=== PATIENT | female | born 1965 | race Caucasian/White ===

== ENCOUNTER 2022-12-10 17:43 | Emergency (ER) | payer MEDICAID, SELFPAY ==
[2022-12-10 17:48] VITALS: BP 149/105; PULSE 85; RESP 14; TEMP 36.1; O2SAT 96; BMI 40.4
[2022-12-10 18:00] VITALS: BP 127/78; PULSE 87; RESP 18; O2SAT 97
--- NOTE | 2022-12-10 18:25 | CRLHL7_ITS ---
For Patients: As a result of the Century Cures Act, medical imaging exams and procedure reports are released immediately into your electronic medical record. You may view this report before your referring provider. If you have questions, please contact your health care provider. INDICATION: Leg pain and swelling. TECHNIQUE: Ultrasound venous duplex lower right extremity. Compression venous exam was performed using lang-scale, color Doppler, and spectral Doppler analysis. COMPARISON: None. FINDINGS: Deep veins: Sonographic imaging demonstrates the right common femoral, deep femoral, superficial femoral, and the contralateral left common femoral veins to be fully compressible with normal color Doppler blood flow. The right popliteal, posterior tibial, and peroneal veins are noncompressible with evidence thrombus on grayscale imaging. Superficial veins: Greater saphenous vein is fully compressible. No popliteal cyst. IMPRESSION: Deep venous thrombosis involving the right popliteal, posterior tibial, and peroneal veins. Findings conveyed to Dr. Posadas on 12/10/2022 at 19:50. Dictated by Dominik Acharya MD @ 12/10/2022 8:10:33 PM (Electronically Signed)
--- NOTE | 2022-12-10 18:32 | ED.GENADULT ---
HPI - General Adult General Chief complaint: Lower Extremity Swelling Stated complaint: Possible blood clot, Mid L leg Time Seen by Provider: 12/10/22 17:56 History of Present Illness HPI narrative: This 57-year-old female comes in reporting pain in her right leg along the posterior aspect of her calf and just above her knee. She states that she has a history of 2 prior DVTs with pulmonary emboli. She reports that she is not taking Xarelto as has been prescribed for her. She has not had her prescriptions filled as she has had a change in caregivers and location of residence. She does not report any chest pain or shortness of breath. She states that she was on a long car ride recently from the [facility]. Related Data Home Medications Medication Instructions Recorded Confirmed gabapentin 300 mg capsule 600 mg PO TID 12/10/22 12/10/22 sertraline 50 mg tablet (Zoloft) 50 mg PO DAILY 12/10/22 12/10/22 Previous Rx's Medication Instructions Recorded levothyroxine 200 mcg tablet 200 mcg PO DAILY #30 tabs 12/10/22 (Synthroid) rivaroxaban 20 mg tablet (Xarelto) 20 mg PO QPM #30 tabs 12/10/22 Allergies Allergy/AdvReac Type Severity Reaction Status Date / Time latex Allergy Unknown Itching Verified 12/10/22 17:53 Review of Systems Status of ROS: Reports: 10 or more systems reviewed and unremarkable except as noted in History and below Narrative: Constitutional: No fevers, no weight gain or loss. Eyes: No discharge. No vision changes. HENT: No congestion, no sore throat, no ear pain. Cardiovascular: No chest pain, no palpitations. Respiratory: No shortness of breath, no wheezes, no cough. Gastrointestinal: No abdominal pain, no vomiting, no diarrhea. Genitourinary: No dysuria, no hematuria. Musculoskeletal: Normal range of motion. Right leg pain. Skin: No rashes, no pruritis. Neurological: No dizziness, weakness, sensory change, speech change. Endo/Heme/Allergies: No bruising or bleeding. No polydipsia. Pysch: no suicidality, no anxiety, no insomnia. All other systems reviewed and are negative. PFSH PFSH Social History Smoking Status: Former smoker How often do you have a drink containing alcohol: never AUDIT-C Alcohol total score: 0 Non-prescribed substance use: denies use Exam Narrative: Exam Narrative: Constitutional: Well-developed, well-nourished, no acute distress. HEENT: Normocephalic, atraumatic. Neck: Normal range of motion. Nontender. Supple. Heart: Regular. No murmurs. Normal rate. Intact distal pulses. Lungs: Clear to auscultation. No chest discomfort. No wheezes, rhonchi, or rales. Abdomen: Normal bowel sounds. Nontender. No rebound tenderness. Genitalia: Deferred. Back: No midline tenderness. Normal range of motion. Extremities: Normal range of motion. No injury. Pain in the right leg in the posterior aspect. There is no obvious sign of swelling or discoloration. Skin: Intact. No rash. Warm. No erythema or pallor. Neurologic: No altered sensation. No weakness. Alert and oriented. Psychiatric: No suicidality. No anxiety or depression. No insomnia. Nursing notes and vitals signs are reviewed. Const: Vital Signs, click to edit/add: Vital Signs - 24 hr 12/10/22 17:48 12/10/22 18:00 Temperature 97.0 F L Pulse Rate [Pulse Oximeter] 85 87 Respiratory Rate 14 18 Blood Pressure [Ri t Upper Arm] 149/105 H 127/78 Pulse Oximetry 96 97 Oxygen Delivery Me thod Room Air Room Air Course Vital Signs Vital signs: Initial Vital Signs Temperature 97.0 F L 12/10/22 17:48 Temperature Source Temporal Artery Scan 12/10/22 17:48 Pulse Rate 85 12/10/22 17:48 Pulse Rhythm Regular 12/10/22 17:48 Respiratory Rate 14 12/10/22 17:48 Blood Pressure 149/105 H 12/10/22 17:48 Blood Pressure Mean 119 12/10/22 17:48 Blood Pressure Position Supine 12/10/22 17:48 Pulse Oximetry 96 12/10/22 17:48 Oxygen Delivery Method Room Air 12/10/22 17:48 Vital Signs Temperature 97.0 F L 12/10/22 17:48 Pulse Rate 85 12/10/22 17:48 Respiratory Rate 14 12/10/22 17:48 Blood Pressure 149/105 H 12/10/22 17:48 Pulse Oximetry 96 12/10/22 17:48 Oxygen Delivery Method Room Air 03/28/23 17:48 Temperature 97.0 F L 12/10/22 17:48 Pulse Rate 87 12/10/22 18:00 Respiratory Rate 18 12/10/22 18:00 Blood Pressure 127/78 12/10/22 18:00 Pulse Oximetry 97 12/10/22 18:00 Oxygen Delivery Method Room Air 12/10/22 18:00 Medical Decision Making MDM Narrative Medical decision making narrative: This patient has a history of recurrent DVTs and pulmonary emboli. She comes in with pain in her right lower extremity and is suspecting a DVT as she has not been taking any of her medications. She recently moved here and has not established medical care. Ultrasound of the right lower extremity does show evidence of deep venous thrombus. The patient does have normal vital signs. There is no tachycardia, hypotension, hypoxia, or increased respiratory rate. I did discuss the role of the CT scan of her chest with IV contrast to rule out pulmonary embolism. She declined this test knowing that this does not change her treatment plan given the reassurance of her vital signs. She received a tablet of Eliquis here and a prescription for Xarelto going forward. I stressed the importance of connecting with a primary physician for ongoing management of this and her other medications. Discharge Plan Discharge Clinical Impression: Deep venous thrombosis Patient Disposition: Home, Self-Care Condition: Stable Additional Instructions: Take medication as prescribed. Follow up with MD for establishing care and management of medications. Return if worsening. Prescriptions: New Xarelto 20 mg tablet 20 mg PO QPM Qty: 30 2RF Rx Instructions: must administer with evening meal levothyroxine [Synthroid] 200 mcg tablet 200 mcg PO DAILY Qty: 30 2RF No Action gabapentin 300 mg capsule 600 mg PO TID sertraline [Zoloft] 50 mg tablet 50 mg PO DAILY Follow Up/Referrals: Provider,Not a Local [Primary Care Provider] - Stand Alone Forms: [employer] Info Instructions
[2022-12-10 20:19] VITALS: BP 128/87; PULSE 84; RESP 16; O2SAT 97
[2022-12-10] MEDS: APIXABAN 5 MG TABLET 10 MG PO (20:31)
== END 2022-12-10 20:36 | disposition home or self-care (01) ==
PROVIDERS: Emergency Provider Emergency Medicine Emergency Medical Services
DX: I82.401 Acute embolism and thrombosis of unspecified deep veins of right lower extremity (principal)
CPT/HCPCS: 93971; 99284; A9270

== ENCOUNTER 2022-12-18 10:05 | Outpatient (CLI) | payer MEDICAID, SELFPAY | END 2022-12-18 10:06 | disposition home or self-care (01) | LOC: AMB 12-22 14:25 | PROVIDERS: PCP Student in an Organized Health Care Education/Training Program; Visit Provider Family Medicine | DX: R06.09 Other forms of dyspnea (principal); I26.99 Other pulmonary embolism without acute cor pulmonale | CPT/HCPCS: A0425; A0427 ==

== ENCOUNTER 2022-12-18 10:31 | Emergency (ER) | payer MEDICAID, SELFPAY ==
[2022-12-18] VITALS (18 sets, daily range): BP systolic 104–153; BP diastolic 57–105; PULSE 84–94; RESP 16; TEMP 35.8; O2SAT 93–97
--- NOTE | 2022-12-18 10:57 | CRLHL7_ITS ---
For Patients: As a result of the Century Cures Act, medical imaging exams and procedure reports are released immediately into your electronic medical record. You may view this report before your referring provider. If you have questions, please contact your health care provider. INDICATION: Follow-up PE. COMPARISON: CT angiogram of the chest performed on 12/16/2022 at [facility]. TECHNIQUE: CT angiogram protocol of the chest was performed following the intravenous administration of 95 mL of Isovue-370. FINDINGS: Bilateral lower lobe pulmonary emboli are unchanged. This includes emboli within the right lower lobe intralobar artery extending into the right lower lobe and right middle lobe segmental arteries. Small emboli within the left lower lobe subsegmental arteries are redemonstrated. No new pulmonary embolus is identified. The heart is normal in size. No CT scan evidence of right heart strain is noted. The thoracic aorta is unremarkable. The mediastinum has a normal appearance. No pathologically enlarged lymph nodes are identified within the chest. There are two 5 millimeter nodules within the right middle lobe (images 83 and 107, series 5). There is a 6.4 millimeter average diameter nodule within the lingula (image 106, series 5). The lungs are otherwise clear. No pulmonary consolidation. Limited views of the upper abdomen are unremarkable. No acute bone or joint abnormality is identified. Impression : 1. Unchanged bilateral pulmonary arterial emboli. 2. Bilateral pulmonary nodules with an average diameter nodule measuring 6.4 millimeters within the lingula. For patients at either low risk or high risk of pulmonary malignancy a follow-up CT scan of the chest is recommended in 3-6 months as per Fleischner criteria guidelines. Please note that all CT scans at this facility use dose modulation, iterative reconstruction, and/or weight-based dosing when appropriate to reduce radiation dose to as low as reasonably achievable. Dictated by Scotty Estevez MD @ 12/18/2022 1:01:48 PM (Electronically Signed)
--- NOTE | 2022-12-18 11:04 | ED_ITS ---
HPI - General Adult General Time Seen by Provider: 11:04 Date Seen: 12/18/22 Chief complaint: Shortness of Breath/Dyspnea Stated complaint: Bilateral PEs Time Seen by Provider: 12/18/22 10:50 Source: patient Mode of arrival: EMS Limitations: physical limitation History of Present Illness HPI narrative: The patient is a 57-year-old white female who is obese, has bipolar disorder, and was diagnosed with DVT in the ER recently as well as PE in the clinic. The patient reports she went back to clinic today with shortness of breath and had a near syncopal episode the clinic and was brought by ambulance to the hospital the patient is been very anxious regarding her situation. She wonders why ?my blood is trying to kill me?. She is awake alert nonsuicidal, non homicidal, her mental status is appropriate. The patient has started Eliquis at treatment dose. She was attempted to be admitted to the hospital service at [place] but this was declined due to the patient's hemodynamic stability. She has no lightheadedness or dizziness at present, her vital signs look reassuring at this time Related Data Home Medications Medication Instructions Recorded Confirmed gabapentin 300 mg capsule 600 mg PO TID 12/10/22 12/10/22 sertraline 50 mg tablet (Zoloft) 50 mg PO DAILY 12/10/22 12/10/22 Previous Rx's Medication Instructions Recorded levothyroxine 200 mcg tablet 200 mcg PO DAILY #30 tabs 12/10/22 (Synthroid) rivaroxaban 20 mg tablet (Xarelto) 20 mg PO QPM #30 tabs 12/10/22 Allergies Allergy/AdvReac Type Severity Reaction Status Date / Time latex Allergy Unknown Itching Verified 12/10/22 17:53 Review of Systems Status of ROS: Reports: 6 or more systems reviewed and unremarkable except as noted in History and below PFSH PFS Social History Smoking Status: Former smoker How often do you have a drink containing alcohol: never AUDIT-C Alcohol total score: 0 Non-prescribed substance use: denies use Exam Narrative: Exam Narrative: Objective: Vital signs unremarkable In general patient talks in even and nonlabored sentences she is somewhat dramatic but he is awake alert oriented in no distress now no cyanosis Neck is supple Chest clear Heart rhythm regular 2/6 systolic murmur Abdomen obese benign nontender Extremities without edema neurologic nonfocal good peripheral perfusion noted Const: Vital Signs, click to edit/add: Vital Signs - 24 hr 12/18/22 10:35 12/18/22 11:16 12/18/22 10:43 Temperature 96.5 F L Pulse Rate 87 Pulse Rate [Pulse Oximeter] 94 Respiratory Rate 16 Blood Pressure 125/57 L Blood Pressure [Ri ght Upper Arm] 124/92 H Pulse Oximetry 97 96 93 Oxygen Delivery Me thod Room Air 12/18/22 10:44 12/18/22 10:46 12/18/22 11:01 Temperature Pulse Rate 86 93 92 Pulse Rate [Pulse Oximeter] Respiratory Rate Blood Pressure 104/67 Blood Pressure [Ri ght Upper Arm] Pulse Oximetry 94 94 95 Oxygen Delivery Me thod 12/18/22 11:01 12/18/22 11:15 12/18/22 11:37 Temperature Pulse Rate 87 84 89 Pulse Rate [Pulse Oximeter] Respiratory Rate Blood Pressure Blood Pressure [Ri ght Upper Arm] Pulse Oximetry 95 95 95 Oxygen Delivery Me thod 12/18/22 12:17 12/18/22 11:46 12/18/22 12:01 Temperature Pulse Rate 85 87 Pulse Rate [Pulse Oximeter] Respiratory Rate 16 Blood Pressure Blood Pressure [Ri ght Upper Arm] Pulse Oximetry 95 95 Oxygen Delivery Me thod 12/18/22 12:02 12/18/22 12:15 Temperature Pulse Rate 86 88 Pulse Rate [Pulse Oximeter] Respiratory Rate Blood Pressure 153/105 H Blood Pressure [Ri ght Upper Arm] Pulse Oximetry 94 94 Oxygen Delivery Me thod Course Vital Signs Vital signs: Initial Vital Signs Temperature 96.5 F L 12/18/22 10:35 Temperature Source Temporal Artery Scan 12/18/22 10:35 Pulse Rate 94 12/18/22 10:35 Respiratory Rate 16 12/18/22 10:35 Blood Pressure 124/92 H 12/18/22 10:35 Blood Pressure Mean 102 12/18/22 10:35 Blood Pressure Position Sitting 12/18/22 10:35 Pulse Oximetry 97 12/18/22 10:35 Oxygen Delivery Method Room Air 12/18/22 10:35 Vital Signs Temperature 96.5 F L 12/18/22 10:35 Pulse Rate 94 12/18/22 10:35 Respiratory Rate 16 12/18/22 10:35 Blood Pressure 124/92 H 12/18/22 10:35 Pulse Oximetry 97 12/18/22 10:35 Oxygen Delivery Method Room Air 12/18/22 10:35 Temperature 96.5 F L 12/18/22 10:35 Pulse Rate 88 12/18/22 12:15 Respiratory Rate 16 12/18/22 12:17 Blood Pressure 153/105 H 12/18/22 12:02 Pulse Oximetry 94 12/18/22 12:15 Oxygen Delivery Method Room Air 12/18/22 10:35 Medical Decision Making MDM Narrative Medical decision making narrative: 57 year white female with bipolar disorder obesity and a history of DVTs in the past x4. The patient at this point as a DVT and bilateral pulmonary emboli her chart was reviewed from [facility]. Her CT scan report was reviewed. She has been started on appropriate Eliquis. Prior to that she had been on Xarelto for several years. She recently had a long trip back from [place] and may have been the source of the DVT. The patient at this point appears hemodynamically stable, does not have chest pain, does not appear markedly short of breath, her O2 sat is excellent at 97%. However given her presentation I think that repeating a CT scan to make sure she has not had increasing clot burden would be appropriate, as well as a troponin lab studies electrolytes, IV fluid. An anxiolytics would be helpful as well as she is quite anxious. She does suffer from bipolar, depression and anxiety. Disposition pending findings above Addendum: The patient's EKG shows normal sinus rhythm no acute ST T wave changes by my read, her chest CT scan shows no change in her pulmonary emboli no worsening. The patient shows no evidence of heart strain. She does have some pulmonary nodules that need follow-up in 3-[address] scan. At this point her labs look reassuring I think she can be discharged home she is much more stable after anxiety is controlled the Ativan. She will follow up with regular doctor next few days for reassessment. Return to ED sooner problems or concerns Lab Data Labs: Lab Results 12/18/22 Range/Units 11:12 WBC 8.12 (4.50-11.00) K/uL RBC 4.94 (4.00-5.20) m/uL Hgb 14.9 (12.0-16.0) gm/dL Hct 45.8 (33.0-51.0) % MCV 93 (80-100) fL MCH 30 (26-34) pg MCHC 33 (32-36) gm/dL RDW Coeff of Kemal 12.5 (11.5-15.5) % Plt Count 340 (140-440) K/uL Neut % (Auto) 61.8 (42.0-72.0) % Lymph % (Auto) 24.4 (20-44) % [place] % (Auto) 10.5 (0.0-11.0) % Eos % (Auto) 2.7 (0.0-7.0) % Baso % (Auto) 0.6 (0.0-3.0) % Neut # (Auto) 5.02 (1.7-7.0) K/uL Lymph # (Auto) 1.98 (0.90-2.90) K/uL [place] # (Auto) 0.90 (0.00-0.90) K/UL Eos # (Auto) 0.22 (0.00-0.50) K/uL Baso # (Auto) 0.05 (0.00-0.30) K/uL Sodium 138 (135-149) mmol/L Potassium 4.3 (3.6-5.1) mmol/L Chloride 107 (96-114) mmol/L Carbon Dioxide 25 (20-32) mmol/L BUN 11 (7-30) mg/dL Creatinine 0.7 (0.5-1.5) mg/dL Estimated GFR 101 ml/min Glucose 84 (60-115) mg/dL Calcium 8.6 (8.4-10.6) mg/dL Troponin I < 0.01 L (0.01-0.04) ng/mL Discharge Plan Discharge Clinical Impression: Deep venous thrombosis, Anxiety, Pulmonary embolism, Multiple pulmonary nodules Patient Disposition: Home w/ Parent or Adult Condition: Improved Additional Instructions: Light activity, continue her blood thinner, continue home meds as she has. Continue her anxiety medication. Follow up with regular doctor next 3-5 days. Need to recheck CT scan of the pulmonary nodules noted on the CT scan today within the next 3-6 months. Recommend talking to her regular doctor about this in your follow-up visit. Activity Level: Light activity Discharge Diet: Regular Prescriptions: No Action gabapentin 300 mg capsule 600 mg PO TID sertraline [Zoloft] 50 mg tablet 50 mg PO DAILY Xarelto 20 mg tablet 20 mg PO QPM Qty: 30 2RF Rx Instructions: must administer with evening meal levothyroxine [Synthroid] 200 mcg tablet 200 mcg PO DAILY Qty: 30 2RF Follow Up/Referrals: Provider,Not a Local [Referring] - Stand Alone [facility]
[2022-12-18] MEDS: LORazepam 2 MG/ML inj 1 MG IVP (11:15)
[2022-12-18] MEDS: 0.9 % SODIUM CHLORIDE 500 ML 500 ML IV (11:15)
[2022-12-18 11:41] LABS: Basophils Absolute Auto 0.05 K/uL (0.00-0.30); Basophils Percent Auto 0.6 % (0.0-3.0); Eosinophils Absolute Auto 0.22 K/uL (0.00-0.50); Eosinophils Percent Auto 2.7 % (0.0-7.0); Hematocrit 45.8 % (33.0-51.0); Hemoglobin* 14.9 gm/dL (12.0-16.0); Lymphocytes Absolute Auto 1.98 K/uL (0.90-2.90); Lymphocytes Percent Auto 24.4 % (20-44); Mean Corpuscular HGB Conc 33 gm/dL (32-36); Mean Corpuscular Hemoglobin 30 pg (26-34); Mean Corpuscular Volume 93 fL (80-100); Monocytes Percent Auto 10.5 % (0.0-11.0); Neutrophils Absolute Auto 5.02 K/uL (1.7-7.0); Neutrophils Percent Auto 61.8 % (42.0-72.0); Platelet Count* 340 K/uL (140-440); RDW Coefficient of Variation % 12.5 % (11.5-15.5); Red Blood Count 4.94 m/uL (4.00-5.20); White Blood Count* 8.12 K/uL (4.50-11.00)
[2022-12-18 11:45] LABS: Chloride* 107 mmol/L (96-114); Potassium* 4.3 mmol/L (3.6-5.1); Sodium* 138 mmol/L (135-149)
[2022-12-18 11:46] LABS: Slide Review Reflex No
[2022-12-18 11:48] LABS: Blood Urea Nitrogen* 11 mg/dL (7-30); Calcium* 8.6 mg/dL (8.4-10.6); Carbon Dioxide* 25 mmol/L (20-32); Creatinine* 0.7 mg/dL (0.5-1.5); Estimated Glomerular Filt Rate 101 ml/min; Glucose* 84 mg/dL (60-115)
[2022-12-18] MEDS: ACETAMINOPHEN 500 MG TABLET 1000 MG PO (11:48)
[2022-12-18 12:00] LABS: Troponin I* < 0.01 ng/mL (0.01-0.04)
== END 2022-12-18 13:30 | disposition home or self-care (01) ==
PROVIDERS: Emergency Provider Family Medicine; PCP Student in an Organized Health Care Education/Training Program
DX: I82.401 Acute embolism and thrombosis of unspecified deep veins of right lower extremity (principal); F41.9 Anxiety disorder, unspecified; I26.99 Other pulmonary embolism without acute cor pulmonale
CPT/HCPCS: 36415; 71260; 80048; 84484; 85025; 93005; 94761; 96374; 99284; 99285; A9270; J2060; J7120; Q9967

== ENCOUNTER 2023-03-17 20:16 | Outpatient (CLI) | payer MEDICAID, SELFPAY | END 2023-03-17 20:17 | disposition home or self-care (01) | LOC: SLEEP 20:18 | PROVIDERS: PCP Family Medicine; Visit Provider Internal Medicine | DX: G47.33 Obstructive sleep apnea (adult) (pediatric) (principal) | CPT/HCPCS: 95811 ==

== ENCOUNTER 2023-03-24 11:18 | Emergency (ER) | payer MEDICAID, SELFPAY ==
[2023-03-24 11:25] VITALS: BP 137/86; PULSE 87; RESP 18; TEMP 36.6; O2SAT 96; BMI 23.1
--- NOTE | 2023-03-24 11:48 | ED_ITS ---
HPI - General Adult General Chief complaint: GI Bleed Stated complaint: black stool Time Seen by Provider: 03/24/23 11:28 Source: patient Mode of arrival: ambulatory Limitations: no limitations History of Present Illness HPI narrative: 57-year-old female coming in today complaining of dark, tarry stools that started this morning. Patient is on Coumadin for recurrent DVTs and PEs. States that she had a colonoscopy last in 2014. She is not dizzy or lightheaded. Feels slightly nauseated. No vomiting. No chest pain or shortness of breath. States she has had 5 bowel movements today which is unusual for her, the last 2 have been dark. She denies any abdominal pain. Patient's past medical history significant for depression, anxiety, PCOS, bipolar disorder, neuropathy, Jamison's thyroiditis, migraine headache, asthma. Her medications were reviewed. Past surgical history includes a tonsillectomy, pilonidal cyst I&D trauma C- section, tubal ligation, hysterectomy and bilateral salpingo oophorectomy, abdominal hernia repair, and 11 diagnostic laparoscopies with lysis of adhesions according to the patient. She did have a hemorrhage in 1993 that required 3 units of blood. She has had recurrent DVTs and PEs throughout the years with her 1st DVT in 1998. She was anticoagulated on Xarelto and Eliquis when she had recurrent DVT and PEs. Her last bout of this was in November of this year when she had bilateral PEs and bilateral DVTs diagnosis while she was anticoagulated. In December of this year she was switched to Coumadin. Related Data Home Medications Medication Instructions Recorded Confirmed gabapentin 300 mg capsule 900 mg PO Q12H 12/10/22 03/24/23 sertraline 50 mg tablet (Zoloft) 50 mg PO DAILY 12/10/22 03/24/23 albuterol 90 mcg/actuation aerosol mcg inhalation DAILY PRN 03/24/23 inhaler aripiprazole 10 mg tablet (Abilify) 10 mg PO DAILY 03/24/23 03/24/23 arkane 03/24/23 budesonide-formoterol HFA 160 1 inh inhalation BID 03/24/23 03/24/23 mcg-4.5 mcg/actuation aerosol inhaler (Symbicort) levocetirizine 5 mg tablet (24HR 5 mg PO DAILY 03/24/23 03/24/23 Allergy Relief) warfarin 4 mg tablet 2 mg PO DAILY 03/24/23 03/24/23 Previous Rx's Medication Instructions Recorded levothyroxine 200 mcg tablet 200 mcg PO DAILY #30 tabs 12/10/22 (Synthroid) Allergies Allergy/AdvReac Type Severity Reaction Status Date / Time latex Allergy Unknown Itching Verified 03/24/23 11:30 environmental Allergy Mild Uncoded 03/24/23 11:30 Review of Systems Status of ROS: Reports: 6 or more systems reviewed and unremarkable except as noted in History and below PFSH [facility] Social History Smoking Status: Former smoker Do you use any of these nicotine containing products: None How often do you have a drink containing alcohol: never AUDIT-C Alcohol total score: 0 Non-prescribed substance use: denies use service: No Exam Narrative: Exam Narrative: Overweight, well-developed patient in no acute distress. Alert and oriented. Answers questions appropriately. Mood and affect are appropriate. Thoughts are goal oriented and rational. No tangential or magical thinking noted. Patient speaks in full sentences without needing to catch her breath. HEENT: Normocephalic atraumatic. Pupils are equally round reactive to light. Extraocular muscles are intact. Conjunctivae are moist without any icterus noted. She does not appear pale. Moist mucous membranes. Neck is soft. Cardiovascular: Heart is regular rate and rhythm S1 and S2 are present without any murmurs. Lungs: Clear to auscultation bilaterally no wheezes rhonchi or rales are appreciated. Patient takes deep breaths without any discomfort. Abdomen: Soft and nontender nondistended with normal bowel sounds. Extremities: Bilateral lower extremities are without edema. Skin: Well perfused without any obvious rashes. Const: Vital Signs, click to edit/add: Vital Signs - 24 hr 03/24/23 11:25 03/24/23 13:10 03/24/23 14:26 Temperature 97.8 F Pulse Rate [Right Pulse Oximeter] 87 80 75 Respiratory Rate 18 18 20 Blood Pressure [Ri ght Forearm] 124/72 120/84 Blood Pressure [Ri ght Upper Arm] 137/86 Pulse Oximetry 96 96 95 Oxygen Delivery Me thod Room Air Room Air Room Air Course Course Hospital Course: CBC and chemistries are unremarkable. INR is therapeutic. Patient was not able to give a stool sample while she was here and rectal exam did not reveal any stool in the rectal vault. However there were small droplets of stool on my gloved finger, and these droplets were indeed black. Patient received IV Protonix. Given the patient's complex medical history, my inability stop her anticoagulation given this history and her current active bleed, I do think that she would be best served at hospital with specialists including GI and Hematology. I did speak to Dr. Gomez at [facility] who will be accepting the patient for transfer. Vital Signs Vital signs: Initial Vital Signs Temperature 97.8 F 03/24/23 11:25 Temperature Source Temporal Artery Scan 03/24/23 11:25 Pulse Rate 87 03/24/23 11:25 Respiratory Rate 18 03/24/23 11:25 Blood Pressure 137/86 03/24/23 11:25 Blood Pressure Mean 103 03/24/23 11:25 Blood Pressure Position Sitting 03/24/23 11:25 Pulse Oximetry 96 03/24/23 11:25 Oxygen Delivery Method Room Air 03/24/23 11:25 Vital Signs Temperature 97.8 F 03/24/23 11:25 Pulse Rate 87 03/24/23 11:25 Respiratory Rate 18 03/24/23 11:25 Blood Pressure 137/86 03/24/23 11:25 Pulse Oximetry 96 03/24/23 11:25 Oxygen Delivery Method Room Air 03/24/23 11:25 Temperature 97.8 F 03/24/23 11:25 Pulse Rate 75 03/24/23 14:26 Respiratory Rate 20 03/24/23 14:26 Blood Pressure 120/84 03/24/23 14:26 Pulse Oximetry 95 03/24/23 14:26 Oxygen Delivery Method Room Air 03/24/23 14:26 Medical Decision Making MDM Narrative Medical decision making narrative: 57-year-old female with GI bleed on anticoagulation that cannot be stopped given her high risk of clotting. Patient will be transferred to [place] for further management. Lab Data Lab results reviewed: Yes I reviewed the patient's lab results Labs: Lab Results 03/24/23 03/24/23 Range/Units 12:05 14:23 WBC 7.56 (4.50-11.00) K/uL RBC 4.69 (4.00-5.20) m/uL Hgb 13.6 13.1 (12.0-16.0) gm/dL Hct 42.5 (33.0-51.0) % MCV 91 (80-100) fL MCH 29 (26-34) pg MCHC 32 (32-36) gm/dL RDW Coeff of Kemal 13.0 (11.5-15.5) % Plt Count 238 (140-440) K/uL Neut % (Auto) 61.3 (42.0-72.0) % Lymph % (Auto) 25.1 (20-44) % [place] % (Auto) 9.7 (0.0-11.0) % Eos % (Auto) 3.0 (0.0-7.0) % Baso % (Auto) 0.8 (0.0-3.0) % Neut # (Auto) 4.63 (1.7-7.0) K/uL Lymph # (Auto) 1.90 (0.90-2.90) K/uL [place] # (Auto) 0.70 (0.00-0.90) K/UL Eos # (Auto) 0.23 (0.00-0.50) K/uL Baso # (Auto) 0.06 (0.00-0.30) K/uL Abs Immat Gran (auto) 0.01 (0.00-0.30) K/uL Imm/Tot Granulo (auto) 0.1 % INR 2.38 H (0.91-1.10) Sodium 142 (135-149) mmol/L Potassium 4.0 (3.6-5.1) mmol/L Chloride 105 (96-114) mmol/L Carbon Dioxide 33 H (20-32) mmol/L BUN 14 (7-30) mg/dL Creatinine 0.8 (0.5-1.5) mg/dL Estimated Creat Clear 72.63 Estimated GFR 86 ml/min Glucose 92 (60-115) mg/dL Calcium 9.3 (8.4-10.6) mg/dL Discharge Plan Discharge Clinical Impression: Acute GI bleeding Patient Disposition: [facility] Condition: Stable Prescriptions: No Action gabapentin 300 mg capsule 900 mg PO Q12H sertraline [Zoloft] 50 mg tablet 50 mg PO DAILY levothyroxine [Synthroid] 200 mcg tablet 200 mcg PO DAILY Qty: 30 2RF warfarin 4 mg tablet 2 mg PO DAILY arkane Patient Comments: for tremors levocetirizine [24HR Allergy Relief] 5 mg tablet 5 mg PO DAILY aripiprazole [Abilify] 10 mg tablet 10 mg PO DAILY albuterol 90 mcg/actuation aerosol inhalation DAILY PRN Patient Comments: asthma budesonide-formoterol [Symbicort] 160-4.5 mcg/actuation HFA aerosol inhaler 1 inh inhalation BID Stand Alone Forms: [facility] Info Instructions
[2023-03-24 12:18] LABS: Basophils Absolute Auto 0.06 K/uL (0.00-0.30); Basophils Percent Auto 0.8 % (0.0-3.0); Eosinophils Absolute Auto 0.23 K/uL (0.00-0.50); Hematocrit 42.5 % (33.0-51.0); Hemoglobin* 13.6 gm/dL (12.0-16.0); Immature Granulocytes Abs Auto 0.01 K/uL (0.00-0.30); Immature Granulocytes Pct Auto 0.1 %; Lymphocytes Percent Auto 25.1 % (20-44); Mean Corpuscular HGB Conc 32 gm/dL (32-36); Mean Corpuscular Hemoglobin 29 pg (26-34); Mean Corpuscular Volume 91 fL (80-100); Monocytes Percent Auto 9.7 % (0.0-11.0); Neutrophils Absolute Auto 4.63 K/uL (1.7-7.0); Neutrophils Percent Auto 61.3 % (42.0-72.0); Platelet Count* 238 K/uL (140-440); Red Blood Count 4.69 m/uL (4.00-5.20); White Blood Count* 7.56 K/uL (4.50-11.00)
[2023-03-24 12:19] LABS: Slide Review Reflex No
[2023-03-24 12:43] LABS: INR 2.38 (0.91-1.10); Prothrombin Time 27.1 Seconds
[2023-03-24] MEDS: PANTOPRAZOLE SODIUM 40 MG INJ 80 MG IVP (12:45)
[2023-03-24 13:10] VITALS: BP 124/72; PULSE 80; RESP 18; O2SAT 96
[2023-03-24] MEDS: ACETAMINOPHEN 500 MG TABLET 1000 MG PO (13:14)
[2023-03-24 13:47] LABS: Chloride* 105 mmol/L (96-114); Sodium* 142 mmol/L (135-149)
[2023-03-24 13:50] LABS: Blood Urea Nitrogen* 14 mg/dL (7-30); Carbon Dioxide* 33 mmol/L (20-32); Creatinine* 0.8 mg/dL (0.5-1.5); Est. Creatinine Clearance* 72.63; Estimated Glomerular Filt Rate 86 ml/min; Glucose* 92 mg/dL (60-115)
[2023-03-24 13:51] LABS: Calcium* 9.3 mg/dL (8.4-10.6)
[2023-03-24 14:26] VITALS: BP 120/84; PULSE 75; RESP 20; O2SAT 95
[2023-03-24 14:34] LABS: Hemoglobin* 13.1 gm/dL (12.0-16.0)
--- NOTE | 2023-03-24 16:28 | ED.NURSE ---
[facility] called and it won't be until 1900 for transfer. report was given to Tala evans.
[2023-03-24 17:02] VITALS: BP 122/74; PULSE 73; RESP 18; TEMP 36.1; O2SAT 96
[2023-03-24 17:21] LABS: Hemoglobin* 12.7 gm/dL (12.0-16.0)
[2023-03-24 19:05] VITALS: BP 131/79; PULSE 78; RESP 18; TEMP 36.3; O2SAT 95
[2023-03-24 19:21] LABS: Hemoglobin* 13.2 gm/dL (12.0-16.0)
== END 2023-03-24 20:50 | disposition short-term general hospital (02) ==
PROVIDERS: Emergency Provider Family Medicine; PCP Family Medicine
DX: K92.2 Gastrointestinal hemorrhage, unspecified (principal)
CPT/HCPCS: 36415; 80048; 82270; 85018; 85025; 85610; 96374; 99284; A9270; C9113

== ENCOUNTER 2023-03-24 20:47 | Outpatient (CLI) | payer MEDICAID, SELFPAY | END 2023-03-24 20:48 | disposition home or self-care (01) | LOC: AMB 03-25 10:04 | PROVIDERS: PCP Family Medicine; Visit Provider Family Medicine | DX: K92.1 Melena (principal) | CPT/HCPCS: A0425; A0428 ==

== ENCOUNTER 2023-09-17 13:19 | Emergency (ER) | payer BC, SELFPAY ==
[2023-09-17 13:36] VITALS: BP 133/83; PULSE 110; RESP 20; TEMP 36.4; O2SAT 96; BMI 38.1
--- NOTE | 2023-09-17 13:40 | ED.GENADULT ---
HPI - General Adult General Chief complaint: Extremity Pain/Injury, Lower Stated complaint: Possible blood clot R knee Time Seen by Provider: 09/17/23 13:22 History of Present Illness HPI narrative: Hx multiple DVT & PEs. RIGHT popliteal vein per patient. Symptoms started x a few weeks ago but was though to be her statin that was causing muscle cramps. After stopping, symptoms still present and now worsening. Positive Kaila' s sign. Currently on warfarin d/t clot history. 58-year-old woman presenting to the emergency department with complaint of a pain behind her right knee that seems to be extending up a little upward and medially as she gestures. This has been going on for a few weeks. No injury. Question was whether not it was related to a statin but symptoms have continued. Is anticoagulated with Coumadin for DVTs and INR a week ago she says was 2.3. Does have a history of recurrent and breakthrough DVTs. In the 1st experienced DVT/PE was initiated on Coumadin. This was then discontinued after course. I believe then in 2013 or 2014 with pulmonary embolus and DVTs was started on NOAC. Then with breakthrough returned to Coumadin. She notes having had asymptomatic pulmonary emboli. Currently she is without shortness of breath or chest pain. She reports having seen Hematology at 1 point in clinic in [place] and saw ?the clot doctor? at [place]. Apparently testing for coagulopathies was negative she reports. Related Data Home Medications Medication Instructions Recorded Confirmed gabapentin 300 mg capsule 100 mg PO TID 12/10/22 09/17/23 sertraline 50 mg tablet (Zoloft) 50 mg PO DAILY 12/10/22 09/17/23 albuterol 90 mcg/actuation aerosol mcg inhalation DAILY PRN 03/24/23 inhaler budesonide-formoterol HFA 160 1 inh inhalation BID 03/24/23 09/17/23 mcg-4.5 mcg/actuation aerosol inhaler (Symbicort) levocetirizine 5 mg tablet (24HR 5 mg PO DAILY 03/24/23 09/17/23 Allergy Relief) warfarin 4 mg tablet 2 mg PO DAILY 03/24/23 09/17/23 cholecalciferol (vitamin D3) .ROUTE 09/17/23 ezetimibe 10 mg tablet (Zetia) 10 mg PO DAILY 09/17/23 09/17/23 magnesium glycinate 100 mg tablet 100 mg PO DAILY 09/17/23 09/17/23 (Mag Glycinate) montelukast 10 mg tablet 10 mg PO DAILY 09/17/23 09/17/23 (Singulair) omeprazole 40 mg capsule,delayed 40 mg PO DAILY 09/17/23 09/17/23 release Previous Rx's Medication Instructions Recorded levothyroxine 200 mcg tablet 200 mcg PO DAILY #30 tabs 12/10/22 (Synthroid) enoxaparin 120 mg/0.8 mL 110 mg (0.7333 mL) subcut Q12H 09/17/23 subcutaneous syringe (Lovenox) Recurrent blood clots 30 days #43.998 mL Allergies Allergy/AdvReac Type Severity Reaction Status Date / Time latex Allergy Unknown Itching Verified 09/17/23 13:31 Penicillins AdvReac Intermediate Abdominal Verified 09/17/23 13:31 Pain environmental Allergy Mild Uncoded 03/24/23 11:30 Review of Systems Status of ROS: Reports: 6 or more systems reviewed and unremarkable except as noted in History and below PFSH PFS Social History Smoking Status: Former smoker Do you use any of these nicotine containing products: None How often do you have a drink containing alcohol: never AUDIT-C Alcohol total score: 0 Non-prescribed substance use: denies use service: No Exam Narrative: Exam Narrative: Pleasant. NAD. Skin is warm and dry. There is a prominent noninflamed varicose vein over the right patella. She has minimal discomfort to palpation in the proximal right calf. I do not appreciate swelling of the joint itself. No erythematous changes. Lungs appear to be clear. She is breathing easily. Trace dependent edema in both lower legs. Heart is in an elevated rate, not tachycardic, on auscultation. Appears to be some ectopic beats. Const: Vital Signs, click to edit/add: Vital Signs - 24 hr 09/17/23 13:36 Temperature 97.5 F L Pulse Rate [Pulse Oximeter] 110 H Respiratory Rate 20 Blood Pressure [Ri ght Upper Arm] 133/83 Pulse Oximetry 96 Oxygen Delivery Me thod Room Air Documenting provider has reviewed patient's vital signs: yes Course Vital Signs Vital signs: Initial Vital Signs Temperature 97.5 F L 09/17/23 13:36 Temperature Source Temporal Artery Scan 09/17/23 13:36 Pulse Rate 110 H 09/17/23 13:36 Pulse Rhythm Regular 09/17/23 13:36 Pulse Strength 3+ Normal 09/17/23 13:36 Respiratory Rate 20 09/17/23 13:36 Blood Pressure 133/83 09/17/23 13:36 Blood Pressure Mean 99 09/17/23 13:36 Blood Pressure Position Sitting 09/17/23 13:36 Pulse Oximetry 96 09/17/23 13:36 Oxygen Delivery Method Room Air 09/17/23 13:36 Vital Signs Temperature 97.5 F L 09/17/23 13:36 Pulse Rate 110 H 09/17/23 13:36 Respiratory Rate 20 09/17/23 13:36 Blood Pressure 133/83 09/17/23 13:36 Pulse Oximetry 96 09/17/23 13:36 Oxygen Delivery Method Room Air 09/17/23 13:36 Temperature 97.5 F L 09/17/23 13:36 Pulse Rate 110 H 09/17/23 13:36 Respiratory Rate 20 09/17/23 13:36 Blood Pressure 133/83 09/17/23 13:36 Pulse Oximetry 96 09/17/23 13:36 Oxygen Delivery Method Room Air 09/17/23 13:36 Medications Administered Medications: Discontinued Medications Generic Name Dose Route Start Last Admin Trade Name Freq PRN Reason Stop Dose Admin Enoxaparin Sodium 110 mg 09/17/23 17:29 09/17/23 17:56 Enoxaparin 120 Mg/0.8 Ml Inj SUBCUT 09/17/23 17:30 110 mg ONCE ONE Administration Medical Decision Making [facility] Narrative Medical decision making narrative: Given history it would be prudent to scan. Almost sounds like Kirk's cyst frankly but she has had breakthrough clots before. Does not have any respiratory symptoms at this time. Does not seem to have a musculoskeletal injury otherwise. Arthritis would be in differential but that also seems less likely. Will check an INR. 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 Radiology over-read as below FINDINGS: Sonographic imaging demonstrates the right common femoral, deep femoral, superficial femoral vein to be fully compressible with normal color Doppler blood flow. Within the right popliteal vein there is occlusive hypoechoic thrombus extending into the peroneal veins. Posterior tibial veins show normal compressibility. IMPRESSION: 1. Acute deep venous thrombosis involving the right popliteal vein extending into the peroneal veins. 2. Remaining deep veins of the right lower extremity are widely patent. Little complicated here. I did discuss with hematology on-call through [facility] and would at this point recommend returning to Lovenox. Might need Pradaxa in the future. Ms. Simpson is comfortable and familiar with Lovenox. Will give a dose 1 milligram/kilogram here in the emergency department prior to departure. Will add labs though as initiating Lovenox. Confirming good renal function and hemoglobin and platelets. See patient discharge plan Lab Data Lab results reviewed: Yes I reviewed the patient's lab results Labs: Lab Results 09/17/23 Range/Units 15:50 WBC 9.98 (4.50-11.00) K/uL RBC 5.06 (4.00-5.20) m/uL Hgb 14.2 (12.0-16.0) gm/dL Hct 44.7 (33.0-51.0) % MCV 88 (80-100) fL MCH 28 (26-34) pg MCHC 32 (32-36) gm/dL RDW Coeff of Kemal 13.9 (11.5-15.5) % Plt Count 352 (140-440) K/uL Neut % (Auto) 62.4 (42.0-72.0) % Lymph % (Auto) 23.9 (20-44) % [place] % (Auto) 10.1 (0.0-11.0) % Eos % (Auto) 2.3 (0.0-7.0) % Baso % (Auto) 0.8 (0.0-3.0) % Neut # (Auto) 6.22 (1.7-7.0) K/uL Lymph # (Auto) 2.39 (0.90-2.90) K/uL [place] # (Auto) 1.00 H (0.00-0.90) K/UL Eos # (Auto) 0.23 (0.00-0.50) K/uL Baso # (Auto) 0.08 (0.00-0.30) K/uL Abs Immat Gran (auto) 0.05 (0.00-0.30) K/uL Imm/Tot Granulo (auto) 0.5 % INR 2.45 H (0.91-1.10) Sodium 142 (135-149) mmol/L Potassium 3.6 (3.6-5.1) mmol/L Chloride 107 (96-114) mmol/L Carbon Dioxide 25 (20-32) mmol/L Anion Gap 10 (7-15) mEq/L BUN 9 (7-30) mg/dL Creatinine 1.0 (0.5-1.5) mg/dL Estimated Creat Clear 59.63 Estimated GFR 65 ml/min Glucose 118 H (60-115) mg/dL Calcium 9.4 (8.4-10.6) mg/dL Total Bilirubin 0.4 (0.1-1.5) mg/dL Direct Bilirubin 0.1 (0.0-0.5) mg/dL AST 28 (12-35) U/L ALT 29 (4-35) U/L Alkaline Phosphatase 118 (40-150) U/L Total Protein 7.2 (6.0-8.3) g/dL Albumin 4.5 (3.3-5.0) g/dL Discharge Plan Discharge Clinical Impression: DVT, lower extremity, recurrent Patient Disposition: Home, Self-Care Condition: Stable Instructions: Deep Vein Thrombosis (ED) Additional Instructions: Try to elevate your leg at rest. Return for uncontrolled pain and swelling, chest pain or increasing shortness of breath, lightheadedness. Please follow-up at the end of this week as scheduled with your primary care provider to discuss next steps. At this point recommendations by hematology from [facility] are to discontinue Coumadin and begin Lovenox again. Sorry to tell you that. They would also like to see you in outpatient clinic. You or your doctor should contact them to schedule. If convenient for you could follow-up in [place], or elsewhere for that matter. Activity Level: No Restrictions Discharge Diet: Regular Prescriptions: New enoxaparin [Lovenox] 120 mg/0.8 mL syringe 110 mg subcut Q12H 30 Days Qty: 43.998 1RF No Action montelukast [Singulair] 10 mg tablet 10 mg PO DAILY cholecalciferol (vitamin D3) .ROUTE omeprazole 40 mg capsule,delayed release(DR/EC) 40 mg PO DAILY Mag Glycinate 100 mg tablet 100 mg PO DAILY ezetimibe [Zetia] 10 mg tablet 10 mg PO DAILY gabapentin 300 mg capsule 100 mg PO TID sertraline [Zoloft] 50 mg tablet 50 mg PO DAILY levothyroxine [Synthroid] 200 mcg tablet 200 mcg PO DAILY Qty: 30 2RF warfarin 4 mg tablet 2 mg PO DAILY levocetirizine [24HR Allergy Relief] 5 mg tablet 5 mg PO DAILY albuterol 90 mcg/actuation aerosol inhalation DAILY PRN Patient Comments: asthma budesonide-formoterol [Symbicort] 160-4.5 mcg/actuation HFA aerosol inhaler 1 inh inhalation BID Follow Up/Referrals: Chula Farley DO [Primary Care Provider] - Stand Alone [facility]
--- NOTE | 2023-09-17 14:02 | CRLHL7_ITS ---
For Patients: As a result of the Century Cures Act, medical imaging exams and procedure reports are released immediately into your electronic medical record. You may view this report before your referring provider. If you have questions, please contact your health care provider. INDICATION: Posterior knee and regional pain TECHNIQUE: Ultrasound venous duplex lower right extremity. Compression venous exam was performed using lang-scale, color Doppler, and spectral Doppler imaging. COMPARISON: None. FINDINGS: Sonographic imaging demonstrates the right common femoral, deep femoral, superficial femoral vein to be fully compressible with normal color Doppler blood flow. Within the right popliteal vein there is occlusive hypoechoic thrombus extending into the peroneal veins. Posterior tibial veins show normal compressibility. IMPRESSION: 1. Acute deep venous thrombosis involving the right popliteal vein extending into the peroneal veins. 2. Remaining deep veins of the right lower extremity are widely patent. Dictated by Lj Joel MD @ 09/17/2023 3:11:27 PM (Electronically Signed)
[2023-09-17 16:23] LABS: INR 2.45 (0.91-1.10); Prothrombin Time 28.5 Seconds
[2023-09-17 17:21] LABS: Albumin* 4.5 g/dL (3.3-5.0); Chloride* 107 mmol/L (96-114); Sodium* 142 mmol/L (135-149)
[2023-09-17 17:23] LABS: Est. Creatinine Clearance* 59.63; Estimated Glomerular Filt Rate 65 ml/min
[2023-09-17 17:24] LABS: Alanine Aminotransferase* 29 U/L (4-35); Alkaline Phosphatase* 118 U/L (40-150); Anion Gap 10 mEq/L (7-15); Aspartate Amino Transferase* 28 U/L (12-35); Bilirubin Direct* 0.1 mg/dL (0.0-0.5); Bilirubin Total* 0.4 mg/dL (0.1-1.5); Blood Urea Nitrogen* 9 mg/dL (7-30); Calcium* 9.4 mg/dL (8.4-10.6); Carbon Dioxide* 25 mmol/L (20-32); Glucose* 118 mg/dL (60-115); Potassium* 3.6 mmol/L (3.6-5.1); Total Protein* 7.2 g/dL (6.0-8.3)
[2023-09-17 17:27] LABS: Basophils Absolute Auto 0.08 K/uL (0.00-0.30); Basophils Percent Auto 0.8 % (0.0-3.0); Eosinophils Absolute Auto 0.23 K/uL (0.00-0.50); Eosinophils Percent Auto 2.3 % (0.0-7.0); Hematocrit 44.7 % (33.0-51.0); Hemoglobin* 14.2 gm/dL (12.0-16.0); Immature Granulocytes Abs Auto 0.05 K/uL (0.00-0.30); Immature Granulocytes Pct Auto 0.5 %; Lymphocytes Absolute Auto 2.39 K/uL (0.90-2.90); Lymphocytes Percent Auto 23.9 % (20-44); Mean Corpuscular HGB Conc 32 gm/dL (32-36); Mean Corpuscular Hemoglobin 28 pg (26-34); Mean Corpuscular Volume 88 fL (80-100); Monocytes Percent Auto 10.1 % (0.0-11.0); Neutrophils Absolute Auto 6.22 K/uL (1.7-7.0); Neutrophils Percent Auto 62.4 % (42.0-72.0); Platelet Count* 352 K/uL (140-440); RDW Coefficient of Variation % 13.9 % (11.5-15.5); Red Blood Count 5.06 m/uL (4.00-5.20); White Blood Count* 9.98 K/uL (4.50-11.00)
[2023-09-17 17:28] LABS: Slide Review Reflex No
[2023-09-17] MEDS: ENOXAPARIN 120 MG/0.8 ML INJ 110 MG SUBCUT (17:56)
== END 2023-09-17 17:58 | disposition home or self-care (01) ==
PROVIDERS: Emergency Provider Family Medicine; PCP Family Medicine
DX: I82.531 Chronic embolism and thrombosis of right popliteal vein (principal)
CPT/HCPCS: 36415; 80048; 80076; 85025; 85610; 93971; 99284; J1650

== ENCOUNTER 2023-09-24 01:41 | Emergency (ER) | payer BC, SELFPAY ==
[2023-09-24 01:47] VITALS: BP 140/90; PULSE 98; RESP 18; TEMP 36.4; O2SAT 96
--- NOTE | 2023-09-24 02:19 | ED_ITS ---
HPI - General Adult General Chief complaint: Unspecified Complaint, Adult Stated complaint: Blood cloths /bumps on back/abdominal Time Seen by Provider: 09/24/23 01:44 History of Present Illness HPI narrative: new bruises after starting Lovenox, was taken off warfarin on Friday. Pt re ports having DVTs to right popliteal vein. Pt reports pain at bruise and hematoma areas. pain rated 4/10. 58-year-old woman presenting to the emergency department with concern of bruisin g. I had seen Ms. Simpson this last week. She had broken through appropriate anticoagulation with Coumadin sustaining a DVT in the right leg. 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 Over the last few days has started bruising. These are becoming more painful as well. Six days ago was transition from warfarin to Lovenox with recurrent DVT as noted above. Does have a history of some degree of reactive airway/asthma. She does admit to feeling more short of breath over the last 3 days. She feels that had been short of breath generally but improved when she moved her cats into the bathroom. Admittedly the last 3 days though are worse than prior. No fever. No chest pain. Has had asymptomatic pulmonary emboli. Related Data Home Medications Medication Instructions Recorded Confirmed gabapentin 300 mg capsule 100 mg PO TID 12/10/22 09/17/23 sertraline 50 mg tablet (Zoloft) 50 mg PO DAILY 12/10/22 09/17/23 albuterol 90 mcg/actuation aerosol mcg inhalation DAILY PRN 03/24/23 inhaler budesonide-formoterol HFA 160 1 inh inhalation BID 03/24/23 09/17/23 mcg-4.5 mcg/actuation aerosol inhaler (Symbicort) levocetirizine 5 mg tablet (24HR 5 mg PO DAILY 03/24/23 09/17/23 Allergy Relief) warfarin 4 mg tablet 2 mg PO DAILY 03/24/23 09/17/23 cholecalciferol (vitamin D3) .ROUTE 09/17/23 ezetimibe 10 mg tablet (Zetia) 10 mg PO DAILY 09/17/23 09/17/23 magnesium glycinate 100 mg tablet 100 mg PO DAILY 09/17/23 09/17/23 (Mag Glycinate) montelukast 10 mg tablet 10 mg PO DAILY 09/17/23 09/17/23 (Singulair) omeprazole 40 mg capsule,delayed 40 mg PO DAILY 09/17/23 09/17/23 release Previous Rx's Medication Instructions Recorded levothyroxine 200 mcg tablet 200 mcg PO DAILY #30 tabs 12/10/22 (Synthroid) enoxaparin 120 mg/0.8 mL 110 mg (0.7333 mL) subcut Q12H 09/17/23 subcutaneous syringe (Lovenox) Recurrent blood clots 30 days #43.998 mL Allergies Allergy/AdvReac Type Severity Reaction Status Date / Time latex Allergy Unknown Itching Verified 09/17/23 13:31 Penicillins AdvReac Intermediate Abdominal Verified 09/17/23 13:31 Pain environmental Allergy Mild Uncoded 03/24/23 11:30 Review of Systems Status of ROS: Reports: 6 or more systems reviewed and unremarkable except as noted in History and below [facility] Social History Smoking Status: Former smoker Do you use any of these nicotine containing products: None How often do you have a drink containing alcohol: never AUDIT-C Alcohol total score: 0 Non-prescribed substance use: denies use service: No Exam Narrative: Exam Narrative: Very pleasant. A little tearful as we begin to talk. She is breathing easily. Lungs are clear. Heart in elevated rate but regular rhythm. Cranial nerves 2- 12 intact. She is well-perfused peripherally. Trace dependent edema in the lower extremities. Does have various staging of bruising and sizes of bruises over lower extremities. Large purpuric rash over mid low abdomen and then some other is over the back another larger tender purpling at the right flank area. No changes consistent with cellulitis. Const: Vital Signs, click to edit/add: Vital Signs - 24 hr 09/24/23 01:47 09/24/23 03:45 09/24/23 06:35 Temperature 97.5 F L Pulse Rate [Left P ulse Oximeter] 98 76 72 Respiratory Rate 18 16 16 Blood Pressure [Ri ght Upper Arm] 140/90 H 136/77 142/62 H Pulse Oximetry 96 98 97 Oxygen Delivery Me thod Room Air Room Air Room Air Documenting provider has reviewed patient's vital signs: yes Course Vital Signs Vital signs: Initial Vital Signs Temperature 97.5 F L 09/24/23 01:47 Temperature Source Temporal Artery Scan 09/24/23 01:47 Pulse Rate 98 09/24/23 01:47 Pulse Rhythm Regular 09/24/23 01:47 Respiratory Rate 18 09/24/23 01:47 Blood Pressure 140/90 H 09/24/23 01:47 Blood Pressure Mean 106 H 09/24/23 01:47 Blood Pressure Position Sitting 09/24/23 01:47 Pulse Oximetry 96 09/24/23 01:47 Oxygen Delivery Method Room Air 09/24/23 01:47 Vital Signs Temperature 97.5 F L 09/24/23 01:47 Pulse Rate 98 09/24/23 01:47 Respiratory Rate 18 09/24/23 01:47 Blood Pressure 140/90 H 09/24/23 01:47 Pulse Oximetry 96 09/24/23 01:47 Oxygen Delivery Method Room Air 09/24/23 01:47 Temperature 97.5 F L 09/24/23 01:47 Pulse Rate 72 09/24/23 06:35 Respiratory Rate 16 09/24/23 06:35 Blood Pressure 142/62 H 09/24/23 06:35 Pulse Oximetry 97 09/24/23 06:35 Oxygen Delivery Method Room Air 09/24/23 06:35 Medications Administered Medications: Discontinued Medications Generic Name Dose Route Start Last Admin Trade Name Freq PRN Reason Stop Dose Admin Sodium Chloride 1,000 mls @ 1,000 mls/hr 09/24/23 02:39 09/24/23 04:35 0.9 % Sodium Chloride 1000 Ml IV 09/24/23 03:38 Infused .Q1H ONE Infusion Medical Decision Making [facility] Narrative Medical decision making narrative: Initiated Lovenox which she has actually tolerated in the past. We do have prior labs for comparison. Would have concern for related thrombocytopenia. The increased dyspnea maybe some degree of anxiety but given history of asymptomatic pulmonary emboli, would be prudent to scan. Intend to that once receive labs. IV hydration as well. Labs are collected. Monitor on oximetry and awake overnight monitor during time in emergency department. Received a L of normal saline noted to superficial contra sted chest CT scan. Labs are notable for, while overall low, doubled transaminases over this last week, platelets of nearly 300,000, creatinine of 1.3. PT at 1.52 and PTT are still elevated. Chest angiography CT is without evidence of pulmonary embolus. Lung nodule similar to prior scan which Ms. Simpson notes is even longer chronic, appear to be unchanged. Also noted to have cholelithiasis. She does recount how has had pains in this area intermittently for some time. I did discuss this case again with hematology at [place]. We did check a fibrinogen level which was normal. Otherwise few options exist at the moment. Recommendations are to continue with Lovenox. Suspicion is that in goal INR when initiated on Lovenox may have contributed to more bleeding; the purpura that we are seeing here. Unchanged, generally well in the emergency department. See patient discharge plan Lab Data Lab results reviewed: Yes I reviewed the patient's lab results Labs: Lab Results 09/24/23 09/24/23 09/24/23 Range/Units 02:55 05:25 05:40 WBC 7.01 (4.50-11.00) K/uL RBC 4.63 (4.00-5.20) m/uL Hgb 13.0 (12.0-16.0) gm/dL Hct 41.3 (33.0-51.0) % MCV 89 (80-100) fL MCH 28 (26-34) pg MCHC 32 (32-36) gm/dL RDW Coeff of Kemal 14.1 (11.5-15.5) % Plt Count 293 (140-440) K/uL Neut % (Auto) 58.9 (42.0-72.0) % Lymph % (Auto) 24.4 (20-44) % [place] % (Auto) 11.0 (0.0-11.0) % Eos % (Auto) 4.7 (0.0-7.0) % Baso % (Auto) 0.9 (0.0-3.0) % Neut # (Auto) 4.13 (1.7-7.0) K/uL Lymph # (Auto) 1.71 (0.90-2.90) K/uL [place] # (Auto) 0.80 (0.00-0.90) K/UL Eos # (Auto) 0.33 (0.00-0.50) K/uL Baso # (Auto) 0.06 (0.00-0.30) K/uL Abs Immat Gran (auto) 0.01 (0.00-0.30) K/uL Imm/Tot Granulo (auto) 0.1 % INR 1.52 H (0.91-1.10) APTT 46 H (23-33) Seconds Fibrinogen 407 (200-450) mg/dL D-Dimer Quant (PE/DVT) < 0.27 (0.00-0.50) ug/ml Sodium 139 (135-149) mmol/L Potassium 3.9 (3.6-5.1) mmol/L Chloride 107 (96-114) mmol/L Carbon Dioxide 24 (20-32) mmol/L Anion Gap 8 (7-15) mEq/L BUN 14 (7-30) mg/dL Creatinine 1.3 (0.5-1.5) mg/dL Estimated GFR 48 ml/min Glucose 165 H (60-115) mg/dL Calcium 8.8 (8.4-10.6) mg/dL Total Bilirubin 0.4 (0.1-1.5) mg/dL Direct Bilirubin 0.1 (0.0-0.5) mg/dL AST 59 H (12-35) U/L ALT 64 H (4-35) U/L Alkaline Phosphatase 108 (40-150) U/L Troponin I < 0.01 L (0.01-0.04) ng/mL NT-Pro-B Natriuret Pep < 20 pg/mL Total Protein 6.9 (6.0-8.3) g/dL Albumin 4.2 (3.3-5.0) g/dL Urine Color Yellow (Yellow) Urine Appearance Clear (Clear) Urine pH 6.0 (5.0-8.5) Ur Specific Britton 1.010 (1.000-1.030) Urine Protein Negative (Negative) Urine Glucose (UA) Negative (Negative) Urine Ketones Negative (Negative) Urine Blood Negative (Negative) Urine Nitrite Negative (Negative) Urine Bilirubin Negative (Negative) Urine Urobilinogen 0.2 (0.2-1.0) Ur Leukocyte Esterase Negative (Negative) Urine RBC 0-2 (0-2) Urine WBC 0-2 (0-5) Ur Squamous Epith Cells Few (None-Few) Urine Bacteria None (None) Lab Acknowledgement Test Added ECG Data Attestation: I personally reviewed and interpreted this ECG as follows: (Normal sinus rhythm rate of 80) Discharge Plan Discharge Clinical Impression: DVT (deep venous thrombosis), Purpura, Cholelithiasis Patient Disposition: Home, Self-Care Condition: Stable Additional Instructions: Pending at this time is a fibrinogen level -- resulted it looks good. I think you could follow this up in primary care in a couple of days. Might want to recheck liver enzymes as well. Assess general progress including improvement or worsening of this bruising. Stay well-hydrated. At this time, continue with Lovenox as dosed. May want to be seen for further evaluation of your gallbladder/gallstones. Prescriptions: No Action montelukast [Singulair] 10 mg tablet 10 mg PO DAILY cholecalciferol (vitamin D3) .ROUTE omeprazole 40 mg capsule,delayed release(DR/EC) 40 mg PO DAILY Mag Glycinate 100 mg tablet 100 mg PO DAILY ezetimibe [Zetia] 10 mg tablet 10 mg PO DAILY enoxaparin [Lovenox] 120 mg/0.8 mL syringe 110 mg subcut Q12H 30 Days Qty: 43.998 1RF gabapentin 300 mg capsule 100 mg PO TID sertraline [Zoloft] 50 mg tablet 50 mg PO DAILY levothyroxine [Synthroid] 200 mcg tablet 200 mcg PO DAILY Qty: 30 2RF warfarin 4 mg tablet 2 mg PO DAILY levocetirizine [24HR Allergy Relief] 5 mg tablet 5 mg PO DAILY albuterol 90 mcg/actuation aerosol inhalation DAILY PRN Patient Comments: asthma budesonide-formoterol [Symbicort] 160-4.5 mcg/actuation HFA aerosol inhaler 1 inh inhalation BID Follow Up/Referrals: Chula Farley DO [Primary Care Provider] - Stand Alone Forms: [facility] Info Instructions
--- OUTSIDE RECORDS SUMMARY | 2023-09-24 02:57 | XMS_ITS | Referral Summary ---
Author Name Unknown Organization [facility] Address [address] [place] [address] Care Team Providers Care Traveling Buyer Name Role Phone Chula Farley Primary Care Provider [phone] Allergies Active Allergy Reactions Criticality Noted Date Comments Blood-Group Specific Substance Other (See Comments) 03/25/2023 Patient has a Sherry antibody. Blood products may be delayed. Draw patient 24 hours prior to transfusion. For [facility] testing, draw one red top and two purple top tubes for all Type and Screen orders. Latex 12/25/2022 Penicillins Shortness Of Breath High 04/03/2023 Medications Medication Sig Dispensed Refills Start Date End Date Status predniSONE (DELTASONE) 20 MG tablet Take two tablets (= 40mg) each day for 4 (four) days 8 tablet 0 12/26/2022 Active albuterol (PROAIR HFA/PROVENTIL HFA/VENTOLIN HFA) 108 (90 Base) MCG/ACT inhaler Inhale 2 puffs into the lungs every 6 hours as needed for shortness of breath, wheezing or cough 18 g 0 12/25/2022 Active spacer (OPTICHAMBER MAREK) holding chamber Use with inhaler 1 each 0 12/25/2022 Active Social History Tobacco Use Types Packs/Day Years Used Date Smoking Tobacco: Never Assessed Adolescent Education Answer Date Record ed Getting School Help Needed Not on file 07/01 Sex and Gender Information Value Date Recorded Sex Assigned at Not on file Gender Identity Not on file Sexual Orientation Not on file Last Filed Vital Signs Vital Sign Reading Time Taken Comments Blood Pressure 135/81 05/21/2023 5:24 PM CDT Pulse 73 05/21/2023 5:24 PM CDT Temperature 37.2 ??C (98.9 ??F) 05/21/2023 2:29 PM CD T Respiratory Rate 20 05/21/2023 2:29 PM CDT Oxygen Saturation 95% 05/21/2023 5:24 PM CDT Inhaled Oxygen Concentration - - Weight 109.8 kg (242 lb) 05/21/2023 2:29 PM CDT Height 170.2 cm (5' 7) 05/21/2023 2:29 PM CDT Body Mass Index 37.9 05/21/2023 2:29 PM CDT Plan of Treatment Not on file Care Teams Traveling Buyer Relationship Specialty Start Date End Date Chula Farley DO [address] [place] [address] PCP - General Family Practice 12/25/22
--- OUTSIDE RECORDS SUMMARY | 2023-09-24 02:57 | XMS_ITS | Encounter Summary ---
Author Name Unknown Organization [facility] Address [address] [place] [address] Care Team Providers Care Nut Processing Supervisor Name Role Phone Chula Farley Primary Care Provider [phone] Reason for Visit * Reason Comments Chest Pain Shortness of Breath Encounter Details Date Type Department Care Team (Late st Contact Info) Description 12/25/2022 2:45 PM CDT - 12/25/2022 5:43 PM CDT Emergency [facility] Emergency Dept [address] [place] [address] Jason Ross PA-C [facility] [address] [place], [place] [id number] Asthma exacerbation; Pulmonary embolism without acute cor pulmonale, unspecified chronicity, unspecified pulmonary embolism type (H) Discharge Disposition: Home or Self Care Social History Tobacco Use Types Packs/Day Years Used Date Smoking Tobacco: Never Assessed Sex and Gender Information Value Date Recorded Sex Assigned at Not on file Gender Identity Not on file Sexual Orientation Not on file COVID-19 Exposure Response Date Recorded In the last 10 days, have yo u been in contact with someone who was confirmed or suspected to have Coronavirus/COVID-19? No / Unsure 12/25/2022 2:47 PM CDT documented as of this encounter Last Filed Vital Signs Vital Sign Reading Time Taken Comments Blood Pressure 124/79 12/25/2022 4:33 PM CDT Pulse 79 12/25/2022 4:33 PM CDT Temperature 36.7 ??C (98 ??F) 12/25/2022 2:52 PM CDT Respiratory Rate 16 12/25/2022 4:33 PM CDT Oxygen Saturation 95% 12/25/2022 5:14 PM CDT Inhaled Oxygen Concentration - - Weight 104.8 kg (231 lb) 12/25/2022 2:56 PM CDT Height 168.9 cm (5' 6.5) 12/25/2022 2:56 PM CDT Body Mass Index 36.73 12/25/2022 2:56 PM CDT documented in this encounter Discharge Instructions * Discharge Instructions* Jason Ross PA-C - 12/25/2022 5:27 PM CDT Discharge Instructions Asthma Asthma is a condition causing narrowing and inflammation of the airways that can make it hard to breathe. Asthma can also cause cough, wheezing, noisy breathing and tightness in the chest. Asthma canbe brought on or ???triggered?? by many things, including dust, mold, pollen, cigarette smoke, exercise, stress and infections (like the common cold). Generally, every Emergency Department visit should have a follow-up clinic visit with either a primary or a specialty clinic/provider. Please follow-up as instructed by your emergency provider today. Return to the Emergency Department if: Your breathing gets worse. You need to use your inhaler more often than every 4 hours, or cannot get relief from your inhaler. You are very weak, or feel much more ill. You develop new symptoms, such as chest pain. You cough up blood. You are vomiting (throwing up) enough that you cannot keep fluids or your medicine down. What can I do to help myself? Fill any prescriptions the provider gave you and take them right away--especially antibiotics. Be sure to finish the whole antibiotic prescription. You may be given a prescription for an inhaler, which can help loosen tight air passages. Use this as needed, but not more often than directed. Inhalers work much better when used with a spacer. You may be given a prescription for a steroid to reduce inflammation. Used long- term, these can have some side effects, but for short-term use they are safe. You may notice restlessness or increased appetite (eating more). You may use non-prescription cough or cold medicines. Cough medicines may help, but do not make thecough go away completely. Avoid smoke, because this can make you feel worse. If you smoke, this may be a good time to quit! Consider using nicotine lozenges, gum, or patches to reduce cravings. If you have a fever, Tylenol?? (acetaminophen), Motrin?? (ibuprofen), or Advil?? (ibuprofen), may help bring fever down and may help you feel more comfortable. Be sure to read and follow the package directions, and ask your provider if you have questions. Be sure to get your flu shot each year. For certain age groups, the pneumonia shot can help preventpneumonia. It is important that you follow up with your regular provider, to be sure that you are improving from this spell (an acute asthma exacerbation), and also to do what you can to keep from having trouble again. Sometimes you need long-term medicines to keep your asthma under control. If you were given a prescription for medicine here today, be sure to read all of the information (including the package insert) that comes with your prescription. This will include important information about the medicine, its side effects, and any warnings that you need to know about. The pharmacist who fills the prescription can provide more information and answer questions you may have about the medicine. If you have questions or concerns that the pharmacist cannot address, please call or return to the Emergency Department. Remember that you can always come back to the Emergency Department if you are not able to see your regular provider in the amount of time listed above, if you get any new symptoms, or if there is anything that worries you. * Attachments The following attachments cannot be sent through Care Everywhere. * Embolism, Pulmonary (Egyptian) documented in this encounter Medications at Time of Discharge Medication Sig Dispensed Refills Start Date End Date albuterol (PROAIR HFA/PROVENTIL HFA/VENTOLIN HFA) 108 (90 Base) MCG/ACT inhaler Inhale 2 puffs into the lungs every 6 hours as needed for shortness of breath, wheezing or cough 18 g 0 12/25/2022 predniSONE (DELTASONE) 20 MG tablet Take two tablets (= 40mg) each day for 4 (four) days 8 tablet 0 12/26/2022 spacer (OPTICHAMBER MAREK) holding chamber Use with inhaler 1 each 0 12/25/2022 documented as of this encounter ED Notes * Carmen Horta - 12/25/2022 5:38 PM CDT Patient was able to walk to the bathroom without staff. * Diana Erickson RN - 12/25/2022 2:51 PM CDT EMS gave 324mg of aspirin. 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 Last night she started havingSOB followed by intermittent chest pain. She is currently taking eliquis for bilateral PEs and DVTswhich has got diagnosed with last week while taking xarelto. The SOB has been worse. Patients vitals are stable. She appears to have increased WOB. * Chris Robledo RN - 12/25/2022 2:45 PM CDT Bed: FT03 Expected date: Expected time: Means of arrival: Comments: [facility] - 57 F chest pain eta 1420 * Jason Ross PA-C - 12/25/2022 2:45 PM CDT History Chief Complaint: Chest Pain and Shortness of Breath The history is provided by the patient. Sanam Simpson is a 57 year old female on Eliquis with a history of DVT, lupus, asthma who presents with chest pain and shortness of breath . The patient reports that she began experiencing chest pain and numbness in both feet last night. She states that her chest pain radiates to her left shoulder and back and worsened today at work. She adds that she has been feeling having some intermittentdizziness and headache and did her head a few days ago and has also had some intermittent floaters in the eyes since but none currently. In the ED, she states that she is feeling short of breath compared to last week, but less short of breath than she did a few hours ago. She notes that she has been wheezing this morning and has been using her inhaler. She denies any cough but reports that when she blows her nose, she noticed dried blood. She notes that she fell off her bed the other day, landing between the bed and the wall, hitting her head. She denies any leg swelling or increased pain, but has had a clot in her left leg in the past. She has a history of Asthma and neuropathy in her right groin secondary to a hernia repair. She has not missed any doses of her medication. She was switched to Eliquis from [facility] after seen at [place] discharged on 12/16/22 due to breakthrough PEs. No black or bloody stools. No fever. Independent Historian: None - Patient Only Review of External Notes: I reviewed the note from 12/16/22 from [facility]. The patient was diagnosed with bilateral PE's with no RB strain. Clots in right middle and lower lobes as well as left lower lobe. ROS: Review of Systems Respiratory: Positive for shortness of breath and wheezing. Cardiovascular: Positive for chest pain. Negative for leg swelling. Musculoskeletal: Positive for arthralgias. Neurological: Positive for dizziness and headaches. All other systems reviewed and are negative. Allergies: Latex Medications: Levothyroxine Gabapentin budesonide-formoterol Omeprazole Sertraline Alprazolam Ariprazole Lorazepam Trihexyphenidyl Albuterol HFA Apixaban Sumatriptan Past Medical History: DVT PE PCOS Anxiety Depression Bipolar disorder Asthma Neuropathy GERD Endometriosis PCOS Migraine Past Surgical History: No past surgical history on file. Family History: No family history on file. Social History: Presents alone. PCP: No primary care provider on file. Physical Exam Patient Vitals for the past 24 hrs: BP Temp Temp src Pulse Resp SpO2 Height Weight 12/25/22 1714 -- -- -- -- -- 95 % -- -- 04/12/23 1633 124/79 -- -- 79 16 96 % -- -- 12/25/22 1507 -- -- -- 79 17 95 % -- -- 12/25/22 1456 (!) 139/92 -- -- 78 -- 100 % 1.689 m (5' 6.5) 104.8 kg (231 lb) 12/25/22 1452 (!) 137/92 98 ??F (36.7 ??C) Oral 79 20 98 % -- -- Physical Exam General: Awake, alert, non-toxic. Head: Scalp is NC/AT Eyes: Conjunctiva normal, PERRL ENT: The external nose and ears are normal. TM's normal BL Neck: Normal range of motion without rigidity. CV: Regular rate and rhythm No pathologic murmur, rubs, or gallops. Resp: BL end expiratory wheezing. Good air movement. No crackles, rhonchi or stridor. Non-labored, no retractions or accessory muscle use Abdomen: Abdomen is soft, no distension, no tenderness, no masses MS: No lower extremity edema or asymmetric calf swelling. No midline cervical, thoracic, or lumbar tenderness Skin: Warm and dry, No rash or lesions noted. 2+ DP and PT pulses BL, cap refill <2 seconds. Neuro: Alert and oriented. GCS 155/5 strength BL in UE and LE, normal sensation to touch. Cranial nerves 2-12 intact. Normal finger to nose testing. Gait normal Psych: Awake. Alert. Normal affect. Appropriate interactions. Emergency Department Course ECG ECG taken at 1448, ECG read at 1500 Normal sinus rhythm Rate 77 bpm. MD interval 170 ms. QRS duration 86 ms. QT/QTc 372/420 ms. P-R-T axes 51 4 37. Imaging: CT Chest Pulmonary Embolism w Contrast Final Result Abnormal IMPRESSION: 1. Small occlusive pulmonary embolus within a pulmonary artery branch in the right lower lobe. 2. Few small indeterminate pulmonary nodules in both lungs measure 0.5 cm smaller. Please refer to pulmonary nodule follow-up guidelines below. Recommendations for one or multiple incidental lung nodules < 6mm: Low risk patients: No routine follow-up. High risk patients: Optional follow-up CT at 12 months; if unchanged, no further follow-up. *Low Risk: Minimal or absent history of smoking or other known risk factors. *Nonsolid (ground glass) or partly solid nodules may require longer follow-up to exclude indolent adenocarcinoma. *Recommendations based on Guidelines for the Management of Incidental Pulmonary Nodules Detected at CT: From the Fleischner Society 2017, Radiology 2017. *Guidelines apply to incidental nodules in patients who are 35 years or older. *Guidelines do not apply to lung cancer screening, patients with immunosuppression, or patients with known primary cancer. [Critical Result: Pulmonary embolism] Finding was identified on 12/25/2022 3:[address] Ross was contacted by me on 12/25/2022 3:56 PM and verbalized understanding of the critical result. CHERISE YBARRA MD Head CT w/o contrast Final Result IMPRESSION: Diffuse cerebral volume loss and cerebral white matter changes consistent with chronic small vessel ischemic disease. No evidence for acute intracranial pathology. Radiation dose for this scan was reduced using automated exposure control, adjustment of the mA and/or kV according to patient size, or iterative reconstruction technique YURIDIA SCHULTZ MD Report per radiology Laboratory: Labs Ordered and Resulted from Time of ED Arrival to Time of ED Departure COMPREHENSIVE METABOLIC PANEL - Abnormal Result Value Sodium 143 Potassium 4.0 Chloride 110 (*) Carbon Dioxide (CO2) 25 Anion Gap 8 Urea Nitrogen 10.6 Creatinine 1.24 (*) Calcium 8.4 (*) Glucose 100 (*) Alkaline Phosphatase 107 (*) AST 22 ALT 24 Protein Total 6.2 (*) Albumin 3.9 Bilirubin Total 0.3 GFR Estimate 51 (*) TROPONIN T, HIGH SENSITIVITY - Normal Troponin T, High Sensitivity <6 NT PROBNP INPATIENT - Normal N terminal Pro BNP Inpatient 182 CBC WITH PLATELETS AND DIFFERENTIAL WBC Count 8.1 RBC Count 4.37 Hemoglobin 13.3 Hematocrit 40.9 MCV 94 MCH 30.4 MCHC 32.5 RDW 12.3 Platelet Count 269 % Neutrophils 58 % Lymphocytes 28 % Monocytes 10 % Eosinophils 3 % Basophils 1 % Immature Granulocytes 0 NRBCs per 100 WBC 0 Absolute Neutrophils 4.7 Absolute Lymphocytes 2.2 Absolute Monocytes 0.8 Absolute Eosinophils 0.3 Absolute Basophils 0.1 Absolute Immature Granulocytes 0.0 Absolute NRBCs 0.0 Emergency Department Course & Assessments: Interventions: Medications iopamidol (ISOVUE-370) solution 79 mL (79 mLs Intravenous $Given 12/25/22 4108) Saline (100 mLs Intravenous $Given 12/25/22 1517) ipratropium - albuterol 0.5 mg/2.5 mg/3 mL (DUONEB) neb solution 3 mL (3 mLs Nebulization $Given 12/25/22 1630) ipratropium - albuterol 0.5 mg/2.5 mg/3 mL (DUONEB) neb solution 3 mL (3 mLs Nebulization $Given 12/25/22 1630) ipratropium - albuterol 0.5 mg/2.5 mg/3 mL (DUONEB) neb solution 3 mL (3 mLs Nebulization $Given 12/25/22 1630) methylPREDNISolone sodium succinate (solu-MEDROL) injection 125 mg (125 mg Intravenous $Given 12/25/22 1628) Independent Interpretation (X-rays, CTs, rhythm strip): None Consultations/Discussion of Management or Tests: 1554 I spoke with [facility] regarding the patient. After hearing the imaging description, he believes that that clot has become smaller. Assessments: ED Course as of 12/25/22 1752 FriDec 25, 2022 1505 I obtained history and examined the patient as noted above. 1613 I rechecked the patient and updated them 1702 I rechecked the patient and updated them Social Determinants of Health affecting care: None Disposition: The patient was discharged to home. Impression & Plan [facility] Diagnoses: None Medical Decision Makin-year-old female with history of lupus asthma recent breakthrough PE and DVT while on Xarelto 9 days ago now switched to Eliquis who presents with shortness of breath and wheezing. Broad differential considered. Given the patient's history of breakthrough clot and sudden worsening of shortness ofbreath CT of the chest was obtained which fortunately shows persistent but apparently decreased clot burden now isolated only to the right lower lobe and per comparison of review and discussion with radiologist from prior read it sounds like this is decreased from prior. No evidence of treatment failure. No signs of RV strain. EKG normal high-sensitivity troponin undetectable nothing to suggest ACS no chest pain. BNP normal no clinical evidence of CHF. Suspect increased shortness of breath due to asthma exacerbation as does have some wheezing and felt improved after nebs and steroids. No increased work of breathing respiratory distress or indication for hospitalization. No signs of pneumonia pneumothorax or other acute abnormality on CT. She is not anemic no metabolic acidosis. No stridoror evidence of upper airway obstruction. Also reported felt a little bit off balance with some flashers in the eyes earlier bilaterally but this is now gone hit her head recently and so CT of the head was obtained which was negative. Neurologic exam is completely normal here do not suspect stroke et c. and she was able to ambulate without any difficulty. No signs of leg swelling phlegmasia increased DVT or arterial ischemia. Plan will be close follow-up with PCP and outpatient hematology team continue Eliquis and short burst of steroids and albuterol for home. Return precautions given. Critical Care time: was 0 minutes for this patient excluding procedures. Diagnosis: ICD-10-CM 1. Asthma exacerbation J45.901 2. Pulmonary embolism without acute cor pulmonale, unspecified chronicity, unspecified pulmonary embolism type (H) I26.99 Discharge Medications: Discharge Medication List as of 12/25/2022 5:38 PM START taking these medications Details albuterol (PROAIR HFA/PROVENTIL HFA/VENTOLIN HFA) 108 (90 Base) MCG/ACT inhaler Inhale 2 puffs intothe lungs every 6 hours as needed for shortness of breath, wheezing or cough, Disp-18 g, R-0, E-PrescribePharmacy may dispense brand covered by insurance (Proair, or proventil or ventolin or generic albuterol inhaler) predniSONE (DELTASONE) 20 MG tablet Take two tablets (= 40mg) each day for 4 (four) days, Disp-8 tablet, R-0, E-Prescribe spacer (OPTICHAMBER MAREK) holding chamber Use with inhaler, Disp-1 each, R-0, E-Prescribe Scribe Disclosure: I, ABIGAIL RITTER, am serving as a scribe at 3:53 PM on 12/25/2022 to document services personally performed by Jason Ross PA-C based on my observations and the provider's statements to me. 12/25/2022 Jason Ross PA-C Etten, Clark Ellsworth, PA-C 12/25/22 7798 documented in this encounter Plan of Treatment Not on file documented as of this encounter Procedures Procedure Name Priority Date/Time Associated Diagnosis Comments CT CHEST PULMONARY EMBOLISM W CONTRAST STAT 12/25/2022 3:[address] HEAD W/O CONTRAST STAT 12/25/2022 3:34 PM CDT EXTRA TUBE STAT 12/25/2022 3:01 PM CDT EXTRA PURPLE TOP TUBE STAT 12/25/2022 3:01 PM CDT EXTRA GREEN TOP (LITHIUM HEPARIN) TUBE STAT 12/25/2022 3:01 PM CDT EXTRA RED TOP TUBE STAT 12/25/2022 3: 01 PM CDT EXTRA BLUE TOP TUBE STAT 12/25/2022 3 :01 PM CDT CBC WITH PLATELETS AND DIFFERENTIAL STAT 12/25/2022 3:01 PM CDT TROPONIN T, HIGH SENSITIVITY Add-On 12/25/2022 3:01 PM CDT CBC WITH PLATELETS & DIFFERENTIAL STAT 12/25/2022 3:01 PM CDT NT PROBNP INPATIENT STAT 12/25/2022 3 :01 PM CDT COMPREHENSIVE METABOLIC PANEL STAT 12/25/2022 3:01 PM CDT EKG 12-LEAD, TRACING ONLY STAT 12/25/2022 2:48 PM CDT documented in this encounter Results * (ABNORMAL) CT Chest Pulmonary Embolism w Contrast (12/25/2022 3:34 PM CDT) Radiologist flags Pulmonary embolism(AA) RADIOLOGY RESULTS Anatomical Region Laterality Modality Chest, SUBRAD CT BODY, UMP CT CHEST Computed Tomography Impressions 12/25/2022 4:23 PM CDT IMPRESSION: 1. ??Small occlusive pulmonary embolus within a pulmonary artery branch in the right lower lobe. 2. ??Few small indeterminate pulmonary nodules in both lungs measure 0.5 cm smaller. Please refer to pulmonary nodule follow-up guidelines below. Recommendations for one or multiple incidental lung nodules < 6mm: ??Low risk patients: No routine follow-up. ??High risk patients: Optional follow-up CT at 12 months; if unchanged, no further follow-up. *Low Risk: Minimal or absent history of smoking or other known risk factors. *Nonsolid (ground glass) or partly solid nodules may require longer follow-up to exclude indolent adenocarcinoma. *Recommendations based on Guidelines for the Management of Incidental Pulmonary Nodules Detected at CT: From the Fleischner Society 2017, Radiology 2017. *Guidelines apply to incidental nodules in patients who are 35 years or older. *Guidelines do not apply to lung cancer screening, patients with immunosuppression, or patients with known primary cancer. [Critical Result: Pulmonary embolism] Finding was identified on 12/25/2022 3:[address] Ross was contacted by me on 12/25/2022 3:56 PM and verbalized understanding of the critical result. CHERISE YBARRA MD Narrative 12/25/2022 4:[address] CHEST PULMONARY EMBOLISM WITH CONTRAST ??12/25/2022 3:34 PM CLINICAL HISTORY: Chest pain. Shortness of breath. TECHNIQUE: CT angiogram chest during arterial phase injection IV contrast. 2D and 3D MIP reconstructions were performed by the medical technologist clinical. Dose reduction techniques were used. CONTRAST: 79 mL Isovue-370 COMPARISON: None. FINDINGS: ANGIOGRAM CHEST: Small occlusive pulmonary embolus is noted within a pulmonary artery branch in the right lower lobe. No pulmonary emboli are identified on the left. No large central pulmonary embolus. Thoracic aorta is negative for dissection. No convincing CT evidence of right heart strain. LUNGS AND PLEURA: 0.5 cm pulmonary nodule in the lingula (series 7 image 152). 0.4 cm nodule along the right minor fissure (series 7 image 112). 0.3 cm nodule in the right middle lobe (series 7 image 147). No lung masses or consolidations. No pleural effusions. No pneumothorax. MEDIASTINUM/AXILLAE: No enlarged lymph nodes in the chest. No pericardial effusion. CORONARY ARTERY CALCIFICATION: None. UPPER ABDOMEN: Small hiatal hernia. MUSCULOSKELETAL: Unremarkable. Procedure Note Cherise Ybarra MD - 12/25/2022 CT CHEST PULMONARY EMBOLISM WITH CONTRAST 12/25/2022 3:34 PM CLINICAL HISTORY: Chest pain. Shortness of breath. TECHNIQUE: CT angiogram chest during arterial phase injection IV contrast. 2D and 3D MIP reconstructions were performed by the medical technologist clinical. Dose reduction techniques were used. CONTRAST: 79 mL Isovue-370 COMPARISON: None. FINDINGS: ANGIOGRAM CHEST: Small occlusive pulmonary embolus is noted within a pulmonary artery branch in the right lower lobe. No pulmonary emboli are identified on the left. No large central pulmonary embolus. Thoracic aorta is negative for dissection. No convincing CT evidence of right heart strain. LUNGS AND PLEURA: 0.5 cm pulmonary nodule in the lingula (series 7 image 152). 0.4 cm nodule along the right minor fissure (series 7 image 112). 0.3 cm nodule in the right middle lobe (series 7 image 147). No lung masses or consolidations. No pleural effusions. No pneumothorax. MEDIASTINUM/AXILLAE: No enlarged lymph nodes in the chest. No pericardial effusion. CORONARY ARTERY CALCIFICATION: None. UPPER ABDOMEN: Small hiatal hernia. MUSCULOSKELETAL: Unremarkable. IMPRESSION: 1. Small occlusive pulmonary embolus within a pulmonary artery branch in the right lower lobe. 2. Few small indeterminate pulmonary nodules in both lungs measure 0.5 cm smaller. Please refer to pulmonary nodule follow-up guidelines below. Recommendations for one or multiple incidental lung nodules < 6mm: Low risk patients: No routine follow-up. High risk patients: Optional follow-up CT at 12 months; if unchanged, no further follow-up. *Low Risk: Minimal or absent history of smoking or other known risk factors. *Nonsolid (ground glass) or partly solid nodules may require longer follow-up to exclude indolent adenocarcinoma. *Recommendations based on Guidelines for the Management of Incidental Pulmonary Nodules Detected at CT: From the Fleischner Society 2017, Radiology 2017. *Guidelines apply to incidental nodules in patients who are 35 years or older. *Guidelines do not apply to lung cancer screening, patients with immunosuppression, or patients with known primary cancer. [Critical Result: Pulmonary embolism] Finding was identified on 12/25/2022 3:[address] Ross was contacted by me on 12/25/2022 3:56 PM and verbalized understanding of the critical result. CHERISE YBARRA MD Jason Ross PA-C IMG CT ORDERA BLES * Head CT w/o contrast (12/25/2022 3:34 PM CDT) Anatomical Region Laterality Modality Head, SUBRAD CT NEURO, SUBRA D CT NEURO, UMP CT NEURO, RAD CT Computed Tomography Impressions 12/25/2022 3:45 PM CDT IMPRESSION: Diffuse cerebral volume loss and cerebral white matter changes consistent with chronic small vessel ischemic disease. No evidence for acute intracranial pathology. Radiation dose for this scan was reduced using automated exposure control, adjustment of the mA and/or kV according to patient size, or iterative reconstruction technique YURIDIA SCHULTZ MD Narrative 12/25/2022 3:[address] OF THE HEAD WITHOUT CONTRAST 12/25/2022 3:34 PM COMPARISON: None. HISTORY: Dizziness, on eliquis. TECHNIQUE: [address] images of the head were acquired without IV contrast material. FINDINGS: There is mild diffuse cerebral volume loss. There are subtle patchy areas of decreased density in the cerebral white matter bilaterally that are consistent with sequela of chronic small vessel ischemic disease. The ventricles and basal cisterns are within normal limits in configuration given the degree of cerebral volume loss. ??There is no midline shift. There are no extra-axial fluid collections. No intracranial hemorrhage, mass or recent infarct. The visualized paranasal sinuses are well-aerated. There is no mastoiditis. There are no fractures of the visualized bones. Procedure Note Yuridia Scuhltz MD - 12/25/2022 CT OF THE HEAD WITHOUT CONTRAST 12/25/2022 3:34 PM COMPARISON: None. HISTORY: Dizziness, on eliquis. TECHNIQUE: [address] images of the head were acquired without IV contrast material. FINDINGS: There is mild diffuse cerebral volume loss. There are subtle patchy areas of decreased density in the cerebral white matter bilaterally that are consistent with sequela of chronic small vessel ischemic disease. The ventricles and basal cisterns are within normal limits in configuration given the degree of cerebral volume loss. There is no midline shift. There are no extra-axial fluid collections. No intracranial hemorrhage, mass or recent infarct. The visualized paranasal sinuses are well-aerated. There is no mastoiditis. There are no fractures of the visualized bones. IMPRESSION: Diffuse cerebral volume loss and cerebral white matter changes consistent with chronic small vessel ischemic disease. No evidence for acute intracranial pathology. Radiation dose for this scan was reduced using automated exposure control, adjustment of the mA and/or kV according to patient size, or iterative reconstruction technique YURIDIA SCHULTZ MD Jason ANDREWS-Migue IMG CT ORDERA BLES * CBC with platelets and differential (12/25/2022 3:01 PM CDT) WBC Count 8.1 4.0 - 11.0 10e3/uL 12/25/2022 3:10 PM CDT LABORATORY RBC Count 4.37 3.80 - 5.20 10e6/uL 12/25/2022 3:10 PM CDT LABORATORY Hemoglobin 13.3 11.7 - 15.7 g/dL 12/25/2022 3:10 PM CDT LABORATORY Hematocrit 40.9 35.0 - 47.0 % 12/25/2022 3:10 PM CDT LABORATORY MCV 94 78 - 100 fL 12/25/2022 3:10 PM CDT LABORATORY MCH 30.4 26.5 - 33.0 pg 12/25/2022 3:10 PM CDT LABORATORY MCHC 32.5 31.5 - 36.5 g/dL 12/25/2022 3:10 PM CDT LABORATORY RDW 12.3 10.0 - 15.0 % 12/25/2022 3:10 PM CDT LABORATORY Platelet Count 269 150 - 450 10e3/uL 12/25/2022 3:10 PM CDT LABORATORY % Neutrophils 58 % 12/25/2022 3:10 PM CDT LABORATORY % Lymphocytes 28 % 12/25/2022 3:10 PM CDT LABORATORY % Monocytes 10 % 12/25/2022 3:10 PM CDT LABORATORY % Eosinophils 3 % 12/25/2022 3:10 PM CDT LABORATORY % Basophils 1 % 12/25/2022 3:10 PM CDT LABORATORY % Immature Granulocytes 0 % 12/25/2022 3:10 PM CDT LABORATORY NRBCs per 100 WBC 0 <1 /100 023 3:10 PM CDT LABORATORY Absolute Neutrophils 4.7 1.6 - 8.3 10e3/uL 12/25/2022 3:10 PM CDT LABORATORY Absolute Lymphocytes 2.2 0.8 - 5.3 10e3/uL 12/25/2022 3:10 PM CDT LABORATORY Absolute Monocytes 0.8 0.0 - 1.3 10e3/uL 12/25/2022 3:10 PM CDT LABORATORY Absolute Eosinophils 0.3 0.0 - 0.7 10e3/uL 12/25/2022 3:10 PM CDT LABORATORY Absolute Basophils 0.1 0.0 - 0.2 10e3/uL 12/25/2022 3:10 PM CDT LABORATORY Absolute Immature Granulocytes 0.0 <=0.4 10e3/uL 12/25/2022 3:10 PM CDT LABORATORY Absolute NRBCs 0.0 10e3/uL 12/25/2022 3:10 PM CDT LABORATORY Blood STRUCTURE OF LEFT UPPER LIMB / Unknown Venipuncture / Unknown 12/25/2022 3:01 PM CDT 12/25/2022 3:06 PM CDT Jason Ross PA-C LAB - BLOOD O RDERABLES LABORATORY [facility] [address] 1[address] floor, [address] [place] [address], [facility] [phone] * Nt probnp inpatient (12/25/2022 3:01 PM CDT) N terminal Pro BNP Inpatient 182 0 - 900 pg/mL 12/25/2022 3:47 PM CDT LABORATORY Comment: Reference range shown and results flagged as abnormal are suggested inpatient cut points for confirming diagnosis if CHF in an acute setting. Establishing a baseline value for each individual patient is useful for follow-up. An inpatient or emergency department NT-proPBNP <300 pg/mL effectively rules out acute CHF, with 99% negative predictive value. The outpatient non-acute reference range for ruling out CHF is: 0-125 pg/mL (age 18 to less than 75) 0-450 pg/mL (age 75 yrs and older) Blood STRUCTURE OF LEFT UPPER LIMB / Unknown Venipuncture / Unknown 12/25/2022 3:01 PM CDT 12/25/2022 3:06 PM CDT Jason Ross PA-C LAB - BLOOD O HERMELINDA LABORATORY [facility] [address], [address] [place] [address], [facility] [phone] * Troponin T, High Sensitivity (12/25/2022 3:01 PM CDT) [facility] Troponin T, High Sensitivity <6 <=14 ng/L 12/25/2022 3:47 PM CDT LABORATORY Comment: Either a High Sensitivity Troponin T baseline (0 hours) value = 100 ng/L, or an increase in High Sensitivity Troponin T = 7 ng/L at 2 hours compared to 0 hours (2-0 hours), suggests myocardial injury, and urgent clinical attention is required. ?? If the 2-0 hours increase is <7 ng/L, a High Sensitivity Troponin T result above gender-specific reference ranges warrants further evaluation. Recommendations for further evaluation include correlation with clinical decision-making tool (e.g., HEART), a 3rd High Sensitivity Troponin T test 2 hours after the 2nd (a 20% change from baseline would represent concern), admission for observation, close PCC/cardiology follow-up, or urgent outpatient provocative testing. Blood STRUCTURE OF LEFT UPPER LIMB / Unknown Venipuncture / Unknown 12/25/2022 3:01 PM CDT 12/25/2022 3:06 PM CDT Jason Ross PA-C LAB - BLOOD O RDERAAMY LABORATORY [facility] [address], [address] [place] [address], [place] [phone] * (ABNORMAL) Comprehensive metabolic panel (12/25/2022 3:01 PM CDT) Sodium 143 136 - 145 mmol/L 12/25/2022 3:47 PM [facility] Potassium 4.0 3.4 - 5.3 mmol/L 12/25/2022 3:47 PM [facility] Chloride 110(H) 98 - 107 mmol/L 12/25/2022 3:47 PM [facility] Carbon Dioxide (CO2) 25 22 - 29 mmol/L 12/25/2022 3:47 PM [facility] Anion Gap 8 7 - 15 mmol/L 12/25/2022 3:47 PM [facility] Urea Nitrogen 10.6 6.0 - 20.0 mg/dL 12/25/2022 3:47 PM [facility] Creatinine 1.24(H) 0.51 - 0.95 mg/dL 12/25/2022 3:47 PM [facility] Calcium 8.4(L) 8.6 - 10.0 mg/dL 12/25/2022 3:47 PM [facility] Glucose 100(H) 70 - 99 mg/dL 12/25/2022 3:47 PM [facility] Alkaline Phosphatase 107(H) 35 - 104 U/L 12/25/2022 3:47 PM [facility] AST 22 10 - 35 U/L 12/25/2022 3:47 PM [facility] ALT 24 10 - 35 U/L 12/25/2022 3:47 PM [facility] Protein Total 6.2(L) 6.4 - 8.3 g/dL 12/25/2022 3:47 PM [facility] Albumin 3.9 3.5 - 5.2 g/dL 12/25/2022 3:47 PM [facility] Bilirubin Total 0.3 <=1.2 mg/dL 12/25/2022 3:47 PM [facility] GFR Estimate 51(L) >60 mL/min/1.7 3m2 12/25/2022 3:47 PM [facility] Comment:eGFR calculated usin 2020 CKD-EPI equation. Blood STRUCTURE OF LEFT UPPER LIMB / Unknown Venipuncture / Unknown 12/25/2022 3:01 PM CDT 12/25/2022 3:06 PM CDT Jason Ross PA-C LAB - BLOOD O RDERABLES [facility] [address] 1[address] floor, [address] [place] [address], [place] [phone] * Extra Purple Top Tube (12/25/2022 3:01 PM CDT) Hold Specimen [facility] 12/25/2022 4:16 PM CDT LABORATORY Blood STRUCTURE OF LEFT UPPER LIMB / Unknown Venipuncture / Unknown 12/25/2022 3:01 PM CDT 12/25/2022 3:06 PM CDT Jason Ross PA-C LAB - BLOOD O RDERABLES [facility] [address], [address] [place] [address], [place] [phone] * Extra Green Top ([place] Heparin) Tube (12/25/2022 3:01 PM CDT) Hold Specimen [facility] 12/25/2022 4:17 PM CDT LABORATORY Blood STRUCTURE OF LEFT UPPER LIMB / Unknown Venipuncture / Unknown 12/25/2022 3:01 PM CDT 12/25/2022 3:06 PM CDT Jason SHANKARC LAB - BLOOD O RDERABLES LABORATORY [facility] [address], [address] [place] [address], [place] [phone] * Extra Red Top Tube (12/25/2022 3:01 PM CDT) Hold Specimen [facility] 12/25/2022 4:16 PM CDT LABORATORY Blood STRUCTURE OF LEFT UPPER LIMB / Unknown Venipuncture / Unknown 12/25/2022 3:01 PM CDT 12/25/2022 3:06 PM CDT Jason Ross PA-C LAB - BLOOD O RDERABLES LABORATORY [facility] [address], [address] [place] [address], [facility] [phone] * Extra Blue Top Tube (12/25/2022 3:01 PM CDT) Hold Specimen [facility] 12/25/2022 4:17 PM CDT LABORATORY Blood STRUCTURE OF LEFT UPPER LIMB / Unknown Venipuncture / Unknown 12/25/2022 3:01 PM CDT 12/25/2022 3:06 PM CDT Jason Ross PA-C LAB - BLOOD O RDERABLES LABORATORY [facility] [address] 1[address] floor, [address] [place] [address], [facility] [phone] * EKG 12 lead (12/25/2022 2:48 PM CDT) Systolic Blood Pressure mmHg RADIOLOGY RESULTS Diastolic Blood Pressure mmHg RADIOLOGY RESULTS Ventricular Rate 77 BPM RAD IOLOGY RESULTS Atrial Rate 77 BPM RADIOLOG Y RESULTS MD Interval 170 ms RADIOLOG Y RESULTS QRS Duration 86 ms RADIOLO GY RESULTS QT 372 ms RADIOLOGY RESULTS QTc 420 ms RADIOLOGY RESULTS P [place] 51 degrees RADIOLOGY RESULTS R AXIS 4 degrees RADIOLOGY RESULTS T [place] 37 degrees RADIOLOGY RESULTS Interpretation ECG Sinus rhythm Normal ECG No previous ECGs available Confirmed by GENERATED REPORT, COMPUTER ([id number]), map editor Donita Husain ([id number]) on 12/25/2022 8:02:17 PM RADIOLOGY RESULTS 12/25/2022 2:48 PM CDT 12/25/2022 8:02 PM CDT Jason Ross PA-C ECG ORDERABLE S RADIOLOGY RESULTS documented in this encounter Visit Diagnoses Diagnosis Asthma exacerbation Unspecified asthma, with exacerbation Pulmonary embolism without acute cor pulmonale, unspecified chronicity, unspecified pulmonary embolism type (H) documented in this encounter Administered Medications Inactive Administered Medications - up to 3 most recent administrations Medication Order MAR Action Action Date Dose Rate Site iopamidol (ISOVUE-370) solution 79 mL 79 mL, Intravenous, ONCE, On Fri12/25/22 at 1515, For 1 dose $Given 12/25/2022 3:17 PM CDT 79 mLs ipratropium - albuterol 0.5 mg/2.5 mg/3 mL (DUONEB) neb solution 3 mL 3 mL, Nebulization, ONCE, On Fri12/25/22 at 1620, For 1 dose $Given 12/25/2022 4:30 PM CDT 3 mLs ipratropium - albuterol 0.5 mg/2.5 mg/3 mL (DUONEB) neb solution 3 mL 3 mL, Nebulization, ONCE, On Fri12/25/22 at 1620, For 1 dose $Given 12/25/2022 4:30 PM CDT 3 mLs ipratropium - albuterol 0.5 mg/2.5 mg/3 mL (DUONEB) neb solution 3 mL 3 mL, Nebulization, ONCE, On Fri12/25/22 at 1620, For 1 dose $Given 12/25/2022 4:30 PM CDT 3 mLs methylPREDNISolone sodium succinate (solu-MEDROL) injection 125 mg 125 mg, Intravenous, ONCE, On Fri12/25/22 at 1620, For 1 dose, Doses greater than or equal to 1000 mg administer over 60 minutes Doses greater than or equal to 500 mg administer over 30-60 minutes Doses greater than or equal to 250 mg administer over 15-30 minutes Doses less than or equal to 125 mg IVP over 3-5 minutes $Given 12/25/2022 4:28 PM CDT 125 mg Saline Intravenous, 100 mL, ONCE, On Fri12/25/22 at 1515, For 1 dose $Given 12/25/2022 3:17 PM CDT 100 mLs documented in this encounter Active and Recently Administered Medications Times are shown in CDT. Scheduled Medication Order 12/23/2022 12/24/2022 12/25/2022 iopamidol (ISOVUE-370) solution 79 mL (COMPLETED) 79 mL, Intravenous, ONCE, On Fri12/25/22 at 1515, For 1 dose 151 ($Given - Provi osiris: Magui Cole) ipratropium - albuterol 0.5 mg/2.5 mg/3 mL (DUONEB) neb solution 3 mL (COMPLETED) 3 mL, Nebulization, ONCE, On Fri12/25/22 at 1620, For 1 dose 1630 ($Given - Provi osiris: Daniel Mcintosh RN) ipratropium - albuterol 0.5 mg/2.5 mg/3 mL (DUONEB) neb solution 3 mL (COMPLETED) 3 mL, Nebulization, ONCE, On Fri12/25/22 at 1620, For 1 dose 1630 ($Given - Provi osiris: Daniel Mcintosh RN) ipratropium - albuterol 0.5 mg/2.5 mg/3 mL (DUONEB) neb solution 3 mL (COMPLETED) 3 mL, Nebulization, ONCE, On Fri12/25/22 at 1620, For 1 dose 1630 ($Given - Provi osiris: Daniel Mcintosh RN) methylPREDNISolone sodium succinate (solu-MEDROL) injection 125 mg (COMPLETED) 125 mg, Intravenous, ONCE, On Fri12/25/22 at 1620, For 1 dose, Doses greater than or equal to 1000 mg administer over 60 minutes Doses greater than or equal to 500 mg administer over 30-60 minutes Doses greater than or equal to 250 mg administer over 15-30 minutes Doses less than or equal to 125 mg IVP over 3-5 minutes 1628 ($Given - Provi osiris: Daniel Mcintosh RN) Saline (COMPLETED) Intravenous, 100 mL, ONCE, On Fri12/25/22 at 1515, For 1 dose 1517 ($Given - Provi osiris: Magui Cole) documented in this encounter Care Teams Nut Processing Supervisor Relationship Specialty Start Date End Date Chula Farley DO [address] [place], [place] [id number] PCP - General Family Practice 12/25/22 documented as of this encounter
--- OUTSIDE RECORDS SUMMARY | 2023-09-24 02:57 | XMS_ITS | Encounter Summary ---
Author Name Unknown Organization [place] Address [facility] [place] [address] Care Team Providers Care Account Liaison Hospice Name Role Phone Chula Farley Primary Care Provider [phone] Reason for Visit * Reason Comments Leg Swelling Encounter Details Date Type Department Care Team (Late st Contact Info) Description 05/21/2023 5:10 PM CDT - 05/21/2023 5:[address] [facility] Emergency Dept [address] [place] [id number] Darrell Castillo MD [facility] [address] [place], [place] [address] Leg swelling; Personal history of DVT (deep vein thrombosis); Anticoagulated on Coumadin Discharge Disposition: Home or Self Care Social [...] suspected to have Coronavirus/COVID-19? No / Unsure 05/21/2023 2:28 PM CDT documented as of this encounter [...] Mass Index 37.9 05/21/2023 2:29 PM CDT documented in this encounter Discharge Instructions * Discharge Instructions* Darrell Castillo MD - 05/21/2023 5:16 PM CDT Return if you have increased pain, develop redness, fever, or trouble walking. Keep taking your meds. You can try elevating your leg and icing the area. documented in this encounter Medications at Time [...] as of this encounter ED Notes * Татьяна Ryan RN - 05/21/2023 2:32 PM CDT Images from the original note were not included. Pt has a hx of 4 DVT's and 3 PE's, most recent one was November 2022, bilateral DVT and bilateral PE. Pt is on warfarin, last INR check was 12 days ago, INR was 2.2. Pt took an extra 2mg of warfarin last night. Triage Assessment Row Name 05/21/23 1871 Triage Assessment (Adult) Airway WDL WDL Respiratory WDL Respiratory WDL WDL Skin Circulation/Temperature WDL Skin Circulation/Temperature WDL -- swelling in right leg Cardiac WDL Cardiac WDL WDL Peripheral/Neurovascular WDL Peripheral Neurovascular WDL WDL Cognitive/Neuro/Behavioral WDL Cognitive/Neuro/Behavioral WDL WDL * Darrell Castillo MD - 05/21/2023 1:59 PM CDT History Chief Complaint: Leg Swelling The history is provided by the patient. Sanam Simpson is a 58 year old female on Warfarin who presents with leg swelling. The patient reports that her right leg started swelling 3 days ago. The patient reports that she had 3 DVT in herleft leg and 1 DVT in her right leg done in November 2022. She adds that she had 3 PE's done in November.She has been on blood thinners since 2014. She has been seen by president & ceo in [place] and seen at [facility]. Denies chest pain or pressure. Independent Historian: None - Patient Only Review of External Notes: None Medications: Albuterol Prednisone albuterol (PROAIR HFA/PROVENTIL HFA/VENTOLIN HFA) 108 (90 Base) MCG/ACT inhaler predniSONE (DELTASONE) 20 MG tablet spacer ([facility]) holding chamber Past Medical History: No past medical history on file. Past Surgical History: No past surgical history on file. Physical Exam Patient Vitals for the past 24 hrs: BP Temp Temp src Pulse Resp SpO2 Height Weight 05/21/23 1429 (!) 142/86 98.9 ??F (37.2 ??C) Oral 85 20 99 % 1.702 m (5' 7) 109.8 kg (242 lb) Physical Exam Constitutional: Alert, attentive, GCS 15 Eyes: EOM are normal, anicteric, conjugate gaze CV: distal extremities warm, well perfused Chest: Non-labored breathing on RA MSK: No significant leg swelling, no joint effusion r knee, no skin changes, flexion of R knee full Neurological: Alert, attentive, moving all extremities equally. Skin: Skin is warm and dry.; Emergency Department Course Imaging: US Lower Extremity Venous Duplex Right Final Result IMPRESSION: 1. No deep venous thrombosis in the right lower extremity. AUSTIN SOLIS MD SYSTEM ID: [id number] Report per radiology Emergency Department Course & Assessments: Interventions: Medications - No data to display Independent Interpretation (X-rays, CTs, rhythm strip): None Consultations/Discussion of Management or Tests: None ED Course as of 05/21/231716May 21, 20231712 I obtained history and examined the patient as noted above. Social Determinants of Health affecting care: None Disposition: The patient was discharged to home. Impression & Plan Medical Decision Makin yo F with hx of DVT/PE, on coumadin, presenting for R posterior knee pain. No reported trauma. Has been compliant with coumadin, US here negative for DVT. Denies chest symptoms and has ongoing pain in leg, doubt miss clot. No labs or chest imaging needed. Do not suspect septic arthritis or fracture. Recommended elevation, ice and PCP follow up. Diagnosis: ICD-10-CM 1. Leg swelling M79.89 2. Personal history of DVT (deep vein thrombosis) Z86.718 3. Anticoagulated on Coumadin Z79.01 Darrell Castillo MD [employer] 5:28 PM 05/21/23 Darrell Castillo MD 05/21/231727 documented in this encounter Plan of Treatment Not on file documented as of this encounter Procedures Procedure Name Priority Date/Time Associated Diagnosis Comments US LOWER EXTREMITY VENOUS DUPLEX RIGHT STAT 05/21/2023 3:40 PM CDT documented in this encounter Results * US Lower Extremity Venous Duplex Right (05/21/2023 3:40 PM CDT) Anatomical Region Laterality Modality Lower Extremity Ultrasound Impressions 05/21/2023 3:46 PM CDT IMPRESSION: 1. ??No deep venous thrombosis in the right lower extremity. AUSTIN SOLIS MD SYSTEM ID: ??[id number] Narrative 05/21/2023 3:46 PM CDT US LOWER EXTREMITY VENOUS DUPLEX RIGHT 05/21/2023 3:40 PM CLINICAL HISTORY: right leg swelling hx of DVT TECHNIQUE: Venous Duplex ultrasound of the right lower extremity with and without compression, augmentation and duplex. Color flow and spectral Doppler with waveform analysis performed. COMPARISON: None. FINDINGS: Exam includes the common femoral, femoral, popliteal, and contralateral common femoral veins as well as segmentally visualized deep calf veins and greater saphenous vein. RIGHT: No deep vein thrombosis. No superficial thrombophlebitis. No popliteal cyst. Procedure Note Austin Solis MD - 05/21/2023 US LOWER EXTREMITY VENOUS DUPLEX RIGHT 05/21/2023 3:40 PM CLINICAL HISTORY: right leg swelling hx of DVT TECHNIQUE: Venous Duplex ultrasound of the right lower extremity with and without compression, augmentation and duplex. Color flow and spectral Doppler with waveform analysis performed. COMPARISON: None. FINDINGS: Exam includes the common femoral, femoral, popliteal, and contralateral common femoral veins as well as segmentally visualized deep calf veins and greater saphenous vein. RIGHT: No deep vein thrombosis. No superficial thrombophlebitis. No popliteal cyst. IMPRESSION: 1. No deep venous thrombosis in the right lower extremity. A[place]IN SOLIS MD SYSTEM ID: [id number] Darrell Castillo MD [facility] US ORDERABLES documented in this encounter Visit Diagnoses Diagnosis Leg swelling Swelling of limb Personal history of DVT (deep vein thrombosis) Personal history of venous thrombosis and embolism Anticoagulated on Coumadin Encounter for therapeutic drug monitoring documented in this encounter Care Teams Account Liaison Hospice Relationship Specialty Start Date End Date Chula Farley DO [address] [place] [address] PCP - General Family Practice 12/25/22 documented as of this encounter
--- OUTSIDE RECORDS SUMMARY | 2023-09-24 02:57 | XMS_ITS | Clinical Summary ---
Author Name Unknown Organization [place] Address [facility] [place] [address] Care Team Providers Care Manager Assisted Living Name Role Phone Chula Farley DO Primary Care Provider [phone] Allergies Active Allergy Reactions Criticality Noted Date [...] 05/21/2023 2:29 PM CDT Plan of Treatment Health Maintenance Due Date Last Done Comments ADVANCE CARE PLANNING 1965 ANNUAL REVIEW OF HM ORDERS 1965 ASTHMA ACTION PLAN 1965 ASTHMA CONTROL TEST 1965 CT COLONOGRAPHY 1965 FIT 1965 FLEX SIG 1965 HEPATITIS B IMMUNIZATION (1 of 3 - 3-dose series) 1965 MAMMO SCREENING 1965 sDNA (Cologuard) 1965 COVID-19 Vaccine (#1) 1965 HIV SCREENING 1980 HEPATITIS C SCREENING 1983 PAP 1986 LIPID 2010 INFLUENZA VACCINE (#1) 2023 PHQ-2 (once per calendar year) 2023 YEARLY PREVENTIVE VISIT 01/02/2024 01/01/2023 DTAP/TDAP/TD IMMUNIZATION (2 - Td or Tdap) 01/01/2033 01/01/2023 COLONOSCOPY 03/26/2033 03/26/2023 COLORECTAL CANCER SCREENING 03/26/2033 Pneumococcal Vaccine: Pediatrics (0 to 5 Years) and At-Risk Patients (6 to 64 Years) Completed 01/01/2023 ZOSTER IMMUNIZATION Completed 03/31/2023, 01/01/2023 HPV IMMUNIZATION Aged Out No longer e ligible based on patient's age to complete this topic IPV IMMUNIZATION Aged Out No longer e ligible based on patient's age to complete this topic MENINGITIS IMMUNIZATION Aged Out No l onger eligible based on patient's age to complete this topic RSV MONOCLONAL ANTIBODY Aged Out No l onger eligible based on patient's age to complete this topic Care Teams Manager Assisted Living Relationship Specialty Start Date End Date Chula Farley [place] [address] [place] [address] PCP - General Family Practice 12/25/22
--- OUTSIDE RECORDS SUMMARY | 2023-09-24 02:57 | XMS_ITS | Encounter Summary ---
Author Name Unknown Organization [place] Address [facility] [place] [address] Care Team Providers Care Toy Trains And Accessories Salesperson Name Role Phone Chula Farley DO Primary Care Provider [phone] Encounter Details Date Type Department Care Team (Latest Contact Info) Description 05/21/2023 Travel Social History Tobacco Use Types Packs/Day Years [...] PM CDT documented as of this encounter Plan of Treatment Not on file documented as of this encounter Visit Diagnoses Not on filedocumented in this encounter Care Teams Toy Trains And Accessories Salesperson Relationship Specialty Start Date End Date Chula Farley [place] [address] [address] PCP - General Family Practice 12/25/22 documented as of this encounter
--- OUTSIDE RECORDS SUMMARY | 2023-09-24 02:57 | XMS_ITS | Encounter Summary ---
Author Name Unknown Organization [place] Address [facility] [place] [address] Care Team Providers Care Paper Cone Machine Tender Name Role Phone Chula Farley DO Primary Care Provider [phone] Encounter Details Date Type Department Care Team (Latest Contact Info) Description 12/25/2022 Travel Social History Tobacco Use Types Packs/Day [...] on filedocumented in this encounter Care Teams Paper Cone Machine Tender Relationship Specialty Start Date End Date Chula Farley [place] [address] [address] PCP - General Family Practice 12/25/22 documented as of this encounter
--- OUTSIDE RECORDS SUMMARY | 2023-09-24 02:57 | XMS_ITS | Clinical Summary ---
Author Name Unknown Organization [employer] [facility] Address [place], [place] [address] Care Team Providers Care Seat Cover Installer Name Role Phone Chula Farley Becca CRUZ Primary Care Provider [phone] Allergies Active Allergy Reactions Criticality Noted Date Comments Blood-Group Specific Substance Other - Describe In Comment Field 03/25/2023 Patient has a [place] antibody. Blood products may be delayed. Draw patient 24 hours prior to transfusion. For inDinero testing, draw one red top and two purple top tubes for all Type and Screen orders. 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 90 Tablet 3 12/17/19 23 Active budesonide-formote roL (SYMBICORT) 160-4.5 mcg/actuation (160-4.5 mcg each actuation) inhalerIndications :Mild intermittent asthma without complication Inhale 2 Puffs by mouth two times daily. 10.2 g 6 12/17/19 23 Active omeprazole (PRILOSEC) 40 mg Delayed-Release capsuleIndications :Chronic GERD Take 1 Capsule (40 mg) by mouth once daily before a meal. 90 Capsule 3 12/17/19 23 Active levocetirizine (XYZAL) 5 mg tab tabletIndications: Allergy to environmental factors Take 1 Tablet (5 mg) by mouth once daily. 90 Tablet 3 01/02/20 23 Active melatonin 5 mg capsule Take 1 Capsule (5 mg) by mouth. 0 04/21/20 23 Active semaglutide (Wegovy) 0.25 mg/0.5 mL penIndications:Pushpa deleon, Class II, BMI 35-39.9,Weight loss counseling, encounter for Inject 0.25 mg subcutaneous once weekly. 2 mL 0 05/11/20 23 Active gabapentin (NEURONTIN) 100 mg capsuleIndications :Neuropathy Take 200 mg in the AM, 100 mg at noon, then 300 mg in the evening for 3 days, then 200 mg in the AM, 100 mg at noon, and 200 mg in the evening for 3 days, then 100 mg in the AM, 100 mg at noon and 200 mg in the evening for 3 days, then decrease to 100 mg three times daily. 360 Capsule 1 05/12/20 23 Active CPAPIndications:OS A (obstructive sleep apnea) CPAP machine for home use at pressure 13 cmw, full face mask x1/3month with a full face cushion x1/mo 1 Each 11 06/18/20 23 Active benzonatate (TESSALON) 200 mg capsuleIndications :Cough, unspecified type Take 1 Capsule (200 mg) by mouth 3 times daily if needed for Cough. 30 Capsule 1 07/14/20 23 Active cholecalciferol (Vitamin D) 1,000 unit capsuleIndications :Vitamin D deficiency Take 1 Capsule (1,000 units) by mouth once daily. 90 Capsule 3 07/25/20 23 Active hydrOXYzine HCL (ATARAX) 10 mg tabletIndications: Allergy to environmental factors TAKE ONE TABLET (10 MG) BY MOUTH ONCE DAILY NEEDED (ALLERGIES) 25 Tablet 0 08/03/20 23 Active ezetimibe (ZETIA) 10 mg tabletIndications: Myalgia due to statin,Mixed hyperlipidemia Take 1 Tablet (10 mg) by mouth once daily. 90 Tablet 3 08/08/20 23 Active SUMAtriptan (IMITREX) 50 mg tabletIndications: History of migraine headaches,Medicati on management TAKE 1 TABLET BY MOUTH EVERY 2 HOURS NEEDED FOR MIGRAINE. TAKE AT MINIMUM OF 2 HOURS APART. MAX DOSE OF 4 TABLETS (200MG) IN 24 HOURS 10 Tablet 0 08/17/20 23 Active sertraline (ZOLOFT) 100 mg tabletIndications: Generalized anxiety disorder with panic attacks,Bipolar 2 disorder (HC) Take 2 Tablets (200 mg) by mouth once daily. 180 Tablet 0 08/22/20 23 Active busPIRone (BUSPAR) 30 mg tabletIndications: Generalized anxiety disorder with panic attacks Take 1 Tablet (30 mg) by mouth two times daily. 180 Tablet 0 08/22/20 23 Active azelaic acid (FINACEA) 15 % topical gel APPLY TO FACE 1 TO 2 TIMES PER DAY 0 08/08/20 23 Active ivermectin 1 % topical cream APPLY THIN LAYER TO FACE 1 TO 2 TIMES PER DAY 0 08/08/20 23 Active sulfacetamide-sulf ur , 10 - 5%, (SULFACET-R) 10-5 % (w/w) clsr WASH FACE 1 TIME PER DAY.LATHER & LET SIT 2 TO 3 MINTUES BEFORE RINSING. 0 08/08/20 23 Active montelukast (SINGULAIR) 10 mg tabletIndications: Moderate persistent asthma with acute exacerbation Take 1 Tablet (10 mg) by mouth at bedtime. 90 Tablet 3 08/22/20 23 Active nystatin (MYCOSTATIN) topical creamIndications:I ntertrigo Apply topically to affected area(s) two times daily. 30 g 5 08/22/20 23 Active Ventolin HFA 90 mcg/actuation inhalerIndications :Mild intermittent asthma without complication INHALE 1 TO 2 PUFFS BY MOUTH EVERY 4 HOURS NEEDED FOR SHORTNESS OF BREATH OR WHEEZING 18 g 0 08/26/20 23 Active azelastine 137 mcg/actuation (ASTELIN) nasal sprayIndications:E nvironmental allergies,Post-kizzy al drip Inhale 1 [place] into affected nostril(s) two times daily. 30 mL 0 09/22/19 24 Active fluticasone (50 mcg per actuation) nasal solution (FLONASE)Indicatio ns:Environmental allergies,Post-kizzy al drip Inhale 2 Sprays to both nostrils once daily. 16 g 0 09/22/19 24 Active enoxaparin (LOVENOX) 120 mg/0.8 mL injectionIndicatio ns:Acute deep vein thrombosis (DVT) of popliteal vein of right lower extremity (HC) Inject 110 mg subcutaneous every 12 hours. 22.4 mL 0 09/23/19 24 Active warfarin (COUMADIN) 2 mg tabletIndications: Recurrent deep vein thrombosis (DVT) (HC),Anticoagulati on monitoring, INR range 2-3 Take by mouth 09/23: Hold; 09/24: Hold; 09/25: Hold; 09/26: Hold; 09/27: Hold; 09/28: Hold; 09/29: Hold; 09/30: Hold; 10/01: Hold; 10/02: Hold; 10/03: Hold; 10/04: Hold; 10/05: Hold; 10/06: Hold; 10/07: Hold; 10/08: Hold; 10/09: Hold; 10/10: Hold; 10/11: Hold; 10/12: Hold; 10/13: Hold; 10/14: Hold; 10/15: Hold; 10/16: Hold; Otherwise 4 mg every Sun, Mami; 6 mg all other days in the evening OR as directed 0 09/23/19 24 Active warfarin (COUMADIN) 2 mg tabletIndications: Recurrent deep vein thrombosis (DVT) (HC),Anticoagulati on monitoring, INR range 2-3 Take by mouth 4 mg (2 mg x 2) every Sun, Mami; 6 mg (2 mg x 3) all other days in the evening OR as directed 247 Tablet 0 07/04/20 23 024 Discontinued(Ot her - add note to specify (E-cancel not sent)) Ventolin HFA 90 mcg/actuation inhalerIndications :Mild intermittent asthma without complication INHALE 1 TO 2 PUFFS BY MOUTH EVERY 4 HOURS NEEDED FOR SHORTNESS OF BREATH OR WHEEZING 18 g 0 07/12/20 23 023 Discontinued predniSONE (DELTASONE) 20 mg tabletIndications: Moderate persistent asthma with acute exacerbation Take 2 Tablets (40 mg) by mouth once daily for 5 days. 10 Tablet 0 08/22/20 23 023 enoxaparin (LOVENOX) 120 mg/0.8 mL injection Inject 110 mg subcutaneous every 12 hours. 0 09/17/19 24 024 Discontinued(Re order (E-cancel not sent)) Active Problems Problem Noted Date Diagnosed Date Recurrent pulmonary emboli 06/06/2023 MARCELA 03/17/2023 AHI- 38 04/08/2023 Generalized anxiety disorder with panic attacks 04/04/2023 PTSD (post-traumatic stress disorder) 04/04/2023 Controlled substance agreement signed 04/04/2023 Overview: Signed 04/03/2023 Beronica Khan [employer] Psychiatry History of pulmonary embolism 03/24/2023 Recurrent acute deep vein th rombosis (DVT) of both lower extremities 03/24/2023 Melena 03/24/2023 Anemia 03/24/2023 Gastrointestinal hemorrhage with melena 03/24/20 23 Anticoagulation monitoring, INR range 2-3 2022 History of TIA (transient ischemic attack) 01/20 Overview: Secondary to pre-eclampsia Mild intermittent asthma without complication Pulmonary embolism, bilateral 01/01/2023 Recurrent deep vein thrombosis (DVT) 01/01/2023 Rosacea, unspecified 01/01/2023 Allergy to environmental factors 01/01/2023 Yeast infection of the skin 01/01/2023 Incidental lung nodule, > 3mm and < 8mm 01/02/20 23 Chronic GERD 01/01/2023 History of endometriosis 01/01/2023 Bipolar 2 disorder 01/01/2023 Chronic neuropathic pain 01/01/2023 Overview: In right groin secondary to hernia Migraine syndrome 01/01/2023 Encounters Date Type Department Care Team Description 09/23/[address] [facility] [address] [place] [address] Chula Farley Becca, DO 09/23/[address] [facility] [address] [place] [address] Martine Chula Becca, DO Anticoagulation (abdominal bruising) 09/23/2023 Orders Only [facility] [address] [place] [address] Janine Thao MD <No scans attached> 09/23/2023 Anticoagulation (warfarin) [facility] [address] [place] [address] 1, [facility] Anticoagulation (Chart update) 09/23/[address] [facility] [address] [place] [address] Mikael Mcclendon MD 09/23/[address] [address] Martine Chula Becca, DO Prior Authorization (enoxaparin (LOVENOX) 120 mg/0.8 mL injection QTY LIMITS) 09/22/2023 10:10 AM PHOTOGRAPHIC PROCESS WORKER Office Visit [address] [address] Kira Chula Becca, DO ER Follow up (DVT R knee - stopped Coumadin, started on Lovenox ) 09/22/2023 Travel 09/19/2023 8:00 AM PHOTOGRAPHIC PROCESS WORKER Telemedicine [facility] [address] [place] [address] Inna Akers, [facility] Late Cancel Appointment 09/18/[address] [address] Kira Chula Becca, DO Questions 09/17/[address] [address] Kira Chula Becca, DO Anticoagulation (Update) 09/10/2023 Orders Only [address] [address] Aaronqra Chula Becca, DO <No scans attached> 09/09/[address] [address] Kira Chula Becca, DO Appointment Request (Requesting to be seen sooner ) 09/05/2023 7:20 AM PHOTOGRAPHIC PROCESS WORKER Orders Only [address] [address] Lab, [facility] 09/05/2023 Anticoagulation (warfarin) [facility] [address] [facility] [place] [address] 1, [facility] Anticoagulation 09/05/2023 Travel 08/30/2023 Anticoagulation (warfarin) [facility] [address] [facility] [address] 1, [facility] Anticoagulation 08/29/2023 1:45 PM PHOTOGRAPHIC PROCESS WORKER Telemedicine [facility] [address] [place] [address] Inna Akers, [facility] Health Intake; Telehealth 08/29/2023 1:30 PM PHOTOGRAPHIC PROCESS WORKER Orders Only [facility] [address] [place] [address] Lab, [facility] 08/29/2023 Travel 08/29/[address] [facility] [address] [facility] [place] [address] Chula Farley, Prior Authorization (omeprazole (PRILOSEC) 40 mg Delayed-Release capsule Approved 05/31/23-12/27/23) 08/27/2023 Anticoagulation (warfarin) [facility] [address] [facility] [place] [address] 1, [facility] Anticoagulation 08/26/2023 3:40 PM PHOTOGRAPHIC PROCESS WORKER Orders Only [facility] [address] [facility] [place] [address] Lab, [facility] 08/26/2023 Travel 08/26/[address] [facility] [address] [facility] [place] [address] Chula Farley DO Refill Request (Ventolin Hfa) 08/23/2023 Anticoagulation (warfarin) [facility] [address] [facility] [place] [address] 1, [facility] Anticoagulation (Provider visit) 08/22/2023 2:35 PM PHOTOGRAPHIC PROCESS WORKER Office Visit [facility] [address] [facility] [place] [address] Shaqra, Chula Becca, DO Derm Problem (Rash lower abdomen ); Flank Pain (L flank pain); Leg Pain/problem (R calf pain) 08/22/2023 7:00 AM PHOTOGRAPHIC PROCESS WORKER Telemedicine [facility] [address] [place] [address] Joseline Handley NP Telehealth; Medication Management 08/22/2023 Travel 08/20/2023 Travel 08/15/[address] [facility] [address] [place] [address] Sir Farleyi Becca, DO Refill Request (Sumatriptan) 08/08/[address] [address] Joseline Handley NP Late Cancel Appointment 08/02/[address] [facility] [address] [place] [address] Chula Farley Becca, DO Refill Request (Sumatriptan, Hydroxyzine Hcl) 08/01/[address] [address] Gurdeep Lin LICSW Late Cancel Appointment 07/30/[address] [facility] [address] [place] [address] Yecenia Handley PA Appointment 07/26/2023 Anticoagulation (warfarin) [address] [address] 1, [facility] Anticoagulation 07/25/2023 2:10 PM PHOTOGRAPHIC PROCESS WORKER Office Visit [facility] [address] [place] [address] Chula Farley, Medication Management (Crestor); Weight (Discuss weight loss surgery) 07/25/2023 Travel 07/18/2023 2:00 PM CDT Office Visit [facility] [address] [place] [address] Gurdeep Lin LICSW [facility] Visit 07/18/2023 1:40 PM CDT Nurse/Clinic Staff Only [facility] [address] [place] [address] Immunization/Injectio n 07/17/2023 Travel 07/14/2023 8:10 AM CDT Office Visit [facility] [address] [place] [address] Hallie Chaudhry PA Headache (Migraine x 4 days); Asthma (Cough/); Flank Pain 07/14/2023 Telephone [facility] [address] [place] [address] Dee Dee Esparza, [employer] Appointment 07/14/2023 Travel 07/12/2023 Anticoagulation (warfarin) [facility] [address] [facility] [place] [address] 1, [facility] Anticoagulation 07/12/[address] [facility] [address] [place] [address] Aaronqra Chula Becca, DO <No scans attached> 07/11/2023 2:00 PM CDT Orders Only [facility] [address] [place] [address] Lab, [facility] 07/11/[address] [facility] [address] [place] [address] Aaronqra Chula Becca, DO Refill Request (Sumatriptan, Ventolin Hfa) 07/11/2023 Telephone [facility] [address] [place] [phone] Dee Dee Esparza, [employer] Lab (UA results) 07/11/2023 Travel 07/08/2023 Travel 07/07/2023 Telephone [facility] [address] [place] [phone] Dee Dee Esparza, [employer] Follow Up 07/07/[address] [facility] [address] [place] [address] Martine Chula Becca, DO Appointment (Kidney levels) 07/05/[address] [facility] [address] [facility] [place] [address] Shaqra Chula Becca, DO Refill Request (Hydroxyzine Hcl) 07/04/2023 3:30 PM CDT Office Visit [facility] [place] [facility] [address] [facility] [phone] Dee Dee Esparza, [employer] Follow Up (Recurrent pulmonary emboli) 07/04/[address] [facility] [address] [facility] [place] [address] Martine Chula Becca, DO Refill Request (Warfarin) 07/03/2023 Travel 06/27/2023 3:00 PM CDT Office Visit [facility] [address] [facility] [place] [address] Gurdeep Lin, [facility] Mental Health Intake 06/27/2023 2:40 PM CDT Orders Only [facility] [address] [place] [address] Lab, [facility] 06/27/2023 Travel from Last 3 Months Immunizations Name Administration Dates Next Due COVID-19 Vaccine Spikevax (M oderna 50mcg/0.5mL) 12YO+ [id number] Formula PF 07/18/2023 Influenza, IIV4 07/18/2023 Pneumococcal Conj 20-valent (Prevnar 20) 023 Tdap 01/01/2023 Zoster (Shingrix-RZV, recombinant) 03/31/2023, Family History Medical History Relation Name Comments Alcoholism Father Depression Father Diabetes Father Glaucoma Father Melanoma Father Cancer-breast Maternal Aunt Alcoholism Maternal Grandfather Brain cancer Maternal Grandfather Alcoholism Maternal Grandmother ALS Mother Cancer-breast Mother Depression Mother Migraines Mother Sarcoidosis Mother Alcoholism Paternal Grandfather Diabetes Paternal Grandfather Alcoholism Paternal Grandmother Bipolar disorder Paternal Grandmother Alcoholism Sister 1 Lucero Anxiety disorder Sister 1 Lucero Asthma Sister 1 Lucero Depression Sister 1 Lucero Liver disease Sister 1 Lucero Due to alcohol use Anxiety disorder Sister 2 Donita Depression Sister 2 Donita Hypertension Sister 2 Donita Migraines Sister 2 Donita Osteoarthritis Sister 2 Donita Thyroid Disease Sister 2 Donita Hypothyroidi Relation Name Status Comments Father Alive Maternal Aunt Maternal Grandfather Maternal Grandmother Mother Paternal Grandfather Paternal Grandmother Sister 1 Lucero Alive Sister 2 Donita Alive Social History Tobacco Use Types Packs/Day Years Used Date Smoking Tobacco: Former Cigarettes 1 14 1 980 - 1993 Smokeless Tobacco: Never Tobacco Cessation:Counseling Given: Yes Alcohol Use Standard Drinks/Week Comments Not Currently 0 (1 standard drink = 0.6 oz pur e alcohol) never to once a year PHQ-2 Answer Date Recorded PHQ-2 TOTAL SCORE 1 08/26/2023 Social Connections Answer Date Recorded Frequency of Communication with Friends and Fami ly 4 12/17/2022 Financial Resource Strain Answer Date R ecorded Difficulty of Paying Living Expenses 1 12/17/2022 Difficulty of Paying Living Expenses 2 12/17/2022 Food Insecurity Answer Date Recorded Worried About Running Out of Food in the Last Ye ar 2 12/17/2022 Transportation Needs Answer Date Record ed Lack of Transportation (Medical) 2 12/17/2022 Housing Stability Answer Date Recorded Unable to Pay for Housing in the Last Year 2 12/17/2022 Sex and Gender Information Value Date Recorded Sex Assigned at Female 01/23/2023 5:38 PM CDT Gender Identity Female 01/23/2023 5:38 PM CDT Sexual Orientation Straight 01/23/2023 5: 38 PM CDT Obstetrics History Last Filed Vital Signs Vital Sign Reading Time Taken Comments Blood Pressure 135/93 09/22/2023 10:26 AM PHOTOGRAPHIC PROCESS WORKER Pulse 104 09/22/2023 10:26 AM PHOTOGRAPHIC PROCESS WORKER Temperature 36.8 ??C (98.2 ??F) 07/04/2023 3:19 PM CD T Respiratory Rate 18 07/04/2023 3:19 PM CDT Oxygen Saturation 96% 09/22/2023 10: 26 AM PHOTOGRAPHIC PROCESS WORKER Inhaled Oxygen Concentration - - Weight 112.1 kg (247 lb 1.6 oz) 024 10:26 AM PHOTOGRAPHIC PROCESS WORKER Height 168.5 cm (5' 6.34) 01/01/2023 1:44 PM CD T Body Mass Index 39.48 01/01/2023 1:44 PM CDT Plan of Treatment Upcoming Encounters Date Type Department Care Team (Late st Contact Info) Description 09/26/2023 8:45 AM PHOTOGRAPHIC PROCESS WORKER Telemedicine [facility] [address] [place] [address] Inna Akers, [facility] [address] [place] [address] 10/16/2023 4:30 PM PHOTOGRAPHIC PROCESS WORKER Office Visit [facility] [address] [place] [address] [place] [address] [place] [address] 10/17/2023 7:00 AM PHOTOGRAPHIC PROCESS WORKER Orders Only [facility] [address] [place] [address] [place] 11/10/2023 3:25 PM PHOTOGRAPHIC PROCESS WORKER Office Visit [facility] [address] [place] [address] Chula Fraley, DO [address] [place] [address] Health Maintenance Due Date Last Done Comments BMI (ht and wt on same day) for age 18+ 01/02/2024 01/01/2023, 12/16/2022 Mammogram for age 45-75 01/02/2024 01/01/2023 Depression screening for age 12+ 08/30/2024 08/30/2023, 08/29/2023, 08/29/2023, Additional history exists Lipids for age 45-75 09/05/2028 09/05/2023, 09/05/2023, 07/11/2023, Additional history exists Tetanus booster 01/01/2033 01/01/2023 Colonoscopy through age 75 03/26/2033 03/26/2023 HIV for age 15-65 Completed 01/01/2023 Hepatitis C screening for ag e 18-79 Completed 01/01/2023 Pneumococcal series for age 6-64 Completed 01/02/20 23 Tdap Completed 01/01/2023 Zoster (shingles) series for age 50+ Completed 03/31/2023, 01/01/2023 COVID-19 vaccine series Completed 07/18/2023 Influenza for age 50-64 Completed 07/18/2023 Procedures Procedure Name Priority Date/Time Associated Diagnosis Comments LDL CHOLESTEROL,DIRECT Routine 09/05/2023 7:47 AM PHOTOGRAPHIC PROCESS WORKER Mixed hyperlipidemia LIPID PANEL W REFLEX MEASURED LDL Routine 09/05/2023 7:47 AM PHOTOGRAPHIC PROCESS WORKER Mixed hyperlipidemia PROTIME-INR STAT 09/05/2023 7:47 AM PHOTOGRAPHIC PROCESS WORKER Recurrent deep vein thrombosis (DVT) (HC) Anticoagulation monitoring, INR range 2-3 PROTIME-INR STAT 08/29/2023 1:40 PM PHOTOGRAPHIC PROCESS WORKER Recurrent deep vein thrombosis (DVT) (HC) Anticoagulation monitoring, INR range 2-3 PROTIME-INR STAT 08/26/2023 4:06 PM PHOTOGRAPHIC PROCESS WORKER Recurrent deep vein thrombosis (DVT) (HC) Anticoagulation monitoring, INR range 2-3 BASIC METABOLIC PANEL Routine 08/22/2023 3:49 PM PHOTOGRAPHIC PROCESS WORKER Flank pain PROTIME-INR STAT 08/22/2023 3:49 PM PHOTOGRAPHIC PROCESS WORKER Recurrent deep vein thrombosis (DVT) (HC) Anticoagulation monitoring, INR range 2-3 URINE CULTURE Add On 08/22/2023 3:22 PM PHOTOGRAPHIC PROCESS WORKER Flank pain URINALYSIS MICROSCOPIC Routine 08/22/2023 3:22 PM PHOTOGRAPHIC PROCESS WORKER Flank pain UA W/ SEDIMENT EXAM REFLEXED PER CRITERIA Routine 08/22/2023 3:22 PM PHOTOGRAPHIC PROCESS WORKER Flank pain HEMOGLOBIN A1C Routine 07/25/2023 3:08 PM PHOTOGRAPHIC PROCESS WORKER Prediabetes BASIC METABOLIC PANEL Routine 07/25/2023 3:08 PM PHOTOGRAPHIC PROCESS WORKER JESSIKA (acute kidney injury) (HC) PROTIME-INR STAT 07/25/2023 3:08 PM PHOTOGRAPHIC PROCESS WORKER Recurrent deep vein thrombosis (DVT) (HC) Anticoagulation monitoring, INR range 2-3 URINE CULTURE Add On 07/14/2023 8:20 AM CDT Dysuria URINALYSIS MICROSCOPIC Routine 07/14/2023 8:20 AM CDT Dysuria UA W/ SEDIMENT EXAM REFLEXED PER CRITERIA Routine 07/14/2023 8:20 AM CDT Dysuria URINALYSIS MICROSCOPIC Routine 07/11/2023 2:13 PM CDT Elevated serum creatinine UA W/ SEDIMENT EXAM REFLEXED PER CRITERIA Routine 07/11/2023 2:13 PM CDT Elevated serum creatinine BASIC METABOLIC PANEL Routine 07/11/2023 2:10 PM CDT Elevated serum creatinine LIPID PANEL W REFLEX MEASURED LDL Routine 07/11/2023 2:10 PM CDT Mixed hyperlipidemia PROTIME-INR STAT 07/11/2023 2:10 PM CDT Recurrent deep vein thrombosis (DVT) (HC) Anticoagulation monitoring, INR range 2-3 CBC WITH AUTO DIFFERENTIAL Routine 06/27/2023 2:56 PM CDT Recurrent deep vein thrombosis (DVT) (HC) COMP METABOLIC PANEL Routine 06/27/2023 2:56 PM CDT Recurrent deep vein thrombosis (DVT) (HC) CBC WITH AUTO DIFFERENTIAL Routine 06/27/2023 2:56 PM CDT Recurrent deep vein thrombosis (DVT) (HC) from Last 3 Months Results * (ABNORMAL) LIPID PANEL W REFLEX MEASURED LDL (09/05/2023 7:47 AM PHOTOGRAPHIC PROCESS WORKER) Only the most recent of2 resultswithin the time period is included. [facility] CHOLESTEROL,TOTAL 308(H) 100 - 199 mg/dL 09/05/2023 4:27 PM PHOTOGRAPHIC PROCESS WORKER [facility] Comment: Cholesterol, Total Reference Ranges Desirable <200 mg/dL Borderline 200-239 mg/dL High >=240 mg/dL TRIGLYCERIDES 559(H) <150 mg/dL 09/05/2023 4:27 PM PHOTOGRAPHIC PROCESS WORKER [facility] HDL CHOLESTEROL 41 >40 mg/dL 3 4:27 PM PHOTOGRAPHIC PROCESS WORKER [facility] NON-HDL CHOLESTEROL 267(H) <145 mg/dl 09/05/2023 4:27 PM PHOTOGRAPHIC PROCESS WORKER [facility] CHOL/HDL RATIO 7.51(H) <4.50 09/05/2023 4:27 PM PHOTOGRAPHIC PROCESS WORKER [facility] LDL CHOLESTEROL 4:27 PM PHOTOGRAPHIC PROCESS WORKER [facility] Comment:Invalid LDL when Tri g >400. VLDL CHOLESTEROL COMMENT 09/05/2023 4:[address] [facility] Comment:Unable to calculate VLDL. PROVIDER ORDERED STATUS FASTING 09/05/2023 4:27 PM PHOTOGRAPHIC PROCESS WORKER [facility] Blood BLOOD SPECIMEN / Unknown Venipuncture / Unknown 09/05/2023 7:47 AM PHOTOGRAPHIC PROCESS WORKER 09/05/2023 7:49 AM PHOTOGRAPHIC PROCESS WORKER Chula Farley DO CHEMISTRY [facility] [address] [place] [phone], * (ABNORMAL) PROTIME-INR (09/05/2023 7:47 AM PHOTOGRAPHIC PROCESS WORKER) Only the most recent of6 resultswithin the time period is included. INR 2.2(H) <1.3 09/05/2023 12:58 PM PHOTOGRAPHIC PROCESS WORKER [facility] PROTIME 24.1(H) 10.3 - 12.3 sec 09/05/2023 12:58 PM PHOTOGRAPHIC PROCESS WORKER [facility] Blood BLOOD SPECIMEN / Unknown Venipuncture / Unknown 09/05/2023 7:47 AM PHOTOGRAPHIC PROCESS WORKER 09/05/2023 7:49 AM PHOTOGRAPHIC PROCESS WORKER Narrative [facility] - 09/05/2023 12:58 PM PHOTOGRAPHIC PROCESS WORKER ?Therapeutic Range 2.0-3.0 for most anticoagulated patients 2.5-3.5 or 4.0 for high risk patients The INR is only used for patients on stable oral anticoagulant therapy. It makes no significant contribution to the diagnosis or treatment of patients whose Protime is prolonged for other reasons. INR results are increased when heparin levels exceed 1.0 U/mL, which corresponds to an aPTT >125 seconds if the patient is on UFH. Chula Farley DO HEMATOLOGY Performing Organization Address [facility] Co de Phone Number [facility] [address] [place] [phone], * LDL CHOLESTEROL,DIRECT (09/05/2023 7:47 AM PHOTOGRAPHIC PROCESS WORKER) LDL CHOLESTEROL,DI RECT 170 mg/dL 09/05/2023 5:55 PM PHOTOGRAPHIC PROCESS WORKER [facility] PROVIDER ORDERED STATUS FASTING 09/05/2023 5:55 PM PHOTOGRAPHIC PROCESS WORKER [facility] Blood BLOOD SPECIMEN / Unknown Venipuncture / Unknown 09/05/2023 7:47 AM PHOTOGRAPHIC PROCESS WORKER 09/05/2023 7:49 AM PHOTOGRAPHIC PROCESS WORKER Narrative [facility] - 09/05/2023 5:55 PM PHOTOGRAPHIC PROCESS WORKER Optimal ?<100 mg/dl Near Optimal ?100-129 mg/dl Borderline High ?? 130-159 mg/dl High ?160-189 mg/dl Very High ? >=190 mg/dl Chula Farley DO CHEMISTRY Performing Organization Address [facility] Co de Phone Number [facility] [address] [place] [phone], * (ABNORMAL) BASIC METABOLIC PANEL (08/22/2023 3:49 PM PHOTOGRAPHIC PROCESS WORKER) Only the most recent of3 resultswithin the time period is included. SODIUM 141 136 - 145 mmol/L 08/25/2023 3:52 PM [facility] POTASSIUM 4.9 3.5 - 5.1 mmol/L 08/25/2023 3:52 PM [facility] CHLORIDE 105 98 - 107 mmol/L 08/25/2023 3:52 PM [facility] CO2,TOTAL 21(L) 22 - 29 mmol/L 08/25/2023 3:52 PM [facility] ANION GAP 15 5 - 18 08/25/2023 3:52 PM [facility] GLUCOSE 81 70 - 99 mg/dL 08/25/2023 3:52 PM [facility] CALCIUM 9.7 8.6 - 10.0 mg/dL 08/25/2023 3:52 PM [facility] BUN 17 6 - 20 mg/dL 08/25/2023 3:52 PM [facility] CREATININE 1.08(H) 0.50 - 0.90 mg/dL 08/25/2023 3:52 PM [facility] BUN/CREAT RATIO 16 10 - 20 3:52 PM [facility] eGFR 60(L) >90 mL/min/1.7 3m2 08/25/2023 3:52 PM [facility] Comment:As of 2021, eG FR is calculated by the CKD-EPI creatinine equation without race adjustment. ??eGFR can be influenced by muscle mass, exercise, and diet. ??The reported eGFR is an estimation only and is only applicable if the renal function is stable. Blood BLOOD SPECIMEN / Unknown Venipuncture / Unknown 08/22/2023 3:49 PM PHOTOGRAPHIC PROCESS WORKER 08/22/2023 3:50 PM PHOTOGRAPHIC PROCESS WORKER Chula Farley DO [facility] [address] [place] [phone], [place] * URINALYSIS MICROSCOPIC (08/22/2023 3:22 PM PHOTOGRAPHIC PROCESS WORKER) Only the most recent of3 resultswithin the time period is included. RBC 0-2 0-2, None Seen /HPF 08/22/2023 3:43 PM PHOTOGRAPHIC PROCESS WORKER [facility] WBC 0-2 0-2, 3-5, None Seen /HPF 08/22/2023 3:43 PM PHOTOGRAPHIC PROCESS WORKER [facility] BACTERIA Few None Seen, Rare, Few Bacteria/H PF 08/22/2023 3:43 PM PHOTOGRAPHIC PROCESS WORKER [facility] EPITHELIAL CELLS Few None Seen, Few Epi/HPF 08/22/2023 3:43 PM PHOTOGRAPHIC PROCESS WORKER [facility] Mucus Present 08/22/2023 3:43 PM PHOTOGRAPHIC PROCESS WORKER [facility] Urine URINE SPECIMEN / Unknown Non-Blood / Unknown 08/22/2023 3:22 PM PHOTOGRAPHIC PROCESS WORKER 08/22/2023 3:36 PM PHOTOGRAPHIC PROCESS WORKER Chula Becca [facility] URINE Performing Organization Address City/[facility]/ZIP Co de Phone Number [facility] [address] [place] [address], * URINE CULTURE (08/22/2023 3:22 PM PHOTOGRAPHIC PROCESS WORKER) Only the most recent of2 resultswithin the time period is included. CULTURE <10,000 CFU/mL multiple organisms 08/24/2023 8:34 AM PHOTOGRAPHIC PROCESS WORKER [facility] Urine URINE SPECIMEN / Unknown Non-Blood / Unknown 08/22/2023 3:22 PM PHOTOGRAPHIC PROCESS WORKER 08/22/2023 3:36 PM PHOTOGRAPHIC PROCESS WORKER [facility]CRO[facility]Y [facility] [address] [place] [address], [place] * (ABNORMAL) UA W/ SEDIMENT EXAM REFLEXED PER CRITERIA (08/22/2023 3:22 PM PHOTOGRAPHIC PROCESS WORKER) Only the most recent of3 resultswithin the time period is included. COLOR Yellow Yellow Color 08/22/2023 3:43 PM PHOTOGRAPHIC PROCESS WORKER [facility] CLARITY Clear Clear Clarity 08/22/2023 3:43 PM PHOTOGRAPHIC PROCESS WORKER [facility] SPECIFIC GRAVITY,URINE 1.025 1.010, 1.015, 1.020, 1.025 08/22/2023 3:43 PM PHOTOGRAPHIC PROCESS WORKER [facility] PH,URINE 5.5 6.0, 7.0, 8.0, 5.5, 6.5, 7.5, 8.5 08/22/2023 3:43 PM PHOTOGRAPHIC PROCESS WORKER [facility] UROBILINOGEN, QUALITATIVE Normal Normal EU/dl 08/22/2023 3:43 PM PHOTOGRAPHIC PROCESS WORKER [facility] PROTEIN, URINE Negative Negative mg/dL 08/22/2023 3:43 PM PHOTOGRAPHIC PROCESS WORKER [facility] GLUCOSE, URINE Negative Negative mg/dL 08/22/2023 3:43 PM PHOTOGRAPHIC PROCESS WORKER [facility] KETONES,URINE Negative Negative mg/dL 08/22/2023 3:43 PM PHOTOGRAPHIC PROCESS WORKER [facility] BILIRUBIN,URI NE Negative Negative 08/22/2023 3:43 PM PHOTOGRAPHIC PROCESS WORKER [facility] OCCULT BLOOD,URINE Negative Negative 08/22/2023 3:43 PM PHOTOGRAPHIC PROCESS WORKER [facility] NITRITE Negative Negative 08/22/2023 3:43 PM PHOTOGRAPHIC PROCESS WORKER [facility] LEUKOCYTE ESTERASE Trace(A) Negative 08/22/2023 3:43 PM PHOTOGRAPHIC PROCESS WORKER [facility] Urine URINE SPECIMEN / Unknown Non-Blood / Unknown 08/22/2023 3:22 PM PHOTOGRAPHIC PROCESS WORKER 08/22/2023 3:36 PM PHOTOGRAPHIC PROCESS WORKER Chula Farley DO URINE [facility] [address] [place] [address], * HEMOGLOBIN A1C MONITORING (POCT) (07/25/2023 3:08 PM PHOTOGRAPHIC PROCESS WORKER) HEMOGLOBIN A1C MONITORING (POCT) 5.9 <=6.4 % 07/25/2023 3:24 PM PHOTOGRAPHIC PROCESS WORKER [facility] Blood BLOOD SPECIMEN / Unknown Venipuncture / Unknown 07/25/2023 3:08 PM PHOTOGRAPHIC PROCESS WORKER 07/25/2023 3:08 PM PHOTOGRAPHIC PROCESS WORKER Narrative [facility] - 07/25/2023 3:24 PM PHOTOGRAPHIC PROCESS WORKER ? (<=6.9%) ? Indicates good control ? (7.0% to 7.9%) ? Indicates fair control ? (>=8.0%) ? Indicates poor control ?? NOTE: ??These thresholds are guidelines and ?individual targets may vary. Falsely low levels may be seen with: Recent Transfusion, Recent Significant Blood Loss, Hemolytic Diseases, or Falsely elevated levels may be seen with: Untreated Anemias, Splenectomy ? Chula Farley DO CHEMISTRY [facility] [address] [place] [address], * (ABNORMAL) CBC WITH AUTO DIFFERENTIAL (06/27/2023 2:56 PM CDT) WHITE BLOOD COUNT 9.9 4.5 - 11.0 thou/cu mm 06/27/2023 3:05 PM CDT [facility] RED BLOOD COUNT 5.21(H) 4.00 - 5.20 mil/cu mm 06/27/2023 3:05 PM CDT [facility] HEMOGLOBIN 14.7 12.0 - 16.0 g/dL 06/27/2023 3:05 PM CDT [facility] HEMATOCRIT 45.8 33.0 - 51.0 % 06/27/2023 3:05 PM CDT [facility] MCV 88 80 - 100 fL 06/27/2023 3:05 PM CDT [facility] MCH 28.2 26.0 - 34.0 pg 06/27/2023 3:05 PM CDT [facility] MCHC 32.1 32.0 - 36.0 g/dL 06/27/2023 3:05 PM CDT [facility] RDW 14.9 11.5 - 15.5 % 06/27/2023 3:05 PM CDT [facility] PLATELET COUNT 276 140 - 440 thou/cu mm 06/27/2023 3:05 PM CDT [facility] MPV 9.9 6.5 - 11.0 fL 06/27/2023 3:05 PM CDT [facility] % NEUT 62.8 % 06/27/2023 3:05 PM CDT [facility] % LYMPH 24.5 % 06/27/2023 3:05 PM CDT [facility] % MONO 7.4 % 06/27/2023 3:05 PM CDT [facility] % EOS 4.7 % 06/27/2023 3:05 PM CDT [facility] % BASO 0.6 % 06/27/2023 3:05 PM CDT [facility] ABSOLUTE NEUTROPHILS 6.2 1.7 - 7.0 thou/cu mm 06/27/2023 3:05 PM CDT [facility] ABSOLUTE LYMPHOCYTES 2.4 0.9 - 2.9 thou/cu mm 06/27/2023 3:05 PM CDT [facility] ABSOLUTE MONOCYTES 0.7 <0.9 thou/cu mm 06/27/2023 3:05 PM CDT [facility] ABSOLUTE EOSINOPHILS 0.5(H) <0.5 thou/cu mm 06/27/2023 3:05 PM CDT [facility] ABSOLUTE BASOPHILS 0.1 <0.3 thou/cu mm 06/27/2023 3:05 PM CDT [facility] Blood BLOOD SPECIMEN / Unknown Venipuncture / Unknown 06/27/2023 2:56 PM CDT 06/27/2023 2:57 PM CDT Narrative [facility] - 06/27/2023 3:05 PM CDT This procedure was originally ordered at [facility]. Arlet Blackman MD HEMATOLOGY [facility] [address] [place] [address], * (ABNORMAL) COMP METABOLIC PANEL (06/27/2023 2:56 PM CDT) SODIUM 142 136 - 145 mmol/L 06/28/2023 2:52 AM CDT [facility] POTASSIUM 4.7 3.5 - 5.1 mmol/L 06/28/2023 2:52 AM CDT [facility] CHLORIDE 104 98 - 107 mmol/L 06/28/2023 2:52 AM CDT [facility] CO2,TOTAL 24 22 - 29 mmol/L 06/28/2023 2:52 AM CDT [facility] ANION GAP 14 5 - 18 06/28/2023 2:52 AM CDT [facility] GLUCOSE 101(H) 70 - 99 mg/dL 06/28/2023 2:52 AM CDT [facility] CALCIUM 9.3 8.6 - 10.0 mg/dL 06/28/2023 2:52 AM CDT [facility] BUN 16 6 - 20 mg/dL 06/28/2023 2:52 AM T [facility] CREATININE 1.51(H) 0.50 - 0.90 mg/dL 06/28/2023 2:52 AM T [facility] BUN/CREAT RATIO 11 10 - 20 2:52 AM T [facility] eGFR 40(L) >90 mL/min/1.7 3m2 06/28/2023 2:52 AM T [facility] Comment:As of 2021, eG FR is calculated by the CKD-EPI creatinine equation without race adjustment. ??eGFR can be influenced by muscle mass, exercise, and diet. ??The reported eGFR is an estimation only and is only applicable if the renal function is stable. ALBUMIN 4.6 4.0 - 4.9 g/dL 06/28/2023 2:52 AM CDT [facility] PROTEIN,TOTAL 7.0 6.0 - 8.0 g/dL 06/28/2023 2:52 AM CDT [facility] BILIRUBIN,TOTAL 0.3 0.0 - 1.2 mg/dL 06/28/2023 2:52 AM CDT [facility] ALK PHOSPHATASE 113(H) 35 - 104 IU/L 06/28/2023 2:52 AM CDT [facility] ALT (SGPT) 33 10 - 35 IU/L 06/28/2023 2:52 AM CDT [facility] AST (SGOT) 30 10 - 35 IU/L 06/28/2023 2:52 AM CDT [facility] Blood BLOOD SPECIMEN / Unknown Venipuncture / Unknown 06/27/2023 2:56 PM CDT 06/27/2023 2:57 PM CDT Arlet Blackman MD CHEMISTRY [facility] [address] [place] [address], from Last 3 Months Advance Directives Latest Code Status on File Code Status Date Activated Date Inactivated Comments Full Code 03/24/2023 11:33 PM 03/27/2023 2:15 PM Question Answer Comments Code Status Discussion: Reviewed Preferences Care Teams Seat Cover Installer Relationship Specialty Start Date End Date [place]ula [place] [address] PCP - General Family Practice 12/19/22
[2023-09-24 03:07] LABS: Basophils Absolute Auto 0.06 K/uL (0.00-0.30); Basophils Percent Auto 0.9 % (0.0-3.0); Eosinophils Absolute Auto 0.33 K/uL (0.00-0.50); Eosinophils Percent Auto 4.7 % (0.0-7.0); Hematocrit 41.3 % (33.0-51.0); Immature Granulocytes Abs Auto 0.01 K/uL (0.00-0.30); Immature Granulocytes Pct Auto 0.1 %; Lymphocytes Absolute Auto 1.71 K/uL (0.90-2.90); Lymphocytes Percent Auto 24.4 % (20-44); Mean Corpuscular HGB Conc 32 gm/dL (32-36); Mean Corpuscular Hemoglobin 28 pg (26-34); Mean Corpuscular Volume 89 fL (80-100); Neutrophils Absolute Auto 4.13 K/uL (1.7-7.0); Neutrophils Percent Auto 58.9 % (42.0-72.0); Platelet Count* 293 K/uL (140-440); RDW Coefficient of Variation % 14.1 % (11.5-15.5); Red Blood Count 4.63 m/uL (4.00-5.20); White Blood Count* 7.01 K/uL (4.50-11.00)
[2023-09-24 03:08] LABS: Slide Review Reflex No
[2023-09-24] MEDS: 0.9 % SODIUM CHLORIDE 1000 ml 1,000 ML IV (03:10)
[2023-09-24 03:20] LABS: Albumin* 4.2 g/dL (3.3-5.0)
[2023-09-24 03:21] LABS: Chloride* 107 mmol/L (96-114); Potassium* 3.9 mmol/L (3.6-5.1); Sodium* 139 mmol/L (135-149)
[2023-09-24 03:23] LABS: Alanine Aminotransferase* 64 U/L (4-35); Alkaline Phosphatase* 108 U/L (40-150); Aspartate Amino Transferase* 59 U/L (12-35); Bilirubin Direct* 0.1 mg/dL (0.0-0.5); Bilirubin Total* 0.4 mg/dL (0.1-1.5); Total Protein* 6.9 g/dL (6.0-8.3)
[2023-09-24 03:24] LABS: Anion Gap 8 mEq/L (7-15); Blood Urea Nitrogen* 14 mg/dL (7-30); Carbon Dioxide* 24 mmol/L (20-32); Creatinine* 1.3 mg/dL (0.5-1.5); Estimated Glomerular Filt Rate 48 ml/min; Glucose* 165 mg/dL (60-115)
[2023-09-24 03:25] LABS: Calcium* 8.8 mg/dL (8.4-10.6)
[2023-09-24 03:28] LABS: D Dimer Quantitative* < 0.27 ug/ml (0.00-0.50)
[2023-09-24 03:29] LABS: Partial Thromboplastin Time* 46 Seconds (23-33); Prothrombin Time 19.3 Seconds
[2023-09-24 03:30] LABS: INR 1.52 (0.91-1.10)
--- NOTE | 2023-09-24 03:30 | CRLHL7_ITS ---
For Patients: As a result of the Century Cures Act, medical imaging exams and procedure reports are released immediately into your electronic medical record. You may view this report before your referring provider. If you have questions, please contact your health care provider. INDICATION: History of pulmonary emboli. DVT COMPARISON: December 18, 2022 TECHNIQUE: : CT examination of the chest was performed with the uneventful intravenous administration of 95 cc of Isovue 370 while thin axial sections were obtained from above the apices of the lungs to the lung bases. Please note that all CT scans at this facility use dose modulation, iterative reconstruction, and/or weight-based dosing when appropriate to reduce radiation dose to as low as reasonably achievable. FINDINGS: : HEART and MEDIASTINUM: The heart size is normal. There is no mediastinal or hilar adenopathy or mass. There is no pericardial effusion. PULMONARY ARTERIAL CIRCULATION: There is no visible intraluminal filling defect to suggest pulmonary embolus. LUNGS: A few areas of atelectasis and/or scarring at the lung bases. Scattered nodules are unchanged in number and size of largest of which is in the lingula measuring about 6.5 millimeters. PLEURAL SPACES: There is no pleural effusion, pneumothorax or pleural based mass. VISUALIZED UPPER ABDOMEN: Cholelithiasis. Otherwise, the visualized upper abdominal structures appear normal. OSSEOUS STRUCTURES: Age-appropriate appearance. No acute fracture or destructive process. TUBES and LINES: None. IMPRESSION: 1. There is no finding of acute pulmonary embolus. 2. A few areas of atelectasis and scarring are noted at the lung bases. There is scattered nodules unchanged in number and size of largest of which measures 6.5 millimeters in the lingula. Consider a 6 month follow-up noncontrast chest CT to reassess these nodules. 3. Cholelithiasis. Please note that all CT scans at this facility use dose modulation, iterative reconstruction, and/or weight-based dosing when appropriate to reduce radiation dose to as low as reasonably achievable. Dictated by Brett Ryder MD @ 09/24/2023 4:37:04 AM (Electronically Signed)
[2023-09-24 03:34] LABS: NT Pro B Type NatriureticPept* < 20 pg/mL
[2023-09-24 03:35] LABS: Troponin I* < 0.01 ng/mL (0.01-0.04)
[2023-09-24 03:45] VITALS: BP 136/77; PULSE 76; RESP 16; O2SAT 98
--- NOTE | 2023-09-24 05:33 | ED.NURSE ---
pt ambulated to restroom, attempt for urine sample.
[2023-09-24 05:43] LABS: Fibrinogen* 407 mg/dL (200-450)
[2023-09-24 05:48] LABS: Appearance Urine Clear (Clear); Bilirubin Urine Negative (Negative); Blood Urine Negative (Negative); Color Urine Yellow (Yellow); Glucose Urine Negative (Negative); Ketones Urine Negative (Negative); Leukocyte Esterase Urine Negative (Negative); Nitrite Urine Negative (Negative); Protein Urine Negative (Negative); Urobilinogen Urine 0.2 (0.2-1.0)
[2023-09-24 06:02] LABS: RBC Urine 0-2 (0-2); Squamous Epithelial Cell Urine Few (None-Few); WBC Urine 0-2 (0-5)
[2023-09-24 06:35] VITALS: BP 142/62; PULSE 72; RESP 16; O2SAT 97
== END 2023-09-24 06:36 | disposition home or self-care (01) ==
PROVIDERS: Emergency Provider Family Medicine; PCP Family Medicine
DX: I82.431 Acute embolism and thrombosis of right popliteal vein (principal); D69.2 Other nonthrombocytopenic purpura; K80.20 Calculus of gallbladder without cholecystitis without obstruction
CPT/HCPCS: 36415; 71275; 80048; 80076; 81001; 83880; 84484; 85025; 85379; 85384; 85610; 85730; 93005; 96360; 99284; 99285; J7030; Q9967

== ENCOUNTER 2023-10-08 12:43 | Emergency (ER) | payer BC, SELFPAY ==
[2023-10-08 12:46] VITALS: BP 138/73; PULSE 98; RESP 24; TEMP 36.3; O2SAT 97; BMI 38.1
--- NOTE | 2023-10-08 12:57 | CRLHL7_ITS ---
For Patients: As a result of the Century Cures Act, medical imaging exams and procedure reports are released immediately into your electronic medical record. You may view this report before your referring provider. If you have questions, please contact your health care provider. Indication: Headache with clinical concern for sinusitis. Technique: CT examination of paranasal sinuses was performed. Imaging was acquired from above the frontal sinuses through the bottom of the mandible. Contrast was not administered. Sagittal and coronal reformatted imaging was performed. Please note that all CT scans at this facility use dose modulation, iterative reconstruction, and/or weight-based dosing when appropriate to reduce radiation dose to as low as reasonably achievable. Comparison: Non specific to this area Findings: Frontal sinuses: Normal Ethmoid air cells: Minimal mucosal thickening indicating minimal chronic mucosal inflammatory disease. Sphenoid sinuses: Normal in appearance. Maxillary sinuses: No mucosal thickening. Ostiomeatal units: Patent bilaterally Nasal septum: Leftward nasal septal deviation with a leftward nasal septal spur. Nasal cavity: No significant abnormality noted. Miscellaneous soft tissues and regional osseous structures: Regional soft tissues are unremarkable. Incidental hyperostosis frontalis interna appearance Impression: Minimal mucosal thickening of the ethmoid air cells consistent with minimal chronic mucosal inflammatory disease. The sinuses are otherwise unremarkable. Leftward nasal septal deviation with a leftward nasal septal spur. Please note that all CT scans at this facility use dose modulation, iterative reconstruction, and/or weight-based dosing when appropriate to reduce radiation dose to as low as reasonably achievable. Dictated by Brett Ryder MD @ 10/08/2023 1:53:45 PM (Electronically Signed)
--- NOTE | 2023-10-08 12:58 | CRLHL7_ITS ---
For Patients: As a result of the Century Cures Act, medical imaging exams and procedure reports are released immediately into your electronic medical record. You may view this report before your referring provider. If you have questions, please contact your health care provider. Indication: Facial pain, headache Technique: Volumetric multidetector CT images of the head were obtained without the administration of low osmolar intravenous contrast. Comparison: None available Findings: There is no intra-axial or extra-axial fluid collection. There is no mass effect or midline shift. There is mild global cortical atrophy with mild sulcal widening and ex vacuo dilatation of the lateral ventricles. There are chronic small vessel disease changes in the subcortical and periventricular white matter without lost lang-white differentiation. The orbits and their contents are grossly within normal limits. The bony calvarium is grossly intact. The paranasal sinuses are clear. The mastoid air cells are well aerated. Impression: Mild global cortical atrophy somewhat greater than expected for age. Otherwise, no acute intracranial abnormality. Please note that all CT scans at this facility use dose modulation, iterative reconstruction, and/or weight-based dosing when appropriate to reduce radiation dose to as low as reasonably achievable. Dictated by Stefano Cross MD @ 10/08/2023 2:04:12 PM (Electronically Signed)
--- NOTE | 2023-10-08 13:07 | ED_ITS ---
HPI - General Adult General Chief complaint: Headache/Migraine Stated complaint: Headache, neck/back pain Time Seen by Provider: 10/08/23 12:47 History of Present Illness HPI narrative: Patient is a 50 year white female reports he has had a couple week history of headache, mostly frontal sinusitis area. The patient started on apixaban for DVT recently. She is scheduled to see a veterans rehabilitation counselor at the [facility]. She has had multiple DVTs in the past. She was on Coumadin prior. She denies trauma to her head denies injury. Patient denies fever, denies chill con, denies neurologic complaints. The patient reports she has had a stroke in the past. She also has had sinusitis issues in the past. 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 No chest pain, no shortness of breath, no neurologic weakness or problems. Related Data Home Medications Medication Instructions Recorded Confirmed gabapentin 300 mg capsule 100 mg PO TID 12/10/22 09/17/23 sertraline 50 mg tablet (Zoloft) 50 mg PO DAILY 12/10/22 09/17/23 albuterol 90 mcg/actuation aerosol mcg inhalation DAILY PRN 03/24/23 inhaler budesonide-formoterol HFA 160 1 inh inhalation BID 03/24/23 09/17/23 mcg-4.5 mcg/actuation aerosol inhaler (Symbicort) levocetirizine 5 mg tablet (24HR 5 mg PO DAILY 03/24/23 09/17/23 Allergy Relief) warfarin 4 mg tablet 2 mg PO DAILY 03/24/23 09/17/23 cholecalciferol (vitamin D3) .ROUTE 09/17/23 ezetimibe 10 mg tablet (Zetia) 10 mg PO DAILY 09/17/23 09/17/23 magnesium glycinate 100 mg tablet 100 mg PO DAILY 09/17/23 09/17/23 (Mag Glycinate) montelukast 10 mg tablet 10 mg PO DAILY 09/17/23 09/17/23 (Singulair) omeprazole 40 mg capsule,delayed 40 mg PO DAILY 09/17/23 09/17/23 release apixaban 5 mg tablet (Eliquis) 5 mg PO BID 10/08/23 10/08/23 azelastine 137 mcg (0.1 %) nasal intranasal 10/08/23 spray aerosol buspirone 30 mg tablet 30 mg PO BID 10/08/23 10/08/23 fluticasone propionate 50 spray intranasal 10/08/23 mcg/actuation nasal spray,suspension gabapentin 100 mg capsule 100 mg PO 3XD 10/08/23 10/08/23 Previous Rx's Medication Instructions Recorded levothyroxine 200 mcg tablet 200 mcg PO DAILY #30 tabs 12/10/22 (Synthroid) Allergies Allergy/AdvReac Type Severity Reaction Status Date / Time cat dander Allergy Unknown Verified 10/08/23 12:51 dog dander Allergy Unknown Verified 10/08/23 12:51 latex Allergy Unknown Itching Verified 09/17/23 13:31 Penicillins AdvReac Intermediate Abdominal Verified 09/17/23 13:31 Pain environmental Allergy Mild Uncoded 03/24/23 11:30 Review of Systems Status of ROS: Reports: 6 or more systems reviewed and unremarkable except as noted in History and below PFSH PFS Social History Smoking Status: Former smoker Do you use any of these nicotine containing products: None How often do you have a drink containing alcohol: never AUDIT-C Alcohol total score: 0 Non-prescribed substance use: denies use service: No Exam Narrative: Exam Narrative: Objective: Vital signs are within normal limits, and the patient is in no apparent distress Alert orient x3 Ambulatory without difficulty HEENT shows mild maxillary sinus tenderness bilaterally No facial asymmetry Neck is supple Chest and upper back and neck area show no tenderness to palpation, her neck shows no tenderness. She does have some stiffness with range of motion of her neck. Neurologic nonfocal upper lower extremities Pulse regular Const: Vital Signs, click to edit/add: Vital Signs - 24 hr 10/08/23 12:46 Temperature 97.4 F L Pulse Rate [Pulse Oximeter] 98 Respiratory Rate 24 Blood Pressure [Ri ght Upper Arm] 138/73 Pulse Oximetry 97 Oxygen Delivery Me thod Room Air Course Vital Signs Vital signs: Initial Vital Signs Temperature 97.4 F L 10/08/23 12:46 Temperature Source Temporal Artery Scan 10/08/23 12:46 Pulse Rate 98 10/08/23 12:46 Respiratory Rate 24 10/08/23 12:46 Blood Pressure 138/73 10/08/23 12:46 Blood Pressure Mean 94 10/08/23 12:46 Blood Pressure Position Sitting 10/08/23 12:46 Pulse Oximetry 97 10/08/23 12:46 Oxygen Delivery Method Room Air 10/08/23 12:46 Vital Signs Temperature 97.4 F L 10/08/23 12:46 Pulse Rate 98 10/08/23 12:46 Respiratory Rate 24 10/08/23 12:46 Blood Pressure 138/73 10/08/23 12:46 Pulse Oximetry 97 10/08/23 12:46 Oxygen Delivery Method Room Air 10/08/23 12:46 Temperature 97.4 F L 10/08/23 12:46 Pulse Rate 98 10/08/23 12:46 Respiratory Rate 24 10/08/23 12:46 Blood Pressure 138/73 10/08/23 12:46 Pulse Oximetry 97 10/08/23 12:46 Oxygen Delivery Method Room Air 10/08/23 12:46 Medications Administered Medications: Discontinued Medications Generic Name Dose Route Start Last Admin Trade Name Freq PRN Reason Stop Dose Admin Diphenhydramine HCl 25 mg 10/08/23 12:57 10/08/23 13:38 Diphenhydramine 50 Mg/Ml Inj IVP 10/08/23 12:58 25 mg ONCE ONE Administration Sodium Chloride 1,000 mls @ 6,000 mls/hr 10/08/23 13:00 10/08/23 14:43 0.9 % Sodium Chloride 1000 Ml IV 10/08/23 13:09 Infused .Q10M SHREYAS Infusion Metoclopramide HCl 10 mg/ 102 mls @ 306 mls/hr 10/08/23 12:57 10/08/23 14:43 Sodium Chloride IV 10/08/23 12:58 Infused ONCE ONE Infusion Ketorolac Tromethamine 30 mg 10/08/23 12:57 10/08/23 13:38 Ketorolac 30 Mg/Ml Inj IVP 10/08/23 12:58 30 mg ONCE ONE Administration Medical Decision Making MDM Narrative Medical decision making narrative: [age] year white female with multiple medical issues most recently a for DVT treated with blood thinner presents with persistent headache. She also has had a history of sinusitis. I think checking a head CT and sinus CT would be appropriate as well as IV fluid, IV Toradol IV Benadryl and IV Reglan. Disposition pending findings on her imaging studies will also check lab studies. Addendum 2:21 p.m. patient's head and sinus CTs look pretty unremarkable. Her headache is better. Her labs look reassuring. Her white count is normal at 8600 hemoglobin 13.1, Chem profile is his only abnormal for nonfasting glucose of 137 CRP is negative at 0.9. Patient feels better continue home medications. Rest fluids follow-up with primary care over the next few days certainly return to ED sooner problems or concerns. Lab Data Labs: Lab Results 10/08/23 Range/Units 13:10 WBC 8.60 (4.50-11.00) K/uL RBC 4.59 (4.00-5.20) m/uL Hgb 13.1 (12.0-16.0) gm/dL Hct 42.0 (33.0-51.0) % MCV 92 (80-100) fL MCH 29 (26-34) pg MCHC 31 L (32-36) gm/dL RDW Coeff of Kemal 14.8 (11.5-15.5) % Plt Count 346 (140-440) K/uL Neut % (Auto) 64.2 (42.0-72.0) % Lymph % (Auto) 24.7 (20-44) % Avery % (Auto) 7.1 (0.0-11.0) % Eos % (Auto) 2.9 (0.0-7.0) % Baso % (Auto) 1.0 (0.0-3.0) % Neut # (Auto) 5.52 (1.7-7.0) K/uL Lymph # (Auto) 2.12 (0.90-2.90) K/uL Avery # (Auto) 0.60 (0.00-0.90) K/UL Eos # (Auto) 0.25 (0.00-0.50) K/uL Baso # (Auto) 0.09 (0.00-0.30) K/uL Abs Immat Gran (auto) 0.01 (0.00-0.30) K/uL Imm/Tot Granulo (auto) 0.1 % Sodium 142 (135-149) mmol/L Potassium 4.3 (3.6-5.1) mmol/L Chloride 110 (96-114) mmol/L Carbon Dioxide 21 (20-32) mmol/L Anion Gap 11 (7-15) mEq/L BUN 20 (7-30) mg/dL Creatinine 1.0 (0.5-1.5) mg/dL Estimated Creat Clear 59.63 Estimated GFR 65 ml/min Glucose 137 H (60-115) mg/dL Calcium 9.4 (8.4-10.6) mg/dL C-Reactive Protein 0.9 (0.5-1.0) mg/dL Discharge Plan Discharge Clinical Impression: Headache Patient Disposition: Home w/ Parent or Adult Condition: Improved Additional Instructions: Observation, fluids, continue home medications, follow up with primary care in the next few days, return sooner problems concerns worsening. Prescriptions: No Action montelukast [Singulair] 10 mg tablet 10 mg PO DAILY cholecalciferol (vitamin D3) .ROUTE omeprazole 40 mg capsule,delayed release(DR/EC) 40 mg PO DAILY Mag Glycinate 100 mg tablet 100 mg PO DAILY ezetimibe [Zetia] 10 mg tablet 10 mg PO DAILY gabapentin 300 mg capsule 100 mg PO TID sertraline [Zoloft] 50 mg tablet 50 mg PO DAILY levothyroxine [Synthroid] 200 mcg tablet 200 mcg PO DAILY Qty: 30 2RF warfarin 4 mg tablet 2 mg PO DAILY levocetirizine [24HR Allergy Relief] 5 mg tablet 5 mg PO DAILY albuterol 90 mcg/actuation aerosol inhalation DAILY PRN Patient Comments: asthma budesonide-formoterol [Symbicort] 160-4.5 mcg/actuation HFA aerosol inhaler 1 inh inhalation BID buspirone 30 mg tablet 30 mg PO BID gabapentin 100 mg capsule 100 mg PO 3XD azelastine 137 mcg (0.1 %) aerosol,spray INTRANASAL Patient Comments: [NO ORIGINAL SIG] fluticasone propionate 50 mcg/actuation spray,suspension INTRANASAL Eliquis 5 mg tablet 5 mg PO BID Follow Up/Referrals: Chula Farley DO [Primary Care Provider] - Stand Alone Forms: bluebird bio Info Instructions
[2023-10-08 13:19] LABS: Eosinophils Percent Auto 2.9 % (0.0-7.0); Hemoglobin* 13.1 gm/dL (12.0-16.0); Immature Granulocytes Pct Auto 0.1 %; Lymphocytes Percent Auto 24.7 % (20-44); Mean Corpuscular HGB Conc 31 gm/dL (32-36); Mean Corpuscular Hemoglobin 29 pg (26-34); Mean Corpuscular Volume 92 fL (80-100); Monocytes Percent Auto 7.1 % (0.0-11.0); Neutrophils Percent Auto 64.2 % (42.0-72.0); Platelet Count* 346 K/uL (140-440); RDW Coefficient of Variation % 14.8 % (11.5-15.5); Red Blood Count 4.59 m/uL (4.00-5.20)
[2023-10-08 13:20] LABS: Basophils Absolute Auto 0.09 K/uL (0.00-0.30); Eosinophils Absolute Auto 0.25 K/uL (0.00-0.50); Immature Granulocytes Abs Auto 0.01 K/uL (0.00-0.30); Lymphocytes Absolute Auto 2.12 K/uL (0.90-2.90); Neutrophils Absolute Auto 5.52 K/uL (1.7-7.0)
[2023-10-08 13:21] LABS: Slide Review Reflex No
--- OUTSIDE RECORDS SUMMARY | 2023-10-08 13:30 | XMS_ITS | Encounter Summary ---
Author Name Unknown Organization [place] Address [facility] [place] [address] Care Team Providers Care Pull Tab Dealer Name Role Phone Chula Farley Primary Care Provider [phone] Reason for Visit * Reason Comments Leg Swelling Encounter Details Date Type Department Care Team (Late st Contact Info) Description 05/21/2023 5:10 PM CDT - 05/21/2023 5:25 PM CDT Emergency [facility] Emergency Dept [address] [place] [id number] Darrell Castillo MD [facility] [address] [place], [place] [id number] Leg swelling; Personal history of DVT (deep [...] last night. Triage Assessment Row Name 05/21/23 1573 Triage Assessment (Adult) Airway WDL WDL Respiratory [...] since 2014. She has been seen by veterinary laboratory technician in [place] and seen at [facility]. Denies chest pain or pressure. Independent Historian: None - Patient Only Review of External Notes: None Medications: Albuterol Prednisone albuterol (PROAIR HFA/PROVENTIL HFA/VENTOLIN HFA) 108 (90 Base) MCG/ACT inhaler predniSONE (DELTASONE) 20 MG tablet spacer ([facility]) holding chamber Past Medical History: [...] venous thrombosis in the right lower extremity. AVINASH SOLIS MD SYSTEM ID: [id number] Report per radiology Emergency Department Course & [...] venous thrombosis in the right lower extremity. AVINASH SOLIS MD SYSTEM ID: [id number] Narrative 05/21/2023 3:46 PM CDT US LOWER [...] superficial thrombophlebitis. No popliteal cyst. Procedure Note Avinash Solis MD - 05/21/2023 US LOWER EXTREMITY [...] venous thrombosis in the right lower extremity. AVINASH SOLIS MD SYSTEM ID: [id number] Darrell Castillo MD [facility] US ORDERABLES documented in this encounter Visit Diagnoses Diagnosis Leg swelling Swelling of limb Personal history of DVT (deep vein thrombosis) Personal history of venous thrombosis and embolism Anticoagulated on Coumadin Encounter for therapeutic drug monitoring documented in this encounter Care Teams Pull Tab Dealer Relationship Specialty Start Date End Date Chula Farley DO [address] [place] [address] PCP - General Family Practice 12/25/22 documented as of this encounter
--- OUTSIDE RECORDS SUMMARY | 2023-10-08 13:30 | XMS_ITS | Clinical Summary ---
Author Name Unknown Organization [place] Address [facility] [place] [address] Care Team Providers Care Railway Track Plant Operator Name Role Phone Chula Farley DO Primary Care Provider [phone] Allergies Active Allergy Reactions Criticality Noted Date [...] 1965 MAMMO SCREENING 1965 sDNA (Cologuard) 1965 HIV SCREENING 1980 HEPATITIS C SCREENING 1983 PAP 1986 LIPID 2010 PHQ-2 (once per calendar year) 2023 YEARLY PREVENTIVE VISIT 01/02/2024 01/01/2023 DTAP/TDAP/TD IMMUNIZATION (2 - Td or Tdap) 01/01/2033 01/01/2023 COLONOSCOPY 03/26/2033 03/26/2023 COLORECTAL CANCER SCREENING 03/26/2033 Pneumococcal Vaccine: Pediatrics (0 to 5 Years) and At-Risk Patients (6 to 64 Years) Completed 01/01/2023 ZOSTER IMMUNIZATION Completed 03/31/2023, 01/01/2023 COVID-19 Vaccine Completed 07/18/2023 INFLUENZA VACCINE Completed 07/18/2023 HPV IMMUNIZATION Aged Out No longer e [...] age to complete this topic Care Teams Railway Track Plant Operator Relationship Specialty Start Date End [place] [address] [address] PCP - General Family Practice 12/25/22
--- OUTSIDE RECORDS SUMMARY | 2023-10-08 13:30 | XMS_ITS | Encounter Summary ---
Author Name Unknown Organization [place] Address [facility] [place] [address] Care Team Providers Care Qc Chemist Name Role Phone Chula Farley DO Primary Care Provider [phone] Encounter Details Date Type Department Care Team [...] on filedocumented in this encounter Care Teams Qc Chemist Relationship Specialty Start Date End Date Chula Farley [place] [address] PCP - General Family Practice 12/25/22 documented as of this encounter
--- OUTSIDE RECORDS SUMMARY | 2023-10-08 13:30 | XMS_ITS | Encounter Summary ---
Author Name Unknown Organization [place] Address [address] [place] [address] Care Team Providers Care Generator Repairer Name Role Phone Chula Farley Primary Care Provider [phone] Reason for Visit * Reason Comments Chest Pain Shortness of Breath Encounter Details Date Type Department Care Team (Late st Contact Info) Description 12/25/2022 2:45 PM CDT - 12/25/2022 5:[address] [facility] Emergency Dept [address] [place] [address] Jason Ross PA-C [facility] [address] [place], [place] [id number] Asthma exacerbation; Pulmonary embolism without acute cor [...] sent through Care Everywhere. 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 Last night she started havingSOB followed by [...] medication. She was switched to Eliquis from [facility] after seen at [place] discharged on 12/16/22 due to breakthrough PEs. No black or bloody stools. No fever. Independent Historian: None - Patient Only Review of External Notes: I reviewed the note from 12/16/22 from [facility]. The patient was diagnosed with bilateral PE's [...] 1500 Normal sinus rhythm Rate 77 bpm. GA interval 170 ms. QRS duration 86 ms. [...] 79 mL (79 mLs Intravenous $Given 12/25/22 2165) Saline (100 mLs Intravenous $Given 12/25/22 1517) [...] Management or Tests: 1554 I spoke with [facility] regarding the patient. After hearing the [...] was discharged to home. Impression & Plan [facility] Diagnoses: None Medical Decision Makin-year-old female [...] Ross PA-C Etten, Clark [place], PA-C 12/25/22 5994 documented in this encounter Plan of Treatment [...] 3D MIP reconstructions were performed by the chief ultrasound technologist. Dose reduction techniques were used. CONTRAST: 79 [...] 3D MIP reconstructions were performed by the chief ultrasound technologist. Dose reduction techniques were used. CONTRAST: 79 [...] of the visualized bones. Procedure Note Yuridia Schultz MD - 12/25/2022 CT OF THE HEAD [...] PA-C LAB - BLOOD O RDERABLES LABORATORY [facility] Acute Care Lab [address] floor, [address] [place] [address], [facility] [phone] * Nt probnp inpatient (12/25/2022 3:01 PM [...] PA-C LAB - BLOOD O HERMELINDA LABORATORY [facility] Lab [address], [address] [place] [address], [facility] [phone] * Troponin T, High Sensitivity (12/25/2022 3:01 PM CDT) [facility] Troponin T, High Sensitivity <6 <=14 ng/L [...] PA-C LAB - BLOOD O RDERAAMY LABORATORY [facility] Lab [address], [address] [place] [address], [place] [phone] * (ABNORMAL) Comprehensive metabolic panel (12/25/2022 3:01 PM CDT) Sodium 143 136 - 145 mmol/L 12/25/2022 3:47 PM [facility] Potassium 4.0 3.4 - 5.3 mmol/L 12/25/2022 3:47 PM [facility] Chloride 110(H) 98 - 107 mmol/L 12/25/2022 3:47 PM [facility] Carbon Dioxide (CO2) 25 22 - 29 mmol/L 12/25/2022 3:47 PM [facility] Anion Gap 8 7 - 15 mmol/L 12/25/2022 3:47 PM [facility] Urea Nitrogen 10.6 6.0 - 20.0 mg/dL 12/25/2022 3:47 PM [facility] Creatinine 1.24(H) 0.51 - 0.95 mg/dL 12/25/2022 3:47 PM [facility] Calcium 8.4(L) 8.6 - 10.0 mg/dL 12/25/2022 3:47 PM [facility] Glucose 100(H) 70 - 99 mg/dL 12/25/2022 3:47 PM [facility] Alkaline Phosphatase 107(H) 35 - 104 U/L 12/25/2022 3:47 PM [facility] AST 22 10 - 35 U/L 12/25/2022 3:47 PM [facility] ALT 24 10 - 35 U/L 12/25/2022 3:47 PM [facility] Protein Total 6.2(L) 6.4 - 8.3 g/dL 12/25/2022 3:47 PM [facility] Albumin 3.9 3.5 - 5.2 g/dL 12/25/2022 3:47 PM [facility] Bilirubin Total 0.3 <=1.2 mg/dL 12/25/2022 3:47 PM [facility] GFR Estimate 51(L) >60 mL/min/1.7 3m2 12/25/2022 3:47 PM [facility] Comment:eGFR calculated usin 2020 CKD-EPI equation. Blood STRUCTURE OF LEFT UPPER LIMB / Unknown Venipuncture / Unknown 12/25/2022 3:01 PM CDT 12/25/2022 3:06 PM CDT Jason Ross PA-C LAB - BLOOD O RDERABLES [facility] Lab [address], [address] [place] [address], [place] [phone] * Extra Purple Top Tube (12/25/2022 3:01 PM CDT) Hold Specimen [facility] 12/25/2022 4:16 PM CDT LABORATORY Blood STRUCTURE OF LEFT UPPER LIMB / Unknown Venipuncture / Unknown 12/25/2022 3:01 PM CDT 12/25/2022 3:06 PM CDT Jason Ross PA-C LAB - BLOOD O RDERABLES [facility] Lab [address], [address] [place] [address], [place] [phone] * Extra Green Top ([place] Heparin) Tube (12/25/2022 3:01 PM CDT) Hold Specimen [facility] 12/25/2022 4:17 PM CDT LABORATORY Blood STRUCTURE OF LEFT UPPER LIMB / Unknown Venipuncture / Unknown 12/25/2022 3:01 PM CDT 12/25/2022 3:06 PM CDT Jason SHANKARC LAB - BLOOD O RDERABLES LABORATORY [facility] Lab [address], [address] [place] [address], [place] [phone] * Extra Red Top Tube (12/25/2022 3:01 PM CDT) Hold Specimen [facility] 12/25/2022 4:16 PM CDT LABORATORY Blood STRUCTURE OF LEFT UPPER LIMB / Unknown Venipuncture / Unknown 12/25/2022 3:01 PM CDT 12/25/2022 3:06 PM CDT Jason Ross PA-C LAB - BLOOD O RDERABLES LABORATORY [facility] Lab [address], [address] [place] [address], [facility] [phone] * Extra Blue Top Tube (12/25/2022 3:01 PM CDT) Hold Specimen [facility] 12/25/2022 4:17 PM CDT LABORATORY Blood STRUCTURE OF LEFT UPPER LIMB / Unknown Venipuncture / Unknown 12/25/2022 3:01 PM CDT 12/25/2022 3:06 PM CDT Jason Ross PA-C LAB - BLOOD O RDERABLES LABORATORY [facility] Lab [address], [address] [place] [address], [facility] [phone] * EKG 12 lead (12/25/2022 2:48 PM CDT) Systolic Blood Pressure mmHg RADIOLOGY RESULTS Diastolic Blood Pressure mmHg RADIOLOGY RESULTS Ventricular Rate 77 BPM RAD IOLOGY RESULTS Atrial Rate 77 BPM RADIOLOG Y RESULTS GA Interval 170 ms RADIOLOG Y RESULTS QRS Duration 86 ms RADIOLO GY RESULTS QT 372 ms RADIOLOGY RESULTS QTc 420 ms RADIOLOGY RESULTS P [place] 51 degrees RADIOLOGY RESULTS R AXIS 4 degrees RADIOLOGY RESULTS T [place] 37 degrees RADIOLOGY RESULTS Interpretation ECG Sinus rhythm Normal ECG No previous ECGs available Confirmed by GENERATED REPORT, COMPUTER ([id number]), supervising film or videotape editor Donita Husain ([id number]) on 12/25/2022 8:02:17 PM RADIOLOGY RESULTS 12/25/2022 [...] Cole) documented in this encounter Care Teams Generator Repairer Relationship Specialty Start Date End Date Chula Farley DO [address] [place], [place] [phone] PCP - General Family Practice 12/25/22 documented as of this encounter
--- OUTSIDE RECORDS SUMMARY | 2023-10-08 13:30 | XMS_ITS | Encounter Summary ---
Author Name Unknown Organization [place] Address [facility] [place] [address] Care Team Providers Care Vp Foundation Name Role Phone Chula Farley DO Primary Care Provider [phone] Encounter Details Date Type Department Care Team [...] on filedocumented in this encounter Care Teams Vp Foundation Relationship Specialty Start Date End Date Ch[place] [address] PCP - General Family Practice 12/25/22 documented as of this encounter
--- OUTSIDE RECORDS SUMMARY | 2023-10-08 13:30 | XMS_ITS | Referral Summary ---
Author Name Unknown Organization [place] Address [facility] [place] [address] Care Team Providers Care Funeral Assistant Name Role Phone Chula Farley Primary Care Provider [phone] Allergies Active Allergy Reactions Criticality Noted Date [...] of Treatment Not on file Care Teams Funeral Assistant Relationship Specialty Start Date End Date Chula Farley DO [address] [place] [address] PCP - General Family Practice 12/25/22
--- OUTSIDE RECORDS SUMMARY | 2023-10-08 13:30 | XMS_ITS | Clinical Summary ---
Author Name Unknown Organization [facility] Address [place], [place] [address] Care Team Providers Care Liquid Yeast Supervisor Name Role Phone Chula Farley DO Primary Care Provider [phone] Saumya Richmond MD Unavailable [phone] Allergies Active Allergy Reactions Criticality Noted Date Comments Blood-Group Specific Substance Other - Describe In Comment Field 03/25/2023 Patient has a Sherry antibody. Blood products may be delayed. Draw patient 24 hours prior to transfusion. For [employer] testing, draw one red top and two purple top tubes for all Type and Screen orders. Latex Hives 12/16/2022 Unlisted Allergen (Include Detail In Comments) Hives,Shortness Of Breath,Erythema 04/03/2023 Allergies to Cats, Dogs, Cattle, Horses, Pigs Penicillins Shortness Of Breath 04/03/2023 [place] Pollen Hives,Shortness Of Breath 04/03/2023 [place] Pollen Hives,Shortness Of Breath 04/03/2023 Medications Medication [...] daily. 10.2 g 6 12/17/19 23 Active levocetirizine (XYZAL) 5 mg tab tabletIndications: Allergy to environmental factors Take 1 Tablet (5 mg) by mouth once daily. 90 Tablet 3 01/02/20 23 Active melatonin 5 mg capsule Take 1 Capsule (5 mg) by mouth. 0 04/21/20 23 Active gabapentin (NEURONTIN) 100 mg capsuleIndications [...] x1/mo 1 Each 11 06/18/20 23 Active cholecalciferol (Vitamin D) 1,000 unit [...] daily. 90 Tablet 3 08/08/20 23 Active sertraline (ZOLOFT) 100 mg tabletIndications: [...] sprayIndications:E nvironmental allergies,Post-kizzy al drip Inhale 1 [place] into affected nostril(s) two times daily. 30 mL 0 09/22/19 24 Active fluticasone (50 mcg per actuation) nasal solution (FLONASE)Indicatio ns:Environmental allergies,Post-kizzy al drip Inhale 2 Sprays to both nostrils once daily. 16 g 0 09/22/19 24 Active omeprazole (PRILOSEC) 40 mg Delayed-Release capsuleIndications :Chronic GERD Take one tablet (40mg) twice daily 180 Capsule 3 09/24/19 24 Active SUMAtriptan (IMITREX) 50 mg tabletIndications: History of migraine headaches,Medicati on management TAKE ONE TABLET BY MOUTH EVERY 2 HOURS NEEDED FOR MIGRAINE. TAKE AT MINIMUM OF 2 HOURS APART. MAX DOES OF 4 TABLETS IN 24 HOURS 10 Tablet 2 09/29/19 24 Active aspirin (ECOTRIN) 81 mg enteric coated tablet Take 1 Tablet (81 mg) by mouth once daily. 0 10/02/19 24 Active apixaban (Eliquis) 5 mg tabletIndications: Recurrent deep vein thrombosis (DVT) (HC) Take 1 Tablet (5 mg) by mouth two times daily. 60 Tablet 11 10/02/19 24 Active omeprazole (PRILOSEC) 40 mg Delayed-Release capsuleIndications :Chronic GERD Take 1 Capsule (40 mg) by mouth once daily before a meal. 90 Capsule 3 12/17/19 23 024 Discontinued(Re order (E-cancel not sent)) semaglutide (Wegovy) 0.25 mg/0.5 mL penIndications:Pushpa deleon, Class II, BMI 35-39.9,Weight loss counseling, encounter for Inject 0.25 mg subcutaneous once weekly. 2 mL 0 05/11/20 024 Discontinued(*M ed complete/Regime n complete/Level of care change) warfarin (COUMADIN) 2 mg tabletIndications: Recurrent deep vein thrombosis (DVT) (HC),Anticoagulati on monitoring, INR range 2-3 Take by mouth 4 mg (2 mg x 2) every Fri, Mami; 6 mg (2 mg x 3) all other days in the evening OR as directed 247 Tablet 0 07/04/20 23 024 Discontinued(Ot her - add note to specify (E-cancel not sent)) benzonatate (TESSALON) 200 mg capsuleIndications :Cough, unspecified type Take 1 Capsule (200 mg) by mouth 3 times daily if needed for Cough. 30 Capsule 1 07/14/20 23 024 Discontinued(*M ed complete/Regime n complete/Level of care change) SUMAtriptan (IMITREX) 50 mg tabletIndications: History of migraine headaches,Medicati on management TAKE 1 TABLET BY MOUTH EVERY 2 HOURS NEEDED FOR MIGRAINE. TAKE AT MINIMUM OF 2 HOURS APART. MAX DOSE OF 4 TABLETS (200MG) IN 24 HOURS 10 Tablet 0 08/17/20 23 024 Discontinued enoxaparin (LOVENOX) 120 mg/0.8 mL injection Inject 110 mg subcutaneous every 12 hours. 0 09/17/19 24 024 Discontinued(Re order (E-cancel not sent)) enoxaparin (LOVENOX) 120 mg/0.8 mL injectionIndicatio ns:Acute deep vein thrombosis (DVT) of popliteal vein of right lower extremity (HC) Inject 110 mg subcutaneous every 12 hours. 22.4 mL 0 09/23/19 24 024 Discontinued(*M edication adjustment) warfarin (COUMADIN) 2 mg tabletIndications: Recurrent deep [...] evening OR as directed 0 09/23/19 24 024 Discontinued(*M ed complete/Regime n complete/Level of care change) HYDROcodone-acetam inophen (5-325 mg/tablet) 0 09/24/19 24 024 Discontinued(*M ed complete/Regime n complete/Level of care change) enoxaparin (Lovenox) 300 mg/3 mL injectionIndicatio ns:Pulmonary embolism, bilateral (HC) Inject 169 mg subcutaneous once daily. 90 mL 0 09/26/19 24 024 Discontinued(*M ed complete/Regime n complete/Level of care change) enoxaparin (Lovenox) 120 mg/0.8 mL injectionIndicatio ns:Pulmonary embolism, bilateral (HC) Inject 110 mg subcutaneous every 12 hours. 22.4 mL 1 09/26/19 24 024 Discontinued(*M ed complete/Regime n complete/Level of care change) SUMAtriptan (IMITREX) 50 mg tabletIndications: History of migraine headaches,Medicati on management TAKE ONE TABLET BY MOUTH EVERY 2 HOURS NEEDED FOR MIGRAINE. TAKE AT MINIMUM OF 2 HOURS APART. MAX DOES OF 4 TABLETS IN 24 HOURS 10 Tablet 0 09/28/19 24 024 Discontinued(*M edication adjustment) apixaban (Eliquis) 5 mg tabletIndications: Recurrent deep vein thrombosis (DVT) (HC) Take 1 Tablet (5 mg) by mouth two times daily. 60 Tablet 11 10/02/19 24 024 Discontinued(*M edication adjustment) Active Problems Problem Noted Date Diagnosed Date Recurrent pulmonary emboli 06/06/2023 MARCELA 03/17/2023 AHI- 38 04/08/2023 Generalized anxiety disorder with panic attacks 04/04/2023 PTSD (post-traumatic stress disorder) 04/04/2023 Controlled substance agreement signed 04/04/2023 Overview: Signed 04/03/2023 Beronica Khan [employer] Psychiatry History of pulmonary embolism 03/24/2023 Recurrent acute deep vein th rombosis (DVT) of both lower extremities 03/24/2023 Melena 03/24/2023 Anemia 03/24/2023 Gastrointestinal hemorrhage with melena 03/24/20 Anticoagulation monitoring, INR range 2-3 2022 History of TIA (transient ischemic attack) 01/20 Overview: Secondary to pre-eclampsia Mild intermittent asthma without complication Pulmonary embolism, bilateral 01/01/2023 Recurrent deep vein thrombosis (DVT) 01/01/2023 Rosacea, unspecified 01/01/2023 Allergy to environmental factors 01/01/2023 Yeast infection of the skin 01/01/2023 Incidental lung nodule, > 3mm and < 8mm 01/02/20 Chronic GERD 01/01/2023 History of endometriosis 01/01/2023 Bipolar 2 disorder 01/01/2023 Chronic neuropathic pain 01/01/2023 Overview: In right groin secondary to hernia Migraine syndrome 01/01/2023 Encounters Date Type Department Care Team Description 10/08/2023 Nurse Triage [facility] [address] [place] [address] Chula Farley, DO Headache 10/08/2023 Telephone [facility] [address] [place] [address] Joseline Handley NP Follow Up 10/07/2023 Telephone [facility] [address] [place] [address] Bobbi Rutherford, PharmD Pharmacist Medication Management (Drug information question- bleed risk with mental health medications) 10/03/2023 11:00 AM DEPUTY DIRECTOR OF FINANCE Telemedicine [facility] [address] [place] [address] Joseline Handley NP Telehealth; Medication Management 10/02/2023 3:00 PM DEPUTY DIRECTOR OF FINANCE Telemedicine [facility] [address] [place] [address] Janine Thao MD 10/02/2023 Travel 10/02/2023 Orders Only [facility] [address] [place] [address] Nathaly Knox RN <No scans attached> 10/02/2023 Telephone [facility] [address] [place] [address] Janine Thao MD Appointment 10/02/2023 Orders Only [facility] [address] [place] [address] Janine Thoa MD <No scans attached> 10/01/2023 Telephone [facility] [address] [place] [address] Chula Farley, DO Questions 10/01/2023 Telephone [facility] [address] [place] [address] Sir Farleyi Becca, DO Prior Authorization (omeprazole (PRILOSEC) 40 mg Delayed-Release capsule Approved 09/15/23-10/01/24) 09/30/[address] [address] Sir Farleyi Becca, DO Medication Problem 09/27/2023 Telephone [facility] [address] [place] [address] Chula Farley Becca, DO Anticoagulation (BPA: LOVENOX) 09/26/2023 1:30 PM DEPUTY DIRECTOR OF FINANCE Office Visit [facility] [address] [place] [address] Raisa Fields PA Derm Problem (Pt on on 9 DVT/PE and had breakthrough clot on Warfarin-now on Lovenox for a month-skin is all bruised and she wants to know where she is supposed to inject herself) 09/26/2023 8:45 AM DEPUTY DIRECTOR OF FINANCE Telemedicine [facility] [address] [place] [address] Inna Akers, [facility] Telehealth; Trmt Plan; Psychotherapy 09/26/2023 Refill [facility] [address] [place] [address] Martine Chula Becca, DO Refill Request (Sumatriptan) 09/26/2023 Travel 09/24/2023 Telephone [facility] [address] [place] [address] Sir Farleyi Becca, DO Anticoagulation (BPA - OMEPRAZOLE 40 MG CAPSULE,DELAYED RELEASE) 09/23/2023 Telephone [facility] [address] [place] [address] Sir Farleyi Becca, DO Follow Up 09/23/2023 Nurse Triage [facility] [address] [place] [address] Sir Farleyi Becca, DO Anticoagulation (abdominal bruising) 09/23/2023 Orders Only [facility] [address] [place] [address] Janine Thao MD <No scans attached> 09/23/2023 Anticoagulation (warfarin) [facility] [address] [place] [address] 1, [facility] Anticoagulation (Chart update) 09/23/[address] [address] Mikael Mcclendon MD 09/23/[address] [address] Sir Farleyi Becca, DO Prior Authorization (enoxaparin (LOVENOX) 120 mg/0.8 mL injection QTY LIMITS APPROVED (09/15/23-09/23/24)) 09/22/2023 10:10 AM DEPUTY DIRECTOR OF FINANCE Office Visit [facility] [address] [place] [address] Aaronqra Chula Becca, DO ER Follow up (DVT R knee - stopped Coumadin, started on Lovenox ) 09/22/2023 Travel 09/19/2023 8:00 AM DEPUTY DIRECTOR OF FINANCE Telemedicine [facility] [address] [place] [address] Inna Akers, [facility] Late Cancel Appointment 09/18/2023 Telephone [facility] [address] [place] [address] Aaronqra Chula Becca, DO Questions 09/17/2023 Telephone [facility] [address] [place] [address] Aaronqra Chula Becca, DO Anticoagulation (Update) 09/10/2023 Orders Only [facility] [address] [place] [address] Aaronqra Chula Becca, DO <No scans attached> 09/09/2023 Telephone [facility] [address] [place] [address] Aaronqra Chula Becca, DO Appointment Request (Requesting to be seen sooner ) 09/05/2023 7:20 AM DEPUTY DIRECTOR OF FINANCE Orders Only [facility] [address] [place] [address] Lab, [facility] 09/05/2023 Anticoagulation (warfarin) [facility] [address] [place] [address] 1, [facility] Anticoagulation 09/05/2023 Travel 08/30/2023 Anticoagulation (warfarin) [facility] [address] [place] [address] 1, [facility] Anticoagulation 08/29/2023 1:45 PM DEPUTY DIRECTOR OF FINANCE Telemedicine [facility] [address] [place] [address] Inna Akers, [facility] Mental Health Intake; Telehealth 08/29/2023 1:30 PM DEPUTY DIRECTOR OF FINANCE Orders Only [facility] [address] [facility] [address] Lab, [facility] 08/29/2023 Travel 08/29/2023 Telephone [facility] [address] [facility] [address] Martine Chula Becca, DO Prior Authorization (omeprazole (PRILOSEC) 40 mg Delayed-Release capsule Approved 05/31/23-12/27/23) 08/27/2023 Anticoagulation (warfarin) [facility] [address] [facility] [address] 1, [facility] Anticoagulation 08/26/2023 3:40 PM DEPUTY DIRECTOR OF FINANCE Orders Only [facility] [address] [facility] [place] [address] Lab, [facility] 08/26/2023 Travel 08/26/2023 Refill [facility] [address] [facility] [place] [address] Martine Chula Becca, DO Refill Request (Ventolin Hfa) 08/23/2023 Anticoagulation (warfarin) [facility] [address] [facility] [place] [address] 1, [facility] Anticoagulation (Provider visit) 08/22/2023 2:35 PM DEPUTY DIRECTOR OF FINANCE Office Visit [facility] [address] [facility] [place] [address] Sir Farleyi Becca, DO Derm Problem (Rash lower abdomen ); Flank Pain (L flank pain); Leg Pain/problem (R calf pain) 08/22/2023 7:00 AM DEPUTY DIRECTOR OF FINANCE Telemedicine [facility] [address] [facility] [place] [address] Joseline Handley NP Telehealth; Medication Management 08/22/2023 Travel 08/20/2023 Travel 08/15/2023 Refill [facility] [address] [facility] [place] [address] Kira Chula Becca, DO Refill Request (Sumatriptan) 08/08/2023 Telephone [facility] [address] [address] Joseline Handley NP Late Cancel Appointment 08/02/[address] [address] Chula Farley Becca, DO Refill Request (Sumatriptan, Hydroxyzine Hcl) 08/01/[address] [address] Gurdeep Lin [facility] Late Cancel Appointment 07/30/[address] [address] Yecenia Handley PA Appointment 07/26/2023 Anticoagulation (warfarin) [address] [address] 1, [facility] Anticoagulation 07/25/2023 2:10 PM DEPUTY DIRECTOR OF FINANCE Office Visit [address] [address] Chula Farley Becca, DO Medication Management (Crestor); Weight (Discuss weight loss surgery) 07/25/2023 Travel 07/18/2023 2:00 PM CDT Office Visit [address] [address] Gurdeep Lin, [facility] Mental Health Consultants Visit 07/18/2023 1:40 PM CDT Nurse/Clinic Staff Only [address] [address] Immunization/Injectio n 07/17/2023 Travel 07/14/2023 8:10 AM CDT Office Visit [address] [address] Hallie Chaudhry PA Headache (Migraine x 4 days); Asthma (Cough/); Flank Pain 07/14/[address] [place] [address] Dee Dee Esparza NP Appointment 07/14/2023 Travel 07/12/2023 Anticoagulation (warfarin) [facility] [address] [facility] [address] 1, [facility] Anticoagulation 07/12/2023 Orders Only [facility] [address] [place] [address] Aaronqra Chula Becca, DO <No scans attached> 07/11/2023 2:00 PM CDT Orders Only [facility] [address] [facility] [address] Lab, [facility] 07/11/2023 Refill [facility] [address] [facility] [address] Aaronqra Chula Becca, DO Refill Request (Sumatriptan, Ventolin Hfa) 07/11/2023 Telephone [facility] [place] [address] [address] Dee Dee Esparza, MARLA Lab (UA results) 07/11/2023 Travel 07/08/2023 Travel from Last 3 Months Immunizations Name Administration Dates Next Due COVID-19 Vaccine Spikevax (M oderna 50mcg/0.5mL) 12YO+ [id number] Formula PF 07/18/2023 Influenza, IIV4 07/18/2023 Pneumococcal [...] Donita Thyroid Disease Sister 2 Donita Hypothyroidi sm Relation Name Status Comments Father Alive Maternal [...] PHQ-2 Answer Date Recorded PHQ-2 TOTAL SCORE 4 10/02/2023 Social Connections Answer Date Recorded Frequency of [...] Sign Reading Time Taken Comments Blood Pressure 136/74 09/26/2023 1:42 PM DEPUTY DIRECTOR OF FINANCE Pulse 95 09/26/2023 1:42 PM DEPUTY DIRECTOR OF FINANCE Temperature 36.8 ??C (98.2 ??F) 07/04/2023 3:19 PM CD T Respiratory Rate 18 07/04/2023 3:19 PM CDT Oxygen Saturation 95% 09/26/2023 1:42 PM DEPUTY DIRECTOR OF FINANCE Inhaled Oxygen Concentration - - Weight 112.5 kg (248 lb) 09/26/2023 1:42 PM DEPUTY DIRECTOR OF FINANCE Height 168.5 cm (5' 6.34) 01/01/2023 1:44 PM CD T Body Mass Index 39.62 01/01/2023 1:44 PM CDT Plan of Treatment Upcoming Encounters Date Type Department Care Team (Late st Contact Info) Description 10/16/2023 4:30 PM DEPUTY DIRECTOR OF FINANCE Office Visit [facility] [address] [place] [address] [place] [address] [place] [address] 11/10/2023 3:25 PM DEPUTY DIRECTOR OF FINANCE Office Visit [facility] [address] [place] [address] Chula Farley, DO [address] [place] [address] 11/11/2023 3:30 PM DEPUTY DIRECTOR OF FINANCE Telemedicine [facility] [address] [place] [address] Joseline Handley NP [address] [place] [address] Health Maintenance Due Date Last Done Comments BMI (ht and wt on same day) for age 18+ 01/02/2024 01/01/2023, 12/16/2022 Mammogram for age 45-75 01/02/2024 01/01/2023 Depression screening for age 12+ 10/03/2024 10/03/2023, 10/01/2023, 08/30/2023, Additional history exists Lipids for age 45-75 [...] Procedure Name Priority Date/Time Associated Diagnosis Comments CBC WITH AUTO DIFFERENTIAL Routine 09/26/2023 2:36 PM DEPUTY DIRECTOR OF FINANCE Pulmonary embolism, bilateral (HC) BASIC METABOLIC PANEL Routine 09/26/2023 2:36 PM DEPUTY DIRECTOR OF FINANCE Pulmonary embolism, bilateral (HC) CBC WITH AUTO DIFFERENTIAL Routine 09/26/2023 2:36 PM DEPUTY DIRECTOR OF FINANCE Pulmonary embolism, bilateral (HC) LDL CHOLESTEROL,DIRECT Routine 09/05/2023 7:47 AM DEPUTY DIRECTOR OF FINANCE Mixed hyperlipidemia LIPID PANEL W REFLEX MEASURED LDL Routine 09/05/2023 7:47 AM DEPUTY DIRECTOR OF FINANCE Mixed hyperlipidemia PROTIME-INR STAT 09/05/2023 7:47 AM DEPUTY DIRECTOR OF FINANCE Recurrent deep vein thrombosis (DVT) (HC) Anticoagulation monitoring, INR range 2-3 PROTIME-INR STAT 08/29/2023 1:40 PM DEPUTY DIRECTOR OF FINANCE Recurrent deep vein thrombosis (DVT) (HC) Anticoagulation monitoring, INR range 2-3 PROTIME-INR STAT 08/26/2023 4:06 PM DEPUTY DIRECTOR OF FINANCE Recurrent deep vein thrombosis (DVT) (HC) Anticoagulation monitoring, INR range 2-3 BASIC METABOLIC PANEL Routine 08/22/2023 3:49 PM DEPUTY DIRECTOR OF FINANCE Flank pain PROTIME-INR STAT 08/22/2023 3:49 PM DEPUTY DIRECTOR OF FINANCE Recurrent deep vein thrombosis (DVT) (HC) Anticoagulation monitoring, INR range 2-3 URINE CULTURE Add On 08/22/2023 3:22 PM DEPUTY DIRECTOR OF FINANCE Flank pain URINALYSIS MICROSCOPIC Routine 08/22/2023 3:22 PM DEPUTY DIRECTOR OF FINANCE Flank pain UA W/ SEDIMENT EXAM REFLEXED PER CRITERIA Routine 08/22/2023 3:22 PM DEPUTY DIRECTOR OF FINANCE Flank pain HEMOGLOBIN A1C Routine 07/25/2023 3:08 PM DEPUTY DIRECTOR OF FINANCE Prediabetes BASIC METABOLIC PANEL Routine 07/25/2023 3:08 PM DEPUTY DIRECTOR OF FINANCE JESSIKA (acute kidney injury) (HC) PROTIME-INR STAT 07/25/2023 3:08 PM DEPUTY DIRECTOR OF FINANCE Recurrent deep vein thrombosis (DVT) (HC) Anticoagulation [...] (DVT) (HC) Anticoagulation monitoring, INR range 2-3 from Last 3 Months Results * (ABNORMAL) CBC WITH AUTO DIFFERENTIAL (09/26/2023 2:36 PM DEPUTY DIRECTOR OF FINANCE) Pathologist [facility] WHITE BLOOD COUNT 9.2 4.5 - 11.0 thou/cu mm 09/26/2023 2:42 PM DEPUTY DIRECTOR OF FINANCE [facility] RED BLOOD COUNT 4.66 4.00 - 5.20 mil/cu mm 09/26/2023 2:42 PM DEPUTY DIRECTOR OF FINANCE [facility] HEMOGLOBIN 13.3 12.0 - 16.0 g/dL 09/26/2023 2:42 PM DEPUTY DIRECTOR OF FINANCE [facility] HEMATOCRIT 41.9 33.0 - 51.0 % 09/26/2023 2:42 PM [facility] MCV 90 80 - 100 fL 09/26/2023 2:42 PM [facility] MCH 28.5 26.0 - 34.0 pg 09/26/2023 2:42 PM [facility] MCHC 31.7(L) 32.0 - 36.0 g/dL 09/26/2023 2:42 PM [facility] RDW 15.1 11.5 - 15.5 % 09/26/2023 2:42 PM [facility] PLATELET COUNT 346 140 - 440 thou/cu mm 09/26/2023 2:42 PM [facility] MPV 9.8 6.5 - 11.0 fL 09/26/2023 2:42 PM [facility] % NEUT 62.7 % 09/26/2023 2:42 PM [facility] % LYMPH 22.5 % 09/26/2023 2:42 PM [facility] % MONO 10.1 % 09/26/2023 2:42 PM [facility] % EOS 3.9 % 09/26/2023 2:42 PM [facility] % BASO 0.8 % 09/26/2023 2:42 PM [facility] ABSOLUTE NEUTROPHILS 5.8 1.7 - 7.0 thou/cu mm 09/26/2023 2:42 PM [facility] ABSOLUTE LYMPHOCYTES 2.1 0.9 - 2.9 thou/cu mm 09/26/2023 2:42 PM [facility] ABSOLUTE MONOCYTES 0.9(H) <0.9 thou/cu mm 09/26/2023 2:42 PM [facility] ABSOLUTE EOSINOPHILS 0.4 <0.5 thou/cu mm 09/26/2023 2:42 PM [facility] ABSOLUTE BASOPHILS 0.1 <0.3 thou/cu mm 09/26/2023 2:42 PM [facility] Blood BLOOD SPECIMEN / Unknown Venipuncture / Unknown 09/26/2023 2:36 PM DEPUTY DIRECTOR OF FINANCE 09/26/2023 2:37 PM DEPUTY DIRECTOR OF FINANCE Raisa ANDREWS HEMATOLOGY [facility] [place] [address], * (ABNORMAL) BASIC METABOLIC PANEL (09/26/2023 2:36 PM DEPUTY DIRECTOR OF FINANCE) Only the most recent of4 resultswithin the time period is included. SODIUM 141 136 - 145 mmol/L 09/26/2023 9:42 PM [facility] POTASSIUM 4.6 3.5 - 5.1 mmol/L 09/26/2023 9:42 PM [facility] CHLORIDE 103 98 - 107 mmol/L 09/26/2023 9:42 PM [facility] CO2,TOTAL 26 22 - 29 mmol/L 09/26/2023 9:42 PM [facility] ANION GAP 12 5 - 18 09/26/2023 9:42 PM [facility] GLUCOSE 119(H) 70 - 99 mg/dL 09/26/2023 9:42 PM [facility] CALCIUM 9.7 8.6 - 10.0 mg/dL 09/26/2023 9:42 PM [facility] BUN 12 6 - 20 mg/dL 09/26/2023 9:42 PM [facility] CREATININE 1.05(H) 0.50 - 0.90 mg/dL 09/26/2023 9:42 PM [facility] BUN/CREAT RATIO 11 10 - 20 9:42 PM [facility] eGFR 62(L) >90 mL/min/1.7 3m2 09/26/2023 9:42 PM [facility] Comment:As of 2021, eG FR is calculated by the CKD-EPI creatinine equation without race adjustment. ??eGFR can be influenced by muscle mass, exercise, and diet. ??The reported eGFR is an estimation only and is only applicable if the renal function is stable. Blood BLOOD SPECIMEN / Unknown Venipuncture / Unknown 09/26/2023 2:36 PM DEPUTY DIRECTOR OF FINANCE 09/26/2023 2:37 PM DEPUTY DIRECTOR OF FINANCE Raisa ANDREWS CHEMISTRY [facility] [address] [place] [id number], * (ABNORMAL) LIPID PANEL W REFLEX MEASURED LDL (09/05/2023 7:47 AM DEPUTY DIRECTOR OF FINANCE) Only the most recent of2 resultswithin the time period is included. CHOLESTEROL,TOTAL 308(H) 100 - 199 mg/dL 09/05/2023 4:27 PM DEPUTY DIRECTOR OF FINANCE [facility] Comment: Cholesterol, Total Reference Ranges Desirable <200 mg/dL Borderline 200-239 mg/dL High >=240 mg/dL TRIGLYCERIDES 559(H) <150 mg/dL 09/05/2023 4:27 PM DEPUTY DIRECTOR OF FINANCE [facility] HDL CHOLESTEROL 41 >40 mg/dL 3 4:27 PM DEPUTY DIRECTOR OF FINANCE [facility] NON-HDL CHOLESTEROL 267(H) <145 mg/dl 09/05/2023 4:27 PM DEPUTY DIRECTOR OF FINANCE [facility] CHOL/HDL RATIO 7.51(H) <4.50 09/05/2023 4:27 PM DEPUTY DIRECTOR OF FINANCE [facility] LDL CHOLESTEROL 3 4:27 PM DEPUTY DIRECTOR OF FINANCE [facility] Comment:Invalid LDL when Tri g >400. VLDL CHOLESTEROL COMMENT 09/05/2023 4:27 PM DEPUTY DIRECTOR OF FINANCE [facility] Comment:Unable to calculate VLDL. PROVIDER ORDERED STATUS FASTING 09/05/2023 4:27 PM DEPUTY DIRECTOR OF FINANCE [facility] TRAL LABORATORY Blood BLOOD SPECIMEN / Unknown Venipuncture / Unknown 09/05/2023 7:47 AM DEPUTY DIRECTOR OF FINANCE 09/05/2023 7:49 AM DEPUTY DIRECTOR OF FINANCE Chula Emerson DO CHEMISTRY Performing Organization Address [facility] de Phone Number [facility] [address] [place] [address], * (ABNORMAL) PROTIME-INR (09/05/2023 7:47 AM DEPUTY DIRECTOR OF FINANCE) Only the most recent of6 resultswithin the time period is included. INR 2.2(H) <1.3 09/05/2023 12:58 PM DEPUTY DIRECTOR OF FINANCE [facility] PROTIME 24.1(H) 10.3 - 12.3 sec 09/05/2023 12:58 PM DEPUTY DIRECTOR OF FINANCE [facility] Blood BLOOD SPECIMEN / Unknown Venipuncture / Unknown 09/05/2023 7:47 AM DEPUTY DIRECTOR OF FINANCE 09/05/2023 7:49 AM DEPUTY DIRECTOR OF FINANCE Narrative [facility] - 09/05/2023 12:58 PM DEPUTY DIRECTOR OF FINANCE ?Therapeutic Range 2.0-3.0 for most anticoagulated patients [...] Chula Farley DO HEMATOLOGY Performing Organization Address [facility] Co de Phone Number [facility] [address] [place] [address], * LDL CHOLESTEROL,DIRECT (09/05/2023 7:47 AM DEPUTY DIRECTOR OF FINANCE) LDL CHOLESTEROL,DI RECT 170 mg/dL 09/05/2023 5:55 PM DEPUTY DIRECTOR OF FINANCE [facility] TRAL LABORATORY PROVIDER ORDERED STATUS FASTING 09/05/2023 5:55 PM DEPUTY DIRECTOR OF FINANCE [facility] TRA LABORATORY Blood BLOOD SPECIMEN / Unknown Venipuncture / Unknown 09/05/2023 7:47 AM DEPUTY DIRECTOR OF FINANCE 09/05/2023 7:49 AM DEPUTY DIRECTOR OF FINANCE Narrative [facility] LABORATORYCENTRAL LABORATORY - 09/05/2023 5:55 PM DEPUTY DIRECTOR OF FINANCE Optimal ?<100 mg/dl Near Optimal ?100-129 mg/dl Borderline High ?? 130-159 mg/dl High ?160-189 mg/dl Very High ? >=190 mg/dl Chula Walkerlorna DO CHEMISTRY [facility] [address] [place] [address], [place] * URINALYSIS MICROSCOPIC (08/22/2023 3:22 PM DEPUTY DIRECTOR OF FINANCE) Only the most recent of3 resultswithin the time period is included. RBC 0-2 0-2, None Seen /HPF 08/22/2023 3:43 PM DEPUTY DIRECTOR OF FINANCE [facility] WBC 0-2 0-2, 3-5, None Seen /HPF 08/22/2023 3:43 PM DEPUTY DIRECTOR OF FINANCE [facility] BACTERIA Few None Seen, Rare, Few Bacteria/H PF 08/22/2023 3:43 PM DEPUTY DIRECTOR OF FINANCE [facility] EPITHELIAL CELLS Few None Seen, Few Epi/HPF 08/22/2023 3:43 PM DEPUTY DIRECTOR OF FINANCE [facility] Mucus Present 08/22/2023 3:43 PM DEPUTY DIRECTOR OF FINANCE [facility] Urine URINE SPECIMEN / Unknown Non-Blood / Unknown 08/22/2023 3:22 PM DEPUTY DIRECTOR OF FINANCE 08/22/2023 3:36 PM DEPUTY DIRECTOR OF FINANCE Chula Becca Walkerblake URINE Performing Organization Address City/[facility]/ZIP Co de Phone Number [facility] [address] [place] [address], [place] [phone] * URINE CULTURE (08/22/2023 3:22 PM DEPUTY DIRECTOR OF FINANCE) Only the most recent of2 resultswithin the time period is included. CULTURE <10,000 CFU/mL multiple organisms 08/24/2023 8:34 AM DEPUTY DIRECTOR OF FINANCE [facility] TRAL LABORATORY Urine URINE SPECIMEN / Unknown Non-Blood / Unknown 08/22/2023 3:22 PM DEPUTY DIRECTOR OF FINANCE 08/22/2023 3:36 PM DEPUTY DIRECTOR OF FINANCE Chula Farley MICROBIOLOGY [facility] [address] [place] [address], [place] * (ABNORMAL) UA W/ SEDIMENT EXAM REFLEXED PER CRITERIA (08/22/2023 3:22 PM DEPUTY DIRECTOR OF FINANCE) Only the most recent of3 resultswithin the time period is included. COLOR Yellow Yellow Color 08/22/2023 3:43 PM DEPUTY DIRECTOR OF FINANCE [facility] CLARITY Clear Clear Clarity 08/22/2023 3:43 PM DEPUTY DIRECTOR OF FINANCE [facility] SPECIFIC GRAVITY,URINE 1.025 1.010, 1.015, 1.020, 1.025 08/22/2023 3:43 PM DEPUTY DIRECTOR OF FINANCE [facility] PH,URINE 5.5 6.0, 7.0, 8.0, 5.5, 6.5, 7.5, 8.5 08/22/2023 3:43 PM DEPUTY DIRECTOR OF FINANCE [facility] UROBILINOGEN, QUALITATIVE Normal Normal EU/dl 08/22/2023 3:43 PM DEPUTY DIRECTOR OF FINANCE [facility] PROTEIN, URINE Negative Negative mg/dL 08/22/2023 3:43 PM DEPUTY DIRECTOR OF FINANCE [facility] GLUCOSE, URINE Negative Negative mg/dL 08/22/2023 3:43 PM DEPUTY DIRECTOR OF FINANCE [facility] KETONES,URINE Negative Negative mg/dL 08/22/2023 3:43 PM DEPUTY DIRECTOR OF FINANCE [facility] BILIRUBIN,URI NE Negative Negative 08/22/2023 3:43 PM DEPUTY DIRECTOR OF FINANCE [facility] OCCULT BLOOD,URINE Negative Negative 08/22/2023 3:43 PM DEPUTY DIRECTOR OF FINANCE [facility] NITRITE Negative Negative 08/22/2023 3:43 PM DEPUTY DIRECTOR OF FINANCE [facility] LEUKOCYTE ESTERASE Trace(A) Negative 08/22/2023 3:43 PM DEPUTY DIRECTOR OF FINANCE [facility] Urine URINE SPECIMEN / Unknown Non-Blood / Unknown 08/22/2023 3:22 PM DEPUTY DIRECTOR OF FINANCE 08/22/2023 3:36 PM DEPUTY DIRECTOR OF FINANCE Chula Farley DO URINE Performing Organization Address [facility] Co de Phone Number [facility] [address] [place] [address], [place] [phone] * HEMOGLOBIN A1C MONITORING (POCT) (07/25/2023 3:08 PM DEPUTY DIRECTOR OF FINANCE) HEMOGLOBIN A1C MONITORING (POCT) 5.9 <=6.4 % 07/25/2023 3:24 PM DEPUTY DIRECTOR OF FINANCE [facility] Blood BLOOD SPECIMEN / Unknown Venipuncture / Unknown 07/25/2023 3:08 PM DEPUTY DIRECTOR OF FINANCE 07/25/2023 3:08 PM DEPUTY DIRECTOR OF FINANCE Narrative [facility] - 07/25/2023 3:24 PM DEPUTY DIRECTOR OF FINANCE ? (<=6.9%) ? Indicates good control ? (7.0% to 7.9%) ? Indicates fair control ? (>=8.0%) ? Indicates poor control ?? NOTE: ??These thresholds are guidelines and ?individual targets may vary. Falsely low levels may be seen with: Recent Transfusion, Recent Significant Blood Loss, Hemolytic Diseases, or Falsely elevated levels may be seen with: Untreated Anemias, Splenectomy ? Chula Farley DO CHEMISTRY Performing Organization Address [facility] Co de Phone Number [facility] [address] [place] [address], [place] [phone] from Last 3 Months Advance Directives Latest Code Status on File Code Status Date Activated Date Inactivated Comments Full Code 03/24/2023 11:33 PM 03/27/2023 2:15 PM Question Answer Comments Code Status Discussion: Reviewed Preferences Care Teams Liquid Yeast Supervisor Relationship Specialty Start Date End Date Chula Farley DO [address] [place] [address] PCP - General Family Practice 12/19/22 [place] [address] [place] [address] Consulting Physician Cardiovascular Disease 09/30/23
[2023-10-08 13:32] LABS: Chloride* 110 mmol/L (96-114); Potassium* 4.3 mmol/L (3.6-5.1); Sodium* 142 mmol/L (135-149)
[2023-10-08 13:35] LABS: Est. Creatinine Clearance* 59.63; Estimated Glomerular Filt Rate 65 ml/min
[2023-10-08 13:36] LABS: Anion Gap 11 mEq/L (7-15); Blood Urea Nitrogen* 20 mg/dL (7-30); Calcium* 9.4 mg/dL (8.4-10.6); Carbon Dioxide* 21 mmol/L (20-32); Glucose* 137 mg/dL (60-115)
[2023-10-08] MEDS: KETOROLAC 30 MG/ML inj IVP (13:38)
[2023-10-08] MEDS: diphenhydrAMINE 50 MG/ML inj 25 MG IVP (13:38)
[2023-10-08 13:39] LABS: C Reactive Protein* 0.9 mg/dL (0.5-1.0)
[2023-10-08] MEDS: METOCLOPRAMIDE HCL 10 MG in 0.9 % SODIUM CHLORIDE 100 ml 100 ML 306 MG IV (13:39)
[2023-10-08] MEDS: 0.9 % SODIUM CHLORIDE 1000 ml 1,000 ML 6000 ML IV (13:39)
== END 2023-10-08 14:44 | disposition home or self-care (01) ==
PROVIDERS: Emergency Provider Family Medicine; PCP Family Medicine
DX: R51.9 Headache, unspecified (principal)
CPT/HCPCS: 36415; 70450; 70486; 80048; 85025; 86140; 96361; 96374; 96375; 99284; 99285; J1200; J1885; J2765; J7030

== ENCOUNTER 2024-02-23 09:56 | Outpatient (CLI) | payer MEDICAID, SELFPAY ==
--- OUTSIDE RECORDS SUMMARY | 2024-02-23 10:01 | XMS_ITS | Clinical Summary ---
Author Organization [facility] Address [address] [place] [address] Care Team Providers Care Pan Pusher Name Role Phone Chula Farley Primary Care Provider [phone] Thanh Porter MD Unavailable [phone] Allergies Active Allergy Reactions Criticality Noted Date Comments Blood-Group Specific Substance Other (See Comments) 03/25/2023 Patient has a Sherry antibody. Blood products may be delayed. Draw patient 24 hours prior to transfusion. For [facility] testing, draw one red top and two purple top tubes for all Type and Screen orders. Latex 12/25/2022 Penicillins Shortness Of Breath High 04/03/2023 Medications Medication Sig Dispensed Refills Start Date End Date Status predniSONE (DELTASONE) 20 MG tablet Take two tablets (= 40mg) each day for 4 (four) days 8 tablet 12/26/2022 Active Additional Information Patient not taking.Reported on 10/14/2023 albuterol (PROAIR HFA/PROVENTIL HFA/VENTOLIN HFA) 108 (90 Base) MCG/ACT inhaler Inhale 2 puffs into the lungs every 6 hours as needed for shortness of breath, wheezing or cough 18 g 12/25/2022 Active spacer (OPTICHAMBER MAREK) holding chamber Use with inhaler 1 each 12/25/2022 Active Additional Information Patient not taking.Reported on 10/14/2023 aspirin 81 MG EC tablet Take 81 mg by mouth 10/02/2023 Active budesonide-formotero l (SYMBICORT) 160-4.5 MCG/ACT Inhaler Inhale 2 puffs into the lungs 12/16/2022 Active azelastine (ASTELIN) 0.1 % nasal spray [place] 1 spray in nostril 09/22/2023 Active busPIRone (BUSPAR) 15 MG tablet 05/01/2023 Active Cholecalciferol (D 1000) 25 MCG (1000 UT) CAPS Take 1,000 Units by mouth 07/25/2023 Active fluticasone (FLONASE) 50 MCG/ACT nasal spray [place] 2 sprays in nostril 09/22/2023 Active hydrOXYzine HCl (ATARAX) 10 MG tablet TAKE ONE TABLET BY MOUTH EVERY DAY NEEDED FOR ALLERGIES 10/14/2023 Active levocetirizine (XYZAL) 5 MG tablet Take 1 tablet by mouth daily 01/01/2023 Active levothyroxine (SYNTHROID/LEVOTHROI D) 200 MCG tablet Take 200 mcg by mouth 12/16/2022 Active ivermectin (SOOLANTRA) 1 % cream APPLY THIN LAYER TO FACE 1 TO 2 TIMES PER DAY 08/08/2023 Active montelukast (SINGULAIR) 10 MG tablet Take 10 mg by mouth daily 08/22/2023 Active nystatin (MYCOSTATIN) 481153 UNIT/GM external cream Apply topically to affected area(s) two times daily. 08/22/2023 Active omeprazole (PRILOSEC) [address] capsule Take one tablet (40mg) twice daily 09/24/2023 Active sertraline (ZOLOFT) 100 MG tablet Take 200 mg by mouth 08/22/2023 Active SUMAtriptan (IMITREX) 50 MG tablet TAKE ONE TABLET BY MOUTH EVERY 2 HOURS NEEDED FOR MIGRAINE. TAKE AT MINIMUM OF 2 HOURS APART. MAX DOES OF 4 TABLETS IN 24 HOURS 09/29/2023 Active ezetimibe (ZETIA) 10 MG tablet Take 1 tablet by mouth daily 08/08/2023 Active azelaic acid (FINACIA) 15 % external gel APPLY TO FACE 1 TO 2 TIMES PER DAY 08/08/2023 Active rivaroxaban ANTICOAGULANT (XARELTO) 20 MG TABS tabletIndications:Re current deep vein thrombosis (DVT) (H) Take 1 tablet (20 mg) by mouth daily (with dinner) 30 tablet 11 10/14/2023 Active celecoxib (CELEBREX) 200 MG capsuleIndications:R ecurrent deep vein thrombosis (DVT) (H) Take 1 capsule (200 mg) by mouth daily 30 capsule 1 01/02/2024 Active Encounters Date Type Department Care Team Description 02/03/2024 Telephone [facility] [address] [place] [phone] Resource, Ur Hemo 01/30/2024 Telephone [facility] [address] [place] [address] [address] [place] [phone] Francia Uribe, RN 01/02/2024 Orders Only [facility] [address] [place] [address] [address] [place] [phone] Thanh Porter MD Recurrent deep vein thrombosis (DVT) (H) 12/23/2023 Refill [facility] [address] [place] [address] [address] [place] [phone] Thanh Porter MD Medication Refill 11/26/2023 Telephone [facility] [address] [place] [address] [address] [place] [phone] Francia Uribe, RN from Last 3 Months Social History Tobacco Use Types Packs/Day Years Used Date Smoking Tobacco: Never Assessed Adolescent Education Answer Date Record ed Getting School Help Needed Not on file 07/01 Sex and Gender Information Value Date Recorded Sex Assigned at Not on file Gender Identity Not on file Sexual Orientation Not on file Last Filed Vital Signs Vital Sign Reading Time Taken Comments Blood Pressure 126/91 10/14/2023 9:12 AM FACTORY WORKER Pulse 93 10/14/2023 9:12 AM FACTORY WORKER Temperature 36.1 ??C (97 ??F) 10/14/2023 9:12 AM FACTORY WORKER Respiratory Rate 20 05/21/2023 2:29 PM CDT Oxygen Saturation 96% 10/14/2023 9:12 AM FACTORY WORKER Inhaled Oxygen Concentration - - Weight 111.7 kg (246 lb 3.2 oz) 10/14/2023 9:12 AM FACTORY WORKER Height 170.2 cm (5' 7) 05/21/2023 2:29 PM CDT Body Mass Index 38.56 05/21/2023 2:29 PM CDT Plan of Treatment Health Maintenance Due Date Last Done Comments ADVANCE CARE PLANNING 1965 ANNUAL REVIEW OF HM ORDERS 1965 ASTHMA ACTION PLAN [address] ASTHMA [address]OL TEST 1965 [address] COLONOGRAPHY 1965 FIT 1965 FLEX SIG 1965 TSH W/FREE T4 REFLEX 1965 sDNA (Cologuard) 1965 HIV SCREENING 1980 HEPATITIS C SCREENING 1983 HEPATITIS B IMMUNIZATION (1 of 3 - 19+ 3-dose series) 1984 PAP 1986 LIPID 2005 PHQ-2 (once per calendar year) 2023 YEARLY PREVENTIVE VISIT 01/02/2024 01/01/2023 MAMMO SCREENING 01/01/2025 01/01/2023 GLUCOSE 12/25/2025 12/25/2022 DTAP/TDAP/TD IMMUNIZATION (2 - Td or Tdap) [...] on patient's age to complete this topic Procedures Procedure Name Priority Date/Time Associated Diagnosis Comments COMPREHENSIVE METABOLIC PANEL STAT 12/25/2022 3:01 PM CDT from Last 3 Months or Most Recently Relevant to Health Maintenance Results * (ABNORMAL) Comprehensive metabolic panel (12/25/2022 3:01 PM CDT) Sodium 143 136 - 145 mmol/L 12/25/2022 3:47 PM CDT [facility] Potassium 4.0 3.4 - 5.3 mmol/L 12/25/2022 3:47 PM [facility] Chloride 110(H) 98 - 107 mmol/L 12/25/2022 3:47 PM [facility] Carbon Dioxide (CO2) 25 22 - 29 mmol/L 12/25/2022 3:47 PM [facility] Anion Gap 8 7 - 15 mmol/L 12/25/2022 3:47 PM [facility] Urea Nitrogen 10.6 6.0 - 20.0 mg/dL 12/25/2022 3:47 PM [facility] Creatinine 1.24(H) 0.51 - 0.95 mg/dL 12/25/2022 3:47 PM [facility] Calcium 8.4(L) 8.6 - 10.0 mg/dL 12/25/2022 3:47 PM [facility] Glucose 100(H) 70 - 99 mg/dL 12/25/2022 3:47 PM [facility] Alkaline Phosphatase 107(H) 35 - 104 U/L 12/25/2022 3:47 PM [facility] AST 22 10 - 35 U/L 12/25/2022 3:47 PM [facility] ALT 24 10 - 35 U/L 12/25/2022 3:47 PM [facility] Protein Total 6.2(L) 6.4 - 8.3 g/dL 12/25/2022 3:47 PM [facility] Albumin 3.9 3.5 - 5.2 g/dL 12/25/2022 3:47 PM [facility] Bilirubin Total 0.3 <=1.2 mg/dL 12/25/2022 3:47 PM [facility] GFR Estimate 51(L) >60 mL/min/1.7 3m2 12/25/2022 3:47 PM [facility] Comment:eGFR calculated us2020 CKD-EPI equation. Blood STRUCTURE OF LEFT UPPER LIMB / Unknown Venipuncture / Unknown 12/25/2022 3:01 PM CDT 12/25/2022 3:06 PM T Jason Katlin Etten PA-C LAB - BLOOD O RDERABLES LABORATORY [facility] [address], [address] [place] [address], [facility] [phone] from Last 3 Months or Most Recently Relevant to Health Maintenance Care Teams Pan Pusher Relationship Specialty Start Date End Date Chula Farley DO [address] [place] [address] PCP - General Family Practice 12/25/22 Thanh Porter MD [address] [address] Assigned Cancer Care Provider 11/07/23
--- OUTSIDE RECORDS SUMMARY | 2024-02-23 10:01 | XMS_ITS | Encounter Summary ---
Author Organization [facility] Address [address] [place] [address] Care Team Providers Care Dedicated Local Truck Driver Name Role Phone Chula Farley DO Primary Care Provider [phone] Thanh Porter MD Unavailable [phone] Reason for Visit * Reason Comments Medication Refill Encounter Details Date Type Department Care Team (Late st Contact Info) Description 12/23/2023 Refill [facility] [address] [place] [address] Thanh Porter MD [address] [address] Medication Refill Social History Tobacco Use Types Packs/Day Years Used Date Smoking Tobacco: Never Assessed Adolescent Education Answer Date Record ed Getting School Help Needed Not on file 07/01 Sex and Gender Information Value Date Recorded Sex Assigned at Not on file Gender Identity Not on file Sexual Orientation Not on file documented as of this encounter Plan of Treatment Not on file documented as of this encounter Visit Diagnoses Diagnosis Recurrent deep vein thrombosis (DVT) (H) documented in this encounter Care Teams Dedicated Local Truck Driver Relationship Specialty Start Date End Date Ch[place] [address] PCP - General Family Practice 12/25/22 Thanh Porter MD [address] [facility] [address] [place], [place] [phone] Assigned Cancer Care Provider 11/07/23 documented as of this encounter
--- OUTSIDE RECORDS SUMMARY | 2024-02-23 10:01 | XMS_ITS | Encounter Summary ---
Author Organization [facility] Address [address] [place] [address]. [place] [address] Care Team Providers Care Health Educator Name Role Phone Chula Farley DO Primary Care Provider [phone] Thanh Porter MD Unavailable [phone] Encounter Details Date Type Department Care Team (Late st Contact Info) Description 01/02/2024 Orders Only [facility] [address] [place] [phone] Thanh Porter MD [address] [facility] [address] [place] [address] Recurrent deep vein thrombosis (DVT) (H) Social History Tobacco Use Types Packs/Day Years Used Date Smoking Tobacco: Never Assessed Adolescent Education Answer Date Record ed Getting School Help Needed Not on file 07/01 Sex and Gender Information Value Date Recorded Sex Assigned at Not on file Gender Identity Not on file Sexual Orientation Not on file documented as of this encounter Progress Notes * Gilda Cisneros RN - 01/02/2024 12:24 PM CDT Automated Celebrex refill request. Refilled per clinic note 09/2023. Call placed to [facility] and voicemail left that she missed her lab draw in Oct for her Xarelto level check. Call back requested, staff are available to assist in rescheduling that lab Gilda Cisneros BSN, RN, PHN [facility] Office: [phone] documented in this encounter Plan of Treatment Not on file documented as of this encounter Visit Diagnoses Diagnosis Recurrent deep vein thrombosis (DVT) (H) documented in this encounter Care Teams Health Educator Relationship Specialty Start Date End Date Chula Farley DO [address] [place] [address] PCP - General Family Practice 12/25/22 Thanh Porter MD [address] [place] [address] Assigned Cancer Care Provider 11/07/23 documented as of this encounter
--- OUTSIDE RECORDS SUMMARY | 2024-02-23 10:01 | XMS_ITS | Referral Summary ---
Author Organization [facility] Address [address] [place] [address] Care Team Providers Care Marble Polisher Hand Name Role Phone Chula Farley DO Primary Care Provider [phone] Thanh Porter MD Unavailable [phone] Encounters Date Type Department Care Team Description 02/03/2024 Telephone [facility] [address] [place] [phone] Resource, Ur Hemo 01/30/2024 Telephone [facility] [address] [place] [phone] Francia Uribe, RN 01/02/2024 Orders Only [facility] [address] [place] [phone] Thanh Porter MD Recurrent deep vein thrombosis (DVT) (H) 12/23/2023 Refill [facility] [address] [place] [phone] Thanh Porter MD Medication Refill 11/26/2023 Telephone [facility] [address] [place] [phone] Francia Uribe, RN from Last 3 Months Allergies Active Allergy Reactions Criticality Noted Date Comments Blood-Group Specific Substance Other (See Comments) 03/25/2023 Patient has a Sherry antibody. Blood products may be delayed. Draw patient 24 hours prior to transfusion. For [facility] testing, draw one red top and [...] Active azelastine (ASTELIN) 0.1 % nasal spray [place] 1 spray in nostril 09/22/2023 Active busPIRone (BUSPAR) 15 MG tablet 05/01/2023 Active Cholecalciferol (D 1000) 25 MCG (1000 UT) CAPS Take 1,000 Units by mouth 07/25/2023 Active fluticasone (FLONASE) 50 MCG/ACT nasal spray [place] 2 sprays in nostril 09/22/2023 Active hydrOXYzine [...] by mouth daily 08/22/2023 Active nystatin (MYCOSTATIN) 343720 UNIT/GM external cream Apply topically to affected [...] mouth daily 30 capsule 1 01/02/2024 Active Social History Tobacco Use Types Packs/Day [...] Comments Blood Pressure 126/91 10/14/2023 9:12 AM LEATHER CRAFTER Pulse 93 10/14/2023 9:12 AM LEATHER CRAFTER Temperature 36.1 ??C (97 ??F) 10/14/2023 9:12 AM LEATHER CRAFTER Respiratory Rate 20 05/21/2023 2:29 PM CDT Oxygen Saturation 96% 10/14/2023 9:12 AM LEATHER CRAFTER Inhaled Oxygen Concentration - - Weight 111.7 kg (246 lb 3.2 oz) 10/14/2023 9:12 AM LEATHER CRAFTER Height 170.2 cm (5' 7) 05/21/2023 2:29 PM CDT Body Mass Index 38.56 05/21/2023 2:29 PM CDT Plan of Treatment Not on file Procedures Procedure Name Priority Date/Time Associated Diagnosis Comments COMPREHENSIVE METABOLIC PANEL STAT 12/25/2022 3:01 PM CDT from Last 3 Months or Most Recently Relevant to Health Maintenance Results * (ABNORMAL) Comprehensive metabolic panel (12/25/2022 3:01 PM CDT) Sodium 143 136 - 145 mmol/L 12/25/2022 3:47 PM [facility] Potassium 4.0 3.4 - 5.3 mmol/L 12/25/2022 3:47 PM [facility] Chloride 110(H) 98 - 107 mmol/L 12/25/2022 3:47 PM [facility] Carbon Dioxide (CO2) 25 22 - 29 mmol/L 12/25/2022 3:47 PM [facility] Anion Gap 8 7 - 15 mmol/L 12/25/2022 3:47 PM [facility] Urea Nitrogen 10.6 6.0 - 20.0 mg/dL 12/25/2022 3:47 PM [facility] Creatinine 1.24(H) 0.51 - 0.95 mg/dL 12/25/2022 3:47 PM [facility] Calcium 8.4(L) 8.6 - 10.0 mg/dL 12/25/2022 3:47 PM [facility] Glucose 100(H) 70 - 99 mg/dL 12/25/2022 3:47 PM [facility] Alkaline Phosphatase 107(H) 35 - 104 U/L 12/25/2022 3:47 PM [facility] AST 22 10 - 35 U/L 12/25/2022 3:47 PM [facility] ALT 24 10 - 35 U/L 12/25/2022 3:47 PM [facility] Protein Total 6.2(L) 6.4 - 8.3 g/dL 12/25/2022 3:47 PM [facility] Albumin 3.9 3.5 - 5.2 g/dL 12/25/2022 3:47 PM [facility] Bilirubin Total 0.3 <=1.2 mg/dL 12/25/2022 3:47 PM [facility] GFR Estimate 51(L) >60 mL/min/1.7 3m2 12/25/2022 3:47 PM [facility] Comment:eGFR calculated 2020 CKD-EPI equation. Blood STRUCTURE OF LEFT UPPER LIMB / Unknown Venipuncture / Unknown 12/25/2022 3:01 PM CDT 12/25/2022 3:06 PM CDT Jason Ross PA-C LAB - BLOOD O RDERABLES LABORATORY [facility] [address], [address] [place] [address], [facility] [phone] from Last 3 Months or Most Recently Relevant to Health Maintenance Care Teams Marble Polisher Hand Relationship Specialty Start Date End Date Chula Farley DO [address] [place] [address] PCP - General Family Practice 12/25/22 Thanh Porter MD [address] [address] Assigned Cancer Care Provider 11/07/23
--- OUTSIDE RECORDS SUMMARY | 2024-02-23 10:01 | XMS_ITS | Encounter Summary ---
Author Organization [place] Address [address] [place] [id number] Care Team Providers Care Clerk Typist Name Role Phone Chula Farley DO Primary Care Provider [phone] Thanh Porter MD Unavailable [phone] Encounter Details Date Type Department Care Team (Late st Contact Info) Description 02/03/2024 Telephone [facility] [address] [place] [address] Resource, [facility] Social History Tobacco Use Types Packs/Day Years Used Date Smoking Tobacco: Never Assessed Adolescent Education Answer Date Record ed Getting School Help Needed Not on file 07/01 Sex and Gender Information Value Date Recorded Sex Assigned at Not on file Gender Identity Not on file Sexual Orientation Not on file documented as of this encounter Miscellaneous Notes * Telephone Encounter - Chloe Crane - 02/03/2024 1:23 PM CDT Spoke with patient, she was looking ofr insurance resources. She gave me her email address to send her a few Mnsure navigator options. [email or web address] documented in this encounter Plan of Treatment Not on file documented as of this encounter Visit Diagnoses Not on filedocumented in this encounter Care Teams Clerk Typist Relationship Specialty Start Date End Date Chula Farley [place] [address] PCP - General Family Practice 12/25/22 Thanh Porter MD [address] [place] [id number] Assigned Cancer Care Provider 11/07/23 documented as of this encounter
--- OUTSIDE RECORDS SUMMARY | 2024-02-23 10:01 | XMS_ITS | Encounter Summary ---
Author Organization [place] Address [address] [place] [address] Care Team Providers Care Lithographers Printer Name Role Phone Chula Farley Primary Care Provider [phone] Thanh Porter MD Unavailable [phone] Encounter Details Date Type Department Care Team (Late st Contact Info) Description 01/30/[address] [facility] [address] [place] [id number] Francia Uribe, RN Social History Tobacco Use Types Packs/Day Years Used Date Smoking Tobacco: Never Assessed Adolescent Education Answer Date Record ed Getting School Help Needed Not on file 07/01 Sex and Gender Information Value Date Recorded Sex Assigned at Not on file Gender Identity Not on file Sexual Orientation Not on file documented as of this encounter Miscellaneous Notes * Telephone Encounter - Francia Uribe RN - 01/30/2024 2:36 PM CDT [id number] Sanam Alaniz [facility] 58 year old female CBCD Diagnosis: Recurrent VTE CBCD Provider: German Incoming call from Sanam Simpson. She has a history of recurrent VTE. She is overdue for a Rivaroxaban level. She has two questions for Dr. Porter: ~Should she get the ALEKSANDRA lab completed (Standardized Enzyme-Link Immunosorbent Assay)? ~She has a history of Sowmya Antigen from past transfusion. She wants to know-is a sowmya antigen an anti-nuclear antibody? RN will route these questions to provider and CBCD team will call her back next week. RN also asked patient if designer writer can assist patient with scheduling a rivaroxaban level. Patient declined right now as she is in the process of getting insurance reinstated. RN asked patient to call clinic as soon as insurance is reinstated. RN recommended she get this level drawn to make sure her body is absorbing rivaroxaban sufficiently. She verbalizes understanding and will contact clinic as soon as insurance is reinstated. Francia Uribe RN, BSN, PCCN Nurse Clinician [facility] [address] [place] [address], [address], [place] [address] Office, direct: [phone] Main office number: [phone] Pronouns: She, her, hers Addendum 02/03/24 @1407 Call to Sanam to discuss Dr. Porter's answers. Left message with the following; ALEKSANDRA lab is not needed [place] antigen is not an anti-nuclear antibody What would be most helpful in her care would be to check a Xarelto level. Staff invited Sanam to call back with questions or let the team know if she is needing additional support getting back on insurance. Gilda DON, RN, PHN [facility] Office: [phone] documented in this encounter Plan of Treatment Not on file documented as of this encounter Visit Diagnoses Not on filedocumented in this encounter Care Teams Lithographers Printer Relationship Specialty Start Date End Date Chula Farley DO [address] [place] [id number] PCP - General Family Practice 12/25/22 Thanh Porter MD [address] [place] [id number] Assigned Cancer Care Provider 11/07/23 documented as of this encounter
--- OUTSIDE RECORDS SUMMARY | 2024-02-23 10:01 | XMS_ITS | Clinical Summary ---
Author Organization [employer] [facility] Address [place], [place] [address] Care Team Providers Care Estate Planner Name Role Phone Chula Farley Primary Care Provider [phone] Saumya Richmond MD Unavailable [phone] Allergies Active Allergy Reactions Criticality Noted Date Comments Blood-Group Specific Substance Other - Describe In Comment Field 03/25/2023 Patient has a Sherry antibody. Blood products may be delayed. Draw patient 24 hours prior to transfusion. For Tipbit testing, draw one red top and two purple top tubes for all Type and Screen orders. Latex Hives 12/16/2022 Unlisted Allergen (Include Detail In Comments) Hives,Shortness Of Breath,Erythema 04/03/2023 Allergies to Cats, Dogs, Cattle, Horses, Pigs Penicillins Shortness Of Breath 04/03/2023 Tree And Shrub Pollen Hives,Shortness Of Breath 04/03/2023 [place] Pollen Hives,Shortness Of Breath 04/03/2023 Medications Medication Sig Dispensed Refills Start Date End Date Status melatonin 5 mg capsule Take 1 Capsule (5 mg) by mouth. 0 3 Active CPAPIndications:OS A (obstructive sleep apnea) CPAP machine for home use at pressure 13 cmw, full face mask x1/3month with a full face cushion x1/mo 1 Each 11 3 Active cholecalciferol (Vitamin D) 1,000 unit capsuleIndications :Vitamin D deficiency Take 1 Capsule (1,000 units) by mouth once daily. 90 Capsule 3 3 Active sulfacetamide-sulf ur , 10 - 5%, (SULFACET-R) 10-5 % (w/w) clsr WASH FACE 1 TIME PER DAY.LATHER & LET SIT 2 TO 3 MINTUES BEFORE RINSING. 3 Active omeprazole (PRILOSEC) 40 mg Delayed-Release capsuleIndications :Chronic GERD Take one tablet (40mg) twice daily 180 Capsule 3 4 Active SUMAtriptan (IMITREX) 50 mg tabletIndications: History of migraine headaches,Medicati on management TAKE ONE TABLET BY MOUTH EVERY 2 HOURS NEEDED FOR MIGRAINE. TAKE AT MINIMUM OF 2 HOURS APART. MAX DOES OF 4 TABLETS IN 24 HOURS 10 Tablet 2 4 Active aspirin (ECOTRIN) 81 mg enteric coated tablet Take 1 Tablet (81 mg) by mouth once daily. 4 Active apixaban (Eliquis) 5 mg tabletIndications: Recurrent deep vein thrombosis (DVT) (HC) Take 1 Tablet (5 mg) by mouth two times daily. 60 Tablet 11 4 Active busPIRone (BUSPAR) 30 mg tabletIndications: Generalized anxiety disorder with panic attacks Take 1 Tablet (30 mg) by mouth two times daily. 180 Tablet 4 Active sertraline (ZOLOFT) 100 mg tabletIndications: Generalized anxiety disorder with panic attacks Take 2 Tablets (200 mg) by mouth once daily. 180 Tablet 4 Active celecoxib (CELEBREX) 200 mg capsule Take 200 mg by mouth once daily with a meal. 4 Active Xarelto 20 mg tablet Take 20 mg by mouth once daily with a meal. 4 Active ARIPiprazole (Abilify) 10 mg tabletIndications: Bipolar 2 disorder (HC) Take 0.5 Tablets (5 mg) by mouth once daily. For 1-2 weeks, if tolerating well increase to 1 tablet(10mg) by mouth once daily 30 Tablet 1 4 Active levocetirizine (XYZAL) 5 mg tab tabletIndications: Allergy to environmental factors TAKE ONE TABLET BY MOUTH EVERY DAY 90 Tablet 2 4 Active gabapentin (NEURONTIN) 300 mg capsuleIndications :Generalized anxiety disorder with panic attacks,Neuropathy Take 1 Capsule (300 mg) by mouth three times daily. 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 90 Tablet 3 4 Active ezetimibe (ZETIA) 10 mg tabletIndications: Myalgia due to statin,Mixed hyperlipidemia Take 1 Tablet (10 mg) by mouth once daily. 90 Tablet 3 4 Active montelukast (SINGULAIR) 10 mg tabletIndications: Moderate persistent asthma with acute exacerbation Take 1 Tablet (10 mg) by mouth at bedtime. 90 Tablet 3 4 Active azelastine 137 mcg/actuation (ASTELIN) nasal sprayIndications:E nvironmental allergies,Post-kizzy al drip Inhale 1 [place] into affected nostril(s) two times daily. 30 mL 4 Active hydrOXYzine HCL (ATARAX) 25 mg tabletIndications: Allergy to environmental factors Take 1 Tablet (25 mg) by mouth every 8 hours if needed for Anxiety (and sleep). 90 Tablet 1 4 Active phentermine (IONAMIN) 15 mg capsuleIndications :Class 2 severe obesity with body mass index (BMI) of 35 to 39.9 with serious comorbidity (HC) Take 1 Capsule (15 mg) by mouth once daily before a meal. 30 Capsule 4 Active nystatin (MYCOSTATIN) 100,000 unit/gram topical creamIndications:I ntertrigo Apply topically to affected area(s) two times daily. 30 g 5 4 Active ivermectin 1 % topical creamIndications:R osacea Apply topically to affected area(s). APPLY THIN LAYER TO FACE 1 TO 2 TIMES PER DAY 45 g 3 4 Active azelaic acid (FINACEA) 15 % topical gelIndications:Ros acea Apply topically to affected area(s) two times daily. 50 g 3 4 Active budesonide-formote roL (SYMBICORT) 160-4.5 mcg/actuation (160-4.5 mcg each actuation) inhalerIndications :Moderate persistent asthma with acute exacerbation Inhale 2 Puffs by mouth two times daily. 10.2 g 6 4 Active fluconazole (DIFLUCAN) 150 mg tabletIndications: Candidal intertrigo Take one tablet now and repeat in 72 hours 1 Tablet 1 4 Active fluticasone (50 mcg per actuation) nasal solution (FLONASE)Indicatio ns:Environmental allergies,Post-kizzy al drip PLACE 2 SPRAYS INTO EACH NOSTRIL ONCE DAILY 48 g 3 4 Active albuterol HFA (Ventolin HFA) 90 mcg/actuation inhalerIndications :Mild intermittent asthma without complication Inhale 1-2 Puffs by mouth every 4 hours if needed for Shortness Of Breath or Wheezing. 18 g 4 Active enoxaparin (Lovenox) 30 mg/0.3 mL injectionIndicatio ns:Recurrent deep vein thrombosis (DVT) (HC) Take dose Friday pm, Friday am, Friday pm, Friday am. 4 Each 4 Active umeclidinium (INCRUSE ELLIPTA) 62.5 mcg/actuation inhalerIndications :Moderate persistent asthma without status asthmaticus without complication Inhale 1 Puff by mouth once daily. Discard inhaler 6 weeks after opening or when the counter reads '0' (after all blisters have been used), whichever comes first. 30 Each 11 4 Active budesonide-formote roL (SYMBICORT) 160-4.5 mcg/actuation (160-4.5 mcg each actuation) inhalerIndications :Mild intermittent asthma without complication Inhale 2 Puffs by mouth two times daily. 10.2 g 6 3 02/16/20 24 Discontinued(Re order (E-cancel not sent)) levocetirizine (XYZAL) 5 mg tab tabletIndications: Allergy to environmental factors Take 1 Tablet (5 mg) by mouth once daily. 90 Tablet 3 3 01/28/20 24 Discontinued ezetimibe (ZETIA) 10 mg tabletIndications: Myalgia due to statin,Mixed hyperlipidemia Take 1 Tablet (10 mg) by mouth once daily. 90 Tablet 3 3 02/16/20 24 Discontinued(Re order (E-cancel not sent)) azelaic acid (FINACEA) 15 % topical gel APPLY TO FACE 1 TO 2 TIMES PER DAY 3 02/16/20 24 Discontinued(Re order (E-cancel not sent)) ivermectin 1 % topical cream APPLY THIN LAYER TO FACE 1 TO 2 TIMES PER DAY 3 02/16/20 24 Discontinued(Re order (E-cancel not sent)) montelukast (SINGULAIR) 10 mg tabletIndications: Moderate persistent asthma with acute exacerbation Take 1 Tablet (10 mg) by mouth at bedtime. 90 Tablet 3 3 02/16/20 24 Discontinued(Re order (E-cancel not sent)) nystatin (MYCOSTATIN) topical creamIndications:I ntertrigo Apply topically to affected area(s) two times daily. 30 g 5 3 02/16/20 24 Discontinued(Re order (E-cancel not sent)) azelastine 137 mcg/actuation (ASTELIN) nasal sprayIndications:E nvironmental allergies,Post-kizzy al drip Inhale 1 [place] into affected nostril(s) two times daily. 30 mL 4 02/16/20 24 Discontinued(Re order (E-cancel not sent)) fluticasone (50 mcg per actuation) nasal solution (FLONASE)Indicatio ns:Environmental allergies,Post-kizzy al drip Inhale 2 Sprays to both nostrils once daily. 16 g 4 02/19/20 24 Discontinued Ventolin HFA 90 mcg/actuation inhalerIndications :Mild intermittent asthma without complication INHALE 1 TO 2 PUFFS BY MOUTH EVERY 4 HOURS NEEDED FOR SHORTNESS OF BREATH OR WHEEZING 18 g 4 02/18/20 24 Discontinued(Re order (E-cancel not sent)) gabapentin (NEURONTIN) 300 mg capsuleIndications :Generalized anxiety disorder with panic attacks,Neuropathy Take 1 capsule by mouth at bedtime for 1 week, then take 1 capsule by mouth twice daily for 1 week, then take 1 capsule by mouth three times daily 90 Capsule 1 4 01/27/20 24 Discontinued(Re order (E-cancel not sent)) hydrOXYzine HCL (ATARAX) 10 mg tabletIndications: Allergy to environmental factors TAKE ONE TABLET BY MOUTH EVERY DAY NEEDED FOR ALLERGIES 25 Tablet 4 01/28/20 24 Discontinued levothyroxine (SYNTHROID) 200 mcg tabletIndications: 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 10.2 g 6 4 02/17/20 24 Discontinued(Re order (E-cancel not sent)) azelaic acid (FINACEA) 15 % topical gelIndications:Ros acea Apply topically to affected area(s) two times daily. 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) Active Problems Problem Noted Date Diagnosed Date Recurrent pulmonary emboli 06/06/2023 MARCELA 03/17/2023 AHI- 38 04/08/2023 Generalized anxiety disorder with panic attacks 04/04/2023 PTSD (post-traumatic stress disorder) 04/04/2023 Controlled substance agreement signed 04/04/2023 Overview: Signed 04/03/2023 Beronica Khan HOSPICE EXECUTIVE DIRECTOR-NFLD Psychiatry History of pulmonary embolism 03/24/2023 Recurrent acute deep vein th rombosis (DVT) of both lower extremities 03/24/2023 Melena 03/24/2023 Anemia 03/24/2023 Gastrointestinal hemorrhage with melena 03/24/20 23 History of TIA (transient ischemic attack) 01/20 [...] groin secondary to hernia Migraine syndrome 01/01/2023 Resolved Problems Problem Noted Date Diagnosed Date Resolved Date Anticoagulation monitoring, INR range 2-3 01/24/2023 10/17/2023 Encounters Date Type Department Care Team Description 02/20/[address] [address] Chula Farley, Medication Management (Questions on enoxaparin (Lovenox)) 02/20/2024 Telephone [facility] [address] [place] [address] Kortney Le MD 02/20/2024 Telephone [facility] [address] [place] [address] Chula Farley, DO Refill Request (Lovenox) 02/18/2024 3:00 PM CDT Ancillary Procedure [address] [address] Arrived 02/18/2024 1:15 PM CDT Office Visit [address] [address] Jo Diaz MD Consult (Gallbladder referred by Dr. Edward Farley) 02/18/2024 Refill [facility] [address] [place] [address] Chula Farley, Refill Request (VENTOLIN HFA 108MCG/AERS) 02/18/2024 Travel 02/17/2024 Refill [facility] [address] [place] [address] Chula Farley, Refill Request (Fluticasone (50 Mcg Per Actuation) Nasal, Ventolin Hfa) 02/17/2024 Telephone [facility] [address] [place] [address] Chula Farley DO Pharmacist Medication Management (Numerous medications questions) 02/16/2024 3:00 PM CDT Office Visit [facility] [address] [place] [address] Chula Farley DO Physical (58 year old female); Referral (General surgery - gall bladder removal); Sleep Problem (Trouble falling asleep - pt reports taking 2 hydroxyzine at HS ); Weight (Discuss phentermine? ) 02/16/2024 Travel 01/27/2024 Refill [facility] [address] [place] [address] Chula Farley, Refill Request (Levocetirizine, Hydroxyzine Hcl) 01/05/2024 9:00 AM CDT Telemedicine [facility] [address] [place] [address] Joseline Handley NP Telehealth; Medication Management 12/26/2023 Telephone [facility] [address] [place] [address] Chula Farley DO Questions 12/21/2023 Refill [facility] [address] [place] [address] Chula Farley DO Refill Request (Hydroxyzine Hcl, Levothyroxine) 12/15/2023 Refill [facility] [address] [facility] [place] [address] Joseline Handley, MARLA Refill Request (Aripiprazole 5mg tablets (Abilify)) 12/12/2023 2:00 PM CDT Telemedicine [facility] [address] [place] [address] Joseline Handley, MARLA Medication Management; Telehealth 12/11/2023 Telephone [facility] [address] [place] [address] Joseline Handley NP Appointment 12/09/2023 10:35 AM CDT Office Visit [facility] [place] [address] Chula Farley, DO Abdominal Pain (Gallstones, discuss options) 12/09/2023 Travel 12/01/2023 Orders Only [facility] [facility] [place] [address] Chula Farley Becca, DO Outside Order (Ordered by Thanh Porter) 11/28/2023 Telephone [facility] [address] [facility] [place] [address] Chula Farley Becca, DO Follow Up (update on pt blood thinnners) 11/26/2023 8:05 AM CDT Office Visit [facility] [address] [place] [address] Chula Farley, DO Questions (Patient wondering about qualifying for disability ); Follow Up (Discuss hematology appointment); Depression (Pt reports not doing well with depression or anxiety) 11/26/2023 Travel from Last 3 Months Immunizations Name Administration Dates Next Due COVID-19 Vaccine Spikevax (M oderna 50mcg/0.5mL) 12YO+ [id number] Formula PF 07/18/2023 Influenza, IIV4 07/18/2023 Pneumococcal [...] Thyroid Disease Sister 2 Donita Hypothyroidi sm Cancer-ovarian No Family History Relation Name Status Comments Father Alive Maternal Aunt Maternal Grandfather Maternal Grandmother Mother Paternal Grandfather Paternal Grandmother Sister 1 Lucero Alive Sister 2 Donita Alive Social History Tobacco Use Types Packs/Day Years Used Date Smoking Tobacco: Former Cigarettes 1 14 1 1993 Smokeless Tobacco: Never Tobacco Cessation:Counseling Given: Yes Alcohol Use Standard Drinks/Week Comments Not Currently 0 (1 standard drink = 0.6 oz pur e alcohol) never to once a year PHQ-2 Answer Date Recorded PHQ-2 TOTAL SCORE 6 11/26/2023 Social Connections Answer Date Recorded Frequency of Communication with Friends and Fami ly 0 02/16/2024 Financial Resource Strain Answer Date R ecorded Difficulty of Paying Living Expenses 3 02/16/2024 Difficulty of Paying Living Expenses Not on file 02/16/2024 Food Insecurity Answer Date Recorded Worried About Running Out of Food in the Last Ye ar 1 02/16/2024 Transportation Needs Answer Date Record ed Lack of Transportation (Medical) 1 02/16/2024 Housing Stability Answer Date Recorded Unable to Pay for Housing in the Last Year 1 02/16/2024 Sex and Gender Information Value Date Recorded Sex Assigned at Female 01/23/2023 5:38 PM CDT Gender Identity Female 01/23/2023 5:38 PM CDT Sexual Orientation Straight 01/23/2023 5: 38 PM CDT Obstetrics History Last Filed Vital Signs Vital Sign Reading Time Taken Comments Blood Pressure 118/79 02/18/2024 1:14 PM CDT Pulse 98 02/18/2024 1:14 PM CDT Temperature 36.8 ??C (98.2 ??F) 07/04/2023 3 :19 PM CDT Respiratory Rate 18 07/04/2023 3:19 PM CDT Oxygen Saturation 98% 02/18/2024 1:1 4 PM CDT Inhaled Oxygen Concentration - - Weight 111.2 kg (245 lb 1.6 oz) 024 1:14 PM CDT with shoes Height 168.5 cm (5' 6.34) 02/16/2024 3 :04 PM CDT Body Mass Index 39.16 02/16/2024 3:04 PM CDT Plan of Treatment Upcoming Encounters Date Type Department Care Team (Late st Contact Info) Description 03/01/2024 7:00 AM CDT Telemedicine [facility] [address] [place] [address] Joseline Handley, MARLA [address] [place] [address] 03/29/2024 7:40 AM CDT Office Visit [facility] [address] [place] [address] Chula Farley, DO [address] [place] [address] 05/25/2024 8:00 AM CDT Telemedicine [facility] [address] [place] [address] Inna Akers, [facility] [address] [place] [place] [address] Health Maintenance Due Date Last Done Comments Influenza for age 50-64 05/16/2024 07/18/2023 Depression screening for age 12+ 11/27/2024 11/28/2023, 11/26/2023, 10/03/2023, Additional history exists BMI (ht and wt on same day) for age 18+ 02/15/2025 02/16/2024, 01/01/2023, 12/16/2022 Mammogram for age 45-75 02/17/2025 02/18/2024, 01/01 Lipids for age 45-75 02/15/2029 02/16/2024, 09/05/2023, 09/05/2023, Additional history exists Tetanus booster 01/01/2033 01/01/2023 Colonoscopy through age 75 03/26/2033 03/26/2023 HIV for age 15-65 Completed 01/01/2023 Hepatitis C screening for ag e 18-79 Completed 01/01/2023 Pneumococcal series for age 6-64 Completed 01/02/20 Tdap Completed 01/01/2023 Zoster (shingles) series for age 50+ Completed 03/31/2023, 01/01/2023 COVID-19 vaccine series Completed 07/18/2023 Procedures Procedure Name Priority Date/Time Associated Diagnosis Comments XR MAMMO JIMMIE BILAT SCREEN Routine 02/18/2024 2:27 PM CDT Visit for screening mammogram BASIC METABOLIC PANEL Routine 02/16/2024 4:07 PM CDT Medication monitoring encounter LIPID PANEL W REFLEX MEASURED LDL Routine 02/16/2024 4:07 PM CDT Pure hypercholesterolemia COLONOSCOPY 03/26/2023 2:50 PM CDT LC HIV-1/O/2, 4TH GENERATION Routine 01/01/2023 2:47 PM CDT Screening for HIV (human immunodeficiency virus) LC HCV ANTIBODY RFX TO QUANT PCR Routine 01/01/2023 2:47 PM CDT Need for hepatitis C screening test from Last 3 Months or Most Recently Relevant to Health Maintenance Results * XR MAMMO JIMMIE BILAT SCREEN (02/18/2024 2:27 PM CDT) Anatomical Region Laterality Modality BREASTS, Breast Left, Breast Right Bilateral Mammography Impressions 02/20/2024 3:17 PM CDT ??There is no radiographic evidence for malignancy. ??Recommend annual mammograms. MAMMOGRAM ASSESSMENT: ??ACR 1 Negative PATIENTS: You will also receive a letter with your examination results in an easy to read format. ??If you have questions about your results, please contact your referring provider. Narrative 02/20/2024 3:17 PM CDT For Patients: As a result of the Century Cures Act, medical imaging exams and procedure reports are released immediately into your electronic medical record. You may view this report before your referring provider. If you have questions, please contact your health care provider. XR MAMMO JIMMIE BILAT SCREEN [[id number]] CLINICAL HISTORY: ??This is an asymptomatic 58 y.o. patient. INDICATION FOR EXAM: Mammogram Screening. TECHNIQUE: CC & MLO views were obtained. ??This study was evaluated with the assistance of Computer-Aided Detection. Breast Tomosynthesis was used in interpretation. COMPARISON FILM: Yes 01/01/23 [facility] [employer] ?? FINDINGS: ??The breasts are almost entirely fatty. There are no dominant masses, suspicious micro calcifications or areas of architectural distortion. Chula Becca Shaqra DO MAMMO * (ABNORMAL) LIPID PANEL W REFLEX MEASURED LDL (02/16/2024 4:07 PM CDT) CHOLESTEROL,TOTAL 235(H) 100 - 199 mg/dL 02/17/2024 2:56 PM CDT [facility] Comment: Cholesterol, Total Reference Ranges Desirable <200 mg/dL Borderline 200-239 mg/dL High >=240 mg/dL TRIGLYCERIDES 334(H) <150 mg/dL 02/17/2024 2:56 PM CDT [facility] HDL CHOLESTEROL 39(L) >40 mg/dL 2:56 PM CDT [facility] NON-HDL CHOLESTEROL 196(H) <145 mg/dl 02/17/2024 2:56 PM CDT [facility] CHOL/HDL RATIO 6.03(H) <4.50 02/17/2024 2:56 PM CDT [facility] LDL CHOLESTEROL 129 <=130 mg/dL 02/17/2024 2:56 PM CDT [facility] VLDL CHOLESTEROL 67(H) <=30 mg/dL 02/17/2024 2:56 PM CDT [facility] PROVIDER ORDERED STATUS RANDOM 02/17/2024 2:56 PM CDT [facility] Blood BLOOD SPECIMEN / Unknown Venipuncture / Unknown 02/16/2024 4:07 PM CDT 02/16/2024 4:07 PM CDT Chula Becca Farley DO CHEMISTRY [facility] [address] [place] [address], * (ABNORMAL) BASIC METABOLIC PANEL (02/16/2024 4:07 PM CDT) SODIUM 144 136 - 145 mmol/L 02/17/2024 2:56 PM CDT [facility] POTASSIUM 4.6 3.5 - 5.1 mmol/L 02/17/2024 2:56 PM CDT [facility] CHLORIDE 108(H) 98 - 107 mmol/L 02/17/2024 2:56 PM CDT [facility] CO2,TOTAL 24 22 - 29 mmol/L 02/17/2024 2:56 PM CDT [facility] ANION GAP 12 5 - 18 02/17/2024 2:56 PM CDT [facility] GLUCOSE 96 70 - 99 mg/dL 02/17/2024 2:56 PM CDT [facility] CALCIUM 9.4 8.6 - 10.0 mg/dL 02/17/2024 2:56 PM CDT [facility] BUN 14 6 - 20 mg/dL 02/17/2024 2:56 PM CDT [facility] CREATININE 1.01(H) 0.50 - 0.90 mg/dL 02/17/2024 2:56 PM CDT [facility] BUN/CREAT RATIO 14 10 - 20 2:56 PM CDT [facility] eGFR 65(L) >90 mL/min/1.7 3m2 02/17/2024 2:56 PM CDT [facility] Comment:As of 2021, eG FR is calculated by the CKD-EPI creatinine equation without race adjustment. ??eGFR can be influenced by muscle mass, exercise, and diet. ??The reported eGFR is an estimation only and is only applicable if the renal function is stable. Blood BLOOD SPECIMEN / Unknown Venipuncture / Unknown 02/16/2024 4:07 PM CDT 02/16/2024 4:07 PM CDT Chula Farley DO CHEMISTRY [facility] [address] [place] [address], [place] * COLONOSCOPY (03/26/2023 2:50 PM CDT) 03/26/2023 2:50 PM CDT Narrative Transcriptions Chris Yeager MD - 03/26/2023 3:50 PM CDT [facility] Patient Name: Sanam Dominguezmigue Procedure Date: 03/26/2023 Gender: Female Date of : 1965 Admit Type: Inpatient Procedure: Colonoscopy Proceduralist: Chris Yeager MD - [facility] Indications/Pre-Op Diagnosis: Screening for malignant neoplasm in thespring Medications: MAC Procedure Description: The patient had risks, benefits and alternatives explained to andgave informed consent. The patient had a stable cardiopulmonary status and judged an adequate candidate for sedation. The endoscope [id number] was passed through the anus andadvanced to the cecum, identified by appendiceal orifice and ileocecal valve.The colonoscopy was performed without difficulty. The patient toleratedthe procedure well. The quality of the bowel preparation was adequate and10 percent obscured. The ileocecal valve and the appendiceal orificewere photographed. Complications: No immediate complications. Estimated Blood Loss & Specimen: Estimated blood loss: none. Findings: The exam was normal throughout; no lesions, blood or diverticulaseen. There were grade 2 internal hemorrhoids. The exam was otherwisewithout abnormality. Impressions/Post-Op Diagnosis: Normal colonoscopy Internal hemorrhoids Recommendation: - Resume diet as tolerated - Continue anti-coagulation - SB capsule study as an outpt Chris Yeager MD 03/26/2023 3:50:32 PM This report has been signed electronically. Note Initiated On: 03/26/2023 2:50 PM Chris Yeager MD PROCEDURE ORD * LC HCV ANTIBODY RFX TO QUANT PCR (01/01/2023 2:47 PM CDT) HCV Ab Non Reactive Non Reactive 01/04/2023 7:12 AM CDT [facility] Blood BLOOD SPECIMEN / Unknown Venipuncture / Unknown 01/01/2023 2:47 PM CDT 01/01/2023 2:49 PM CDT Narrative [facility] - 01/04/2023 7:12 AM CDT Performed at: ??[address] ??[id number] [employer] Inspector: Josef Humphrey MD, Phone: ??[phone] Chula Farley DO LABORATORY [facility] ([facility] [address] [place] [address] * LC HIV-1/O/2, 4TH GENERATION (01/01/2023 2:47 PM CDT) HIV Scr 4th Gen Non Reactive Non Reactive 01/03/2023 1:09 PM CDT [facility] ([facility] Comment: HIV Negative HIV-1/HIV-2 antibodies and HIV-1 p24 antigen were NOT detected. There is no laboratory evidence of HIV infection. Blood BLOOD SPECIMEN / Unknown Venipuncture / Unknown 01/01/2023 2:47 PM CDT 01/01/2023 2:49 PM CDT Narrative [facility] ([facility] - 01/03/2023 1:09 PM CDT Performed at: ??[address] - [address] ??[id number] [employer] Inspector: Josef Humphrey MD, Phone: ??[phone] Chula Farley DO LABORATORY [facility] [address] [place] [address] from Last 3 Months or Most Recently Relevant to Health Maintenance Advance Directives * Full Code (Latest Code Status on File) Date Activated Date Inactivated Comments 03/24/2023 11:33 PM 03/27/2023 2:15 PM Question Answer Comments Code Status Discussion: Reviewed Preferences Care Teams Estate Planner Relationship Specialty Start Date End Date [place] [address] PCP - General Family Practice 12/19/22 [place] [address] [place] [address] Consulting Physician Cardiovascular Disease 09/30/23
--- OUTSIDE RECORDS SUMMARY | 2024-02-23 10:01 | XMS_ITS | Encounter Summary ---
Author Organization [place] Address [address] [place] [address] Care Team Providers Care Sea Kayaking Guide Name Role Phone Chula Farley DO Primary Care Provider [phone] Thanh Porter MD Unavailable [phone] Encounter Details Date Type Department Care Team (Late st Contact Info) Description 11/26/2023 Telephone [facility] [address] [place] [address] Francia Uribe, RN Social History Tobacco Use [...] Telephone Encounter - Francia Uribe RN - 11/26/2023 2:44 PM CDT [id number] [facility] 58 [facility] CBCD Diagnosis: Recurrent VTE CBCD Provider: German Incoming call from patient's PCP Dr. Chula Farley at [facility]. Patient has ran out of her Xarelto prescription and has been instead taking her leftover Eliquis. Patient is worried she won't be able to afford either DOAC medication. RN informed provider that we will try to contact patient toassist with figuring out an affordable anticoagulation option for her. She was last seen on 10/14/[address] Porter. She was switched to 20 mg Xarelto daily. Plan was forpatient to get a rivaroxaban level checked in approximately 2 weeks from visit date to ensure that she is absorbing rivaroxaban adequately. Multiple outreaches completed, patient did not have level drawn. RN discussed situation with [facility]. They would be able to help her get established with co-pay assistance to bring seo down to $10 per month. Pharmacy team attempted to call her and left benedicto voicemail with call-back number. They will try calling patient again tomorrow. They will transfer her to nurse team after discussingmedication cost to set up a rivaroxaban lab draw. RN will monitor for patient response. When plan is complete, Dr. Farley would like a call back at [phone]. Francia Uribe RN, BSN, PCCN Nurse Clinician [facility] [address] [place] [address], [address], [place] [address] Office, direct: [phone] Main office number: [phone] Pronouns: She, her, hers Addendum 11/28/2023 1:45 PM Patient did call pharmacy team yesterday. She was comfortable with Xarelto going forward d/t copay assistance. RN called her today to set up Xarelto level lab draw. Patient did not answer, left voicemail with call-back number. RN called Chante SY (direct line [phone]) at [facility]. She works directly with Dr. Farley. [facility] She will reach out to patient about scheduling a lab draw. Chante is aware lab draw should be taken 2 to 4 hours after taking medication and will convey that to patient. She will also let patient know she should take Xarelto consistently in the two weeks prior to the lab draw (past notes have showed she takes it at 0630). RN faxed order to [facility] at [phone]. Chante will call clinic with any issues getting this scheduled. CONRADO RN documented in this encounter Plan of Treatment Not on file documented as of this encounter Visit Diagnoses Not on filedocumented in this encounter Care Teams Sea Kayaking Guide Relationship Specialty Start Date End Date Chula Farley DO [address] [place] [address] PCP - General Family Practice 12/25/22 Thanh Porter MD [address] [id number] Assigned Cancer Care Provider 11/07/23 documented as of this encounter
--- NOTE | 2024-02-23 10:58 | W.ANESCHARGE ---
Anesthesia Charges Start Date/Time Anesthesia Start Date: 02/23/24 Anesthesia Start Time: 10:45 Stop Date/Time Anesthesia Stop Date: 02/23/24 Anesthesia Stop Time: 11:05
--- NOTE | 2024-02-23 11:14 | W.ANESCHARGE ---
Anesthesia Charges Start Date/Time Anesthesia Start Date: 02/23/24 Anesthesia Start Time: 10:45 Stop Date/Time Anesthesia Stop Date: 02/23/24 Anesthesia Stop Time: 11:05
== END 2024-02-23 09:57 | disposition home or self-care (01) ==
PROVIDERS: PCP Family Medicine; Visit Provider Surgery
DX: R19.8 Other specified symptoms and signs involving the digestive system and abdomen (principal); K44.9 Diaphragmatic hernia without obstruction or gangrene; K31.7 Polyp of stomach and duodenum
CPT/HCPCS: 00731; 43239; 88305; J2704

== ENCOUNTER 2024-03-23 08:35 | Day surgery (SDC) | payer MEDICAID, SELFPAY ==
[2024-03-23] VITALS (21 sets, daily range): BP systolic 93–142; BP diastolic 39–91; PULSE 77–102; RESP 14–24; TEMP 36.2–36.8; O2SAT 88–96; BMI 38.0
[2024-03-23] MEDS: LACTATED RINGERS 1000 ML 1,000 ML 100 ML IV (06:15)
--- OUTSIDE RECORDS SUMMARY | 2024-03-23 08:38 | XMS_ITS | Clinical Summary ---
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 Blood products may be delayed. Draw patient 24 hours prior to transfusion. For [employer] testing, draw one red top and two purple top tubes for all Type and Screen orders. Latex Hives 12/16/2022 Unlisted Allergen (Include Detail In Comments) Hives,Shortness Of Breath,Erythema 04/03/2023 Allergies to Cats, Dogs, Cattle, Horses, Pigs Penicillins Shortness Of Breath 04/03/2023 [employer] Pollen Hives,Shortness Of Breath 04/03/2023 [place] Pollen Hives,Shortness Of Breath 04/03/2023 Medications Medication Sig Dispensed Refills Start Date End Date Status melatonin 5 mg capsule Take 1 Capsule (5 mg) by mouth. 0 04/21/20 23 Active CPAPIndications:OS A (obstructive sleep apnea) CPAP machine for home use at pressure 13 cmw, full face mask x1/3month with a full face cushion x1/mo 1 Each 11 06/18/20 23 Active cholecalciferol (Vitamin D) 1,000 unit capsuleIndications :Vitamin D deficiency Take 1 Capsule (1,000 units) by mouth once daily. 90 Capsule 3 07/25/20 23 Active sulfacetamide-sulf ur , 10 - 5%, (SULFACET-R) 10-5 % (w/w) clsr WASH FACE 1 TIME PER DAY.LATHER & LET SIT 2 TO 3 MINTUES BEFORE RINSING. 08/08/20 23 Active omeprazole (PRILOSEC) 40 mg Delayed-Release [...] Tablet (81 mg) by mouth once daily. 10/02/19 24 Active sertraline (ZOLOFT) 100 mg tabletIndications: Generalized anxiety disorder with panic attacks Take 2 Tablets (200 mg) by mouth once daily. 180 Tablet 11/17/19 24 Active celecoxib (CELEBREX) 200 mg capsule Take 200 mg by mouth once daily with a meal. 10/14/19 24 Active Xarelto 20 mg tablet Take 20 mg by mouth once daily with a meal. 11/27/19 24 Active levocetirizine (XYZAL) 5 mg tab tabletIndications: Allergy to environmental factors TAKE ONE TABLET BY MOUTH EVERY DAY 90 Tablet 2 01/28/20 24 Active gabapentin (NEURONTIN) 300 mg capsuleIndications :Generalized anxiety disorder with panic attacks,Neuropathy Take 1 Capsule (300 mg) by mouth three times daily. 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 90 Tablet 3 02/16/20 24 Active ezetimibe (ZETIA) 10 mg tabletIndications: Myalgia due to statin,Mixed hyperlipidemia Take 1 Tablet (10 mg) by mouth once daily. 90 Tablet 3 02/16/20 24 Active montelukast (SINGULAIR) 10 mg tabletIndications: Moderate persistent asthma with acute exacerbation Take 1 Tablet (10 mg) by mouth at bedtime. 90 Tablet 3 02/16/20 24 Active azelastine 137 mcg/actuation (ASTELIN) nasal sprayIndications:E nvironmental allergies,Post-kizzy al drip Inhale 1 [place] into affected nostril(s) two times daily. 30 mL 02/16/20 24 Active hydrOXYzine HCL (ATARAX) 25 mg tabletIndications: Allergy to environmental factors Take 1 Tablet (25 mg) by mouth every 8 hours if needed for Anxiety (and sleep). 90 Tablet 1 02/16/20 24 Active phentermine (IONAMIN) 15 mg capsuleIndications :Class 2 severe obesity with body mass index (BMI) of 35 to 39.9 with serious comorbidity (HC) Take 1 Capsule (15 mg) by mouth once daily before a meal. 30 Capsule 02/16/20 24 Active nystatin (MYCOSTATIN) 100,000 unit/gram topical creamIndications:I ntertrigo Apply topically to affected area(s) two times daily. 30 g 5 02/16/20 24 Active azelaic acid (FINACEA) 15 % topical gelIndications:Ros acea Apply topically to affected area(s) two times daily. 50 g 3 02/17/20 24 Active fluconazole (DIFLUCAN) 150 mg tabletIndications: Candidal intertrigo Take one tablet now and repeat in 72 hours 1 Tablet 1 02/17/20 24 Active fluticasone (50 mcg per actuation) nasal solution (FLONASE)Indicatio ns:Environmental allergies,Post-kizzy al drip PLACE 2 SPRAYS INTO EACH NOSTRIL ONCE DAILY 48 g 3 02/19/20 24 Active albuterol HFA (Ventolin HFA) 90 mcg/actuation inhalerIndications :Mild intermittent asthma without complication Inhale 1-2 Puffs by mouth every 4 hours if needed for Shortness Of Breath or Wheezing. 18 g 02/20/20 24 Active umeclidinium (INCRUSE ELLIPTA) 62.5 mcg/actuation inhalerIndications :Moderate persistent asthma without status asthmaticus without complication Inhale 1 Puff by mouth once daily. Discard inhaler 6 weeks after opening or when the counter reads '0' (after all blisters have been used), whichever comes first. 30 Each 11 02/20/20 24 Active busPIRone (BUSPAR) 30 mg tabletIndications: Generalized anxiety disorder with panic attacks TAKE ONE TABLET BY MOUTH TWICE A DAY 180 Tablet 03/02/20 24 Active ARIPiprazole (ABILIFY) 15 mg tabletIndications: Bipolar 2 disorder (HC) Take 1 Tablet (15 mg) by mouth once daily. 90 Tablet 03/08/20 24 Active ferrous sulfate 325 mg delayed release tabletIndications: Iron deficiency anemia, unspecified iron deficiency anemia type Take 1 Tablet (325 mg) by mouth once daily with a meal. 90 Tablet 3 03/12/20 24 Active enoxaparin (Lovenox) 30 mg/0.3 mL injectionIndicatio ns:Recurrent deep vein thrombosis (DVT) (HC) Inject 30 mg subcutaneous every 12 hours. 6 Each 03/20/20 24 Active Advair Diskus 250-50 mcg/dose diskus inhalerIndications :Mild intermittent asthma without complication Inhale 1 Puff by mouth two times daily. 60 Each 03/22/20 24 Active apixaban (Eliquis) 5 mg tabletIndications: Recurrent deep vein thrombosis (DVT) (HC) Take 1 Tablet (5 mg) by mouth two times daily. 60 Tablet 11 10/02/19 24 024 Discontinued(*P atient states no longer taking) busPIRone (BUSPAR) 30 mg tabletIndications: Generalized anxiety disorder with panic attacks Take 1 Tablet (30 mg) by mouth two times daily. 180 Tablet 11/17/19 24 024 Discontinued ARIPiprazole (Abilify) 10 mg tabletIndications: Bipolar 2 disorder (HC) Take 0.5 Tablets (5 mg) by mouth once daily. For 1-2 weeks, if tolerating well increase to 1 tablet(10mg) by mouth once daily 30 Tablet 1 12/15/19 24 024 Discontinued ivermectin 1 % topical creamIndications:R osacea Apply topically to affected area(s). APPLY THIN LAYER TO FACE 1 TO 2 TIMES PER DAY 45 g 3 02/16/20 24 024 Discontinued(*P atient states no longer taking) budesonide-formote roL (SYMBICORT) 160-4.5 mcg/actuation (160-4.5 mcg each actuation) inhalerIndications :Moderate persistent asthma with acute exacerbation Inhale 2 Puffs by mouth two times daily. 10.2 g 6 02/17/20 24 024 Discontinued(*M edication adjustment) enoxaparin (Lovenox) 30 mg/0.3 mL injectionIndicatio ns:Recurrent deep vein thrombosis (DVT) (HC) Take dose Friday pm, Friday am, Friday pm, Friday am. 4 Each 02/20/20 24 024 Discontinued(*M ed complete/Regime n complete/Level of care change) budesonide-formote roL (SYMBICORT) 160-4.5 mcg/actuation (160-4.5 mcg each actuation) inhalerIndications :Moderate persistent asthma with acute exacerbation Inhale 2 Puffs by mouth two times daily. 10.2 g 6 02/26/20 24 024 Discontinued(*M ed ineffective) ARIPiprazole (ABILIFY) 10 mg tabletIndications: Bipolar 2 disorder (HC) Take 1 Tablet (10 mg) by mouth once daily. 30 Tablet 03/04/20 24 024 Discontinued(*M edication adjustment) fluticasone hhj-zkogancjfuch-t ilanterol (TRELEGY ELLIPTA) 100-62.5-25 mcg inhalerIndications :Moderate persistent asthma without status asthmaticus without complication Inhale 1 Puff by mouth once daily. Rinse mouth after use 180 Each 3 03/03/20 24 Discontinued(*A vailability/For mulary change/Cost of medication) Active Problems Problem Noted Date Diagnosed Date Recurrent pulmonary emboli 06/06/2023 MARCELA 03/17/2023 AHI- 38 04/08/2023 Generalized anxiety disorder with panic attacks 04/04/2023 PTSD (post-traumatic stress disorder) 04/04/2023 Controlled substance agreement signed 04/04/2023 Overview: Signed 04/03/2023 Beronica Khan [employer] Psych[facility]ry History of pulmonary embolism 03/24/2023 Recurrent acute deep vein th rombosis (DVT) of both lower extremities 03/24/2023 Melena 03/24/2023 Anemia 03/24/2023 Gastrointestinal hemorrhage with melena 03/24/20 History of TIA (transient ischemic attack) 01/20 [...] Encounters Date Type Department Care Team Description 03/20/[address] [address] Js Perry MD Refill Request 03/20/[address] [address] Chula Farley, DO Refill Request (Lovenox) 03/20/[address] [address] Chula Farley Becca, DO Refill Request (Lovenox) 03/10/2024 7:30 AM CDT Orders Only [address] [address] Lab[facility] [place] [facility] 03/10/[address] [address] Chula Farley, DO Prior Authorization (fluticasone cnd-ysieyymtgmah-fpb anterol (TRELEGY ELLIPTA) 100-62.5-25 mcg inhaler Denied- Discontinue) 03/10/2024 Travel 03/08/2024 7:00 AM CDT Telemedicine [address] [address] Joseline Handley NP Telehealth; Medication Management (Positive PHQ9, pt states feeling safe, has a safety plan in place if needed.) 03/08/2024 Travel 03/04/2024 Telephone [facility] [address] [place] [address] Chula Farley, Appointment Request (Lab ) 03/03/2024 3:00 PM CDT Preop Visit [facility] [address] [place] [address] Chula Farley, Preoperative Exam (Gall bladder - Dr. Diaz [facility]) 03/03/[address] [address] Jo Diaz MD 03/03/2024 Travel 03/02/[address] [address] Chula Farley, Appointment Request (FOR PRE OP) 03/01/[address] [address] Joseline Handley NP Refill Request (Aripiprazole) 02/27/[address] [address] Joseline Handley NP Refill Request (Buspirone) 02/27/[address] [address] Chula Farley, DO Prior Authorization (umeclidinium (INCRUSE ELLIPTA) 62.5 mcg/actuation inhaler (DENIED)) 02/27/[address] [address] Chula Farley DO Prior Authorization (budesonide-formoter oL (SYMBICORT) 160-4.5 mcg/actuation (160-4.5 mcg each actuation) inhaler (DENIED)) 02/26/2024 Orders Only [address] [address] Jo Diaz MD 1 scan: (1-Ord) [place], UPPER GI ENDOSCOPY, 02/23/2024 02/24/[address] [address] Chula Farley DO Prior Authorization (budesonide-formoter oL (SYMBICORT) 160-4.5 mcg/actuation (160-4.5 mcg each actuation) inhaler (DENIED)) 02/23/2024 Lab Requisition [facility] [phone] 02/23/2024 Lab Requisition [facility] [phone] Jo Diaz MD 02/23/[address] [address] Chula Farley DO Prior Authorization (phentermine (IONAMIN) 15 mg capsule (DENIED)) 02/20/[address] [address] Chula Farley DO Medication Management (Questions on enoxaparin (Lovenox)) 02/20/[address] [address] Kortney Le MD 02/20/[address] [address] Chula Farley DO Refill Request (Lovenox) 02/18/2024 3:00 PM CDT Ancillary Procedure [address] [address] 02/18/2024 1:15 PM CDT Office Visit [address] [address] Jo Diaz MD Consult (Gallbladder referred by Dr. Edward Farley) 02/18/[address] [address] Chula Farley DO Refill Request (VENTOLIN HFA 108MCG/AERS) 02/18/2024 Travel 02/17/2024 Refill [facility] [address] [place] [address] Chula Farley DO Refill Request (Fluticasone (50 Mcg Per Actuation) Nasal, Ventolin Hfa) 02/17/2024 Telephone [facility] [address] [place] [address] Chula Farley DO Pharmacist Medication Management (Numerous medications questions) 02/16/2024 3:00 PM CDT Office Visit [address] [address] Chula Farley DO Physical (58 year old female); Referral (General surgery - gall bladder removal); Sleep Problem (Trouble falling asleep - pt reports taking 2 hydroxyzine at HS ); Weight (Discuss phentermine? ) 02/16/2024 Travel 01/27/2024 Refill [facility] [address] [place] [address] Chula Farley DO Refill Request (Levocetirizine, Hydroxyzine Hcl) 01/05/2024 9:00 AM CDT Telemedicine [facility] [address] [place] [address] Joseline Handley, MARLA Telehealth; Medication Management 12/26/2023 Telephone [facility] [address] [place] [address] Chula Farley DO Questions from Last 3 Months Immunizations Name Administration Dates Next Due COVID-19 Vaccine Spikevax (M oderna 50mcg/0.5mL) 12YO+ [id number] Formula PF 07/18/2023 Influenza, IIV4 07/18/2023 Pneumococcal [...] 0 (1 standard drink = 0.6 oz pure alcohol) never to once a year, 03/08/2024 PHQ-2 Answer Date Recorded PHQ-2 TOTAL SCORE 5 03/08/2024 Social Connections Answer Date Recorded Frequency of Communication with Friends and Fami ly 0 02/16/2024 Alcohol Use Answer Date Recorded How often do you have a drink containing alcohol ? 1 03/08/2024 Average Number of Drinks Not on file 024 Frequency of Binge Drinking Not on file 02/14 Financial Resource Strain Answer Date R ecorded [...] Sign Reading Time Taken Comments Blood Pressure 133/85 03/03/2024 2:20 PM CDT Pulse 98 03/03/2024 2:20 PM CDT Temperature 36.8 ??C (98.2 ??F) 07/04/2023 3:19 PM CD T Respiratory Rate 18 07/04/2023 3:19 PM CDT Oxygen Saturation 97% 03/03/2024 2:20 PM CDT Inhaled Oxygen Concentration - - Weight 110.5 kg (243 lb 8 oz) 03/03/2024 2:20 PM CDT Height 168.5 cm (5' 6.34) 02/16/2024 3:04 PM CD T Body Mass Index 38.9 02/16/2024 3:04 PM CDT Plan of Treatment Upcoming Encounters Date Type Department Care Team (Late st Contact Info) Description 03/23/2024 9:00 AM CDT Office Visit [facility] [address] [place] [address] Jo Diaz MD [address] [place] [address] Arrived 03/29/2024 7:40 AM CDT Office Visit [facility] [address] [place] [address] Chula Farley DO [address] [place] [address] 03/29/2024 1:15 PM CDT Orders Only [facility] [address] [place] [address] [facility] [place] 04/27/2024 7:00 AM CDT Telemedicine [facility] [address] [place] [address] Joseline Handley NP [address] [place] [address] 05/25/2024 8:00 AM CDT Telemedicine [facility] [address] [place] [address] Inna Akers, [facility] [address] [place] [address] Health Maintenance Due Date Last Done Comments Influenza for age 50-64 05/16/2024 07/18/2023 BMI (ht and wt on same day) for age 18+ 02/15/2025 02/16/2024, 01/01/2023, 12/16/2022 Mammogram for age 45-75 02/17/2025 02/18/2024, 01/01 Depression screening for age 12+ 03/10/2025 03/10/2024, 03/10/2024, 03/08/2024, Additional history exists Lipids for age 45-75 03/10/2029 03/10/2024, 02/16/2024, 09/05/2023, Additional history exists Tetanus booster 01/01/2033 01/01/2023 Colonoscopy through age 75 03/26/2033 03/26/2023 HIV for age 15-65 Completed 01/01/2023 Hepatitis C screening for ag e 18-79 Completed 01/01/2023 Pneumococcal series for age 6-64 Completed 01/02/20 Tdap Completed 01/01/2023 Zoster (shingles) series for age 50+ Completed 03/31/2023, 01/01/2023 COVID-19 vaccine series Completed 07/18/2023 Procedures Procedure Name Priority Date/Time Associated Diagnosis Comments FERRITIN Routine 03/10/2024 7:28 AM CDT Anemia of unknown etiology LIPID PANEL W REFLEX MEASURE D LDL Routine 03/10/2024 7:28 AM CDT Mixed hyperlipidemia CBC W PLT NO DIFF Routine 03/03/2024 3:36 PM CDT Pre-op exam LAB TRACKING EVENT Routine 02/23/2024 10:52 AM CDT PATH TISSUE EXAM Routine 02/23/2024 10:52 AM CDT ESOPHAGOGASTRODUODENOSCOPY Routine 02/22 12:00 AM CDT Pain of upper abdomen XR MAMMO JIMMIE BILAT SCREEN Routine 02/17 2:27 PM CDT Visit for screening mammogram BASIC METABOLIC PANEL Routine 02/16/2024 4:07 PM CDT Medication monitoring encounter LIPID PANEL W REFLEX MEASURE D LDL Routine 02/16/2024 4:07 PM CDT Pure hypercholesterolemia COLONOSCOPY 03/26/2023 2:50 PM CDT LC HIV-1/O/2, 4TH GENERATION Routine 2:47 PM CDT Screening for HIV (human immunodeficiency virus) LC HCV ANTIBODY RFX TO QUANT PCR Routine 01/01/2023 2:47 PM CDT Need for hepatitis C screening test from Last 3 Months or Most Recently Relevant to Health Maintenance Results * (ABNORMAL) LIPID PANEL W REFLEX MEASURED LDL (03/10/2024 7:28 AM CDT) Only the most recent of2 resultswithin the time period is included. CHOLESTEROL,TOTAL 257(H) 100 - 199 mg/dL 03/10/2024 3:17 PM CDT [facility] Comment: Cholesterol, Total Reference Ranges Desirable <200 mg/dL Borderline 200-239 mg/dL High >=240 mg/dL TRIGLYCERIDES 359(H) <150 mg/dL 03/10/2024 3:17 PM CDT [facility] HDL CHOLESTEROL 40(L) >40 mg/dL 3:17 PM CDT [facility] NON-HDL CHOLESTEROL 217(H) <145 mg/dl 03/10/2024 3:17 PM CDT [facility] CHOL/HDL RATIO 6.43(H) <4.50 03/10/2024 3:17 PM CDT [facility] LDL CHOLESTEROL 145(H) <=130 mg/dL 03/10/2024 3:17 PM CDT [facility] VLDL CHOLESTEROL 72(H) <=30 mg/dL 03/10/2024 3:17 PM CDT [facility] PROVIDER ORDERED STATUS RANDOM 03/10/2024 3:17 PM CDT [facility] Blood BLOOD SPECIMEN / Unknown Venipuncture / Unknown 03/10/2024 7:28 AM CDT 03/10/2024 7:28 AM CDT [facility] CHEMISTRY [facility] [address] [place] [address], * (ABNORMAL) FERRITIN (03/10/2024 7:28 AM CDT) FERRITIN 10.5(L) 15.0 - 150.0 ng/mL 03/10/2024 3:18 PM CDT [facility] Blood BLOOD SPECIMEN / Unknown Venipuncture / Unknown 03/10/2024 7:28 AM CDT 03/10/2024 7:28 AM CDT [facility] CHEMISTRY [facility] [address] [place] [address], [place] * (ABNORMAL) CBC W PLT NO DIFF (03/03/2024 3:36 PM CDT) WHITE BLOOD COUNT 8.6 4.5 - 11.0 thou/cu mm 03/03/2024 3:42 PM CDT [facility] RED BLOOD COUNT 4.66 4.00 - 5.20 mil/cu mm 03/03/2024 3:42 PM CDT [facility] HEMOGLOBIN 11.2(L) 12.0 - 16.0 g/dL 03/03/2024 3:42 PM CDT [facility] HEMATOCRIT 36.6 33.0 - 51.0 % 03/03/2024 3:42 PM CDT [facility] MCV 79(L) 80 - 100 fL 03/03/2024 3:42 PM CDT [facility] MCH 24.0(L) 26.0 - 34.0 pg 03/03/2024 3:42 PM CDT [facility] MCHC 30.6(L) 32.0 - 36.0 g/dL 03/03/2024 3:42 PM CDT [facility] RDW 15.7(H) 11.5 - 15.5 % 03/03/2024 3:42 PM CDT [facility] PLATELET COUNT 347 140 - 440 thou/cu mm 03/03/2024 3:42 PM CDT [facility] MPV 9.1 6.5 - 11.0 fL 03/03/2024 3:42 PM CDT [facility] Blood BLOOD SPECIMEN / Unknown Venipuncture / Unknown 03/03/2024 3:36 PM CDT 03/03/2024 3:38 PM CDT Chula Farley DO HEMATOLOGY [facility] [address] [place] [address], * LAB TRACKING EVENT (02/23/2024 10:52 AM CDT) Other (Other) Client Collect / Unknown 02/23/2024 10:52 AM CDT 02/23/2024 10:43 PM CDT Jo Diaz MD LAB BILL ONLY [facility] [address] [place] [address], * PATH TISSUE EXAM (02/23/2024 10:52 AM CDT) Case Report Pathology Report ?Case: [id number] ? Authorizing Provider: ??Jo Diaz, MD ??Collected: ? 02/23/2024 1052 ? Ordering Location: ? [facility] ?Received: ?02/24/2024 0943 ? Pathologist: ? Nathaniel, Bogdan Otto, ? MD ? Specimens: ?? A) - Duodenum ? B) - Stomach Biopsy ? C) - Stomach Biopsy ? 02/25/2024 2:53 PM CDT [facility] [employer] [facility] Final Diagnosis A) DUODENUM, BIOPSY: 1. Normal duodenal mucosa 2. Negative for celiac disease and other enteropathy B) STOMACH, ANTRUM, POLYPS, BIOPSIES: 1. Polypoid reactive foveolar hyperplasia, likely secondary to reactive gastropathy, see comment 2. Negative for dysplasia and malignancy 3. Negative for chronic inflammation and Helicobacter C) STOMACH, BIOPSY: 1. Subtle changes of non-erosive reactive gastropathy (see comment) ?? a. Sampling: Antral and body mucosae ?? b. Distribution: Antral mucosa 2. Negative for inflammation, atrophy and Helicobacter 02/25/2024 2:53 PM CDT [facility] Comment B) This is a reactive lesion that can be seen with gastric mucosal injury of various etiologies. Given the absence of chronic inflammation on this biopsy and reactive gastropathy in the background mucosa, this likely represents a manifestation of reactive gastropathy. C) The likely etiology is an ongoing non-inflammatory type mucosal injury due to a chemical type of injury; this may be due to ingestion of non-steroidal anti-inflammator y drugs, aspirin (via prostaglandin-me diated injury), excess alcohol, corticosteroids, or bile/alkaline reflux, the latter usually in the setting of a gastroenteric anastomosis. 02/25/2024 2:53 PM CDT [facility] [employer] [facility] Clinical Information Ms. Gomez is a 58 y.o. who presents with upper abdominal symptoms that persist despite an appropriate trial of therapy. EGD reveals a normal esophagus. The Z-line was regular 32 cm. There is a medium size hiatal hernia identified. The stomach is notable for few fundic gland polyps. The stomach was otherwise normal. The examined duodenum was normal. 02/25/2024 2:53 PM CDT [facility] [employer] [facility] Gross Description A) Received in formalin are 7 rainey mucosal fragments ranging from 2 mm to 5 mm in greatest dimension, which are entirely submitted in one cassette. It is labeled with the patient's name and designated duodenum. B) Received in formalin are 6 rainey mucosal fragments averaging 3 mm in greatest dimension, which are entirely submitted in one cassette. It is labeled with the patient's name and designated stomach polyp biopsy. C) Received in formalin are 5 rainey mucosal fragments ranging from 2 mm to 4 mm in greatest dimension, which are entirely submitted in one cassette. It is labeled with the patient's name and designated random stomach. Krissy Rdz 02/24/2024 1:15 PM 02/25/2024 2:53 PM CDT [facility] Microscopic Description The final diagnosis is based on microscopic examination of appropriate sections of all specimens. 02/25/2024 2:53 PM CDT [facility] Additional Information Interpreted at [facility] - [address] , [place] [address] 02/25/2024 2:53 PM CDT [facility] Other (Duodenum) 02/23/2024 10:52 AM CDT 02/24/2024 9:43 AM CDT Specimen (specimen) (Stomach Biopsy) 02/23/2024 10:52 AM CDT 02/24/2024 9:43 AM CDT Specimen (specimen) (Stomach Biopsy) 02/23/2024 10:52 AM CDT 02/24/2024 9:43 AM CDT Jo Diaz MD PATHOLOGY/CYTOLO GY Performing Organization Address City/State/[facility] Co de Phone Number [facility] [address] [place] [id number] * ESOPHAGOGASTRODUODENOSCOPY (02/23/2024 12:00 AM CDT) Jo Diaz MD GI PROCEDURE ORD * XR MAMMO JIMMIE BILAT SCREEN (02/18/2024 [...] For Patients: As a result of the Cures Act, medical imaging exams and procedure reports are released immediately into your electronic medical record. You may view this report before your referring provider. If you have questions, please contact your health care provider. XR MAMMO JIMMIE BILAT SCREEN [[id number]] CLINICAL HISTORY: ??This is an asymptomatic 58 y.o. patient. INDICATION FOR EXAM: Mammogram Screening. TECHNIQUE: CC & MLO views were obtained. ??This study was evaluated with the assistance of Computer-Aided Detection. Breast Tomosynthesis was used in interpretation. COMPARISON FILM: [facility] ?? FINDINGS: ??The breasts are almost entirely fatty. There are no dominant masses, suspicious micro calcifications or areas of architectural distortion. Chula Farley DO MAMMO * (ABNORMAL) BASIC METABOLIC PANEL (02/16/2024 4:07 PM CDT) SODIUM 144 136 - 145 mmol/L 02/17/2024 2:56 PM CDT [facility] LABORATORY POTASSIUM 4.6 3.5 - 5.1 mmol/L 02/17/2024 2:56 PM CDT [facility] CHLORIDE 108(H) 98 - 107 mmol/L 02/17/2024 2:56 PM CDT [facility] CO2,TOTAL 24 22 - 29 mmol/L 02/17/2024 2:56 PM CDT [facility] ANION GAP 12 5 - 18 02/17/2024 2:56 PM CDT [facility] GLUCOSE 96 70 - 99 mg/dL 02/17/2024 2:56 PM CDT [facility] CALCIUM 9.4 8.6 - 10.0 mg/dL 02/17/2024 2:56 PM CDT [facility] BUN 14 6 - 20 mg/dL 02/17/2024 2:56 PM CDT [facility] CREATININE 1.01(H) 0.50 - 0.90 mg/dL 02/17/2024 2:56 PM CDT [facility] BUN/CREAT RATIO 14 10 - 20 2:56 PM CDT [facility] eGFR 65(L) >90 mL/min/1.7 3m2 02/17/2024 2:56 PM CDT [facility] Comment:As of 2021, eG FR [...] 4:07 PM CDT Chula Farley DO CHEMISTRY [facility] [address] [place] [address], * COLONOSCOPY (03/26/2023 2:50 PM CDT) 03/26/2023 2:50 PM CDT Narrative Transcriptions Chris Yeager MD - 03/26/2023 3:50 PM CDT [facility] Patient Name: Sanam Simpson Procedure Date: 03/26/2023 Gender: Female Date of : 1965 Admit Type: Inpatient Procedure: Colonoscopy Proceduralist: Chris Yeager MD - [facility] Indications/Pre-Op Diagnosis: [facility] Medications: MAC Procedure Description: The patient had risks, benefits and alternatives explained to andgave informed consent. The patient had a stable cardiopulmonary status and judged an adequate candidate for sedation. The endoscope [id number] was passed through the anus andadvanced to [...] Reactive Non Reactive 01/04/2023 7:12 AM CDT [facility] Blood BLOOD SPECIMEN / Unknown Venipuncture / Unknown 01/01/2023 2:47 PM CDT 01/01/2023 2:49 PM CDT [facility] ([facility]) - 01/04/2023 7:12 AM CDT Performed at: ??[address] ??[id number] [employer] Truck Driver: Josef Humphrey MD, Phone: ??[phone] Chula Hudson Aaronlorna DO LABORATORY [facility] (CET) [address] [place] [address] * HIV-1/O/2, 4TH GENERATION (01/01/2023 2:47 PM CDT) Pathologist [facility] HIV Scr 4th Gen Non Reactive Non Reactive 01/03/2023 1:09 PM CDT [facility] ([facility]) Comment: HIV Negative HIV-1/HIV-2 antibodies and HIV-1 p24 antigen were NOT detected. There is no laboratory evidence of HIV infection. Blood BLOOD SPECIMEN / Unknown Venipuncture / Unknown 01/01/2023 2:47 PM CDT 01/01/2023 2:49 PM CDT [facility] ([facility]) - 01/03/2023 1:09 PM CDT Performed at: ??[address] ??[id number] [employer] Truck Driver: Josef Humphrey MD, Phone: ??[phone] Chula Farley DO LABORATORY Performing Organization Address City/[facility]/ZIP Co de Phone Number [facility] ([facility]) [address] [place] [address] from Last 3 Months or Most Recently Relevant to Health Maintenance Advance Directives * Full Code (Latest Code Status on File) Date Activated Date Inactivated Comments 03/24/2023 11:33 PM 03/27/2023 2:15 PM Question Answer Comments Code Status Discussion: Reviewed Preferences Care Teams Electric Sign Assembler Relationship Specialty Start Date End Date Chula Farley DO [address] [place] [address] PCP - General Family Practice 12/19/22 [place] [address] [facility] [place] [address] Consulting Physician Cardiovascular Disease 09/30/23
--- OUTSIDE RECORDS SUMMARY | 2024-03-23 08:38 | XMS_ITS | Encounter Summary ---
Author Organization [place] Address [address] [place] [address] Care Team Providers Care Planner Chief Name Role Phone Chula Farley Primary Care Provider [phone] Thanh Porter MD Unavailable [phone] Encounter Details Date Type Department Care Team (Late st Contact Info) Description 01/30/2024 Telephone [facility] [address] [place] [phone] Francia Uribe, RN Social History Tobacco Use [...] Uribe RN - 01/30/2024 2:36 PM CDT [phone] Sanam Alanzi [facility] 58 year old female CBCD Diagnosis: Recurrent VTE CBCD Provider: German Incoming call from Sanam Simpson. She has a history of recurrent VTE. She is overdue for a Rivaroxaban level. She has two questions for Dr. Porter: ~Should she get the ALEKSANDRA lab completed (Standardized Enzyme-Link Immunosorbent Assay)? ~She has a history of [place] Antigen from past transfusion. She wants to know-is a sherry antigen an anti-nuclear antibody? RN will route these questions to provider and CBCD team will call her back next week. RN also asked patient if automobile and property underwriter can assist patient with scheduling a rivaroxaban [...] Francia Uribe RN, BSN, PCCN Nurse Clinician [facility] [address] [place] [address], [address], [place] [address] Office, direct: [phone] Main office number: [phone] Pronouns: She, her, hers Addendum 02/03/24 @1002 Call to Sanam to discuss Dr. Porter's answers. Left message with the following; ALEKSANDRA lab is not needed Sherry antigen is not an anti-nuclear antibody What would be most helpful in her care would be to check a Xarelto level. Staff invited Sanam to call back with questions or let the team know if she is needing additional support getting back on insurance. Gilda DON, RN, PHN [facility] Office: [phone] documented in this encounter Plan of Treatment Not on file documented as of this encounter Visit Diagnoses Not on filedocumented in this encounter Care Teams Planner Chief Relationship Specialty Start Date End Date Chula Farley DO [address] [place] [address] PCP - General Family Practice 12/25/22 Thanh Porter MD [address] [place] [address] Assigned Cancer Care Provider 11/07/23 documented as of this encounter
--- OUTSIDE RECORDS SUMMARY | 2024-03-23 08:38 | XMS_ITS | Encounter Summary ---
Author Organization [place] Address [address] [place] [address] Care Team Providers Care Rehabilitation Medicine Physician Name Role Phone Chula Farley DO Primary Care Provider [phone] Thanh Porter MD Unavailable [phone] Encounter Details Date Type Department Care Team (Late st Contact Info) Description 02/03/2024 Telephone [facility] [address] [place] [address] Resource, Ur Hemo Social History [...] send her a few Mnsure navigator options. [email or web address] documented in this encounter Plan of Treatment Not on file documented as of this encounter Visit Diagnoses Not on filedocumented in this encounter Care Teams Rehabilitation Medicine Physician Relationship Specialty Start Date End Date Chula Farley [place] [address] PCP - General Family Practice 12/25/22 Thanh Porter MD [address] [place] [address] Assigned Cancer Care Provider 11/07/23 documented as of this encounter
--- OUTSIDE RECORDS SUMMARY | 2024-03-23 08:38 | XMS_ITS | Referral Summary ---
Author Organization [place] Address [address] [place] [address]. [place] [address] Care Team Providers Care Tie Hacker Name Role Phone Chula Farley Primary Care Provider [phone] Thanh Porter MD Unavailable [phone] Encounters Date Type Department Care Team Description 02/03/2024 Telephone [facility] [address] [facility] [address] [place] [phone] Resource, Ur Hemo 01/30/2024 Telephone [facility] [address] [place] [address] 105 [place] [phone] Francia Uribe RN 01/02/2024 Orders Only [facility] [address] [place] [phone] Thanh oPrter MD Recurrent deep vein thrombosis (DVT) (H) 12/23/2023 Refill [facility] [address] [facility] [address] [place] [address] Thanh Porter MD Medication Refill from Last 3 Months Allergies Active Allergy Reactions Criticality Noted Date Comments Blood-Group Specific Substance Other (See Comments) 03/25/2023 Patient has a [place] antibody. Blood products may be delayed. Draw [...] Active azelastine (ASTELIN) 0.1 % nasal spray [place] 1 spray in nostril 09/22/2023 Active busPIRone (BUSPAR) 15 MG tablet 05/01/2023 Active Cholecalciferol (D 1000) 25 MCG (1000 UT) CAPS Take 1,000 Units by mouth 07/25/2023 Active fluticasone (FLONASE) 50 MCG/ACT nasal spray [place] 2 sprays in nostril 09/22/2023 Active hydrOXYzine [...] by mouth daily 08/22/2023 Active nystatin (MYCOSTATIN) 043991 UNIT/GM external cream Apply topically to affected [...] Comments Blood Pressure 126/91 10/14/2023 9:12 AM FOOD CONCESSION MANAGER Pulse 93 10/14/2023 9:12 AM FOOD CONCESSION MANAGER Temperature 36.1 ??C (97 ??F) 10/14/2023 9:12 AM FOOD CONCESSION MANAGER Respiratory Rate 20 05/21/2023 2:29 PM CDT Oxygen Saturation 96% 10/14/2023 9:12 AM FOOD CONCESSION MANAGER Inhaled Oxygen Concentration - - Weight 111.7 kg (246 lb 3.2 oz) 10/14/2023 9:12 AM FOOD CONCESSION MANAGER Height 170.2 cm (5' 7) 05/21/2023 2:29 [...] 3.4 - 5.3 mmol/L 12/25/2022 3:47 PM [facility] Chloride 110(H) 98 - 107 mmol/L 12/25/2022 3:47 PM [facility] Carbon Dioxide (CO2) 25 22 - 29 mmol/L 12/25/2022 3:47 PM [facility] Anion Gap 8 7 - 15 mmol/L 12/25/2022 3:47 PM T LABORATORY Urea Nitrogen 10.6 6.0 - 20.0 mg/dL 12/25/2022 3:47 PM [facility] Creatinine 1.24(H) 0.51 - 0.95 mg/dL 12/25/2022 3:47 PM [facility] Calcium 8.4(L) 8.6 - 10.0 mg/dL 12/25/2022 3:47 PM [facility] Glucose 100(H) 70 - 99 mg/dL 12/25/2022 3:47 PM CDT LABORATORY Alkaline Phosphatase 107(H) 35 - 104 U/L 12/25/2022 3:47 PM [facility] AST 22 10 - 35 U/L 12/25/2022 3:47 PM [facility] ALT 24 10 - 35 U/L 12/25/2022 3:47 PM [facility] Protein Total 6.2(L) 6.4 - 8.3 g/dL 12/25/2022 3:47 PM [facility] Albumin 3.9 3.5 - 5.2 g/dL 12/25/2022 3:47 PM [facility] Bilirubin Total 0.3 <=1.2 mg/dL 12/25/2022 3:47 PM T LABORATORY GFR Estimate 51(L) >60 mL/min/1.7 3m2 12/25/2022 3:47 PM CDT LABORATORY Comment:eGFR calculated usin g 2021 CKD-EPI equation. Blood STRUCTURE OF LEFT UPPER LIMB / Unknown Venipuncture / Unknown 12/25/2022 3:01 PM CDT 12/25/2022 3:06 PM CDT Jason Ross PA-C LAB - BLOOD O RDERABLES LABORATORY [facility] [address], [address] [place] [address], [facility] [phone] from Last 3 Months or Most Recently Relevant to Health Maintenance Care Teams Tie Hacker Relationship Specialty Start Date End Date Chula Farley DO [address] [place] [address] PCP - General Family Practice 12/25/22 Thanh Porter MD [address] [place] [address] Assigned Cancer Care Provider 11/07/23
--- OUTSIDE RECORDS SUMMARY | 2024-03-23 08:38 | XMS_ITS | Clinical Summary ---
Author Organization [place] Address [address] [place] [address] Care Team Providers Care Trucking Manager Name Role Phone Chula Farley Primary Care Provider [phone] Thanh Porter MD Unavailable [phone] Allergies Active Allergy Reactions Criticality Noted Date Comments Blood-Group Specific Substance Other (See Comments) 03/25/2023 Patient has a Sherry antibody. Blood products may be delayed. Draw patient 24 hours prior to transfusion. For [facility] testing, draw one red top and [...] Active azelastine (ASTELIN) 0.1 % nasal spray [place] 1 spray in nostril 09/22/2023 Active busPIRone (BUSPAR) 15 MG tablet 05/01/2023 Active Cholecalciferol (D 1000) 25 MCG (1000 UT) CAPS Take 1,000 Units by mouth 07/25/2023 Active fluticasone (FLONASE) 50 MCG/ACT nasal spray [place] 2 sprays in nostril 09/22/2023 Active hydrOXYzine [...] by mouth daily 08/22/2023 Active nystatin (MYCOSTATIN) 124463 UNIT/GM external cream Apply topically to affected [...] Type Department Care Team Description 02/03/2024 Telephone [facility] [address] [facility] [address] [place] [phone] Resource, Ur Hemo 01/30/2024 Telephone [facility] [address] [facility] [address] [place] [phone] Francia Uribe RN 01/02/2024 Orders Only [facility] [address] [facility] [address] [place] [phone] Thanh Porter MD Recurrent deep vein thrombosis (DVT) (H) 12/23/2023 Refill [facility] [address] [place] [address] 105 [place] [phone] Thanh Porter MD Medication Refill from Last 3 Months Social History Tobacco [...] Comments Blood Pressure 126/91 10/14/2023 9:12 AM INTERNET SALES MANAGER Pulse 93 10/14/2023 9:12 AM INTERNET SALES MANAGER Temperature 36.1 ??C (97 ??F) 10/14/2023 9:12 AM INTERNET SALES MANAGER Respiratory Rate 20 05/21/2023 2:29 PM CDT Oxygen Saturation 96% 10/14/2023 9:12 AM INTERNET SALES MANAGER Inhaled Oxygen Concentration - - Weight 111.7 kg (246 lb 3.2 oz) 10/14/2023 9:12 AM INTERNET SALES MANAGER Height 170.2 cm (5' 7) 05/21/2023 [...] year) 2023 YEARLY PREVENTIVE VISIT 01/02/2024 01/01/2023 INFLUENZA VACCINE (#1) 2024 07/18/2023 MAMMO SCREENING 01/01/2025 01/01/2023 GLUCOSE 12/25/2025 12/25/2022 DTAP/TDAP/TD IMMUNIZATION (2 - Td or Tdap) 01/01/2033 01/01/2023 COLONOSCOPY 03/26/2033 03/26/2023 COLORECTAL CANCER SCREENING 03/26/2033 Pneumococcal Vaccine: Pediatrics (0 to 5 Years) and At-Risk Patients (6 to 64 Years) Completed 01/01/2023 ZOSTER IMMUNIZATION Completed 03/31/2023, 01/01/2023 COVID-19 Vaccine Completed 07/18/2023 HPV IMMUNIZATION Aged Out No [...] 98 - 107 mmol/L 12/25/2022 3:47 PM [facility] Carbon Dioxide (CO2) 25 22 - 29 mmol/L 12/25/2022 3:47 PM [facility] Anion Gap 8 7 - 15 mmol/L 12/25/2022 3:47 PM [facility] Urea Nitrogen 10.6 6.0 - 20.0 mg/dL 12/25/2022 3:47 PM [facility] Creatinine 1.24(H) 0.51 - 0.95 mg/dL 12/25/2022 3:47 PM [facility] Calcium 8.4(L) 8.6 - 10.0 mg/dL 12/25/2022 3:47 PM [facility] Glucose 100(H) 70 - 99 mg/dL 12/25/2022 3:47 PM [facility] Alkaline Phosphatase 107(H) 35 - 104 U/L 12/25/2022 3:47 PM [facility] AST 22 10 - 35 U/L 12/25/2022 3:47 PM [facility] ALT 24 10 - 35 U/L 12/25/2022 3:47 PM [facility] Protein Total 6.2(L) 6.4 - 8.3 g/dL 12/25/2022 3:47 PM [facility] Albumin 3.9 3.5 - 5.2 g/dL 12/25/2022 3:47 PM [facility] Bilirubin Total 0.3 <=1.2 mg/dL 12/25/2022 3:47 PM [facility] GFR Estimate 51(L) >60 mL/min/1.7 3m2 12/25/2022 3:47 PM [facility] Comment:eGFR calculated usin g 2020 CKD-EPI equation. Blood STRUCTURE OF LEFT UPPER LIMB / Unknown Venipuncture / Unknown 12/25/2022 3:01 PM CDT 12/25/2022 3:06 PM [facility] Jason Ross PA-C LAB - BLOOD O RDERABLES LABORATORY [facility] [address], [address] [place] [address], [facility] [phone] from Last 3 Months or Most Recently Relevant to Health Maintenance Care Teams Trucking Manager Relationship Specialty Start Date End Date Chula Farley DO [address] [place] [address] PCP - General Family Practice 12/25/22 Thanh Porter MD [address] [place] [address] [address] [place], [place] [phone] Assigned Cancer Care Provider 11/07/23
--- OUTSIDE RECORDS SUMMARY | 2024-03-23 08:38 | XMS_ITS | Encounter Summary ---
Author Organization [place] Address [address] [place] [address] Care Team Providers Care Computer Technology Teacher Name Role Phone Chula Farley DO Primary Care Provider [phone] Thanh Porter MD Unavailable [phone] Reason for Visit * Reason Comments Medication Refill Encounter Details Date Type Department Care Team (Late st Contact Info) Description 12/23/2023 Refill [facility] [address] [place] [address] Thanh Porter MD [address] [address] Medication Refill Social History Tobacco Use Types [...] (H) documented in this encounter Care Teams Computer Technology Teacher Relationship Specialty Start Date End Date Chula Farley [place] [address] PCP - General Family Practice 12/25/22 Thanh Porter MD [address] [facility] [address] [place], [place] [address] Assigned Cancer Care Provider 11/07/23 documented as of this encounter
--- OUTSIDE RECORDS SUMMARY | 2024-03-23 08:38 | XMS_ITS | Encounter Summary ---
Author Organization [place] Address [address] [place] [address]. [place] [address] Care Team Providers Care Bite Block Maker Name Role Phone Chula Farley DO Primary Care Provider [phone] Thanh Porter MD Unavailable [phone] Encounter Details Date Type Department Care Team (Late st Contact Info) Description 01/02/2024 Orders Only M [facility] [address] [place] [phone] Thanh Porter MD [address] [facility] [address] [place] [address] Recurrent deep vein thrombosis (DVT) [...] Gilda Cisneros BSN, RN, PHN [facility] Office: [phone] documented in this encounter Plan of Treatment Not on file documented as of this encounter Visit Diagnoses Diagnosis Recurrent deep vein thrombosis (DVT) (H) documented in this encounter Care Teams Bite Block Maker Relationship Specialty Start Date End Date Chual Farley DO [address] [place] [address] PCP - General Family Practice 12/25/22 Thanh Porter MD [address] [place] [address] Assigned Cancer Care Provider 11/07/23 documented as of this encounter
--- NOTE | 2024-03-23 08:50 | SUR.PREOP ---
stopped xarelto on friday started lovbenox took last dose last night at 7:00
[2024-03-23] MEDS: SODIUM CHLORIDE 0.9 % (FLUSH) 10 ML SYRINGE IVF (09:31)
[2024-03-23] MEDS: CEFAZOLIN 2 GM INJ IVP (09:45)
[2024-03-23] MEDS: BUPIVACAINE 0.25% 30 ML 20 ML INJECTION (09:56)
--- NOTE | 2024-03-23 10:22 | W.ANESCHARGE ---
Anesthesia Charges Start Date/Time Anesthesia Start Date: 03/23/24 Anesthesia Start Time: 09:30 Stop Date/Time Anesthesia Stop Date: 03/23/24 Anesthesia Stop Time: 11:03
--- NOTE | 2024-03-23 10:57 | P.GSOP_ITS ---
Operative Note Date of procedure: 03/23/24 Pre-op diagnosis: Cholelithiasis, biliary colic Post-op diagnosis: Same Type of Procedure: Laparoscopic cholecystectomy Indications: Patient is a 58-year-old female who presented with intermittent abdominal pain. Workup was obtained with evidence of cholelithiasis. Clinical history workup was consistent with biliary colic. Different treatment options were reviewed, including observation versus surgical intervention. Risks and benefits of operative intervention were discussed at length with the patient. Risks included but was not limited to: Bleeding, infection, risk of damage to surrounding structures, possible need for additional procedures, possible need to convert to an open operation and postoperative complications such as pneumonia, pulmonary emboli or SD. All questions and concerns were addressed with the patient agreeing to proceed. Procedure Description: After discussing the risks and benefits of the procedure, the patient signed informed consent.? The operative site was marked and the patient was brought to the operating room and placed on the operating table in supine position.? Care was taken to pad the patient's pressure points.?? The patient was then intubated by anesthesia.?? The operative site was then prepped and draped in the usual sterile fashion.? A time-out was then performed. Entrance to the abdomen was gained via a 5 mm Visiport in the left upper quadrant. The abdomen was insufflated and briefly surveyed for signs of injury. There was none. 11 mm umbilical port was placed as well as 2 working ports along the right costal margin. Patient was then placed in reverse Trendelenburg position with the right side up. The gallbladder fundus was grasped and retracted cephalad. A small amount of dissection was needed to free omental adhesions from the gallbladder. The infundibulum was grasped. A combination of hook cautery and blunt dissection was used to carefully dissect out the cystic duct and artery until they could clearly be seen entering the gallbladder without any intervening structures. The gallbladder was dissected off the cystic plate to achieve the critical view. Once this was achieved the cystic duct and artery were each clipped with 2 clips proximally and 1 clip distally and transected with the scissors. The gallbladder was then taken off of the liver bed. Two areas of bleeding were identified on the gallbladder fossa, coming from dilated veins. 2 separate 5 mm clips were applied to these areas for adequate hemostasis. The gallbladder was then removed from the abdomen using an Endo-Catch bag. A small amount of bile which had spilled was suctioned from the abdomen. The umbilical port fascia was closed with 0 Vicryl via the David- Shyanne. The remaining ports were then removed under direct vision. The skin was closed with absorbable subcuticular suture. Instrument sponge and needle counts were correct at the end of the case. The patient was then woken and transferred to the PACU in stable condition. Findings: Cholelithiasis Anesthesia: GETA Surgeon: Jo Diaz MD Estimated blood loss (mL): 5 Specimen: Gallbladder Condition: stable Disposition: PACU
--- NOTE | 2024-03-23 10:57 | W.PM.H&PU ---
History & Physical Update History & Physical Update H&P Reviewed and patient assessed: No changes noted H&P Updates: Patient will be staying overnight in the hospital since she has no one at home that can stay with her postoperatively.
--- NOTE | 2024-03-23 11:06 | W.ANESCHARGE ---
Anesthesia Charges Start Date/Time Anesthesia Start Date: 03/23/24 Anesthesia Start Time: 09:30 Stop Date/Time Anesthesia Stop Date: 03/23/24 Anesthesia Stop Time: 11:03
[2024-03-23] MEDS: HYDROmorphone 0.5 mg/0.5 ml inj IVP (11:25)
--- NOTE | 2024-03-23 11:47 | SUR.PHASEI ---
patient met discharge criteria per anesthesia
[2024-03-23] MEDS: LACTATED RINGERS 1000 ML 1,000 ML 35 ML IV (11:48)
--- NOTE | 2024-03-23 11:56 | SUR.OPER ---
PATIENT QUESTIONS ANSWERED SATISFACTORILY PREOPERATIVELY. PATIENT BROUGHT TO OR #1 PER CART. Patient positioned supine on OR #1 bed. The perioperative team supported arms bilaterally on arm boards. Final approval of positioning by surgeon.
[2024-03-23] MEDS: GABAPENTIN 300 MG CAPSULE PO ×2 (13:42→20:14)
--- NOTE | 2024-03-23 14:24 | PC.NURSE ---
End of Shift Note: Patient arrived to the unit around 11:30 this am. Arrived in her bed. She has been alert and orientated. Is doing her IS. Tolerated a clear liquid diet and have advance her to a regular diet. She has not required any pain medication from me. She did receive some pain medication just before arriving to the unit. Dr. Diaz did stop by and see her. She has a history of DVT's and PE's and will get a dose of lovenox this evening otherwise will continue to monitor until next shift arrives.
[2024-03-23] MEDS: KETOROLAC 15 MG/ML inj IVP (16:08)
[2024-03-23] MEDS: ACETAMINOPHEN 325 MG TABLET 650 MG PO (18:54)
[2024-03-23] MEDS: HYDROCODONE-ACETAMIN 5-325 MG 1 TAB PO (19:49)
[2024-03-23] MEDS: ENOXAPARIN 30 MG/0.3ML INJ SUBCUT (20:13)
[2024-03-23] MEDS: hydrOXYzine pamoate 25 MG CAPSULE PO (20:13)
[2024-03-23] MEDS: MELATONIN 3 MG TABLET 6 MG PO (20:14)
[2024-03-23] MEDS: BUSPIRONE 10 MG TABLET 30 MG PO (20:14)
[2024-03-23] MEDS: Budesonide-Formoterol [Symbicort] 160-4.5 mcg/actuation IH (20:14)
--- NOTE | 2024-03-23 23:39 | PC.NURSE ---
[id number]: Patient cooperative with cares. Pain controlled with PRN medications and active ice. SBA. 4 lap sites, (1 with old drainage) with steri strips. BS hypoactive. Denies N/V. Eating and voiding.
[2024-03-24 00:23] VITALS: BP 152/86; PULSE 91; RESP 18; TEMP 36.9; O2SAT 94
[2024-03-24] MEDS: HYDROCODONE-ACETAMIN 5-325 MG 1 TAB PO ×2 (00:36→08:37)
[2024-03-24 04:29] VITALS: BP 126/80; PULSE 78; RESP 16; TEMP 36.9; O2SAT 96
[2024-03-24] MEDS: LEVOTHYROXINE 100 MCG TABLET 200 MCG PO (06:41)
[2024-03-24 07:32] VITALS: BP 143/84; PULSE 77; RESP 20; TEMP 36.7; O2SAT 92
--- NOTE | 2024-03-24 07:48 | PC.NURSE ---
Pt is alert and oriented x3. Afebrile. Pt reports 2-4/10 pain in abdomen, pain managed with PRN medications. Pt?s 4 lap sites are dry and intact with scant dried blood. Pt is up Ind in room. Pt slept intermittently throughout night. ?
[2024-03-24] MEDS: EZETIMIBE 10 MG TABLET PO (08:31)
[2024-03-24] MEDS: CELECOXIB 200 MG CAPSULE PO (08:31)
[2024-03-24] MEDS: ARIPiprazole 10 MG TABLET PO (08:31)
[2024-03-24] MEDS: Budesonide-Formoterol [Symbicort] 160-4.5 mcg/actuation IH (08:31)
[2024-03-24] MEDS: BUSPIRONE 10 MG TABLET 30 MG PO (08:31)
[2024-03-24] MEDS: SERTRALINE 50 MG TABLET PO (08:31)
[2024-03-24] MEDS: OMEPRAZOLE 20 MG CAPSULE DR 40 MG PO (08:32)
[2024-03-24] MEDS: ASPIRIN 81 MG TABLET EC PO (08:32)
[2024-03-24] MEDS: CETIRIZINE HCL 10 MG TABLET PO (08:32)
[2024-03-24] MEDS: GABAPENTIN 300 MG CAPSULE PO (08:32)
[2024-03-24] MEDS: RIVAROXABAN 10 MG TABLET 20 MG PO (08:32)
[2024-03-24] MEDS: FERROUS SULFATE 325 MG TABLET PO (08:32)
[2024-03-24 10:25] VITALS: BP 129/75; PULSE 80; RESP 18; TEMP 36.6; O2SAT 92
--- NOTE | 2024-03-24 11:20 | PC.NURSE ---
Pt alert and oriented. Pt had complaints of pain ranging from 1-4; see EMAR for intervention. Pt's steri strips intact. Pt had no IV. Pt independent in room. Pt tolerating regular diet. Pt discharged home; picked up by friend.
--- NOTE | 2024-03-24 12:06 | P.DS_ITS ---
DS: Providers Provider Date Seen: 03/23/24 Primary care physician: Chula Farley DO Attending Physician on discharge: Jo Diaz MD DS: Summary Hospital Course Hospital Course: Patient underwent an elective laparoscopic cholecystectomy for symptoms of biliary colic. She was observed overnight due to her living alone and having no that she can stay with. Her pain was well controlled, she was tolerating a diet and ambulating without difficulty. She tolerated procedure well without immediate complication. Will plan for follow-up in 2 weeks in clinic. Time Spent with Patient Time attestation: Total time spent providing and/or coordinating discharge services: Exam Const: Vital Signs, click to edit/add: Vital Signs - 24 hr 03/23/24 12:15 03/23/24 12:30 03/23/24 12:45 Temperature 97.1 F L 97.2 F L 97.2 F L Pulse Rate 78 91 86 Pulse Rate [Right Pulse Oximeter] Respiratory Rate 18 20 20 Blood Pressure 107/64 114/72 116/73 Blood Pressure [Le ft Arm] Pulse Oximetry 91 93 94 Oxygen Delivery Me thod Room Air Room Air Room Air Oxygen Flow Rate 03/23/24 13:00 03/23/24 13:38 03/23/24 14:00 Temperature 97.2 F L 97.2 F L 97.2 F L Pulse Rate 88 93 97 Pulse Rate [Right Pulse Oximeter] Respiratory Rate 20 18 20 Blood Pressure 113/69 117/75 125/66 Blood Pressure [Le ft Arm] Pulse Oximetry 92 93 93 Oxygen Delivery Me thod Room Air Room Air Room Air Oxygen Flow Rate 03/23/24 15:00 03/23/24 16:00 03/23/24 17:00 Temperature 98.3 F Pulse Rate 100 98 Pulse Rate [Right Pulse Oximeter] Respiratory Rate 20 20 18 Blood Pressure 123/67 125/91 H Blood Pressure [Le ft Arm] Pulse Oximetry 93 93 94 Oxygen Delivery Me thod Room Air Room Air Room Air Oxygen Flow Rate 03/23/24 17:51 03/24/24 00:23 03/24/24 00:23 Temperature 98.1 F 98.4 F Pulse Rate 102 H Pulse Rate [Right Pulse Oximeter] 91 Respiratory Rate 18 18 18 Blood Pressure 132/91 H Blood Pressure [Le ft Arm] 152/86 H Pulse Oximetry 95 94 94 Oxygen Delivery Me thod Room Air Room Air Room Air Oxygen Flow Rate 6 03/24/24 04:29 03/24/24 07:32 03/24/24 07:32 Temperature 98.4 F 98.0 F Pulse Rate Pulse Rate [Right Pulse Oximeter] 78 77 Respiratory Rate 16 20 20 Blood Pressure Blood Pressure [Le ft Arm] 126/80 143/84 H Pulse Oximetry 96 92 92 Oxygen Delivery Me thod Room Air Room Air Room Air Oxygen Flow Rate 0 03/24/24 10:25 Temperature 97.9 F Pulse Rate Pulse Rate [Right Pulse Oximeter] 80 Respiratory Rate 18 Blood Pressure Blood Pressure [Le ft Arm] 129/75 Pulse Oximetry 92 Oxygen Delivery Me thod Room Air Oxygen Flow Rate Discharge Plan Discharge Disposition: Home, Self-Care Discharging Surgeon: Jo Diaz Follow-Up Appointment: 2 week follow up, Mercedes Prescriptions: New hydrocodone-acetaminophen 5-325 mg tablet 1 tab PO Q6H PRN (Reason: pain) Qty: 15 0RF senna 8.6 mg capsule 8.6 mg PO DAILY PRN (Reason: constipation) Qty: 90 0RF Continued montelukast [Singulair] 10 mg tablet 10 mg PO DAILY cholecalciferol (vitamin D3) .Route omeprazole 40 mg capsule,delayed release(DR/EC) 40 mg PO DAILY Mag Glycinate 100 mg tablet 100 mg PO DAILY ezetimibe [Zetia] 10 mg tablet 10 mg PO DAILY Xarelto 20 mg tablet 20 mg PO DAILY Rx Instructions: must administer with evening meal aripiprazole [Abilify] 10 mg tablet 10 mg PO DAILY aspirin 81 mg capsule 81 mg PO DAILY celecoxib [Celebrex] 200 mg capsule 200 mg PO DAILY hydroxyzine HCl 25 mg tablet 25 mg PO HS melatonin 5 mg capsule 5 mg PO HS phentermine 15 mg capsule 15 mg PO DAILY Rx Instructions: must administer 2 hours after breakfast gabapentin 300 mg capsule 300 mg PO TID sertraline [Zoloft] 50 mg tablet 50 mg PO DAILY levothyroxine [Synthroid] 200 mcg tablet 200 mcg PO DAILY Qty: 30 2RF levocetirizine [24HR Allergy Relief] 5 mg tablet 5 mg PO DAILY albuterol 90 mcg/actuation aerosol inhalation DAILY PRN Patient Comments: asthma budesonide-formoterol [Symbicort] 160-4.5 mcg/actuation HFA aerosol inhaler 1 inh inhalation BID buspirone 30 mg tablet 30 mg PO BID azelastine 137 mcg (0.1 %) aerosol,spray INTRANASAL Patient Comments: [NO ORIGINAL SIG] fluticasone propionate 50 mcg/actuation spray,suspension INTRANASAL Discontinued enoxaparin 30 mg/0.3 mL syringe subcut Activity Level: No strenuous activity Activity Detail: Activity as tolerated. Avoid strenuous activity. No lifting greater than 20 lb for 2 weeks. Discharge Diet: Low Fat/Low Cholesterol Diet Detail: Continue on a low-fat diet for the next 2 weeks. After 2 weeks you can start introducing more fatty foods. Patient Instructions: Hydrocodone/Acetaminophen (By mouth), Senna (By mouth), General Anesthesia (DC), Laparoscopic Cholecystectomy (DC), Post-Operative Instructions: Laparoscopic Cholecystectomy Additional Instructions: You were prescribed a narcotic pain medication. In addition you may supplement with Tylenol and/or ibuprofen. Be sure to not exceed greater than 4 g of Tylenol in a 24 hour period. While on narcotic pain medicine please take stool softeners. A prescription of stool softeners has been sent to the pharmacy. Stop if having greater than 2 stools per day. You have Steri-Strips dressings in place, allow these to fall off on their own. Okay to shower starting tomorrow. Do not soak in a bath or swim for 2 weeks. Follow-up with Dr. Diaz in 2-3 weeks. Please call if you are experiencing severe pain, nausea, vomiting, difficulty urinating, fever or not had a bowel movement in 4 days after surgery. Forms: Work/School Release Follow-up: Kortney Le MD [Staff Physician] - 04/07/24 9:30 am (Dr. Diaz not available. Appointment at [facility] Chula Farley DO [Primary Care Provider] - Discharge Orders: Discharge Order (Routine); Ordered 03/24/24 Ordered By: Jo Diaz
== END 2024-03-24 11:15 | disposition home or self-care (01) ==
LOC: OR 08:36 → MEDSURG 08:37
PROVIDERS: PCP Family Medicine; Visit Provider Surgery
PROC: 0FT44ZZ Resection of Gallbladder, Percutaneous Endoscopic Approach (ICD-10-PCS; CPT 47562; principal; 2024-03-23 09:30)
DX: K80.20 Calculus of gallbladder without cholecystitis without obstruction (principal)
CPT/HCPCS: 47562; 00790; 88304; A9270; J0665; J0690; J1100; J1170; J1650; J1885; J2250; J2371; J2405; J2704; J2710; J3010; J7120

== ENCOUNTER 2024-12-26 16:18 | Emergency (ER) | payer MEDICAID, SELFPAY ==
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
--- OUTSIDE RECORDS SUMMARY | 2024-12-26 16:21 | XMS_ITS | Encounter Summary ---
Author Organization [facility] Address [address] [place] [address]. [place] [address] Care Team Providers Care Printed Circuit Boards Contact Printer Name Role Phone Chula Farley DO Primary Care Provider [phone] Thanh Porter MD Unavailable [phone] Yvon Ruggiero PA-C Unavailable [phone] Encounter Details Date Type Department Care Team (Late st Contact Info) Description 09/16/2024 MyC Medical Advice [facility] [address] [facility] [address] [place] [address] Chloe Crane Social History Tobacco Use Types Packs/Day Years Used Date Smoking Tobacco: Never Assessed Adolescent Education Answer Date Record ed Getting School Help Needed Not on file 07/01 Comments No Sex and Gender Information Value Date Recorded Sex Assigned at Female 09/17/2024 2:37 PM TRAVELING NURSE Legal Sex Female 4:38 AM TRAVELING NURSE Gender Identity Female 09/17/2024 2:37 PM TRAVELING NURSE Sexual Orientation Straight 09/17/2024 2: 37 PM TRAVELING NURSE documented as of this encounter Plan of Treatment Upcoming Encounters Date Type Department Care Team (Late st Contact Info) Description 09/19/2025 1:30 PM TRAVELING NURSE Virtual Visit [facility] [address] [place] [address] Yvon Ruggiero PA-C [address] [place], [place] [address] Thanh Porter MD [address] [facility] [address] [place], [place] [address] documented as of this encounter Visit Diagnoses Not on filedocumented in this encounter Care Teams Printed Circuit Boards Contact Printer Relationship Specialty Start Date End Date Chula Far[place] [address] PCP - General Family Practice 12/25/22 Thanh Porter MD [address] [id number] Assigned Cancer Care Provider 11/07/23 10/06/24 Yvon Ruggiero, PAJarochoC [address] [place] [address] [address] [place] [address] Assigned Cancer Care Provider 10/07/24 documented as of this encounter
--- OUTSIDE RECORDS SUMMARY | 2024-12-26 16:21 | XMS_ITS | Patient Health Record ---
Author Organization [facility] Address [address] [place] [address] Care Team Providers Care Ticket Printer And Tagger Name Role Phone None, No PCP Primary Care Provider Sayra Montero Unavailable [phone] Reason For Referral Reason Referral for urinary incontinence 04.26.2024 Scheduled with Lex on 06/01 Diagnosis 1 Urinary incontinence , unspecified type (R32) Referred Organization [facility] Referred Provider Sayra Burnett Referred Address [address] [place], [place],[address], Referred Provider Specialty Nurse Michael condon Referral Priority Routine Medications Medication SIG (Take, Route, Frequency, Duration) Notes Start Date End Date Status Montelukast Sodium 10 MG Oral for 90 Days Active Phentermine HCl 30 MG Oral for 30 Days Active Fluticasone Propionate 50 MCG/ACT Nasal for 90 Days Active Mupirocin 2 % External for 7 Days Active ARIPiprazole 15 MG Oral for 90 Days Active hydrOXYzine HCl 25 MG Oral for 30 Days Active busPIRone HCl 30 MG Oral for 30 Days Active Fluconazole 150 MG Oral for 6 Days Active Omeprazole 40 MG Oral for 90 Days Active Gabapentin 300 MG Oral for 30 Days Active Problems Problem Type SNOMED Code ICD Code Onset Dates Problem Status W/U Status Risk Notes Problem Urinary incontinence ([id number]) Urinary incontinence, unspecified type (R32) Active confirmed Plan Of Treatment No Information Insurance Providers Payer Name Payer Address Payer Phone Subscriber Number Group Number Insured Name Patient Relationship to Insured Coverage Start Date Coverage End Date UCARE 2021 BRAEDEN (CLIENT bill) [address] [place], [place] [id number] Sanam Gomez Self - patient is the insured
--- OUTSIDE RECORDS SUMMARY | 2024-12-26 16:21 | XMS_ITS | Clinical Summary ---
Author Organization [facility] Address [facility] [place] [address] Care Team Providers Care Chief Commercial Officer Name Role Phone Chula Farley Becca CRUZ Primary Care Provider [phone] Yvon Ruggiero PA-C Unavailable [phone] Allergies Active Allergy Reactions Criticality Noted Date Comments Blood-Group Specific Substance Other (See Comments) 03/25/2023 Patient has a [place] antibody. Blood products may be delayed. Draw patient 24 hours prior to transfusion. For [facility] testing, draw one red top and two purple top tubes for all Type and Screen orders. Latex 12/25/2022 Penicillins Shortness Of Breath High 04/03/2023 Medications predniSONE (DELTASONE) 20 MG tablet Take two tablets (= 40mg) each day for 4 (four) days 8 tablet 3 Active Additional Information Patient not taking.Reported on 10/14/2023 albuterol (PROAIR HFA/PROVENTIL HFA/VENTOLIN HFA) 108 (90 Base) MCG/ACT inhaler Inhale 2 puffs into the lungs every 6 hours as needed for shortness of breath, wheezing or cough 18 g 3 Active spacer (OPTICHAMBER MAREK) holding chamber Use with inhaler 1 each 3 Active Additional Information Patient not taking.Reported on 10/14/2023 aspirin 81 MG EC tablet Take 81 mg by mouth 4 Active budesonide-formot vince (SYMBICORT) 160-4.5 MCG/ACT Inhaler Inhale 2 puffs into the lungs 3 Active azelastine (ASTELIN) 0.1 % nasal spray [place] 1 spray in nostril 4 Active busPIRone (BUSPAR) 15 MG tablet 3 Active Cholecalciferol (D 1000) 25 MCG (1000 UT) CAPS Take 1,000 Units by mouth 3 Active fluticasone (FLONASE) 50 MCG/ACT nasal spray [place] 2 sprays in nostril 4 Active hydrOXYzine HCl (ATARAX) 10 MG tablet TAKE ONE TABLET BY MOUTH EVERY DAY NEEDED FOR ALLERGIES 4 Active levocetirizine (XYZAL) 5 MG tablet Take 1 tablet by mouth daily 3 Active levothyroxine (SYNTHROID/LEVOTH ROID) 200 MCG tablet Take 200 mcg by mouth 3 Active ivermectin (SOOLANTRA) 1 % cream APPLY THIN LAYER TO FACE 1 TO 2 TIMES PER DAY 3 Active montelukast (SINGULAIR) 10 MG tablet Take 10 mg by mouth daily 3 Active nystatin (MYCOSTATIN) 298220 UNIT/GM external cream Apply topically to affected area(s) two times daily. 3 Active omeprazole (PRILOSEC) [address] capsule Take one tablet (40mg) twice daily 4 Active sertraline (ZOLOFT) 100 MG tablet Take 200 mg by mouth 3 Active SUMAtriptan (IMITREX) 50 MG tablet TAKE ONE TABLET BY MOUTH EVERY 2 HOURS NEEDED FOR MIGRAINE. TAKE AT MINIMUM OF 2 HOURS APART. MAX DOES OF 4 TABLETS IN 24 HOURS 4 Active ezetimibe (ZETIA) 10 MG tablet Take 1 tablet by mouth daily 3 Active azelaic acid (FINACIA) 15 % external gel APPLY TO FACE 1 TO 2 TIMES PER DAY 3 Active celecoxib (CELEBREX) 200 MG capsuleIndication s:Recurrent deep vein thrombosis (DVT) (H) Take 1 capsule (200 mg) by mouth daily 30 capsule 1 4 Active rivaroxaban ANTICOAGULANT (XARELTO ANTICOAGULANT) 20 MG TABS tabletIndications :Recurrent deep vein thrombosis (DVT) (H) TAKE 1 TABLET (20 MG) BY MOUTH DAILY (WITH DINNER) 30 tablet 10 Active Encounters Date Type Department Care Team Description 10/18/2024 Refill [facility] [address] [place] [address] [address] [place] [address] Thanh Porter MD Medication Refill 10/15/2024 Refill [facility] [address] [place] [address] [address] [place] [address] Thanh Poretr MD Medication Refill from Last 3 Months Social History Tobacco Use Types Packs/Day Years Used Date Smoking Tobacco: Never Assessed Adolescent Education Answer Date Record ed Getting School Help Needed Not on file 07/01 Comments No Sex and Gender Information Value Date Recorded Sex Assigned at Female 09/17/2024 2:37 PM OVERLOCK SLEEVE SETTER Legal Sex Female 4:38 AM OVERLOCK SLEEVE SETTER Gender Identity Female 09/17/2024 2:37 PM OVERLOCK SLEEVE SETTER Sexual Orientation Straight 09/17/2024 2: 37 PM OVERLOCK SLEEVE SETTER Last Filed Vital Signs Vital Sign Reading Time Taken Comments Blood Pressure 126/91 10/14/2023 9:12 AM OVERLOCK SLEEVE SETTER Pulse 93 10/14/2023 9:12 AM OVERLOCK SLEEVE SETTER Temperature 36.1 C (97 F) 10/14/2023 9:12 AM OVERLOCK SLEEVE SETTER Respiratory Rate 20 05/21/2023 2:29 PM CDT Oxygen Saturation 96% 10/14/2023 9:12 AM OVERLOCK SLEEVE SETTER Inhaled Oxygen Concentration - - Weight 111.7 kg (246 lb 3.2 oz) 10/14/2023 9:12 AM OVERLOCK SLEEVE SETTER Height 170.2 cm (5' 7) 05/21/2023 2:29 PM CDT Body Mass Index 38.56 05/21/2023 2:29 PM CDT Plan of Treatment Upcoming Encounters Date Type Department Care Team (Late st Contact Info) Description 09/19/2025 1:30 PM OVERLOCK SLEEVE SETTER Virtual Visit [facility] [address] [place] [address] [address] [place] [address] Yvon Ruggiero, PA-C [address] [place] [address] [address] [place], [place] [address] Thanh Porter MD [address] [facility] [address] [place], [place] [address] Health Maintenance Due Date Last Done Comments ADVANCE CARE PLANNING 1965 ANNUAL REVIEW OF HM ORDERS 1965 ASTHMA ACTION PLAN 1965 ASTHMA CONTROL TEST [address] COLONOGRAPHY 1965 FIT 1965 FLEX SIG 1965 TSH W/FREE T4 REFLEX 1965 sDNA (Cologuard) 1965 HEPATITIS B IMMUNIZATION (1 of 3 - 19+ 3-dose series) 1984 PAP 1986 LIPID 2005 PHQ-2 (once per calendar year) 2024 YEARLY PREVENTIVE VISIT 02/15/2025 02/16/20 24, 01/01/2023 DIABETES SCREENING 12/25/2025 12/25/2022 MAMMO SCREENING 02/17/2026 02/18/2024, 02/18/2024, 01/01/2023 DTAP/TDAP/TD IMMUNIZATION (2 - Td or Tdap) 01/01/2033 01/01/2023 COLONOSCOPY 03/26/2033 03/26/2023 COLORECTAL CANCER SCREENING 03/26/2033 HEPATITIS C SCREENING Completed 01/01/2023 HIV SCREENING Completed 01/01/2023 Pneumococcal Vaccine: 50+ Years Completed 01/01/2023 ZOSTER IMMUNIZATION Completed 03/31/2023, 01/01/2023 COVID-19 Vaccine Completed 06/21/2024, 07/18/2023 INFLUENZA VACCINE Completed 06/21/2024, 07/18/2023 HPV IMMUNIZATION Aged Out No longer [...] Comprehensive metabolic panel (12/25/2022 3:01 PM CDT) [facility] Sodium 143 136 - 145 mmol/L 12/25/2022 3:47 PM CDT LABORATORY Potassium 4.0 3.4 - 5.3 mmol/L 12/25/2022 3:47 PM [facility] Chloride 110(H) 98 - 107 mmol/L 12/25/2022 3:47 PM [facility] Carbon Dioxide (CO2) 25 22 - 29 mmol/L 12/25/2022 3:47 PM [facility] Anion Gap 8 7 - 15 mmol/L 12/25/2022 3:47 PM [facility] Urea Nitrogen 10.6 6.0 - 20.0 mg/dL 12/25/2022 3:47 PM [facility] Creatinine 1.24(H) 0.51 - 0.95 mg/dL 12/25/2022 3:47 PM [facility] Calcium 8.4(L) 8.6 - 10.0 mg/dL 12/25/2022 3:47 PM [facility] Glucose 100(H) 70 - 99 mg/dL 12/25/2022 3:47 PM [facility] Alkaline Phosphatase 107(H) 35 - 104 U/L 12/25/2022 3:47 PM CDT LABORATORY AST 22 10 - 35 U/L 12/25/2022 3:47 PM [facility] ALT 24 10 - 35 U/L 12/25/2022 3:47 PM [facility] Protein Total 6.2(L) 6.4 - 8.3 g/dL 12/25/2022 3:47 PM [facility] Albumin 3.9 3.5 - 5.2 g/dL 12/25/2022 3:47 PM [facility] Bilirubin Total 0.3 <=1.2 mg/dL 12/25/2022 3:47 PM [facility] GFR Estimate 51(L) >60 mL/min/1.7 3m2 12/25/2022 3:47 PM [facility] Comment:eGFR calculated usin 2020 CKD-EPI equation. Blood STRUCTURE OF LEFT UPPER LIMB / Unknown Venipuncture / Unknown 12/25/2022 3:01 PM CDT 12/25/2022 3:06 PM CDT Jason Ross PA-C LAB - BLOOD ORDERABLE S Final Result LABORATORY [facility] [address] [place] 1[address] floor, [address] [place] [address], [place] [phone] from Last 3 Months or Most Recently Relevant to Health Maintenance Insurance [employer] [place] Care Teams Chief Commercial Officer Relationship Specialty Start Date End Date [place] [address] [address] PCP - General Family Practice 12/25/22 Yvon Ruggiero PA-C [facility] [address] Assigned Cancer Care Provider 10/07/24
--- OUTSIDE RECORDS SUMMARY | 2024-12-26 16:22 | XMS_ITS | Encounter Summary ---
Author Organization [facility] Address [address] [place] [address]. [place] [address] Care Team Providers Care Chamfering Machine Operator Name Role Phone Chula Farley DO Primary Care Provider [phone] Yvon Ruggiero PA-C Unavailable [phone] Reason for Visit * Reason Comments Medication Refill Encounter Details Date Type Department Care Team (Late st Contact Info) Description 10/18/2024 Refill [facility] [address] [place] [address] Thanh Porter MD [address] [facility] [address] [place] [address] Medication Refill Social History Tobacco Use Types Packs/Day Years Used Date Smoking Tobacco: Never Assessed Adolescent Education Answer Date Record ed Getting School Help Needed Not on file 07/01 Comments No Sex and Gender Information Value Date Recorded Sex Assigned at Female 09/17/2024 2:37 PM CRUSHER SUPERVISOR Legal Sex Female 4:38 AM CRUSHER SUPERVISOR Gender Identity Female 09/17/2024 2:37 PM CRUSHER SUPERVISOR Sexual Orientation Straight 09/17/2024 2: 37 PM CRUSHER SUPERVISOR documented as of this encounter Miscellaneous Notes * Telephone Encounter - Francia Uribe RN - 10/18/2024 1:32 PM CRUSHER SUPERVISOR Duplicate request. Okay to refuse per pharmacy. They have active script on file. Francia Uribe RN, BSN, PCCN Nurse Clinician [facility] [address], [place] [address] Office, direct: [phone] Main office number: [phone] Pronouns: She, her, hers HER SUPERVISOR documented in this encounter Plan of Treatment Upcoming Encounters Date Type Department Care Team (Late st Contact Info) Description 09/19/2025 1:30 PM CRUSHER SUPERVISOR Virtual Visit [facility] [address] [place] [phone] Yvon Ruggiero, MIKHAIL [address] [place] [phone] Thanh Porter MD [address] [facility] [address] [place], [place] [id number] documented as of this encounter Visit Diagnoses Diagnosis Recurrent deep vein thrombosis (DVT) (H) documented in this encounter Care Teams Chamfering Machine Operator Relationship Specialty Start Date End Date Chula Farley DO [address] [place] [address] PCP - General Family Practice 12/25/22 Yvon Ruggiero PA-C [address] [place] [id number] Assigned Cancer Care Provider 10/07/24 documented as of this encounter
--- OUTSIDE RECORDS SUMMARY | 2024-12-26 16:22 | XMS_ITS | Clinical Summary ---
Author Organization [facility] Address [address] [place] [id number] Care Team Providers Care Fit Model Name Role Phone Chula Farley DO Primary Care Provider Saumya Richmond MD Unavailable [phone] Scotty Ward MD Unavailable Nancy Obrien RN Unavailable [phone] Unavailable [phone] Allergies Active Allergy Reactions Criticality Noted Date Comments Blood-Group Specific Substance Other - Describe In Comment Field 03/25/2023 Patient has a [place] antibody. Blood products may be delayed. Draw patient 24 hours prior to transfusion. For [place] testing, draw one red top and two purple top tubes for all Type and Screen orders. Latex Hives 12/16/2022 Unlisted Allergen (Include Detail In Comments) Hives,Shortness Of Breath,Erythema 04/03/2023 Allergies to Cats, Dogs, Cattle, Horses, Pigs, dust, mold Penicillins Shortness Of Breath 04/03/2023 Tree And Shrub Pollen Hives,Shortness Of Breath 04/03/2023 [place] Pollen Hives,Shortness Of Breath 04/03/2023 Medications sulfacetamide-sul fur , 10 - 5%, (SULFACET-R) 10-5 % (w/w) clsr WASH FACE 1 TIME PER DAY.LATHER & LET SIT 2 TO 3 MINTUES BEFORE RINSING. 023 Active Xarelto 20 mg tablet Take 20 mg by mouth once daily with a meal. 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 90 Tablet 3 024 Active ezetimibe (ZETIA) 10 mg tabletIndications :Myalgia due to statin,Mixed hyperlipidemia Take 1 Tablet (10 mg) by mouth once daily. 90 Tablet 3 024 Active montelukast (SINGULAIR) 10 mg tabletIndications :Moderate persistent asthma with acute exacerbation (HC) Take 1 Tablet (10 mg) by mouth at bedtime. 90 Tablet 3 024 Active azelaic acid (FINACEA) 15 % topical gelIndications:Ro sacea Apply topically to affected area(s) two times daily. 50 g 3 024 Active fluticasone (50 mcg per actuation) nasal solution (FLONASE)Indicati ons:Environmental allergies,Post-na lucía drip PLACE 2 SPRAYS INTO EACH NOSTRIL ONCE DAILY 48 g 3 024 Active ferrous sulfate 325 mg delayed release tabletIndications :Iron deficiency anemia, unspecified iron deficiency anemia type Take 1 Tablet (325 mg) by mouth once daily with a meal. 90 Tablet 3 024 Active cholecalciferol (Vitamin D) 1,000 unit capsuleIndication s:Vitamin D deficiency Take 1 Capsule (1,000 units) by mouth once daily. 90 Capsule 3 024 Active albuterol HFA (Ventolin HFA) 90 mcg/actuation inhalerIndication s:Mild intermittent asthma without complication (HC) INHALE ONE TO TWO PUFFS BY MOUTH EVERY 4 HOURS NEEDED FOR SHORTNESS OF BREATH OR WHEEZING. 18 g 3 024 Active Advair Diskus 250-50 mcg/dose diskus inhalerIndication s:Mild intermittent asthma without complication (HC) INHALE ONE PUFF BY MOUTH TWICE A DAY 60 Each 024 Active nystatin 100,000 unit/gram creamIndications: Intertrigo Apply topically to affected area(s) two times daily. 30 g 5 024 Active busPIRone (BUSPAR) 30 mg tabletIndications :Generalized anxiety disorder with panic attacks Take 1 Tablet (30 mg) by mouth two times daily. 180 Tablet 3 024 Active gabapentin (NEURONTIN) 300 mg capsuleIndication s:Generalized anxiety disorder with panic attacks,Neuropath y Take 1 Capsule (300 mg) by mouth three times daily. 270 Capsule 1 024 Active ARIPiprazole (ABILIFY) 15 mg tabletIndications :Bipolar 2 disorder (HC) Take 1 Tablet (15 mg) by mouth once daily. 90 Tablet 3 024 Active sertraline (ZOLOFT) 100 mg tabletIndications :Generalized anxiety disorder with panic attacks Take 2 Tablets (200 mg) by mouth once daily. 180 Tablet 3 024 Active CPAPIndications:O SA (obstructive sleep apnea) RESMED CPAP (E0601) machine for home use at pressure: 13 cmw with [id number], Choice of mask (A7030 or A7034) w/full face cushion (A7031) x1/mo, nasal cushion (A7032) x2/mo, or nasal pillows (A7033) x 2/mo; Length of Need: 99 months; Frequency of use: Daily 1 Each 024 Active hydrOXYzine HCL (ATARAX) 25 mg tabletIndications :Allergy to environmental factors Take 1 Tablet (25 mg) by mouth every 8 hours if needed for Anxiety (sleep). 90 Tablet 1 025 Active omeprazole 40 mg Delayed-Release capsuleIndication s:Chronic GERD Take 1 Capsule (40 mg) by mouth once daily before a meal. 90 Capsule 3 025 Active levocetirizine 5 mg tab tabletIndications :Allergy to environmental factors TAKE ONE TABLET BY MOUTH EVERY DAY 90 Tablet 2 025 Active ondansetron 4 mg disintegrating tabletIndications :Macromastia Place 1 Tablet (4 mg) on the tongue every 8 hours if needed for Nausea/Vomiting . 10 Tablet 12/24/19 25 9:21 AM CDT 025 Active sennosides-docusa te (8.6-50 mg) tabletIndications :Macromastia Take 1 Tablet by mouth once daily. 20 Tablet 12/24/19 25 9:21 AM CDT 025 Active oxyCODONE 5 mg immediate release tabletIndications :Macromastia Take 1 Tablet (5 mg) by mouth every 6 hours if needed for Pain. 30 Tablet 12/24/19 9:21 AM CDT Active melatonin 5 mg capsule Take 1 Capsule (5 mg) by mouth. 0 023 2024 Discontinued(* Patient states no longer taking) omeprazole (PRILOSEC) 40 mg Delayed-Release capsuleIndication s:Chronic GERD Take one tablet (40mg) twice daily 180 Capsule 3 024 2024 Discontinued aspirin (ECOTRIN) 81 mg enteric coated tablet Take 1 Tablet (81 mg) by mouth once daily. 024 2024 Discontinued(* Patient states no longer taking) celecoxib (CELEBREX) 200 mg capsule Take 200 mg by mouth 2 times daily if needed. 024 2024 Discontinued(* IP Discontinued) levocetirizine (XYZAL) 5 mg tab tabletIndications :Allergy to environmental factors TAKE ONE TABLET BY MOUTH EVERY DAY 90 Tablet 2 2024 Discontinued azelastine 137 mcg/actuation (ASTELIN) nasal sprayIndications: Environmental allergies,Post-na lucía drip Inhale 1 [place] into affected nostril(s) two times daily. 30 mL 024 2024 Discontinued(* Patient states no longer taking) umeclidinium (INCRUSE ELLIPTA) 62.5 mcg/actuation inhalerIndication s:Moderate persistent asthma without status asthmaticus without complication (HC) Inhale 1 Puff by mouth once daily. Discard inhaler 6 weeks after opening or when the counter reads '0' (after all blisters have been used), whichever comes first. 30 Each 11 024 2024 Discontinued(* Patient states no longer taking) tirzepatide (weight loss) (Zepbound) 2.5 mg/0.5 mL penIndications:Cl ass 3 severe obesity due to excess calories with serious comorbidity and body mass index (BMI) of 40.0 to 44.9 in adult (HC) Inject 2.5 mg subcutaneous once weekly. 2 mL 2 025 2024 Discontinued(* IP Discontinued) omeprazole 40 mg Delayed-Release capsuleIndication s:Chronic GERD Take 1 Capsule (40 mg) by mouth once daily before a meal. Take one tablet (40mg) twice daily 90 Capsule 3 025 2024 Discontinued(R eorder (E-cancel not sent)) Active Problems Problem Noted Date Diagnosed Date Macromastia 12/23/2024 Recurrent pulmonary emboli 06/06/2023 MARCELA 03/17/2023 AHI- 38 04/08/2023 Generalized anxiety disorder with panic attacks 04/04/2023 PTSD (post-traumatic stress disorder) 04/04/2023 Controlled substance agreement signed 04/04/2023 Overview (04/04/2023): Signed 04/03/2023 Beronica Khan [employer] Psychiatry History of pulmonary embolism 03/24/2023 Recurrent acute deep vein th rombosis (DVT) of both lower extremities 03/24/2023 Melena 03/24/2023 Anemia 03/24/2023 Gastrointestinal hemorrhage with melena 03/24/20 23 History of TIA (transient ischemic attack) 01/20 Overview (01/20/2023): Secondary to pre-eclampsia Mild intermittent asthma without complication Pulmonary embolism, bilateral 01/01/2023 Recurrent deep vein thrombosis (DVT) 01/01/2023 Rosacea, unspecified 01/01/2023 Allergy to environmental factors 01/01/2023 Yeast infection of the skin 01/01/2023 Incidental lung nodule, > 3mm and < 8mm 01/02/20 23 Chronic GERD 01/01/2023 History of endometriosis 01/01/2023 Bipolar 2 disorder 01/01/2023 Chronic neuropathic pain 01/01/2023 Overview (01/01/2023): In right groin secondary to hernia Migraine syndrome 01/01/2023 Resolved Problems Problem Noted Date Diagnosed Date Resolved Date Anticoagulation monitoring, INR range 2-3 01/24/2023 10/17/2023 Encounters Date Type Department Care Team Description 12/23/2024 10:42 AM CDT Anesthesia Event [facility] [address] [facility] [place] [address] Myrtle Jones MD 12/23/2024 9:40 AM CDT - 12/23/2024 1:30 PM CDT Surgery [address] [place] [address] Wai Lowe MD Bilateral Breast Reduction 12/23/2024 8:12 AM CDT - 12/24/2024 4:04 PM CDT Hospital Encounter [place] [address] [facility] [place] [address] Wai Lowe MD Macromastia (Primary Dx) Discharge Disposition: Home Self Care 12/23/2024 Travel 12/16/2024 Travel 12/14/[address] [address] Chula Farley Becca, DO Refill Request (Levocetirizine) 12/13/[address] [address] Chula Falrey, DO Prior Authorization (tirzepatide (weight loss) (Zepbound) 2.5 mg/0.5 mL pen (APPROVED 12/14/2024-)) 12/10/[address] [address] Chula Farley Becca, DO Refill Request (omeprazole (PRILOSEC) 40 mg) 12/07/[address] [address] Chula Farley Becca, DO Refill Request (Omeprazole) 12/06/2024 9:30 AM CDT Ancillary Procedure [address] [address] 12/06/2024 8:30 AM CDT Office Visit [address] [address] Chula Farley Becca, DO Preoperative Exam (12/23/24 - breast reduction - Dr. 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 Telemedicine [facility] [address] [facility] [address] Joseline Handley NP Telehealth; Follow Up 10/28/2024 Telephone [facility] [address] [place] [address] Cassia Zafar Cancer Genetics 10/20/2024 Telephone [facility] [address] [address] Wai Lowe MD 10/19/2024 Telephone [facility] [address] [address] Wai Lowe MD Updates 10/01/2024 Telephone [facility] [address] [address] Wai Lowe MD Follow Up 09/30/2024 Telephone [facility] [address] [address] Wai Lowe MD Prior Authorization (SURGERY DENIED) 09/29/2024 Refill [facility] [address] [facility] [address] Chula Farley DO Refill Request (Hydroxyzine Hcl) from Last 3 Months Immunizations Immunization Administration Dates Next Due COVID-19 VACCINE SPIKEVAX (M ODERNA 50MCG/0.5ML) 12YO+ PFS 06/21/2024,07/18/2023 INFLUENZA, IIV3 PF (AGE >= 6 MO) 06/21/2024 Influenza, IIV4 07/18/2023 Pneumococcal Conj 20-valent (Prevnar [...] Answer Date Recorded PHQ-2 TOTAL SCORE 1 05/25/2024 Social Connections Answer Date Recorded Do you often feel lonely or isolated from those around you? 0 12/23/2024 Alcohol Use Answer Date Recorded How often do you have a drink containing alcohol ? 1 03/08/2024 Average Number of Drinks Not on file 024 Frequency of Binge Drinking Not on file 02/14 Financial Resource Strain Answer Date R ecorded Difficulty of Paying Living Expenses 3 02/16/2024 Difficulty of Paying Living Expenses Not on file 02/16/2024 Food Insecurity Answer Date Recorded Do you worry your food will run out before you are able to buy more? 1 12/23/2024 Transportation Needs Answer Date Record ed Does lack of transportation keep you from medica l appointments? 1 12/23/2024 Does lack of transportation keep you from work, meetings or getting things that you need? 1 12/23/2024 Housing Stability Answer Date Recorded What is your housing situation today? 1 12/23/2024 Interpersonal Safety Answer Date Record ed Are you being hit, kicked, p ushed or yelled at (see row info)? No 12/23/2024 Interpersonal Safety Abuse 12 - 18 Not on file 12/23/2024 Interpersonal Safety Ambulatory Vulnerability No t on file 12/23/2024 Utilities Answer Date Recorded Do you have trouble paying f or utilities (for example, heat, electricity, water, phone)? 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 Gender Identity Female 01/23/2023 5:38 PM CDT Sexual Orientation Straight 01/23/2023 5: 38 PM CDT Obstetrics History Last Filed Vital Signs Vital Sign Reading Time Taken Comments Blood Pressure 107/70 12/24/2024 2:56 PM CDT Pulse 80 12/24/2024 2:56 PM CDT Temperature 36.2 C (97.1 F) 12/24/2024 2:56 PM CDT Respiratory Rate 18 12/24/2024 2:56 PM CDT Oxygen Saturation 95% 12/24/2024 2:56 PM CDT Inhaled Oxygen Concentration - - Weight 116.7 kg (257 lb 4.8 oz) 12/23/2024 8:26 AM CDT Height 167.6 cm (5' 6) 12/23/2024 8:26 AM CDT Body Mass Index 41.53 12/23/2024 8:26 AM CDT Plan of Treatment Upcoming Encounters Date Type Department Care Team (Late st Contact Info) Description 01/04/2025 8:45 AM CDT Office Visit [facility] [address] [facility] [address] [place] [address] Wai Lowe MD [address] [facility] [address] [place], [place] [address] 01/27/2025 7:00 AM CDT Telemedicine [facility] [address] [place] [address] Ender Joseline Mary, [employer] [address] [place] [address] 01/31/2025 7:40 AM CDT Office Visit [facility] [address] [place] [address] Chula Farley, DO [address] [place] [address] Health Maintenance Due Date Last Done Comments Mammogram for age 45-75 02/17/2025 02/18/2024, 01/01 Depression screening for age 12+ 05/26/2025 05/26/2024, 05/25/2024, 04/27/2024, Additional history exists BMI (ht and wt on same day) for age 18+ 08/10/2025 08/10/2024, 02/16/2024, 01/01/2023, Additional history exists Lipids for age 45-75 08/04/2029 08/04/2024, 03/10/2024, 02/16/2024, Additional history exists Tetanus booster 01/01/2033 01/01/2023 Colonoscopy through age 75 03/26/2033 03/26/2023 HIV for age 15-65 Completed 01/01/2023 Hepatitis C screening for ag e 18-79 Completed 01/01/2023 Pneumococcal series for age 50+ Completed Tdap Completed 01/01/2023 Zoster (shingles) series for age 50+ Completed 03/31/2023, 01/01/2023 COVID-19 vaccine series Completed 06/21/2024, 07/18 Influenza Vaccine Completed 06/21/2024, 07/18/2023 Procedures Procedure Name Priority Date/Time Associated Diagnosis Comments ENDOTRACHEAL TUBE Routine 12/23/2024 11:04 AM CDT ENDOTRACHEAL TUBE Routine 12/23/2024 11:04 AM CDT ENDOTRACHEAL TUBE Routine 12/23/2024 11:04 AM CDT MAMMOPLASTY REDUCTION BILATERAL Elective 12/23/2024 10:32 AM CDT Macromastia Case Notes LATEX ALLERGY/no IV right arm12/23 ~ MAY BE A LITTLE LATE ~KSSupine GLUCOSE METER Timed 12/23/2024 8:33 AM CDT SCAN-CARDIAC STRIP 12/23/2024 12:00 AM CDT XR ABDOMEN 2 VIEW FLAT AND UPRIGHT OR DECUBITUS Routine 12/06/2024 9:58 AM CDT Abdominal pain, generalized ANTINUCLEAR ANTIBODIES TITER AND PATTERN (QUEST REFLEX ONLY) Routine 12/06/2024 9:35 AM CDT ANTINUCLEAR ANTIBODY BY IFA Routine 12/06/2024 9:35 AM CDT Polyarthralgia RA QUANTITATIVE Routine 12/06/2024 9:35 AM CDT Polyarthralgia SEDIMENTATION RATE Routine 12/06/2024 9: 35 AM CDT Polyarthralgia LIPID PANEL W REFLEX MEASURED LDL Routine 08/04/2024 3:27 PM [employer] AND [employer]RE DISPATCHER Elevated serum creatinine XR MAMMO JIMMIE BILAT SCREEN Routine 02/18/2024 2:27 PM CDT Visit for screening mammogram COLONOSCOPY 03/26/2023 2:50 PM CDT LC HIV-1/O/2, 4TH GENERATION Routine 01/01/2023 2:47 PM CDT Screening for HIV (human immunodeficiency virus) LC HCV ANTIBODY RFX TO QUANT PCR Routine 01/01/2023 2:47 PM CDT Need for hepatitis C screening test from Last 3 Months or Most Recently Relevant to Health Maintenance Results * HCHG TUBE PR1, HCHG INSTRUMENT DISP PR10, HCHG STYLET PR1 (12/23/2024 11:04 AM CDT) Narrative Tammi Field CRNA - 12/23/2024 11:04 AM CDT Tammi Field CRNA 12/23/2024 11:05 AM Procedure: ETT Patient location during procedure: OR ETT Properties Mask Ventilation: easy and oral airway Final Technique: video laryngoscopy Type: straight Location: oral Cuffed: yes Tube Size: 7.0 mm Stylet: yes Laryngoscope Blade: Glidescope Blade Size: 3 Cormack-Lehane Grade View: 1 Insertion Attempts: 2 Placement Verification: auscultation, end tidal CO2 and symmetrical chest wall movement Assessment: pharynx clear, atraumatic and dentition unchanged Secured at: 22 Measured From: teeth Bite Block: oral airway Difficulty: 1 (somewhat) Difficulty Comment: anterior glottis, large tongue, excess tissue, small mouth and limited neck mobility Notes: Very short neck with large jowls and hypoplastic mandible so planned Glidescope. Myrtle Jones MD ANESTHESIA PX NOTE ORDERAB LES Final Result * (ABNORMAL) GLUCOSE METER (12/23/2024 8:33 AM CDT) GLUCOSE METER 143(H) 65 - 100 mg/dL 12/23/2024 8:38 AM CDT [facility] Blood BLOOD SPECIMEN / Unknown 12/23/2024 8:33 AM CDT 12/23/2024 8:38 AM CDT Wai Lowe MD CHEMISTRY Final R esult [address] [address] * SCAN-CARDIAC STRIP (12/23/2024 12:00 AM CDT) Narrative 12/23/2024 12:00 AM CDT Ordered by an unspecified provider. us Other Clinical Staff OTHER Final Resul t * XR ABDOMEN 2 VIEW FLAT AND UPRIGHT OR DECUBITUS (12/06/2024 9:58 AM CDT) Anatomical Region Laterality Modality Abdomen Computed Radiogr aphy 12/07/2024 7:48 AM CDT Narrative 12/07/2024 7:48 AM CDT For Patients: As a result of the Cures Act, medical imaging exams and procedure reports are released immediately into your electronic medical record. You may view this report before your referring provider. If you have questions, please contact your health care provider. Indication: Generalized abdominal pain. Technique: Abdomen AP supine and upright view. Comparison: Abdominal radiograph 04/26/2024. Findings: Bowel: Bowel gas pattern is within normal limits. No bowel obstruction is identified. The amount of colonic stool is within normal limits. Other: No sign of free air. No sign of soft tissue mass. No suspicious calcifications. Osseous structures are unremarkable for age. There are changes of previous CABG. There is a right pelvic phlebolith. Visualized lung bases are clear. Impression: No acute abnormality. Dictated by Scotty Estevez MD @ 12/07/2024 7:48:51 AM (Electronically Signed) Procedure Note Scotty Estevez MD - 12/07/2024 For Patients: As a result of the s Act, medical imagingexams and procedure reports are released immediately into your electronicmedical record. You may view this report before your referring provider.If you have questions, please contact your health care provider. Indication: Generalized abdominal pain. Technique: Abdomen AP supine and upright view. Comparison: Abdominal radiograph 04/26/2024. Findings: Bowel: Bowel gas pattern is within normal limits. No bowel obstruction isidentified. The amount of colonic stool is within normal limits. Other: No sign of free air. No sign of soft tissue mass. No suspiciouscalcifications. Osseous structures are unremarkable for age. There arechanges of previous CABG. There is a right pelvic phlebolith. Visualizedlung bases are clear. Impression: No acute abnormality. Dictated by Scotty Estevez MD @ 12/07/2024 7:48:51 AM (Electronically Signed) Chula Farley DO GENERAL IMAGING Final Result * (ABNORMAL) ANTINUCLEAR ANTIBODIES TITER AND PATTERN (QUEST REFLEX ONLY) (12/06/2024 9:35 AM CDT) NANETTE TITER 1:40(H) titer [facility] Comment: A low level NANETTE titer may be present in pre-clinical autoimmune diseases and normal individuals. Reference Range <1:40 Negative 1:40-1:80 Low Antibody Level >1:80 Elevated Antibody Level NANETTE PATTERN Nuclear, Homogeneo us(A) [facility] Comment: Homogeneous pattern is associated with systemic lupus erythematosus (SLE), drug-induced lupus and juvenile idiopathic arthritis. AC-1: Homogeneous International Consensus on NANETTE Patterns (https://doi.org/10.1515/rqtj-7452-5106) NANETTE TITER 1:40(H) titer [facility] Comment: A low level NANETTE titer may be present in pre-clinical autoimmune diseases and normal individuals. Reference Range <1:40 Negative 1:40-1:80 Low Antibody Level >1:80 Elevated Antibody Level NANETTE PATTERN Cytoplasm ic(A) [facility] Comment: The presence of cytoplasmic fluorescence was noted on the HEp-2 slide. Other reactivities (e.g., anti- mitochondrial antibodies or anti-smooth muscle antibodies) may be responsible for this fluorescence. The clinical significance of this finding is uncertain. Clinical correlation is recommended. AC-15 to AC-23: Cytoplasmic International Consensus on NANETTE Patterns (https://doi.org/10.1515/bxsv-2940-5421) 12/06/2024 9:35 AM CDT 12/06/2024 9:36 AM CDT us Chula Farley DO LABORATORY Final Result [facility] [address] [place] [address], [place] [phone] [facility] [address] [place] [address] * SEDIMENTATION RATE (12/06/2024 9:35 AM CDT) SED RATE BY MODIFIED VERAERGREN 17 < OR = 30 mm/h [facility] Blood BLOOD SPECIMEN / Unknown 12/06/2024 9:35 AM CDT 12/06/2024 9:36 AM CDT Chula Farley HEMATOLOGY Final Result Performing Organization Address [facility] Co de Phone Number [facility] [address] [facility] [place] [address], [facility] [address] [facility] [place] [address] * (ABNORMAL) ANTINUCLEAR ANTIBODY BY IFA (12/06/2024 9:35 AM CDT) NANETTE SCREEN, IFA POSITIVE( A) NEGATIVE [facility] Comment: NANETTE IFA is a first line screen for detecting the presence of up to approximately 150 autoantibodies in various autoimmune diseases. A positive NANETTE IFA result is suggestive of autoimmune disease and reflexes to titer and pattern. Further laboratory testing may be considered if clinically indicated. For additional information, please refer to http://education.Moxtra/faq/EWW016 (This link is being provided for informational/ educational purposes only.) Blood BLOOD SPECIMEN / Unknown 12/06/2024 9:35 AM CDT 12/06/2024 9:36 AM CDT Chula Farley DO CHEMISTRY Final Result Performing Organization Address City/[facility]/ZIP Co de Phone Number [facility] [address] [facility] [address], [facility] [address] [place] [address] * RA QUANTITATIVE (12/06/2024 9:35 AM CDT) RHEUMATOID FACTOR <10 <14 IU/mL [facility] Blood BLOOD SPECIMEN / Unknown 12/06/2024 9:35 AM CDT 12/06/2024 9:36 AM CDT Chula Farley DO SEND OUTS Final Result [facility] [address] [place] [address], [facility] [address] [place] [address] * (ABNORMAL) LIPID PANEL W REFLEX MEASURED LDL (08/04/2024 3:27 PM 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 Sangita et al. J. of Clin. Lipidol. 2015;9:129-169. LDL-CHOLESTEROL 171(H) mg/dL (calc) [facility] Comment: Reference range: <100 Desirable range <100 mg/dL for primary prevention; <70 mg/dL for patients with CHD or diabetic patients with > or = 2 CHD risk factors. LDL-C is now calculated using the Peterson-Merino calculation, which is a validated novel method providing better accuracy than the Friedewald equation in the estimation of LDL-C. Peterson CORNEJO et al. GAYE. 2013;310(19): 3105-4514 (http://education.FanFueled.Liquefied Natural Gas/faq/MMM466) CHOL/HDLC RATIO 5.4(H) <5.0 (calc) [facility] NON HDL CHOLESTEROL 217(H) <130 mg/dL (calc) [facility] Comment: For patients with diabetes plus 1 major ASCVD risk factor, treating to a non-HDL-C goal of <100 mg/dL (LDL-C of <70 mg/dL) is considered a therapeutic option. 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 Recommend annual mammograms. MAMMOGRAM ASSESSMENT: ACR 1 Negative PATIENTS: You will also receive a letter with your examination results in an easy to read format. If you have questions about your results, please [...] care provider. XR MAMMO JIMMIE BILAT SCREEN [[id number]] CLINICAL HISTORY: This is an asymptomatic 58 y.o. patient. INDICATION FOR EXAM: Mammogram Screening. TECHNIQUE: CC & MLO views were obtained. This study was evaluated with the assistance of Computer-Aided Detection. Breast Tomosynthesis was used in interpretation. COMPARISON FILM: Yes 01/01/23 [facility] FINDINGS: The breasts are almost entirely fatty. There are no dominant masses, suspicious micro calcifications or areas of architectural distortion. us Chula Becca Shaqra DO MAMMO Final Result * COLONOSCOPY (03/26/2023 2:50 PM CDT) 03/26/2023 2:50 PM CDT Narrative Transcriptions Chris Yeager MD - 03/26/2023 3:50 PM CDT [facility] Patient Name: Sanam Simpson Procedure Date: 03/26/2023 Gender: Female Date of : 1965 Admit Type: Inpatient Procedure: Colonoscopy Proceduralist: Chris Yeager MD - [facility] Indications/Pre-Op Diagnosis: Screening for malignant neoplasm in [facility] Medications: MAC Procedure Description: The patient had risks, benefits and alternatives explained to andgave informed consent. The patient had a stable cardiopulmonary status and judged an adequate candidate for sedation. The endoscope [id number] was passed through the anus andadvanced to [...] 2:50 PM Chris Yeager MD PROCEDURE ORD Final Result * LC HCV ANTIBODY RFX TO QUANT PCR (01/01/2023 2:47 PM CDT) HCV Ab Non Reactive Non Reactive 01/04/2023 7:12 AM CDT [facility] ([facility]) Blood BLOOD SPECIMEN / Unknown Venipuncture / Unknown 01/01/2023 2:47 PM CDT 01/01/2023 2:49 PM CDT Narrative [facility] ([facility]) - 01/04/2023 7:12 AM CDT Performed at: [address] [place] [address] [id number] Automation Controls Engineer: Josef Humphrey MD, Phone: [phone] Chula Becca Martine DO LABORATORY Final Result Performing Organization Address [facility] Co de Phone Number [facility] ([facility]) [address] [place] [address], * LC HIV-1/O/2, 4TH GENERATION (01/01/2023 2:47 PM CDT) Pathologist [facility] HIV Scr 4th Gen Non Reactive Non Reactive 01/03/2023 1:09 PM CDT [facility] ([facility]) Comment: HIV Negative HIV-1/HIV-2 antibodies and HIV-1 p24 antigen were NOT detected. There is no laboratory evidence of HIV infection. Blood BLOOD SPECIMEN / Unknown Venipuncture / Unknown 01/01/2023 2:47 PM CDT 01/01/2023 2:49 PM CDT Narrative [facility] ([facility] - 01/03/2023 1:09 PM CDT Performed at: [address] [place] [address] [id number] Automation Controls Engineer: Josef Humphrey MD, Phone: [phone] Chula Becca Aaronqra DO LABORATORY Final Result [facility] ([facility] [address] [place] [address], from Last 3 Months or Most Recently Relevant to Health Maintenance Insurance COSMETIC PROCEDURE HB ONLY . [place] [address] [facility] Advance Directives * Full Code (Latest Code Status on File) Date Activated Date Inactivated Comments 12/23/2024 8:19 AM 12/24/2024 6:11 PM Question Answer Comments Code Status Discussion: Unable to Assess Preferences, Provider to review later * Full Code Date Activated Date Inactivated Comments 12/23/2024 8:19 AM 12/23/2024 8:19 AM Question Answer Comments Code Status Discussion: Unable to Assess Preferences, Provider to review later * Full Code Date Activated Date Inactivated Comments 03/24/2023 11:33 PM 03/27/2023 2:15 PM Question Answer Comments Code Status Discussion: Reviewed Preferences Care Teams Fit Model Relationship Specialty Start Date End Date Chula Farley DO [address] [place] [address] PCP - General Family Practice 12/19/22 [place] [address] [place] [address] Consulting Physician Cardiovascular Disease 09/30/23 Scotty Ward MD [address] [place] [id number] Consulting Physician Surgery - General 07/30/24 Nancy Obrien RN [address] [place] [address] Propellant Assembler Registered Nurse 07/30/[address] [place] [address] Senior Manufacturing Supervisor 08/02/24
[2024-12-26 16:23] VITALS: BP 109/73; PULSE 107; RESP 20; TEMP 36.8; O2SAT 92; BMI 41.5
--- NOTE | 2024-12-26 16:34 | ED.GENADULT ---
HPI - General Adult General Time Seen by Provider: 16:34 Date Seen: 12/26/24 Chief complaint: Post Op Complication Stated complaint: R side pain/swelling post op Time Seen by Provider: 12/26/24 16:20 Source: patient and RN notes reviewed Mode of arrival: ambulatory Limitations: no limitations History of Present Illness HPI narrative: This 59-year-old female is coming in with concern of increased swelling on her right breast and into her right side, pain in both medial thighs. 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 She stopped her Xarelto 2 days prior to her surgery, restarted her medication yesterday. She has been using oxycodone for pain, last dose was 2:00 p.m.. She states her incisions do not hurt but her right lateral breast and chest wall are more painful. Her right thigh a medially hurts a bit more than her left, does not note any swelling. She feels somewhat short of breath, no internal chest pain. She has had no fevers. She is worried about recurrent blood clots. Related Data Home Medications ?Medication ?Instructions ?Recorded ?Confirmed gabapentin 300 mg capsule 300 mg PO TID 12/10/22 12/26/24 sertraline 50 mg tablet (Zoloft) 50 mg PO DAILY 12/10/22 12/26/24 albuterol 90 mcg/actuation aerosol mcg inhalation DAILY PRN 03/24/23 inhaler budesonide-formoterol HFA 160 1 inh inhalation BID 03/24/23 03/23/24 mcg-4.5 mcg/actuation aerosol inhaler (Symbicort) levocetirizine 5 mg tablet (24HR 5 mg PO DAILY 03/24/23 12/26/24 Allergy Relief) cholecalciferol (vitamin D3) .Route 09/17/23 ezetimibe 10 mg tablet (Zetia) 10 mg PO DAILY 09/17/23 12/26/24 magnesium glycinate 100 mg (as 100 mg PO DAILY 09/17/23 12/26/24 glycinate) tablet (Mag Glycinate) montelukast 10 mg tablet 10 mg PO DAILY 09/17/23 12/26/24 (Singulair) omeprazole 40 mg capsule,delayed 40 mg PO DAILY 09/17/23 12/26/24 release azelastine 137 mcg (0.1 %) nasal intranasal 10/08/23 spray buspirone 30 mg tablet 30 mg PO BID 10/08/23 03/23/24 fluticasone propionate 50 spray intranasal 10/08/23 mcg/actuation nasal spray,suspension rivaroxaban 20 mg tablet (Xarelto) 20 mg PO DAILY 03/19/24 12/26/24 aripiprazole 10 mg tablet (Abilify) 10 mg PO DAILY 03/22/24 12/26/24 aspirin 81 mg capsule 81 mg PO DAILY 03/22/24 03/23/24 celecoxib 200 mg capsule (Celebrex) 200 mg PO DAILY 03/22/24 03/23/24 hydroxyzine HCl 25 mg tablet 25 mg PO HS 03/22/24 03/23/24 melatonin 5 mg capsule 5 mg PO HS 03/22/24 03/22/24 phentermine 15 mg capsule 15 mg PO DAILY 03/22/24 03/22/24 Xarelto 12/26/24 albuterol sulfate 90 mcg/actuation inhalation 12/26/24 aerosol inhaler (Ventolin HFA) ondansetron 4 mg disintegrating 4 mg PO Q8H PRN 12/26/24 12/26/24 tablet oxycodone 5 mg tablet 5 mg PO QID PRN 12/26/24 12/26/24 Previous Rx's ?Medication ?Instructions ?Recorded levothyroxine 200 mcg tablet 200 mcg PO DAILY #30 tabs 12/10/22 (Synthroid) hydrocodone 5 mg-acetaminophen 325 1 tab PO Q6H PRN pain #15 tabs 03/23/24 mg tablet sennosides 8.6 mg capsule (senna) 8.6 mg PO DAILY PRN constipation 03/23/24 #90 caps Allergies Allergy/AdvReac Type Severity Reaction Status Date / Time cat dander Allergy Unknown Verified 10/08/23 12:51 dog dander Allergy Unknown Verified 10/08/23 12:51 latex Allergy Unknown Itching Verified 03/23/24 07:16 Penicillins AdvReac Intermediate Abdominal Verified 03/23/24 07:16 Pain environmental Allergy Mild Uncoded 03/24/23 11:30 Review of Systems Status of ROS: Reports: 6 or more systems reviewed and unremarkable except as noted in History and below PFSH PFSH Medical History MARCELA (obstructive sleep apnea) ?G47.33 - Obstructive sleep apnea (adult) (pediatric) (ICD-10) Controlled substance agreement signed ?Z79.899 - Other residential (current) drug therapy (ICD-10) PTSD (post-traumatic stress disorder) ?F43.10 - Post-traumatic stress disorder, unspecified (ICD-10) Generalized anxiety disorder with panic attacks ?F41.1 - Generalized anxiety disorder (ICD-10) ?F41.0 - Panic disorder [episodic paroxysmal anxiety] (ICD-10) Recurrent acute deep vein thrombosis (DVT) of both lower extremities ?I82.403 - Acute embolism and thrombosis of unspecified deep veins of lower extremity, bilateral (ICD-10) TIA (transient ischemic attack) ?G45.9 - Transient cerebral ischemic attack, unspecified (ICD-10) Chronic neuropathic pain ?M79.2 - Neuralgia and neuritis, unspecified (ICD-10) ?G89.29 - Other chronic pain (ICD-10) Bipolar 2 disorder ?F31.81 - Bipolar II disorder (ICD-10) GERD (gastroesophageal reflux disease) ?K21.9 - Gastro-esophageal reflux disease without esophagitis (ICD-10) Incidental lung nodule ?R91.1 - Solitary pulmonary nodule (ICD-10) Recurrent pulmonary embolism ?I26.99 - Other pulmonary embolism without acute cor pulmonale (ICD-10) Mild intermittent asthma in adult without complication ?J45.20 - Mild intermittent asthma, uncomplicated (ICD-10) Surgical History Status post CAMPBELL-BSO ?Z90.710 - Acquired absence of both cervix and uterus (ICD-10) ?Z90.722 - Acquired absence of ovaries, bilateral (ICD-10) ?Z90.79 - Acquired absence of other genital organ(s) (ICD-10) Social History Problems where you live: no known problems Highest level of school completed/degree received: Master's degree Smoking Status: Former smoker What tobacco products do you use: cigarettes Smoking quit date/years: >15 years ago Do you use any of these nicotine containing products: None Second hand tobacco smoke exposure: No How often do you have a drink containing alcohol: never How often do you have six or more drinks on one occasion: Never AUDIT-C Alcohol total score: 0 Non-prescribed substance use: denies use Caffeine: Yes (soda) service: No Exam Const: Vital Signs, click to edit/add: Vital Signs - 24 hr 12/26/24 16:23 12/26/24 16:55 12/26/24 17:00 Temperature 98.2 F Pulse Rate [Pulse Oximeter] 107 H 106 H Respiratory Rate 20 20 Blood Pressure [Ri ght Upper Arm] 109/73 123/83 Pulse Oximetry 92 92 91 Oxygen Delivery Me thod Room Air Room Air 12/26/24 18:00 Temperature Pulse Rate [Pulse Oximeter] 104 H Respiratory Rate 18 Blood Pressure [Ri ght Upper Arm] 105/79 Pulse Oximetry 91 Oxygen Delivery Me thod Room Air This 59-year-old female is alert, interactive, no apparent distress. She looks pale but is able to speak in complete sentences come speech is normal. Sclera clear, extraocular muscles intact, symmetrical facial function. Neck is supple, no adenopathy or masses. Lungs are clear, good air entry, no wheezing or crackles, no tachypnea, no accessory muscle use. CV slightly fast but regular, no murmur, normal S1-S2, no S3-S4. She has bruising on her right upper medial arm, bruising along the right lateral chest wall down into the lateral abdominal wall. It is intensely purplish in color consistent with bruising. She has no bruising into the pelvic area or into the medial thighs. She complains of just generalized pain along the medial thigh where the saphenous veins would go but there is no palpable cord, no overlying skin changes. She has no lower extremity edema. Documenting provider has reviewed patient's vital signs: yes Course Course ED Course: Reviewed with this patient that I think she actually has probable blood loss from bleeding after starting her Xarelto, she has ecchymosis in this right upper arm and her right chest and abdominal wall that is likely secondary to some dependent ecchymosis and bleeding from her surgical site. We will ultrasound her lower extremities given her history but wonder if her symptoms are more likely from anemia. If she is positive for ultrasound for DVTs are lower extremities, she understands that he may opt to do chest CT imaging PE protocol. At this time I think her chest wall symptoms and swelling are obviously from bruising and not from pulmonary emboli. Will do a type and screen in case she is anemic enough to require transfusion. Reevaluation(s) Time of Reevaluation #1: 17:50 Reevaluation #1: Have reviewed with patient that there are no DVTs on ultrasonography, the DVT that was there in September is not visualized now. She is anemic with a hemoglobin of 8.2. She is not meeting criteria for transfusion at this time. She has no chronic cardiac conditions or conditions that would require this. I would not have her stop her Xarelto at this point given her recurrent DVT and pulmonary emboli history. Rather would favor ongoing monitoring of her hemoglobin. I do think she is stable at this time to discharge and have her hemoglobin rechecked tomorrow. She understands if she has worsening overnight, to return to the ER and we will recheck here. Would recommend that her primary set her up for outpatient iron transfusion, this is not something we do out of the ER. Vital Signs Vital signs: Initial Vital Signs Temperature 98.2 F 12/26/24 16:23 Temperature Source Temporal Artery Scan 12/26/24 16:23 Pulse Rate 107 H 12/26/24 16:23 Respiratory Rate 20 12/26/24 16:23 Blood Pressure 109/73 12/26/24 16:23 Blood Pressure Mean 85 12/26/24 16:23 Blood Pressure Position Sitting 12/26/24 16:23 Pulse Oximetry 92 12/26/24 16:23 Oxygen Delivery Method Room Air 12/26/24 16:23 Vital Signs Temperature 98.2 F 12/26/24 16:23 Pulse Rate 107 H 12/26/24 16:23 Respiratory Rate 20 12/26/24 16:23 Blood Pressure 109/73 12/26/24 16:23 Pulse Oximetry 92 12/26/24 16:23 Oxygen Delivery Method Room Air 12/26/24 16:23 Temperature 98.2 F 12/26/24 16:23 Pulse Rate 104 H 12/26/24 18:00 Respiratory Rate 18 12/26/24 18:00 Blood Pressure 105/79 12/26/24 18:00 Pulse Oximetry 91 12/26/24 18:00 Oxygen Delivery Method Room Air 12/26/24 18:00 Medical Decision Making Lab Data Lab results reviewed: Yes I reviewed the patient's lab results Lab results narrative: No recorded recent hemoglobin in [facility]. Her hemoglobin here was 13.1 10/08/23. Labs: Lab Results 12/26/24 Range/Units 16:48 WBC 11.70 H (4.50-11.00) K/uL RBC 2.65 L (4.00-5.20) m/uL Hgb 8.2 L (12.0-16.0) gm/dL Hct 25.4 L (33.0-51.0) % MCV 96 (80-100) fL MCH 31 (26-34) pg MCHC 32 (32-36) gm/dL RDW Coeff of Kemal 12.9 (11.5-15.5) % Plt Count 306 (140-440) K/uL Neut % (Auto) 73.5 H (42.0-72.0) % Lymph % (Auto) 13.7 L (20-44) % [place] % (Auto) 9.5 (0.0-11.0) % Eos % (Auto) 2.1 (0.0-7.0) % Baso % (Auto) 0.9 (0.0-3.0) % Neut # (Auto) 8.60 H (1.7-7.0) K/uL Lymph # (Auto) 1.60 (0.90-2.90) K/uL [place] # (Auto) 1.10 H (0.00-0.90) K/UL Eos # (Auto) 0.20 (0.00-0.50) K/uL Baso # (Auto) 0.10 (0.00-0.30) K/uL Abs Immat Gran (auto) 0.00 (0.00-0.30) K/uL Imm/Tot Granulo (auto) 0.3 % Sodium 134 L (135-149) mmol/L Potassium 4.1 (3.6-5.1) mmol/L Chloride 100 (96-114) mmol/L Carbon Dioxide 28 (20-32) mmol/L Anion Gap 6 L (7-15) mEq/L BUN 19 (7-30) mg/dL Creatinine 1.0 (0.5-1.5) mg/dL Estimated Creat Clear 56.71 Estimated GFR 65 ml/min Glucose 151 H (60-115) mg/dL Calcium 8.4 (8.4-10.6) mg/dL C-Reactive Protein 22.4 H (0.5-1.0) mg/dL Blood Type AB Positive Antibody Screen POSITIVE Imaging Data Venous US: Attestation: I have reviewed the pertinent imaging results. Radiologist's impression: Patient: JENNIFER CHAVEZ Facility:?[facility] Patient ID:?[id number] Site Patient ID:?[id number]. Site :?1965 Study:?US-Extremity Bilateral LEV-12/26/2024 5:47:09 PM Ordering Physician:Alejandra Martinez Final Report: INDICATION: Bilateral thigh pain. History of DVT. TECHNIQUE: : Ultrasound venous duplex lower extremity bilateral. Compression venous exam was performed using lang-scale, color Doppler, and spectral Doppler imaging. COMPARISON: DVT ultrasound dated 17 September 2023. FINDINGS: Sonographic imaging demonstrates the common femoral, deep femoral, superficial femoral, popliteal, posterior tibial and greater saphenous veins to be fully compressible with normal color Doppler blood flow in both lower extremities. IMPRESSION: 1. No DVT identified in the bilateral lower extremities. Dictated by Yao Wells MD @ 12/26/2024 6:41:22 PM Dictated by: Yao Wells MD @ 12/26/2024 18:41:35 (Electronic Signature) Discharge Plan Discharge Clinical Impression: ABLA (acute blood loss anemia) Patient Disposition: Home, Self-Care Condition: Stable Instructions: Anemia (ED), Acute Posthemorrhagic Anemia (DC) Additional Instructions: Need to contact your clinic tomorrow, have your hemoglobin rechecked. Would talk to your primary care provider about getting iron transfusion prior authorized, do recommend that this be considered. Would not recommend stopping your Xarelto, do feel your risk of recurrent DVT/pulmonary emboli requires you to be on this. Ongoing monitoring the bruising is required, if you feel you are having increasing bruising, feeling increased heart rate, increasing shortness of breath, feel that the tissue bleeding is worsening, do recommend returning to the ER for recheck. Continue to follow your postoperative recommendations as per your surgeon. Prescriptions: No Action montelukast [Singulair] 10 mg tablet 10 mg PO DAILY cholecalciferol (vitamin D3) .Route omeprazole 40 mg capsule,delayed release(DR/EC) 40 mg PO DAILY Mag Glycinate 100 mg tablet 100 mg PO DAILY ezetimibe [Zetia] 10 mg tablet 10 mg PO DAILY Xarelto 20 mg tablet 20 mg PO DAILY Rx Instructions: must administer with evening meal aripiprazole [Abilify] 10 mg tablet 10 mg PO DAILY aspirin 81 mg capsule 81 mg PO DAILY celecoxib [Celebrex] 200 mg capsule 200 mg PO DAILY hydroxyzine HCl 25 mg tablet 25 mg PO HS melatonin 5 mg capsule 5 mg PO HS phentermine 15 mg capsule 15 mg PO DAILY Rx Instructions: must administer 2 hours after breakfast hydrocodone-acetaminophen 5-325 mg tablet 1 tab PO Q6H PRN (Reason: pain) Qty: 15 0RF senna 8.6 mg capsule 8.6 mg PO DAILY PRN (Reason: constipation) Qty: 90 0RF albuterol sulfate [Ventolin HFA] 90 mcg/actuation HFA aerosol inhaler inhalation ondansetron 4 mg tablet,disintegrating 4 mg PO Q8H PRN oxycodone 5 mg tablet 5 mg PO QID PRN Xarelto gabapentin 300 mg capsule 300 mg PO TID sertraline [Zoloft] 50 mg tablet 50 mg PO DAILY levothyroxine [Synthroid] 200 mcg tablet 200 mcg PO DAILY Qty: 30 2RF levocetirizine [24HR Allergy Relief] 5 mg tablet 5 mg PO DAILY albuterol 90 mcg/actuation aerosol inhalation DAILY PRN Patient Comments: asthma budesonide-formoterol [Symbicort] 160-4.5 mcg/actuation HFA aerosol inhaler 1 inh inhalation BID buspirone 30 mg tablet 30 mg PO BID azelastine 137 mcg (0.1 %) aerosol,spray INTRANASAL Patient Comments: [NO ORIGINAL SIG] fluticasone propionate 50 mcg/actuation spray,suspension INTRANASAL Follow Up/Referrals: Chula Farley DO [Primary Care Provider] - Stand Alone Forms: [facility] Info Instructions
--- NOTE | 2024-12-26 16:40 | CRLHL7_ITS ---
For Patients: As a result of the Cures Act, medical imaging exams and procedure reports are released immediately into your electronic medical record. You may view this report before your referring provider. If you have questions, please contact your health care provider. INDICATION: Bilateral thigh pain. History of DVT. TECHNIQUE: : Ultrasound venous duplex lower extremity bilateral. Compression venous exam was performed using lang-scale, color Doppler, and spectral Doppler imaging. COMPARISON: DVT ultrasound dated 17 September 2023. FINDINGS: Sonographic imaging demonstrates the common femoral, deep femoral, superficial femoral, popliteal, posterior tibial and greater saphenous veins to be fully compressible with normal color Doppler blood flow in both lower extremities. IMPRESSION: 1. No DVT identified in the bilateral lower extremities. Dictated by Yao Wells MD @ 12/26/2024 6:41:22 PM Dictated by: Yao Wells MD @ 12/26/2024 18:41:35 (Electronically Signed)
[2024-12-26 16:55] VITALS: O2SAT 92
--- OUTSIDE RECORDS SUMMARY | 2024-12-26 16:57 | XMS_ITS | Encounter Summary ---
Author Organization [facility] Address [address] [place] [address]. [place] [address] Care Team Providers Care Film Printer Name Role Phone Chula Farley DO Primary Care Provider [phone] Thanh Porter MD Unavailable [phone] Yvon Ruggiero PA-C Unavailable [phone] Encounter Details Date Type Department Care Team (Late st Contact Info) Description 09/16/2024 MyC Medical Advice [facility] [address] [facility] [address] [place] [address] Chloe Crane Social History Tobacco Use Types Packs/Day Years Used Date Smoking Tobacco: Never Assessed Adolescent Education Answer Date Record ed Getting School Help Needed Not on file 07/01 Comments No Sex and Gender Information Value Date Recorded Sex Assigned at Female 09/17/2024 2:37 PM MANAGER PERFORMANCE IMPROVEMENT Legal Sex Female 4:38 AM MANAGER PERFORMANCE IM[employer]OVEMENT Gender Identity Female 09/17/2024 2:37 PM MANAGER PERFORMANCE IMPROVEMENT Sexual Orientation Straight 09/17/2024 2: 37 PM MANAGER PERFORMANCE IMPROVEMENT documented as of this encounter Plan of Treatment Upcoming Encounters Date Type Department Care Team (Late st Contact Info) Description 09/19/2025 1:30 PM MANAGER PERFORMANCE IMPROVEMENT Virtual Visit [facility] [address] [place] [address] Yvon Ruggiero PA-C [address] [place], [place] [address] Thanh Porter MD [address] [facility] [address] [place], [place] [address] documented as of this encounter Visit Diagnoses Not on filedocumented in this encounter Care Teams Film Printer Relationship Specialty Start Date End Date Chula Farley [place] [address] PCP - General Family Practice 12/25/22 Thanh Porter MD [address] [id number] Assigned Cancer Care Provider 11/07/23 10/06/24 Yvon Ruggiero, PAJarochoC [address] [place] [address] [address] [place] [address] Assigned Cancer Care Provider 10/07/24 documented as of this encounter
--- OUTSIDE RECORDS SUMMARY | 2024-12-26 16:57 | XMS_ITS | Clinical Summary ---
Author Organization [place] Address [facility] [place] [address] Care Team Providers Care Paraffiner Name Role Phone Chula Farley Becca CRUZ Primary Care Provider [phone] Yvon Ruggiero PA-C Unavailable [phone] Allergies Active Allergy Reactions Criticality Noted Date Comments Blood-Group Specific Substance Other (See Comments) 03/25/2023 Patient has a [place] antibody. Blood products may be delayed. Draw [...] Active azelastine (ASTELIN) 0.1 % nasal spray Truxton 1 spray in nostril 4 Active busPIRone (BUSPAR) 15 MG tablet 3 Active Cholecalciferol (D 1000) 25 MCG (1000 UT) CAPS Take 1,000 Units by mouth 3 Active fluticasone (FLONASE) 50 MCG/ACT nasal spray Truxton 2 sprays in nostril 4 Active hydrOXYzine [...] by mouth daily 3 Active nystatin (MYCOSTATIN) 668906 UNIT/GM external cream Apply topically to affected [...] Type Department Care Team Description 10/18/2024 Refill [facility] [address] [place] [address] [address] [place] [address] Thanh Porter MD Medication Refill 10/15/2024 Refill [facility] [address] [place] [address] 105 [place] [address] Thanh Porter MD Medication Refill from Last 3 Months Social History Tobacco Use Types Packs/Day Years Used Date Smoking Tobacco: Never Assessed Adolescent Education Answer Date Record ed Getting School Help Needed Not on file 07/01 Comments No Sex and Gender Information Value Date Recorded Sex Assigned at Female 09/17/2024 2:37 PM ANALYTICAL TECHNICIAN Legal Sex Female 4:38 AM ANALYTICAL TECHNICIAN Gender Identity Female 09/17/2024 2:37 PM ANALYTICAL TECHNICIAN Sexual Orientation Straight 09/17/2024 2: 37 PM ANALYTICAL TECHNICIAN Last Filed Vital Signs Vital Sign Reading Time Taken Comments Blood Pressure 126/91 10/14/2023 9:12 AM ANALYTICAL TECHNICIAN Pulse 93 10/14/2023 9:12 AM ANALYTICAL TECHNICIAN Temperature 36.1 C (97 F) 10/14/2023 9:12 AM ANALYTICAL TECHNICIAN Respiratory Rate 20 05/21/2023 2:29 PM CDT Oxygen Saturation 96% 10/14/2023 9:12 AM ANALYTICAL TECHNICIAN Inhaled Oxygen Concentration - - Weight 111.7 kg (246 lb 3.2 oz) 10/14/2023 9:12 AM ANALYTICAL TECHNICIAN Height 170.2 cm (5' 7) 05/21/2023 2:29 PM CDT Body Mass Index 38.56 05/21/2023 2:29 PM CDT Plan of Treatment Upcoming Encounters Date Type Department Care Team (Late st Contact Info) Description 09/19/2025 1:30 PM ANALYTICAL TECHNICIAN Virtual Visit [facility] [address] [place] [address] 105 [place] [address] Yvon Ruggiero, PA-C [address] [place] [address] 105 [place], [place] [address] Thanh Porter MD [address] [facility] [address] [place], [place] [address] Health Maintenance Due Date Last Done Comments [...] Comprehensive metabolic panel (12/25/2022 3:01 PM CDT) [facility] Sodium 143 136 - 145 mmol/L 12/25/2022 3:47 PM CDT LABORATORY Potassium 4.0 3.4 - 5.3 mmol/L 12/25/2022 3:47 PM [facility] Chloride 110(H) 98 - 107 mmol/L 12/25/2022 3:47 PM [facility] Carbon Dioxide (CO2) 25 22 - 29 mmol/L 12/25/2022 3:47 PM [facility] Anion Gap 8 7 - 15 mmol/L 12/25/2022 3:47 PM [facility] Urea Nitrogen 10.6 6.0 - 20.0 mg/dL 12/25/2022 3:47 PM [facility] Creatinine 1.24(H) 0.51 - 0.95 mg/dL 12/25/2022 3:47 PM [facility] Calcium 8.4(L) 8.6 - 10.0 mg/dL 12/25/2022 3:47 PM [facility] Glucose 100(H) 70 - 99 mg/dL 12/25/2022 3:47 PM [facility] Alkaline Phosphatase 107(H) 35 - 104 U/L 12/25/2022 3:47 PM CDT LABORATORY AST 22 10 - 35 U/L 12/25/2022 3:47 PM [facility] ALT 24 10 - 35 U/L 12/25/2022 3:47 PM [facility] Protein Total 6.2(L) 6.4 - 8.3 g/dL 12/25/2022 3:47 PM [facility] Albumin 3.9 3.5 - 5.2 g/dL 12/25/2022 3:47 PM [facility] Bilirubin Total 0.3 <=1.2 mg/dL 12/25/2022 3:47 PM [facility] GFR Estimate 51(L) >60 mL/min/1.7 3m2 12/25/2022 3:47 PM [facility] Comment:eGFR calculated usin 2020 CKD-EPI equation. Blood STRUCTURE OF LEFT UPPER LIMB / Unknown Venipuncture / Unknown 12/25/2022 3:01 PM CDT 12/25/2022 3:06 PM CDT Jason Ross PA-C LAB - BLOOD ORDERABLE S Final Result LABORATORY [facility] [address] [place] 1st floor, Room [address] [place] [address], [place] [phone] from Last 3 Months or Most Recently Relevant to Health Maintenance Insurance [employer] [place] Care Teams Paraffiner Relationship Specialty Start Date End Date Chula Far[place] [address] PCP - General Family Practice 12/25/22 Yvon Ruggiero PA-C [facility] [address] [address] Assigned Cancer Care Provider 10/07/24
--- OUTSIDE RECORDS SUMMARY | 2024-12-26 16:57 | XMS_ITS | Clinical Summary ---
Author Organization [facility] Address [address] [place] [address] Care Team Providers Care Cnc Operator Programmer Name Role Phone Chula Farley DO Primary Care Provider Suamya Richmond MD Unavailable [phone] Scotty Ward MD Unavailable Nancy Obrien RN Unavailable [phone] Unavailable [phone] Allergies Active Allergy Reactions Criticality Noted Date Comments Blood-Group Specific Substance Other - Describe In Comment Field 03/25/2023 Patient has a [place] antibody. Blood products may be delayed. Draw patient 24 hours prior to transfusion. For [facility] testing, draw one red top and two purple top tubes for all Type and Screen orders. Latex Hives 12/16/2022 Unlisted Allergen (Include Detail In Comments) Hives,Shortness Of Breath,Erythema 04/03/2023 Allergies to Cats, Dogs, Cattle, Horses, Pigs, dust, mold Penicillins Shortness Of Breath 04/03/2023 Tree And Shrub Pollen Hives,Shortness Of Breath 04/03/2023 [place] Pollen Hives,Shortness Of Breath 04/03/2023 Medications sulfacetamide-sul [...] home use at pressure: 13 cmw with [id number], Choice of mask (A7030 or A7034) w/full [...] sprayIndications: Environmental allergies,Post-na lucía drip Inhale 1 [place] into affected nostril(s) two times daily. 30 [...] 04/04/2023 Overview (04/04/2023): Signed 04/03/2023 Beronica Khan FACTORY HELPER-NFLD Psychiatry History of pulmonary embolism 03/24/2023 Recurrent [...] Description 12/23/2024 10:42 AM CDT Anesthesia Event [facility] [address] [facility] [place] [address] Myrtle Jones MD 12/23/2024 9:40 AM CDT - 12/23/2024 1:30 PM CDT Surgery [address] [place] [address] Wai Lowe MD Bilateral Breast Reduction 12/23/2024 8:12 AM CDT - 12/24/2024 4:04 PM CDT Hospital Encounter [place] [address] [facility] [place] [address] Wai Lowe MD Macromastia (Primary Dx) Discharge Disposition: Home Self Care 12/23/2024 Travel 12/16/2024 Travel 12/14/[address] [address] Chula Farley Becca, DO Refill Request (Levocetirizine) 12/13/[address] [address] Chula Farley, DO Prior Authorization (tirzepatide (weight loss) (Zepbound) 2.5 mg/0.5 mL pen (APPROVED 12/14/2024-)) 12/10/[address] [address] Chula Farley Becca, DO Refill Request (omeprazole (PRILOSEC) 40 mg) 12/07/[address] [address] Chula Farley Becca, DO Refill Request (Omeprazole) 12/06/2024 9:30 AM CDT Ancillary Procedure [address] [address] 12/06/2024 8:30 AM CDT Office Visit [address] [address] Chula Farley Becca, DO Preoperative Exam (12/23/24 - breast reduction - Dr. Lowe - [facility]) 12/05/2024 Travel 11/12/2024 Telephone [facility] [address] [facility] [place] [address] Joseline Handley NP Medication Management (ARIPiprazole (ABILIFY)) 10/28/2024 7:00 AM MIS MANAGER Telemedicine [facility] [address] [place] [address] Joseline Handley NP Telehealth; Follow Up 10/28/2024 Telephone [facility] Cancer [facility] [address] [place] [address] Cassia Zafar Cancer Genetics 10/20/2024 Telephone [facility] [address] [address] Wai Lowe MD 10/19/2024 Telephone [facility] [address] [address] Wai Lowe MD Updates 10/01/2024 Telephone [facility] [address] [address] Wai Lowe MD Follow Up 09/30/2024 Telephone [facility] [address] [address] Wai Lowe MD Prior Authorization (SURGERY DENIED) 09/29/2024 Refill [facility] [address] [place] [address] Chula Farley DO Refill Request (Hydroxyzine Hcl) [...] PM CDT Legal Sex Female 6:23 AM MIS MANAGER Gender Identity Female 01/23/2023 5:38 PM CDT [...] Description 01/04/2025 8:45 AM CDT Office Visit [facility] [address] [facility] [address] [place] [address] Wai Lowe MD 16[address] [facility] 100 [place], [place] [address] 01/27/2025 7:00 AM CDT Telemedicine [facility] 1400 [place] [address] Ender Joseline Mary, FACTORY HELPER [address] [place] [address] 01/31/2025 7:40 AM CDT Office Visit [facility] [address] [place] [address] Chula Farley, DO [address] [place] [address] Health Maintenance Due Date Last Done Comments [...] REFLEX MEASURED LDL Routine 08/04/2024 3:27 PM MIS MANAGER Elevated serum creatinine XR MAMMO JIMMIE BILAT [...] - 100 mg/dL 12/23/2024 8:[address] [facility] Blood BLOOD SPECIMEN / Unknown 12/23/2024 8:33 AM CDT 12/23/2024 8:38 AM CDT Wai Lowe MD CHEMISTRY Final R esult [address] [address] * SCAN-CARDIAC STRIP (12/23/2024 12:00 AM CDT) [...] 9:35 AM CDT) NANETTE TITER 1:40(H) titer [facility] Comment: A low level NANETTE titer may be present in pre-clinical autoimmune diseases and normal individuals. Reference Range <1:40 Negative 1:40-1:80 Low Antibody Level >1:80 Elevated Antibody Level NANETTE PATTERN Nuclear, Homogeneo us(A) [facility] Comment: Homogeneous pattern is associated with systemic lupus erythematosus (SLE), drug-induced lupus and juvenile idiopathic arthritis. AC-1: Homogeneous International Consensus on NANETTE Patterns (https://doi.org/10.1515/tnai-2710-9844) NANETTE TITER 1:40(H) titer [facility] Comment: A low level NANETTE titer may be present in pre-clinical autoimmune diseases and normal individuals. Reference Range <1:40 Negative 1:40-1:80 Low Antibody Level >1:80 Elevated Antibody Level NANETTE PATTERN Cytoplasm ic(A) [facility] Comment: The presence of cytoplasmic fluorescence was noted on the HEp-2 slide. Other reactivities (e.g., anti- mitochondrial antibodies or anti-smooth muscle antibodies) may be responsible for this fluorescence. The clinical significance of this finding is uncertain. Clinical correlation is recommended. AC-15 to AC-23: Cytoplasmic International Consensus on NANETTE Patterns (https://doi.org/10.1515/evtn-6297-8527) 12/06/2024 9:35 AM CDT 12/06/2024 9:36 AM CDT us Chula Farley DO LABORATORY Final Result SOAK (Smart Operational Agricultural toolKit) [facility] [address] [place] [address], [place] [phone] [facility] [address] [place] [address] * SEDIMENTATION RATE (12/06/2024 9:35 AM CDT) SED RATE BY MODIFIED VERAERGREN 17 < OR = 30 mm/h [facility] Blood BLOOD SPECIMEN / Unknown 12/06/2024 9:35 AM CDT 12/06/2024 9:36 AM CDT Chula Farley HEMATOLOGY Final Result Performing Organization Address [facility] Co de Phone Number SOAK (Smart Operational Agricultural toolKit) [facility] [address] [facility] [place] [place] [address], [facility] [address] [facility] [place] [address] * (ABNORMAL) ANTINUCLEAR ANTIBODY BY IFA (12/06/2024 9:35 AM CDT) NANETTE SCREEN, IFA POSITIVE( A) NEGATIVE [facility] Comment: NANETTE IFA is a first line screen for detecting the presence of up to approximately 150 autoantibodies in various autoimmune diseases. A positive NANETTE IFA result is suggestive of autoimmune disease and reflexes to titer and pattern. Further laboratory testing may be considered if clinically indicated. For additional information, please refer to http://education.Shoka.me/faq/IQV303 (This link is being provided for informational/ educational purposes only.) Blood BLOOD SPECIMEN / Unknown 12/06/2024 9:35 AM CDT 12/06/2024 9:36 AM CDT Chula Farley DO CHEMISTRY Final Result Performing Organization Address City/[facility]/ZIP Co de Phone Number SOAK (Smart Operational Agricultural toolKit) [facility] [address] [facility] [place] [address], [facility] [address] [place] [address] * RA QUANTITATIVE (12/06/2024 9:35 AM CDT) RHEUMATOID FACTOR <10 <14 IU/mL [facility] Blood BLOOD SPECIMEN / Unknown 12/06/2024 9:35 AM CDT 12/06/2024 9:36 AM CDT Chula Farley DO SEND OUTS Final Result SOAK (Smart Operational Agricultural toolKit) [facility] [address] [place] [address], [facility] [address] [place] [address] * (ABNORMAL) LIPID PANEL W REFLEX MEASURED LDL (08/04/2024 3:27 PM MIS MANAGER) CHOLESTEROL, TOTAL 266(H) <200 mg/dL [facility] HDL CHOLESTEROL 49(L) > OR = 50 mg/dL [facility] [place] TRIGLYCERIDES 279(H) <150 mg/dL [facility] Comment: If a non-fasting specimen was collected, consider repeat triglyceride testing on a fasting specimen if clinically indicated. Sangita et al. J. of Clin. Lipidol. 2015;9:129-169. LDL-CHOLESTEROL 171(H) mg/dL (calc) [facility] Comment: Reference range: <100 Desirable range <100 mg/dL for primary prevention; <70 mg/dL for patients with CHD or diabetic patients with > or = 2 CHD risk factors. LDL-C is now calculated using the Peterson-Merino calculation, which is a validated novel method providing better accuracy than the Friedewald equation in the estimation of LDL-C. Peterson CORNEJO et al. GAYE. 2013;310(19): 8608-6604 (http://education.Numari.Alise Devices/faq/DGP707) CHOL/HDLC RATIO 5.4(H) <5.0 (calc) [facility] NON HDL CHOLESTEROL 217(H) <130 mg/dL (calc) [facility] [place] Comment: For patients with diabetes plus 1 major ASCVD risk factor, treating to a non-HDL-C goal of <100 mg/dL (LDL-C of <70 mg/dL) is considered a therapeutic option. Blood BLOOD SPECIMEN / Unknown 08/04/2024 3:27 PM MIS MANAGER 08/04/2024 3:28 PM MIS MANAGER us Chula Becca Shaqra DO CHEMISTRY Final Result SOAK (Smart Operational Agricultural toolKit) [facility] [address] [place] [address], [place] [phone] [facility] [address] [place] [address] * XR MAMMO JIMMIE BILAT SCREEN (02/18/2024 [...] care provider. XR MAMMO JIMMIE BILAT SCREEN [[id number]] CLINICAL HISTORY: This is an asymptomatic 58 [...] Procedure: Colonoscopy Proceduralist: Chris Yeager MD - [facility] Indications/Pre-Op Diagnosis: Screening [facility] malignant [facility]oplasm [facility] Medications: MAC Procedure Description: The patient had risks, benefits and alternatives explained to andgave informed consent. The patient had a stable cardiopulmonary status and judged an adequate candidate for sedation. The endoscope [id number] was passed through the anus andadvanced to [...] Reactive Non Reactive 01/04/2023 7:12 AM CDT [facility] ([facility]) Blood BLOOD SPECIMEN / Unknown Venipuncture / Unknown 01/01/2023 2:47 PM CDT 01/01/2023 2:49 PM CDT Narrative [facility] ([facility]) - 01/04/2023 7:12 AM CDT Performed at: [address] [place] [id number] Reel Worker: Josef Humphrey MD, Phone: [phone] Chula Becca Martine DO LABORATORY Final Result Performing Organization Address [facility] Co de Phone Number [facility] ([facility]) [address] [place] [address], * LC HIV-1/O/2, 4TH GENERATION (01/01/2023 2:47 PM CDT) Pathologist [facility] HIV Scr 4th Gen Non Reactive Non Reactive 01/03/2023 1:09 PM CDT [facility] ([facility]) Comment: HIV Negative HIV-1/HIV-2 antibodies and HIV-1 p24 antigen were NOT detected. There is no laboratory evidence of HIV infection. Blood BLOOD SPECIMEN / Unknown Venipuncture / Unknown 01/01/2023 2:47 PM CDT 01/01/2023 2:49 PM CDT Narrative [facility] ([facility]) - 01/03/2023 1:09 PM CDT Performed at: [address] [place] [id number] Reel Worker: Josef Humphrey MD, Phone: [phone] Chula Becca Aaronqra DO LABORATORY Final Result [facility] ([facility]) [address] [place] [address], from Last 3 Months or Most Recently Relevant to Health Maintenance Insurance COSMETIC PROCEDURE HB ONLY . ATTN: [place] [address] [facility] Advance Directives * Full Code (Latest Code [...] Code Status Discussion: Reviewed Preferences Care Teams Cnc Operator Programmer Relationship Specialty Start Date End Date Chula Farley DO [address] [place] [address] PCP - General Family Practice 12/19/22 [place] [address] [place] [address] Consulting Physician Cardiovascular Disease 09/30/23 Scotty Ward MD [address] [place] [address] Consulting Physician Surgery - General 07/30/24 Nancy Obrien RN [address] [place] [address] Medical Office Worker Registered Nurse 07/30/[address] [place] [address] Administration Manager 08/02/24
--- OUTSIDE RECORDS SUMMARY | 2024-12-26 16:57 | XMS_ITS | Encounter Summary ---
Author Organization [place] Address [address] [place] [address]. [place] [address] Care Team Providers Care Technical Sales Associate Name Role Phone Chula Farley DO Primary Care Provider [phone] Yvon Ruggiero PA-C Unavailable [phone] Reason for Visit * Reason Comments Medication Refill Encounter Details Date Type Department Care Team (Late st Contact Info) Description 10/18/2024 Refill [facility] [address] [place] [address] Thanh Porter MD [address] [facility] [address] [place] [address] Medication Refill Social History Tobacco Use Types Packs/Day Years Used Date Smoking Tobacco: Never Assessed Adolescent Education Answer Date Record ed Getting School Help Needed Not on file 07/01 Comments No Sex and Gender Information Value Date Recorded Sex Assigned at Female 09/17/2024 2:37 PM PEWTER FABRICATOR Legal Sex Female 4:38 AM PEWTER FABRICATOR Gender Identity Female 09/17/2024 2:37 PM PEWTER FABRICATOR Sexual Orientation Straight 09/17/2024 2: 37 PM PEWTER FABRICATOR documented as of this encounter Miscellaneous Notes * Telephone Encounter - Francia Uribe RN - 10/18/2024 1:32 PM PEWTER FABRICATOR Duplicate request. Okay to refuse per pharmacy. They have active script on file. Francia Uribe RN, BSN, PCCN Nurse Clinician M [facility] [address], [place] [address] Office, direct: [phone] Main office number: [phone] Pronouns: She, her, hers ER FABRICATOR documented in this encounter Plan of Treatment Upcoming Encounters Date Type Department Care Team (Late st Contact Info) Description 09/19/2025 1:30 PM PEWTER FABRICATOR Virtual Visit M [facility] [address] [place] [address] Yvon Ruggiero, MIKHAIL [address] [place] [address] Thanh Porter MD [address] [facility] [address] [place], [place] [address] documented as of this encounter Visit Diagnoses Diagnosis Recurrent deep vein thrombosis (DVT) (H) documented in this encounter Care Teams Technical Sales Associate Relationship Specialty Start Date End Date Chula Farley DO [address] [place] [address] PCP - General Family Practice 12/25/22 Yvon Ruggiero PA-C [address] [place] [address] Assigned Cancer Care Provider 10/07/24 documented as of this encounter
[2024-12-26 16:58] LABS: Basophils Percent Auto 0.9 % (0.0-3.0); Eosinophils Percent Auto 2.1 % (0.0-7.0); Hematocrit 25.4 % (33.0-51.0); Hemoglobin* 8.2 gm/dL (12.0-16.0); Immature Granulocytes Pct Auto 0.3 %; Lymphocytes Percent Auto 13.7 % (20-44); Mean Corpuscular HGB Conc 32 gm/dL (32-36); Mean Corpuscular Hemoglobin 31 pg (26-34); Mean Corpuscular Volume 96 fL (80-100); Monocytes Percent Auto 9.5 % (0.0-11.0); Neutrophils Percent Auto 73.5 % (42.0-72.0); Platelet Count* 306 K/uL (140-440); RDW Coefficient of Variation % 12.9 % (11.5-15.5); Red Blood Count 2.65 m/uL (4.00-5.20)
[2024-12-26 16:59] LABS: Slide Review Reflex No
[2024-12-26 17:00] VITALS: BP 123/83; PULSE 106; RESP 20; O2SAT 91
[2024-12-26 17:15] LABS: Chloride* 100 mmol/L (96-114); Potassium* 4.1 mmol/L (3.6-5.1); Sodium* 134 mmol/L (135-149)
[2024-12-26 17:19] LABS: Anion Gap 6 mEq/L (7-15); Blood Urea Nitrogen* 19 mg/dL (7-30); Calcium* 8.4 mg/dL (8.4-10.6); Carbon Dioxide* 28 mmol/L (20-32); Est. Creatinine Clearance* 56.71; Estimated Glomerular Filt Rate 65 ml/min; Glucose* 151 mg/dL (60-115)
[2024-12-26 17:40] LABS: C Reactive Protein* 22.4 mg/dL (0.5-1.0)
[2024-12-26 18:00] VITALS: BP 105/79; PULSE 104; RESP 18; O2SAT 91
== END 2024-12-26 18:14 | disposition home or self-care (01) ==
PROVIDERS: Emergency Provider Family Medicine; PCP Family Medicine
DX: D62 Acute posthemorrhagic anemia (principal)
CPT/HCPCS: 36415; 80048; 85025; 86140; 86850; 86870; 86880; 86885; 86900; 86901; 86905; 86906; 93970; 94761; 99284

== ENCOUNTER 2024-12-31 20:37 | Emergency (ER) | payer MEDICAID, SELFPAY ==
--- NOTE | 2024-12-31 | CRLHL7_ITS ---
For Patients: As a result of the Century Cures Act, medical imaging exams and procedure reports are released immediately into your electronic medical record. You may view this report before your referring provider. If you have questions, please contact your health care provider. INDICATION: Left arm cellulititis, on blood thinners yesterday. TECHNIQUE: Ultrasound venous duplex left upper extremity. Real-time lang-scale (B mode 2D), color Doppler, and spectral Doppler imaging were performed with compression and augmentation. COMPARISON: 12/23/2024 FINDINGS: Deep vein: The visualized left internal jugular, subclavian, brachial, and axillary veins are fully compressible, demonstrate normal color flow, and normal response to mechanical augmentation. The Duplex Doppler waveforms are normal in appearance. Superficial vein: The visualized cephalic and basilic veins are unremarkable. Soft tissue: No masses or cysts are identified. No adenopathy is seen. IMPRESSION: 1. No sonographic evidence of acute deep venous thrombosis seen. Dictated by: Ambrosio Farmer MD @ 12/31/2024 23:14:04 (Electronically Signed)
--- OUTSIDE RECORDS SUMMARY | 2024-12-31 20:40 | XMS_ITS | Encounter Summary ---
Author Organization [facility] Address [address] [place] [address]. [place] [address] Care Team Providers Care Vocational Case Manager Name Role Phone Chula Farley DO Primary Care Provider Thanh Porter MD Unavailable [phone] Yvon Ruggiero PA-C Unavailable [phone] Encounter Details Date Type Department Care Team (Late st Contact Info) Description 09/16/2024 MyC Medical Advice [facility] [address] [facility] [place] [address] Chloe Crane Social History Tobacco Use Types Packs/Day Years Used Date Smoking Tobacco: Never Assessed Adolescent Education Answer Date Record ed Getting School Help Needed Not on file 07/01 Comments No Sex and Gender Information Value Date Recorded Sex Assigned at Female 09/17/2024 2:37 PM PUBLIC SAFETY TELECOMMUNICATOR Legal Sex Female 4:38 AM PUBLIC SAFETY TELECOMMUNICATOR Gender Identity Female 09/17/2024 2:37 PM PUBLIC SAFETY TELECOMMUNICATOR Sexual Orientation Straight 09/17/2024 2: 37 PM PUBLIC SAFETY TELECOMMUNICATOR documented as of this encounter Plan of Treatment Upcoming Encounters Date Type Department Care Team (Late st Contact Info) Description 09/19/2025 1:30 PM PUBLIC SAFETY TELECOMMUNICATOR Virtual Visit [facility] [address] [place] [address] Yvon Ruggiero PA-C [address] [place], [place] [id number] Thanh Porter MD [address] [facility] [address] [place], [place] [address] documented as of this encounter Visit Diagnoses Not on filedocumented in this encounter Care Teams Vocational Case Manager Relationship Specialty Start Date End Date Chula Farley [place] [address] PCP - General Family Practice 12/25/22 Thanh Porter MD [address] [id number] Assigned Cancer Care Provider 11/07/23 10/06/24 Yvon Ruggiero, PAJarochoC [address] [place] [address] [address] [place] [address] Assigned Cancer Care Provider 10/07/24 documented as of this encounter
--- OUTSIDE RECORDS SUMMARY | 2024-12-31 20:40 | XMS_ITS | Encounter Summary ---
Author Organization [facility] Address [address] [place] [address]. [place] [address] Care Team Providers Care Business Advisor Name Role Phone Chula Farley DO Primary Care Provider Yvon Ruggiero PA-C Unavailable [phone] Reason for Visit * Reason Comments Medication Refill Encounter Details Date Type Department Care Team (Late st Contact Info) Description 10/18/2024 Refill [facility] [address] [place] [address] Thanh Porter MD [address] [facility] [address] [place] [address] Medication Refill Social History Tobacco Use Types Packs/Day Years Used Date Smoking Tobacco: Never Assessed Adolescent Education Answer Date Record ed Getting School Help Needed Not on file 07/01 Comments No Sex and Gender Information Value Date Recorded Sex Assigned at Female 09/17/2024 2:37 PM MACHINE STAMPER Legal Sex Female 4:38 AM MACHINE STAMPER Gender Identity Female 09/17/2024 2:37 PM MACHINE STAMPER Sexual Orientation Straight 09/17/2024 2: 37 PM MACHINE STAMPER documented as of this encounter Miscellaneous Notes * Telephone Encounter - Francia Uribe RN - 10/18/2024 1:32 PM MACHINE STAMPER Duplicate request. Okay to refuse per pharmacy. They have active script on file. Francia Uribe RN, BSN, PCCN Nurse Clinician [facility], [place] [address] Office, direct: [phone] Main office number: [phone] Pronouns: She, her, hers INE STAMPER documented in this encounter Plan of Treatment Upcoming Encounters Date Type Department Care Team (Late st Contact Info) Description 09/19/2025 1:30 PM MACHINE STAMPER Virtual Visit [facility] [address] [place] [phone] Yvon Ruggiero, MIKHAIL [address] [place] [id number] Thanh Porter MD [address] [facility] [address] [place], [place] [address] documented as of this encounter Visit Diagnoses Diagnosis Recurrent deep vein thrombosis (DVT) (H) documented in this encounter Care Teams Business Advisor Relationship Specialty Start Date End Date Chula Farley DO [address] [place] [address] PCP - General Family Practice 12/25/22 Yvon Ruggiero PA-C [address] [place] [id number] Assigned Cancer Care Provider 10/07/24 documented as of this encounter
--- OUTSIDE RECORDS SUMMARY | 2024-12-31 20:40 | XMS_ITS | Clinical Summary ---
Author Organization [facility] Address [address] [place] [address] Care Team Providers Care Engineering Technical Writer Name Role Phone hCula Farley DO Primary Care Provider Saumya Richmond MD Unavailable [phone] Scotty Ward MD Unavailable Nancy Obrien RN Unavailable [phone] Unavailable Allergies Active Allergy Reactions Criticality Noted Date Comments Blood-Group Specific Substance Other - Describe In Comment Field 03/25/2023 Patient has a [place] antibody. Blood products may be delayed. Draw patient 24 hours prior to transfusion. For [employer] testing, draw one red top and two purple top tubes for all Type and Screen orders. Latex Hives 12/16/2022 Unlisted Allergen (Include Detail In Comments) Hives,Shortness Of Breath,Erythema 04/03/2023 Allergies to Cats, Dogs, Cattle, Horses, Pigs, dust, mold Penicillins Shortness Of Breath 04/03/2023 [place] Shrub Pollen Hives,Shortness Of Breath 04/03/2023 [place] Pollen Hives,Shortness Of Breath 04/03/2023 Medications sulfacetamide-sul fur , 10 - 5%, (SULFACET-R) 10-5 % (w/w) clsr WASH FACE 1 TIME PER DAY.LATHER & LET SIT 2 TO 3 MINTUES BEFORE RINSING. 023 Active Xarelto 20 mg tablet Take 20 mg by mouth WITH BREAKFAST. 024 Active levothyroxine (SYNTHROID) 200 mcg tabletIndications [...] home use at pressure: 13 cmw with [id number], Choice of mask (A7030 or A7034) w/full [...] EVERY DAY 90 Tablet 2 025 Active Additional Information Patient taking differently:5 mg OralDAILY EVENING, Informant: Patient's Recall, Reported on 12/27/2024 ondansetron 4 mg disintegrating tabletIndications :Macromastia Place [...] if needed for Pain. 30 Tablet 12/24/19 25 9:21 AM CDT Active melatonin 5 mg capsule Take 1 Capsule (5 mg) by mouth. 0 023 2024 Discontinued(* Patient states no longer taking) omeprazole (PRILOSEC) 40 mg Delayed-Release capsuleIndication s:Chronic GERD Take one tablet (40mg) twice daily 180 Capsule 3 2024 Discontinued aspirin (ECOTRIN) 81 mg enteric coated tablet Take 1 Tablet (81 mg) by mouth once daily. 024 2024 Discontinued(* Patient states no longer taking) celecoxib (CELEBREX) 200 mg capsule Take 200 mg by mouth 2 times daily if needed. 2024 Discontinued(* IP Discontinued) levocetirizine (XYZAL) 5 mg tab tabletIndications :Allergy to environmental factors TAKE ONE TABLET BY MOUTH EVERY DAY 90 Tablet 2 2024 Discontinued azelastine 137 mcg/actuation (ASTELIN) nasal sprayIndications: Environmental allergies,Post-na lucía drip Inhale 1 Reagan into affected nostril(s) two times daily. 30 [...] 025 2024 Discontinued(R eorder (E-cancel not sent)) tirzepatide (weight loss) (Zepbound) 2.5 mg/0.5 mL penIndications:Mo rbid exogenous obesity (HC) Inject 2.5 mg subcutaneous once weekly for 28 days. 2 mL 025 2024 Discontinued(* IP Discontinued) tirzepatide (weight loss) (Zepbound) 5 mg/0.5 mL penIndications:Mo rbid exogenous obesity (HC) Inject 5 mg subcutaneous once weekly for 28 days. 2 mL 025 2024 Discontinued(* IP Discontinued) tirzepatide (weight loss) (Zepbound) 7.5 mg/0.5 mL penIndications:Mo rbid exogenous obesity (HC) Inject 7.5 mg subcutaneous once weekly for 28 days. 2 mL 025 2024 Discontinued(* IP Discontinued) tirzepatide (weight loss) (Zepbound) 10 mg/0.5 mL penIndications:Mo rbid exogenous obesity (HC) Inject 10 mg subcutaneous once weekly for 28 days. 2 mL 025 2024 Discontinued(* IP Discontinued) tirzepatide (weight loss) (Zepbound) 12.5 mg/0.5 mL penIndications:Mo rbid exogenous obesity (HC) Inject 12.5 mg subcutaneous once weekly for 28 days. 2 mL 025 2024 Discontinued(* IP Discontinued) tirzepatide (weight loss) (Zepbound) 15 mg/0.5 mL penIndications:Mo rbid exogenous obesity (HC) Inject 15 mg subcutaneous once weekly. 6 mL 3 025 2024 Discontinued(* IP Discontinued) Active Problems Problem Noted Date Diagnosed Date Hematoma of right breast 12/28/2024 Anxiety and depression 12/28/2024 Hypothyroidism 12/28/2024 Macromastia 12/23/2024 Recurrent pulmonary emboli 06/06/2023 MARCELA 03/17/2023 AHI- 38 04/08/2023 Generalized anxiety disorder with panic attacks 04/04/2023 PTSD (post-traumatic stress disorder) 04/04/2023 Controlled substance agreement signed 04/04/2023 Overview (04/04/2023): Signed 04/03/2023 Beronica Khan AUTO TECH-NFLD Psychiatry History of pulmonary embolism 03/24/2023 Recurrent [...] Encounters Date Type Department Care Team Description 12/31/2024 Nurse Triage [facility] [address] [facility] [address] [place] [address] Wai Lowe MD Derm Problem 12/27/2024 9:02 PM CDT Anesthesia Event [facility] [address] [facility] [place] [address] Roland Coronado MD 12/27/2024 8:36 PM CDT - 12/27/2024 10:38 PM CDT Surgery [address] [place] [address] Wai Lowe MD WASHOUT OF RIGHT BREAST HEMATOMA 12/27/2024 2:10 PM CDT Office Visit [facility] [address] [place] [address] Chula Farley DO ER Follow up (Hemorrhage - discuss iron infusion, recheck hemoglobin) 12/27/2024 12:26 PM CDT - 12/31/2024 6:53 PM CDT Hospital Encounter [address] [place] [address] Bryon Menendez MD Joshi, Neel Shailendra, MD Breast hematoma (Primary Dx); Anemia, unspecified type; Macromastia; Hematoma of right breast Discharge Disposition: Home Self Care 12/27/2024 Travel 12/27/2024 Telephone [facility] [address] [address] [place] [address] Wai Lowe MD Follow Up 12/27/2024 Patient Outreach [facility] [address] [place] [address] Tanesha Caal RN Primary RN Care Management; Hospital F/U (LACE 20) 12/23/2024 10:42 AM CDT [address]est[address] [place] [address] Myrtle Jones MD 12/23/2024 9:40 AM CDT - 12/23/2024 1:30 PM CDT Surgery [address] [address] [place] [address] Wai Lowe MD Bilateral Breast Reduction 12/23/2024 8:12 AM CDT - 12/24/2024 4:04 PM CDT [address] [place] [address] Wai Lowe MD Macromastia (Primary Dx) Discharge Disposition: Home Self Care 12/23/2024 Travel 12/16/2024 Travel 12/14/[address] [address] Chula Farley Becca, DO Refill Request (Levocetirizine) 12/13/[address] [address] Chula Farley, DO Prior Authorization (tirzepatide (weight loss) (Zepbound) 2.5 mg/0.5 mL pen (APPROVED 12/14/2024-)) 12/10/[address] [address] Chula Farley Ebcca, DO Refill Request (omeprazole (PRILOSEC) 40 mg) 12/07/[address] [address] Sir Farleyi Becca, DO Refill Request (Omeprazole) 12/06/2024 9:30 AM CDT Ancillary Procedure [address] [address] 12/06/2024 8:30 AM CDT Office Visit [address] [address] Chula Farley, DO Preoperative Exam (12/23/24 - breast reduction - Dr. 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 4 12/28/2024 Alcohol Use Answer Date Recorded How often [...] before you are able to buy more? 2 12/28/2024 Transportation Needs Answer Date Record ed Does lack of transportation keep you from medica l appointments? 2 12/28/2024 Does lack of transportation keep you from work, meetings or getting things that you need? 2 12/28/2024 Housing Stability Answer Date Recorded What is your housing situation today? 1 12/28/2024 Interpersonal Safety Answer Date Record ed Are you being hit, kicked, p ushed or yelled at (see row info)? No 12/27/2024 Interpersonal Safety Abuse 12 - 18 Not on file 12/27/2024 Interpersonal Safety Ambulatory Vulnerability No t on file 12/27/2024 Utilities Answer Date Recorded Do you have trouble paying f or utilities (for example, heat, electricity, water, phone)? 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 Gender Identity Female 01/23/2023 5:38 PM CDT Sexual Orientation Straight 01/23/2023 5: 38 PM CDT Obstetrics History Last Filed Vital Signs Vital Sign Reading Time Taken Comments Blood Pressure 137/68 12/31/2024 4:06 PM CDT Pulse 89 12/31/2024 4:06 PM CDT Temperature 36.2 C (97.1 F) 12/31/2024 4:06 PM CDT Respiratory Rate 16 12/31/2024 4:06 PM CDT Oxygen Saturation 95% 12/31/2024 4:06 PM CDT Inhaled Oxygen Concentration - - Weight 117.5 kg (259 lb) 12/27/2024 11:58 AM CDT Height 167.6 cm (5' 6) 12/27/2024 11:58 AM CDT Body Mass Index 41.8 12/27/2024 11:58 AM CDT Plan of Treatment Upcoming Encounters Date Type Department Care Team (Late st Contact Info) Description 01/04/2025 8:45 AM CDT Office Visit [facility] [address] [facility] [address] [place] [address] Wai Lowe MD 1601 [facility] [address] [place] [address] 01/27/2025 7:00 AM CDT Telemedicine [facility] [address] [place] [address] Joseline Handley NP [address] [place] [address] 01/31/2025 7:40 AM CDT Office Visit [facility] [address] [place] [address] Chula Farley DO [address] [place] [address] Health Maintenance Due Date Last Done Comments [...] Procedure Name Priority Date/Time Associated Diagnosis Comments PLATELET COUNT Early AM 12/31/2024 6:54 AM CDT HEMOGLOBIN Early AM 12/31/2024 6:54 AM CDT US VENOUS LOWER EXTREMITY BILATERAL Routine 12/30/2024 11:00 PM CDT EXTRA TUBE LIGHT GREEN Today 12/30/2024 6:13 AM CDT PLATELET COUNT Early AM 12/30/2024 6:13 AM CDT HEMOGLOBIN Early AM 12/30/2024 6:13 AM CDT CREATININE Early AM 12/29/2024 6:55 AM CDT WHITE BLOOD COUNT Early AM 12/29/2024 6:5 5 AM CDT PLATELET COUNT Early AM 12/29/2024 6:55 AM CDT HEMOGLOBIN Early AM 12/29/2024 6:55 AM CDT HEMATOCRIT LURDES 12/28/2024 7:39 AM CDT HEMOGLOBIN LURDES 12/28/2024 7:39 AM CDT SUPRAGLOTTIC-LMA Routine 12/27/2024 9:37 PM CDT EVACUATION OF BREAST HEMATOMA 12/27/2024 8:51 PM CDT Right breast hematoma RED BLOOD CELLS EA UNIT STAT 12/27/2024 7:00 PM CDT ANTIBODY IDENTIFICATION LAB USE ONLY STAT 12/27/2024 1:11 PM CDT RBC W TYPE AND SCREEN STAT 12/27/2024 1:11 PM CDT RED BLOOD CELLS EA UNIT STAT 12/27/2024 1:09 PM CDT RED BLOOD CELLS EA UNIT STAT 12/27/2024 1:00 PM CDT ANTIBODY IDENTIFICATION EACH PANEL STAT 12/27/2024 1:00 PM CDT CBC WITH AUTO DIFFERENTIAL STAT 12/27/2024 9:37 AM CDT Hematoma (nontraumatic) of breast CBC WITH AUTO DIFFERENTIAL STAT 12/27/2024 9:37 AM CDT Hematoma (nontraumatic) of breast PATH TISSUE EXAM Today 12/23/2024 12:34 PM CDT ENDOTRACHEAL TUBE Routine 12/23/2024 11:04 AM [...] REFLEX MEASURED LDL Routine 08/04/2024 3:27 PM 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 PLATELET COUNT 297 140 - 440 thou/cu mm 12/31/2024 7:01 AM CDT [facility] MPV 9.1 6.5 - 11.0 fL 12/31/2024 7:01 AM CDT [facility] Blood BLOOD SPECIMEN / Unknown Venipuncture / Unknown 12/31/2024 6:54 AM CDT 12/31/2024 6:58 AM CDT Rodo Gutierrez MD HEMATOLOGY Final Result Performing Organization Address [facility] de Phone Number [address] [address] * (ABNORMAL) HEMOGLOBIN (12/31/2024 6:54 AM CDT) Only the most recent of4 resultswithin the time period is included. HEMOGLOBIN 8.4(L) 12.0 - 16.0 g/dL 12/31/2024 7:01 AM CDT [facility] MCV 99 80 - 100 fL 12/31/2024 7:01 AM CDT [facility] Blood BLOOD SPECIMEN / Unknown Venipuncture / Unknown 12/31/2024 6:54 AM CDT 12/31/2024 6:58 AM CDT us Rodo Gutierrez MD HEMATOLOGY Final Result Performing Organization Address [facility] de Phone Number [address] [address] * US VENOUS LOWER EXTREMITY BILATERAL (12/30/2024 11:00 PM CDT) Anatomical Region Laterality Modality LEGS, LEG L, LEG R Ultrasound 12/30/2024 11:3 2 PM CDT Narrative 12/30/2024 11:32 PM CDT For Patients: As a result of the Cures Act, medical imaging exams and procedure reports are released immediately into your electronic medical record. You may view this report before your referring provider. If you have questions, please contact your health care provider. Indication: History of DVT/PE, off anticoagulation, recent surgery Technique: DVT ultrasound of the bilateral lower extremities. Grayscale and color Doppler imaging utilized. Duplex/spectral analysis used. Compression and augmentation as clinically warranted. Comparison: DVT ultrasounds performed 06/06/2023 and 03/03/2023 Findings: All vessels are grossly compressible without evidence of filling defect to suggest DVT. No superficial thrombosis appreciated. Soft tissues are unremarkable. Impression: No DVT visualized. Dictated by Paul Taylor MD @ 12/30/2024 11:32:18 PM (Electronically Signed) Procedure Note Paul Taylor MD - 12/30/2024 For Patients: As a result of the Cures Act, medical imagingexams and procedure reports are released immediately into your electronicmedical record. You may view this report before your referring provider.If you have questions, please contact your health care provider. Indication: History of DVT/PE, off anticoagulation, recent surgery Technique: DVT ultrasound of the bilateral lower extremities. Grayscale and colorDoppler imaging utilized. Duplex/spectral analysis used. Compression andaugmentation as clinically warranted. Comparison: DVT ultrasounds performed 06/06/2023 and 03/03/2023 Findings: All vessels are grossly compressible without evidence of filling defect tosuggest DVT. No superficial thrombosis appreciated. Soft tissues areunremarkable. Impression: No DVT visualized. Dictated by Paul Taylor MD @ 12/30/2024 11:32:18 PM (Electronically Signed) Wai Lowe MD US Final R esult * EXTRA TUBE LIGHT GREEN (12/30/2024 6:13 AM CDT) Blood BLOOD SPECIMEN / Unknown Butterfly / Unknown 12/30/2024 6:13 AM CDT 12/30/2024 6:51 AM CDT Wai Lowe MD LABORATORY Final R esult [address] [address] * WHITE BLOOD COUNT (12/29/2024 6:55 AM CDT) WHITE BLOOD COUNT 10.3 4.5 - 11.0 thou/cu mm 12/29/2024 7:20 AM CDT [facility] NRBC 1.5 % 12/29/2024 7:20 AM CDT [facility] ABS NRBC 0.2 thou /cu mm 12/29/2024 7:20 AM CDT [facility] Blood BLOOD SPECIMEN / Unknown Venipuncture / Unknown 12/29/2024 6:55 AM CDT 12/29/2024 7:16 AM CDT us Rodo Gutierrez MD HEMATOLOGY Final Result Performing Organization Address [facility] Co de Phone Number [address] [address] * (ABNORMAL) CREATININE (12/29/2024 6:55 AM CDT) eGFR 67(L) >90 mL/min/1.7 3m2 12/29/2024 7:44 AM CDT [facility] Comment:As of 2021, eG FR is calculated by the CKD-EPI creatinine equation without race adjustment. eGFR can be influenced by muscle mass, exercise, and diet. The reported eGFR is an estimation only and is only applicable if the renal function is stable. CREATININE 0.98(H) 0.50 - 0.90 mg/dL 12/29/2024 7:44 AM CDT [facility] Blood BLOOD SPECIMEN / Unknown Venipuncture / Unknown 12/29/2024 6:55 AM CDT 12/29/2024 7:16 AM CDT us Rodo Gutierrez MD CHEMISTRY Final Result Performing Organization Address [facility] Phone Number [address] [address] * (ABNORMAL) HEMATOCRIT (12/28/2024 7:39 AM CDT) HEMATOCRIT 25.7(L) 33.0 - 51.0 % 12/28/2024 7:52 AM CDT [facility] Blood BLOOD SPECIMEN / Unknown Butterfly / Unknown 12/28/2024 7:39 AM CDT 12/28/2024 7:47 AM CDT us Claudia ANDREWS HEMATOLOGY Final Resul t Performing Organization Address [facility] Co de Phone Number [address] [address] * HCHG MASK PR5 (12/27/2024 9:37 PM CDT) Narrative Santiago Zavala, SIDING STAPLER - 12/27/2024 9:37 PM CDT Santiago Zavala, SIDING STAPLER 12/27/2024 9:38 PM Procedure: Supraglottic Patient location during procedure: OR Supraglottic Airway Properties Mask Ventilation: not attempted Type: unique Tube Size: 4 Insertion Attempts: 1 Placement Verification: CO2 detection and other Assessment Assessment: atraumatic and dentition unchanged Cuff volume (mL): to seal. Additional Notes Inserts and seals easily. us Roland Coronado MD ANESTHESIA PX NOTE ORD ERABLES Final Result * RED BLOOD CELLS EA UNIT (12/27/2024 7:00 PM CDT) Only the most recent of3 resultswithin the time period is included. CROSSMATCH Compatible Compatible [facility] PRODUCT BLOOD TYPE AB Rh Positive [facility] PRODUCT ID NUMBER [id number] [facility] PRODUCT STATUS /Relea sed [facility] PRODUCT DESCRIPTION RBC -1 LR [facility] PRODUCT CODE [id number] [facility] us Bryon Menendez MD BLOOD BANK Edited Re sult - Final [facility] [address] [place] [address] * (ABNORMAL) RBC W TYPE AND SCREEN (12/27/2024 1:11 PM CDT) ABORH AB Rh Positive 12/27/2024 3:37 PM CDT [facility] ANTIBODY SCREEN Positive(A) Negative 12/27/2024 3:37 PM CDT [facility] SPECIMEN EXPIRATION DATE/TIME 12/30/24 23:59 12/27/2024 3:37 PM CDT [facility] Blood BLOOD SPECIMEN / Unknown IV Start / Unknown 12/27/2024 1:11 PM CDT 12/27/2024 1:18 PM CDT Bryon Menendez MD BLOOD BANK Final Res ult Performing Organization Address [facility] Co de Phone Number [facility] [address] [place] [phone] * (ABNORMAL) ANTIBODY IDENTIFICATION LAB USE ONLY (12/27/2024 1:11 PM CDT) Pathologist [facility] ANTIBODY IDENTIFICATION Anti-Sherry (A) 12/27/2024 4:19 PM CDT [facility] Blood BLOOD SPECIMEN / Unknown IV Start / Unknown 12/27/2024 1:11 PM CDT 12/27/2024 1:18 PM CDT Narrative [facility] - 12/27/2024 4:19 PM CDT Blood products may be delayed. Draw patient 24 hours prior to transfusion. Draw one red top and two purple top tubes for all Type and Screen orders. This patient's serological work-up may have included protocols and/or reagents that have not been cleared or approved by the U.S. Food and Drug Administration. If specific information is required, please contact the performing laboratory Bryon Menendez MD BLOOD BANK Final Res ult Performing Organization Address [facility] Co de Phone Number [facility] [address] [place] [phone] * ANTIBODY IDENTIFICATION EACH PANEL (12/27/2024 1:00 PM CDT) Pathologist [facility] QUANTITY 1 [facility] PANEL JONA ID Panel Antibody ID [facility] Bryon Menendez MD BLOOD BANK Final Res ult Performing Organization Address [facility] Co de Phone Number [facility] [address] [place] [phone] * (ABNORMAL) CBC WITH AUTO DIFFERENTIAL (12/27/2024 9:37 AM CDT) [facility] WHITE BLOOD COUNT 12.5(H) 4.5 - 11.0 thou/cu mm 12/27/2024 11:43 AM [facility] RED BLOOD COUNT 2.63(L) 4.00 - 5.20 mil/cu mm 12/27/2024 11:43 AM [facility] HEMOGLOBIN 8.0(L) 12.0 - 16.0 g/dL 12/27/2024 11:43 AM [facility] HEMATOCRIT 25.9(L) 33.0 - 51.0 % 12/27/2024 11:43 AM [facility] MCV 99 80 - 100 fL 12/27/2024 11:43 AM [facility] MCH 30.4 26.0 - 34.0 pg 12/27/2024 11:43 AM [facility] MCHC 30.9(L) 32.0 - 36.0 g/dL 12/27/2024 11:43 AM [facility] RDW 13.1 11.5 - 15.5 % 12/27/2024 11:43 AM [facility] PLATELET COUNT 359 140 - 440 thou/cu mm 12/27/2024 11:43 AM [facility] MPV 9.8 6.5 - 11.0 fL 12/27/2024 11:43 AM [facility] % NEUT 72.9 % 12/27/2024 11:43 AM [facility] % LYMPH 14.2 % 12/27/2024 11:43 AM [facility] % MONO 9.8 % 12/27/2024 11:43 AM [facility] % EOS 2.6 % 12/27/2024 11:43 AM [facility] % BASO 0.5 % 12/27/2024 11:43 AM [facility] ABSOLUTE NEUTROPHILS 9.1(H) 1.7 - 7.0 thou/cu mm 12/27/2024 11:43 AM [facility] ABSOLUTE LYMPHOCYTES 1.8 0.9 - 2.9 thou/cu mm 12/27/2024 11:43 AM CDT [facility] ABSOLUTE MONOCYTES 1.2(H) <0.9 thou/cu mm 12/27/2024 11:43 AM CDT [facility] ABSOLUTE EOSINOPHILS 0.3 <0.5 thou/cu mm 12/27/2024 11:43 AM CDT [facility] ABSOLUTE BASOPHILS 0.1 <0.3 thou/cu mm 12/27/2024 11:43 AM CDT [facility] Blood BLOOD SPECIMEN / Unknown [facility] / Unknown 12/27/2024 9:37 AM CDT 12/27/2024 9:37 AM CDT us Chula Farley DO HEMATOLOGY Final Result [facility] [address] [place] [address] * PATH TISSUE EXAM (12/23/2024 12:34 PM CDT) Case Report Pathology Report Case: [id number] Authorizing Provider: Wai Lowe MD Collected: 12/23/2024 1234 Ordering Location: [facility] Received: 12/24/[address] [place] [address] Pathologist: Valeria Gillis MD Specimens: A) - Right Breast Reduction B) - Left Breast Reduction 12/27/2024 2:15 PM CDT [facility] Final Diagnosis A) RIGHT BREAST, REDUCTION MAMMOPLASTY: 1. Benign breast tissue with proliferative fibrocystic change 2. Skin with no diagnostic abnormalities 3. Negative for atypia and malignancy B) LEFT BREAST, REDUCTION MAMMOPLASTY: 1. Benign breast tissue with no diagnostic abnormalities 2. Skin with no diagnostic abnormalities 3. Negative for atypia and malignancy 12/27/2024 2:15 PM CDT [facility] at 1414 CDT Clinical Information 59 y.o. female with history notable for DVT/PE on Xarelto who has a longstanding history of 10+ years of symptomatic macromastia. 12/27/2024 2:15 PM CDT [facility] Gross Description A) Received in formalin, labeled with the patient's name and right breast reduction, is a 1115 g, 30.0 x 18.5 x 8.5 cm aggregate of yellow-rainey fibrofatty tissue and rainey smooth unremarkable skin. The specimen is serially sectioned revealing yellow-rainey cut surfaces consisting of approximately 90% yellow adipose tissue and 10% rainey fibrous tissue. No discrete lesions are noted. Identified within the parenchyma is a 0.6 cm rainey-pink potential lymph node. [employer] sections to include the lymph node are submitted in 5 cassettes. Time removed from patient: 1233 Time placed in formalin: Not provided Date removed and placed in formalin: 12/23/2024 The specimen was fixed in formalin for a minimum of 6 hours and not longer than 72 hours. B) Received in formalin, labeled with the patient's name and left breast reduction, is a 1500 g, 34.0 x 23.5 x 6.2 cm aggregate of yellow-rainey fibrofatty tissue and rainey smooth unremarkable skin. The specimen is serially sectioned revealing yellow-rainey cut surfaces consisting of approximately 90% yellow adipose tissue and 10% rainey fibrous tissue. No discrete lesions are noted. [employer] sections are submitted in 5 cassettes. Time removed from patient: 1233 Time placed in formalin: Not provided Date removed and placed in formalin: 12/23/2024 The specimen was fixed in formalin for a minimum of 6 hours and not longer than 72 hours. JKG 12/24/2024 12/27/2024 2:15 PM CDT [facility] Microscopic Description The final diagnosis is based on microscopic examination of appropriate sections of all specimens. 12/27/2024 2:15 PM CDT [facility] Additional Information Interpreted at [facility] - [address], [place] [address] 12/27/2024 2:15 PM CDT [facility] EN[facility] Tissue (Right Breast Reduction) 12/23/2024 12:34 PM CDT 12/24/2024 10:28 AM CDT Tissue specimen (specimen) (Left Breast Reduction) 12/23/2024 12:34 PM CDT 12/24/2024 10:28 AM CDT Wai Lowe MD PATHOLOGY/CYTOLOGY Valerie l Result Performing Organization Address City/[facility]/ZIP Co de Phone Number [facility] [address] [place] [address], [place] * HCHG TUBE PR1, HCHG INSTRUMENT DISP PR10, HCHG STYLET PR1 (12/23/2024 11:04 AM CDT) Narrative Tammi Field SIDING STAPLER - 12/23/2024 11:04 AM CDT [facility]i [facility] SIDING STAPLER 12/23/2024 11:05 AM Procedure: ETT Patient location [...] - 100 mg/dL 12/23/2024 8:38 AM CDT [facility] Blood BLOOD SPECIMEN / Unknown 12/23/2024 8:33 AM CDT 12/23/2024 8:38 AM CDT Wai Lowe MD CHEMISTRY Final R esult Performing Organization Address City/[facility]/ZIP Co de Phone Number [facility] [address] [place] [address] * SCAN-CARDIAC STRIP (12/23/2024 12:00 AM CDT) [...] a result of the Cures Act, medical imagingexams and procedure reports are [...] MD @ 12/07/2024 7:48:51 AM (Electronically Signed) us Chula Becca Aaronqra DO GENERAL IMAGING Final Result * (ABNORMAL) ANTINUCLEAR ANTIBODIES TITER AND PATTERN ([facility] REFLEX ONLY) (12/06/2024 9:35 AM CDT) NANETTE TITER 1:40(H) titer [facility] Comment: A low level NANTETE titer may be present in pre-clinical autoimmune diseases and normal individuals. Reference Range <1:40 Negative 1:40-1:80 Low Antibody Level >1:80 Elevated Antibody Level NANETTE PATTERN Nuclear, Homogeneo us(A) [facility] Comment: Homogeneous pattern is associated with systemic lupus erythematosus (SLE), drug-induced lupus and juvenile idiopathic arthritis. AC-1: Homogeneous International Consensus on NANETTE Patterns (https://doi.org/10.1515/rdfw-8619-5021) NANETTE TITER 1:40(H) titer [facility] Comment: A low level NANETTE titer may be present in pre-clinical autoimmune diseases and normal individuals. Reference Range <1:40 Negative 1:40-1:80 Low Antibody Level >1:80 Elevated Antibody Level NANETTE PATTERN Cytoplasm ic(A) [facility] Comment: The presence of cytoplasmic fluorescence was noted on the HEp-2 slide. Other reactivities (e.g., anti- mitochondrial antibodies or anti-smooth muscle antibodies) may be responsible for this fluorescence. The clinical significance of this finding is uncertain. Clinical correlation is recommended. AC-15 to AC-23: Cytoplasmic International Consensus on NANETTE Patterns (https://doi.org/10.1515/ejqy-6347-9538) 12/06/2024 9:35 AM CDT 12/06/2024 9:36 AM CDT us Chula Becca Aaronqra DO LABORATORY Final Result [facility] [address] [place] [address], [place] [phone] [facility] [address] [place] [address] * SEDIMENTATION RATE (12/06/2024 9:35 AM CDT) Pathologist [facility] SED RATE BY MODIFIED WESTERGREN 17 < OR = 30 mm/h [facility] Blood BLOOD SPECIMEN / Unknown 12/06/2024 9:35 AM CDT 12/06/2024 9:36 AM CDT Chula WindSimqra DO HEMATOLOGY Final Result [facility] [address] [place] [address], [facility] [address] [place] [address] * (ABNORMAL) ANTINUCLEAR ANTIBODY BY IFA (12/06/2024 9:35 AM CDT) Pathologist [facility] NANETTE SCREEN, IFA POSITIVE( A) NEGATIVE [facility] [place] Comment: NANETTE IFA is a first line screen for detecting the presence of up to approximately 150 autoantibodies in various autoimmune diseases. A positive NANETTE IFA result is suggestive of autoimmune disease and reflexes to titer and pattern. Further laboratory testing may be considered if clinically indicated. For additional information, please refer to http://education.NEOS GeoSolutions/faq/VQF392 (This link is being provided for informational/ educational purposes only.) Blood BLOOD SPECIMEN / Unknown 12/06/2024 9:35 AM CDT 12/06/2024 9:36 AM CDT Chula Becca IT Tradingqra DO CHEMISTRY Final Result [facility] [address] [place] [address], [place] [phone] [facility] [address] [place] [address] * RA QUANTITATIVE (12/06/2024 9:35 AM CDT) Pathologist [facility] RHEUMATOID FACTOR <10 <14 IU/mL [facility] [employer] Blood BLOOD SPECIMEN / Unknown 12/06/2024 9:35 AM CDT 12/06/2024 9:36 AM CDT Chula Farley DO SEND OUTS Final Result [facility] [address] [facility] [place] [address], [facility] [address] [facility] [place] [address] * (ABNORMAL) LIPID PANEL W REFLEX MEASURED LDL (08/04/2024 3:27 PM SCHOOL NURSE) Pathologist [facility] CHOLESTEROL, TOTAL 266(H) <200 mg/dL [facility] HDL CHOLESTEROL 49(L) > OR = 50 mg/dL [facility] TRIGLYCERIDES 279(H) <150 mg/dL [facility] Comment: If a non-fasting specimen was collected, consider repeat triglyceride testing on a fasting specimen if clinically indicated. Sangita et al. J. of Clin. Lipidol. 2015;9:129-169. LDL-CHOLESTEROL 171(H) mg/dL (calc) [facility] [place] Comment: Reference range: <100 Desirable range <100 mg/dL for primary prevention; <70 mg/dL for patients with CHD or diabetic patients with > or = 2 CHD risk factors. LDL-C is now calculated using the Ghislaine calculation, which is a validated novel method providing better accuracy than the Friedewald equation in the estimation of LDL-C. Peterson SS et al. GAYE. 2013;310(19): 2576-5641 (http://education.MobileX Labs.vivit/faq/EKY048) CHOL/HDLC RATIO 5.4(H) <5.0 (calc) [facility] NON HDL CHOLESTEROL 217(H) <130 mg/dL (calc) [facility] Comment: For patients with diabetes plus 1 major ASCVD risk factor, treating to a non-HDL-C goal of <100 mg/dL (LDL-C of <70 mg/dL) is considered a therapeutic option. Blood BLOOD SPECIMEN / Unknown 08/04/2024 3:27 PM SCHOOL NURSE 08/04/2024 3:28 PM SCHOOL NURSE Chula Becca Martine DO CHEMISTRY Final Result [employer] [facility] [address] [place] [address], [facility] [address] [place] [address] * XR MAMMO JIMMIE BILAT SCREEN (02/18/2024 [...] care provider. XR MAMMO JIMMIE BILAT SCREEN [[id number]] CLINICAL HISTORY: This is an asymptomatic 58 [...] areas of architectural distortion. us Chula Becca Aaronq DO MAMMO Final Result * COLONOSCOPY (03/26/2023 2:50 PM CDT) 03/26/2023 2:50 PM CDT Narrative Transcriptions Chris Yeager MD - 03/26/2023 3:50 PM CDT [facility] Patient Name: Sanam Simpson Procedure Date: 03/26/2023 Gender: Female Date of : 1965 Admit Type: Inpatient Procedure: Colonoscopy Proceduralist: Chris Yeager MD - [facility] Indications/Pre-Op Diagnosis: Screening for malignant neoplasm in [facility] Medications: MAC Procedure Description: The patient had risks, benefits and alternatives explained to andgave informed consent. The patient had a stable cardiopulmonary status and judged an adequate candidate for sedation. The endoscope [id number] was passed through the anus andadvanced to [...] Reactive Non Reactive 01/04/2023 7:12 AM CDT [facility] Blood BLOOD SPECIMEN / Unknown Venipuncture / Unknown 01/01/2023 2:47 PM CDT 01/01/2023 2:[address] [facility] ([facility] - 01/04/2023 7:12 AM CDT Performed at: [address] [place] [address] [place] [id number] Chandelier Maker: Josef Humphrey MD, Phone: [phone] Chula Farley DO LABORATORY Final Result [facility] ([facility]) [address] [place] [address], * LC HIV-1/O/2, 4TH GENERATION (01/01/2023 2:47 PM CDT) Pathologist [facility] HIV Scr 4th Gen Non Reactive Non Reactive 01/03/2023 1:09 PM CDT [facility] Comment: HIV Negative HIV-1/HIV-2 antibodies and HIV-1 p24 antigen were NOT detected. There is no laboratory evidence of HIV infection. Blood BLOOD SPECIMEN / Unknown Venipuncture / Unknown 01/01/2023 2:47 PM CDT 01/01/2023 2:49 PM CDT [address]ative [facility] ([facility]) - 01/03/2023 1:09 PM CDT Performed at: [address] [id number] Chandelier Maker: Josef Humphrey MD, Phone: [phone] us Chula Farley DO LABORATORY Final Result [facility] ([facility]) [address] [place] [address], [place] from Last 3 Months or Most Recently Relevant to Health Maintenance Insurance COSMETIC PROCEDURE HB ONLY . ATTN: [place] [address] [facility] Advance Directives * Full Code (Latest Code Status on File) Date Activated Date Inactivated Comments 12/27/2024 11:27 PM Question Answer Comments Code Status Discussion: Unable to Assess Preferences, Provider to review later * Full Code Date Activated Date Inactivated Comments 12/27/2024 6:42 PM 12/27/2024 11:27 PM Question Answer Comments Code Status Discussion: Not Discussed * Full Code Date Activated Date Inactivated [...] Code Status Discussion: Reviewed Preferences Care Teams Engineering Technical Writer Relationship Specialty Start Date End Date Chula Farley DO [address] [place] [address] PCP - General Family Practice 12/19/22 [place] [address] [place] [address] Consulting Physician Cardiovascular Disease 09/30/23 Scotty Ward MD [address] [address] Consulting Physician Surgery - General 07/30/24 Nancy Obrien RN [address] [address] Plate Shear Operator Registered Nurse 07/30/[address] [place] [address] Ground Mixer 08/02/24
--- OUTSIDE RECORDS SUMMARY | 2024-12-31 20:40 | XMS_ITS | Clinical Summary ---
Author Organization [facility] Address [facility] [place] [address] Care Team Providers Care Ladies Suit Operator Name Role Phone Chula Farley Becca CRUZ Primary Care Provider [phone] Yvon Ruggiero PA-C Unavailable [phone] Allergies Active Allergy Reactions Criticality Noted Date Comments Blood-Group Specific Substance Other (See Comments) 03/25/2023 Patient has a [place] antibody. Blood products may be delayed. Draw [...] Active azelastine (ASTELIN) 0.1 % nasal spray [place] 1 spray in nostril 4 Active busPIRone (BUSPAR) 15 MG tablet 3 Active Cholecalciferol (D 1000) 25 MCG (1000 UT) CAPS Take 1,000 Units by mouth 3 Active fluticasone (FLONASE) 50 MCG/ACT nasal spray [place] 2 sprays in nostril 4 Active hydrOXYzine [...] by mouth daily 3 Active nystatin (MYCOSTATIN) 824069 UNIT/GM external cream Apply topically to affected [...] Type Department Care Team Description 10/18/[address] [facility] [address] [place] [address] [address] [place] [address] Thanh Porter MD Medication Refill 10/15/[address] [facility] [address] [place] [address] [address] [place] [address] Thanh Porter MD Medication Refill from Last 3 Months Social History Tobacco Use Types Packs/Day Years Used Date Smoking Tobacco: Never Assessed Adolescent Education Answer Date Record ed Getting School Help Needed Not on file 07/01 Comments No Sex and Gender Information Value Date Recorded Sex Assigned at Female 09/17/2024 2:37 PM OUTDOOR STUDIES DIRECTOR Legal Sex Female 4:38 AM OUTDOOR STUDIES DIRECTOR Gender Identity Female 09/17/2024 2:37 PM OUTDOOR STUDIES DIRECTOR Sexual Orientation Straight 09/17/2024 2: 37 PM OUTDOOR STUDIES DIRECTOR Last Filed Vital Signs Vital Sign Reading Time Taken Comments Blood Pressure 126/91 10/14/2023 9:12 AM OUTDOOR STUDIES DIRECTOR Pulse 93 10/14/2023 9:12 AM OUTDOOR STUDIES DIRECTOR Temperature 36.1 C (97 F) 10/14/2023 9:12 AM OUTDOOR STUDIES DIRECTOR Respiratory Rate 20 05/21/2023 2:29 PM CDT Oxygen Saturation 96% 10/14/2023 9:12 AM OUTDOOR STUDIES DIRECTOR Inhaled Oxygen Concentration - - Weight 111.7 kg (246 lb 3.2 oz) 10/14/2023 9:12 AM OUTDOOR STUDIES DIRECTOR Height 170.2 cm (5' 7) 05/21/2023 2:29 PM CDT Body Mass Index 38.56 05/21/2023 2:29 PM CDT Plan of Treatment Upcoming Encounters Date Type Department Care Team (Late st Contact Info) Description 09/19/2025 1:30 PM OUTDOOR STUDIES DIRECTOR Virtual Visit [facility] [address] [place] [address] [address] [place] [address] Yvon Ruggiero, PA-C [address] [place] [address] [address] [place], [place] [address] Thanh Porter MD [address] [facility] [address] [place], [place] [address] Health Maintenance Due Date Last Done Comments [...] Comprehensive metabolic panel (12/25/2022 3:01 PM CDT) [facility] Sodium 143 136 - 145 mmol/L 12/25/2022 3:47 PM CDT LABORATORY Potassium 4.0 3.4 - 5.3 mmol/L 12/25/2022 3:47 PM [facility] Chloride 110(H) 98 - 107 mmol/L 12/25/2022 3:47 PM [facility] Carbon Dioxide (CO2) 25 22 - 29 mmol/L 12/25/2022 3:47 PM [facility] Anion Gap 8 7 - 15 mmol/L 12/25/2022 3:47 PM [facility] Urea Nitrogen 10.6 6.0 - 20.0 mg/dL 12/25/2022 3:47 PM [facility] Creatinine 1.24(H) 0.51 - 0.95 mg/dL 12/25/2022 3:47 PM [facility] Calcium 8.4(L) 8.6 - 10.0 mg/dL 12/25/2022 3:47 PM [facility] Glucose 100(H) 70 - 99 mg/dL 12/25/2022 3:47 PM [facility] Alkaline Phosphatase 107(H) 35 - 104 U/L 12/25/2022 3:47 PM CDT LABORATORY AST 22 10 - 35 U/L 12/25/2022 3:47 PM [facility] ALT 24 10 - 35 U/L 12/25/2022 3:47 PM [facility] Protein Total 6.2(L) 6.4 - 8.3 g/dL 12/25/2022 3:47 PM [facility] Albumin 3.9 3.5 - 5.2 g/dL 12/25/2022 3:47 PM [facility] Bilirubin Total 0.3 <=1.2 mg/dL 12/25/2022 3:47 PM [facility] GFR Estimate 51(L) >60 mL/min/1.7 3m2 12/25/2022 3:47 PM [facility] Comment:eGFR calculated usin 2020 CKD-EPI equation. Blood STRUCTURE OF LEFT UPPER LIMB / Unknown Venipuncture / Unknown 12/25/2022 3:01 PM CDT 12/25/2022 3:06 PM CDT Jason Ross PA-C LAB - BLOOD ORDERABLE S Final Result LABORATORY [facility] [address] floor, [address] [place] [address], [place] [phone] from Last 3 Months or Most Recently Relevant to Health Maintenance Insurance [employer] [facility] [place] Care Teams Ladies Suit Operator Relationship Specialty Start Date End Date Ch[place] [address] PCP - General Family Practice 12/25/22 Yvon Ruggiero PA-C [facility] [address] [address] Assigned Cancer Care Provider 10/07/24
--- OUTSIDE RECORDS SUMMARY | 2024-12-31 20:40 | XMS_ITS | Patient Health Record ---
Author Organization [facility] Address [address] [place] [address] Care Team Providers Care Precision Aircraft Systems Assembler Name Role Phone None, No PCP Primary Care Provider Sayra Montero Unavailable [phone] Reason For Referral Reason Referral for urinary incontinence 04.26.2024 Scheduled with Lex on 06/01 Diagnosis 1 Urinary incontinence , unspecified type (R32) Referred Organization [facility] Referred Provider Sayra Burnett Referred Address [address] [place], [place],[address], Referred Provider Specialty Nurse Michael condon Referral [...] W/U Status Risk Notes Problem Urinary incontinence ([id number]) Urinary incontinence, unspecified type (R32) Active confirmed Plan Of Treatment No Information Insurance Providers Payer Name Payer Address Payer Phone Subscriber Number Group Number Insured Name Patient Relationship to Insured Coverage Start Date Coverage End Date UCARE 2021 BRAEDEN (CLIENT bill) [address] [place], [place] [id number] Sanam Gomez Self - patient is the insured
--- OUTSIDE RECORDS SUMMARY | 2024-12-31 20:40 | XMS_ITS ---
Author Organization [facility] Address [address] [place] [address] Care Team Providers Care Real Estate Sales Agent Name Role Phone None, No PCP Primary Care Provider Sayra Montero [phone] REASON FOR VISIT incontinence and overactive bladder, [...] Active Encounters Encounter Location Date Provider Diagnosis [facility] [address] [place] [address] 06/01/2024 Sayra Burnett Plan Of Treatment No Information Progress Notes * Jorge CHAVEZOB: [birth year] (59 yo F)Acc No.[id number]:06/01/2024 Patient: Sanam RANDALL Provider: Lis Burnett DNP :1965 A ge:59 Y S ex:Female Date:06/01/2024 Address[facility] Pcp:No PCP None Subjective: * Chief Complaints: [...] D enies. O ther: Implanted electronic medical physiologist D enies. ? * Medical History: M [...] Electronic signature of Patience Burnett CNP on 12/31/2024 at 08:39 PM CDT Sign off status: Pending * Provider: Lis Burnett DNP Date: 0 06/01/2024 Generated for Kaylin lassiter/Franklin/Jorje on: 0 12/31/2024 08:39 PM CDT History and Physical Notes * [...]
[2024-12-31 20:44] VITALS: BP 146/82; PULSE 82; RESP 20; TEMP 36.6; O2SAT 95; BMI 41.3
[2024-12-31] MEDS: cephALEXin 500 MG CAPSULE PO (21:58)
[2024-12-31] MEDS: SULFA/TRIMETHOPRIM 800/160 1 TAB PO (21:58)
[2024-12-31 22:45] VITALS: BP 133/69; PULSE 74; RESP 16; O2SAT 98
[2024-12-31 23:31] VITALS: BP 133/69; PULSE 74; RESP 16; TEMP 36.6
--- OUTSIDE RECORDS SUMMARY | 2024-12-31 23:32 | XMS_ITS | Encounter Summary ---
Author Organization [place] Address [address] [place] [address]. [place] [address] Care Team Providers Care Commissary Clerk Name Role Phone Chula Farley DO Primary Care Provider Thanh Porter MD Unavailable [phone] Yvon Ruggiero PA-C Unavailable [phone] Encounter Details Date Type Department Care Team (Late st Contact Info) Description 09/16/2024 MyC Medical Advice [facility] [address] [facility] [address] [place] [address] Chloe Crane Social History Tobacco Use Types Packs/Day Years Used Date Smoking Tobacco: Never Assessed Adolescent Education Answer Date Record ed Getting School Help Needed Not on file 07/01 Comments No Sex and Gender Information Value Date Recorded Sex Assigned at Female 09/17/2024 2:37 PM PIPE SETTER Legal Sex Female 4:38 AM PIPE SETTER Gender Identity Female 09/17/2024 2:37 PM PIPE SETTER Sexual Orientation Straight 09/17/2024 2: 37 PM PIPE SETTER documented as of this encounter Plan of Treatment Upcoming Encounters Date Type Department Care Team (Late st Contact Info) Description 09/19/2025 1:30 PM PIPE SETTER Virtual Visit [facility] [address] [place] [address] Yvon Ruggiero PA-C [address] [place], [place] [address] Thanh Porter MD [address] [facility] [address] [place], [place] [address] documented as of this encounter Visit Diagnoses Not on filedocumented in this encounter Care Teams Commissary Clerk Relationship Specialty Start Date End Date Chula Farley [place] [address] PCP - General Family Practice 12/25/22 Thanh Porter MD [address] [address] Assigned Cancer Care Provider 11/07/23 10/06/24 Yvon Ruggiero, PAJarochoC [address] [place] [address] [address] [place] [address] Assigned Cancer Care Provider 10/07/24 documented as of this encounter
--- OUTSIDE RECORDS SUMMARY | 2024-12-31 23:32 | XMS_ITS | Clinical Summary ---
Author Organization [place] Address [facility]ly [facility] [place] [address] Care Team Providers Care Bulbs Farmworker Name Role Phone Chula Farley Becca CRUZ Primary Care Provider [phone] Yvon Ruggiero PA-C Unavailable [phone] Allergies Active Allergy Reactions Criticality Noted Date Comments Blood-Group Specific Substance Other (See Comments) 03/25/2023 Patient has a [place] antibody. Blood products may be delayed. Draw [...] Active azelastine (ASTELIN) 0.1 % nasal spray Axtell 1 spray in nostril 4 Active busPIRone (BUSPAR) 15 MG tablet 3 Active Cholecalciferol (D 1000) 25 MCG (1000 UT) CAPS Take 1,000 Units by mouth 3 Active fluticasone (FLONASE) 50 MCG/ACT nasal spray Axtell 2 sprays in nostril 4 Active hydrOXYzine [...] by mouth daily 3 Active nystatin (MYCOSTATIN) 800172 UNIT/GM external cream Apply topically to affected [...] Type Department Care Team Description 10/18/2024 Refill [facility] [address] [place] [address] [address] [place] [address] Thanh Porter MD Medication Refill 10/15/2024 Refill [facility] [address] [place] [address] [address] [place] [address] Thanh Porter MD Medication Refill from Last 3 Months Social History Tobacco Use Types Packs/Day Years Used Date Smoking Tobacco: Never Assessed Adolescent Education Answer Date Record ed Getting School Help Needed Not on file 07/01 Comments No Sex and Gender Information Value Date Recorded Sex Assigned at Female 09/17/2024 2:37 PM REGULATORY COMPLIANCE ENGINEER Legal Sex Female 4:38 AM REGULATORY COMPLIANCE ENGINEER Gender Identity Female 09/17/2024 2:37 PM REGULATORY COMPLIANCE ENGINEER Sexual Orientation Straight 09/17/2024 2: 37 PM REGULATORY COMPLIANCE ENGINEER Last Filed Vital Signs Vital Sign Reading Time Taken Comments Blood Pressure 126/91 10/14/2023 9:12 AM REGULATORY COMPLIANCE ENGINEER Pulse 93 10/14/2023 9:12 AM REGULATORY COMPLIANCE ENGINEER Temperature 36.1 C (97 F) 10/14/2023 9:12 AM REGULATORY COMPLIANCE ENGINEER Respiratory Rate 20 05/21/2023 2:29 PM CDT Oxygen Saturation 96% 10/14/2023 9:12 AM REGULATORY COMPLIANCE ENGINEER Inhaled Oxygen Concentration - - Weight 111.7 kg (246 lb 3.2 oz) 10/14/2023 9:12 AM REGULATORY COMPLIANCE ENGINEER Height 170.2 cm (5' 7) 05/21/2023 2:29 PM CDT Body Mass Index 38.56 05/21/2023 2:29 PM CDT Plan of Treatment Upcoming Encounters Date Type Department Care Team (Late st Contact Info) Description 09/19/2025 1:30 PM REGULATORY COMPLIANCE ENGINEER Virtual Visit [facility] [address] [place] [address] [address] [place] [address] Yvon Ruggiero, PA-C [address] [place] [address] [address] [place], [place] [id number] Thanh Porter MD [address] [facility] [address] [place], [place] [id number] Health Maintenance Due Date Last Done Comments [...] Comprehensive metabolic panel (12/25/2022 3:01 PM CDT) [facility] Sodium 143 136 - 145 mmol/L 12/25/2022 3:47 PM CDT LABORATORY Potassium 4.0 3.4 - 5.3 mmol/L 12/25/2022 3:47 PM [facility] Chloride 110(H) 98 - 107 mmol/L 12/25/2022 3:47 PM [facility] Carbon Dioxide (CO2) 25 22 - 29 mmol/L 12/25/2022 3:47 PM [facility] Anion Gap 8 7 - 15 mmol/L 12/25/2022 3:47 PM [facility] Urea Nitrogen 10.6 6.0 - 20.0 mg/dL 12/25/2022 3:47 PM [facility] Creatinine 1.24(H) 0.51 - 0.95 mg/dL 12/25/2022 3:47 PM [facility] Calcium 8.4(L) 8.6 - 10.0 mg/dL 12/25/2022 3:47 PM [facility] Glucose 100(H) 70 - 99 mg/dL 12/25/2022 3:47 PM [facility] Alkaline Phosphatase 107(H) 35 - 104 U/L 12/25/2022 3:47 PM CDT LABORATORY AST 22 10 - 35 U/L 12/25/2022 3:47 PM [facility] ALT 24 10 - 35 U/L 12/25/2022 3:47 PM [facility] Protein Total 6.2(L) 6.4 - 8.3 g/dL 12/25/2022 3:47 PM [facility] Albumin 3.9 3.5 - 5.2 g/dL 12/25/2022 3:47 PM [facility] Bilirubin Total 0.3 <=1.2 mg/dL 12/25/2022 3:47 PM [facility] GFR Estimate 51(L) >60 mL/min/1.7 3m2 12/25/2022 3:47 PM [facility] Comment:eGFR calculated usin 2020 CKD-EPI equation. Blood STRUCTURE OF LEFT UPPER LIMB / Unknown Venipuncture / Unknown 12/25/2022 3:01 PM CDT 12/25/2022 3:06 PM CDT Jason Ross PA-C LAB - BLOOD ORDERABLE S Final Result LABORATORY [facility] [address] [place] [address] floor, [address] [place] [address], [place] [phone] from Last 3 Months or Most Recently Relevant to Health Maintenance Insurance [employer] [place] Care Teams Bulbs Farmworker Relationship Specialty Start Date End Date Chula [place] [address] PCP - General Family Practice 12/25/22 Yvon Ruggiero PA-C [facility] [address] Assigned Cancer Care Provider 10/07/24
--- OUTSIDE RECORDS SUMMARY | 2024-12-31 23:32 | XMS_ITS | Clinical Summary ---
Author Organization [facility] Address [address] [place] [address] Care Team Providers Care Assistant Media Buyer Name Role Phone Chula Farley DO Primary Care Provider Saumya Richmond MD Unavailable [phone] Scotty Ward MD Unavailable Nancy Obrien RN Unavailable [phone] Unavailable Allergies Active Allergy Reactions Criticality Noted Date Comments Blood-Group Specific Substance Other - Describe In Comment Field 03/25/2023 Patient has a [place] antibody. Blood products may be delayed. Draw patient 24 hours prior to transfusion. For SLEDVision testing, draw one red top and two purple top tubes for all Type and Screen orders. Latex Hives 12/16/2022 Unlisted Allergen (Include Detail In Comments) Hives,Shortness Of Breath,Erythema 04/03/2023 Allergies to Cats, Dogs, Cattle, Horses, Pigs, dust, mold Penicillins Shortness Of Breath 04/03/2023 Tree And Shrub Pollen Hives,Shortness Of Breath 04/03/2023 [place] Pollen Hives,Shortness Of Breath 04/03/2023 Medications sulfacetamide-sul [...] home use at pressure: 13 cmw with [id number], Choice of mask (A7030 or A7034) w/full [...] sprayIndications: Environmental allergies,Post-na lucía drip Inhale 1 Beemer into affected nostril(s) two times daily. 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 [address] [facility] [place] [address] Roland Coronado MD 12/27/2024 8:36 PM CDT - 12/27/2024 10:38 PM CDT Surgery [address] [place] [address] Wai Lowe MD WASHOUT OF RIGHT BREAST HEMATOMA 12/27/2024 2:10 PM CDT Office Visit [facility] [address] [place] [address] Chula Farley DO ER Follow up (Hemorrhage - discuss iron infusion, recheck hemoglobin) 12/27/2024 12:26 PM CDT - 12/31/2024 6:53 PM CDT Hospital Encounter [address] [place] [address] Bryon Menendez MD Joshi, Neel Shailendra, MD Breast hematoma (Primary Dx); Anemia, unspecified type; Macromastia; Hematoma of right breast Discharge Disposition: Home Self Care 12/27/2024 Travel 12/27/2024 Telephone [facility] [address] [address] [place] [address] Wai Lowe MD Follow Up 12/27/2024 Patient Outreach [facility] [address] [place] [address] Tanesha Caal RN Primary RN Care Management; Hospital F/U (LACE 20) 12/23/2024 10:42 AM CDT Anesthesia Event [address] [place] [address] Myrtle Jones MD 12/23/2024 9:40 AM CDT - 12/23/2024 1:30 PM CDT Surgery [place] [address] [address] [place] [address] Wai Lowe MD Bilateral Breast Reduction 12/23/2024 8:12 AM CDT - 12/24/2024 4:04 PM CDT Hospital Encounter [address] [place] [address] Wai Lowe MD Macromastia (Primary Dx) Discharge Disposition: Home Self Care 12/23/2024 Travel 12/16/2024 Travel 12/14/[address] [address] Chula Farley Becca, DO Refill Request (Levocetirizine) 12/13/[address] [address] Chula Farley, DO Prior Authorization (tirzepatide (weight loss) (Zepbound) 2.5 mg/0.5 mL pen (APPROVED 12/14/2024-)) 12/10/[address] [address] Chula Farley Becca, DO Refill Request (omeprazole (PRILOSEC) 40 mg) 12/07/[address] [address] Sir Farleyi Becca, DO Refill Request (Omeprazole) 12/06/2024 9:30 AM CDT Ancillary Procedure [address] [address] 12/06/2024 8:30 AM CDT Office Visit [address] [address] Chula Farley, DO Preoperative Exam (12/23/24 - breast reduction - Dr. Lowe - [facility]) 12/05/2024 Travel 11/12/[address] [address] Joseline Handley NP Medication Management (ARIPiprazole (ABILIFY)) 10/28/2024 7:00 AM HEALTH ADVISOR Telemedicine [facility] [address] [place] [address] Joseline Handley NP Telehealth; Follow Up 10/28/2024 Telephone [facility] [address] [place] [address] Cassia Zafar [facility] 10/20/2024 Telephone [facility] [address] [address] Wai Lowe MD 10/19/2024 Telephone [facility] [address] [address] Wai Lowe MD Updates from Last 3 [...] PM CDT Legal Sex Female 6:23 AM HEALTH ADVISOR Gender Identity Female 01/23/2023 5:38 PM CDT [...] Description 01/04/2025 8:45 AM CDT Office Visit [facility] [address] [facility] [address] [place] [address] Wai Lowe MD [address] [facility] [address] [place] [address] 01/27/2025 7:00 AM CDT Telemedicine [facility] [address] [place] [address] Joseline Handley NP [address] [place] [address] 01/31/2025 7:40 AM CDT Office Visit [facility] [address] [place] [address] Chula Farley DO [address] [place] [address] Health Maintenance Due Date Last Done Comments [...] REFLEX MEASURED LDL Routine 08/04/2024 3:27 PM HEALTH ADVISOR Elevated serum creatinine XR MAMMO JIMMIE BILAT [...] 440 thou/cu mm 12/31/2024 7:01 AM CDT [facility] MPV 9.1 6.5 - 11.0 fL 12/31/2024 7:01 AM CDT [facility] Blood BLOOD SPECIMEN / Unknown Venipuncture / Unknown 12/31/2024 6:54 AM CDT 12/31/2024 6:58 AM CDT Rodo Gutierrez MD HEMATOLOGY Final Result Performing Organization Address [facility] de Phone Number [address] [address] * (ABNORMAL) HEMOGLOBIN (12/31/2024 6:54 AM CDT) Only the most recent of4 resultswithin the time period is included. HEMOGLOBIN 8.4(L) 12.0 - 16.0 g/dL 12/31/2024 7:01 AM CDT [facility] MCV 99 80 - 100 fL 12/31/2024 7:01 AM CDT [facility] Blood BLOOD SPECIMEN / Unknown Venipuncture / Unknown 12/31/2024 6:54 AM CDT 12/31/2024 6:58 AM CDT us Rodo Gutierrez MD HEMATOLOGY Final Result Performing Organization Address [facility] de Phone Number [address] [address] * US VENOUS LOWER EXTREMITY BILATERAL (12/30/2024 [...] Impression: No DVT visualized. Dictated by Paul Tyalor MD @ 12/30/2024 11:32:18 PM (Electronically Signed) [...] Wai Lowe MD LABORATORY Final R esult [address] [address] * WHITE BLOOD COUNT (12/29/2024 6:55 AM CDT) WHITE BLOOD COUNT 10.3 4.5 - 11.0 thou/cu mm 12/29/2024 7:20 AM CDT [facility] NRBC 1.5 % 12/29/2024 7:20 AM CDT [facility] ABS NRBC 0.2 thou /cu mm 12/29/2024 7:20 AM CDT [facility] Blood BLOOD SPECIMEN / Unknown Venipuncture / Unknown 12/29/2024 6:55 AM CDT 12/29/2024 7:16 AM CDT us Rodo Gutierrez MD HEMATOLOGY Final Result Performing Organization Address [facility] Co de Phone Number [address] [address] * (ABNORMAL) CREATININE (12/29/2024 6:55 AM CDT) eGFR 67(L) >90 mL/min/1.7 3m2 12/29/2024 7:44 AM CDT [facility] Comment:As of 2021, eG FR is calculated by the CKD-EPI creatinine equation without race adjustment. eGFR can be influenced by muscle mass, exercise, and diet. The reported eGFR is an estimation only and is only applicable if the renal function is stable. CREATININE 0.98(H) 0.50 - 0.90 mg/dL 12/29/2024 7:44 AM CDT [facility] Blood BLOOD SPECIMEN / Unknown Venipuncture / Unknown 12/29/2024 6:55 AM CDT 12/29/2024 7:16 AM CDT us Rodo Gutierrez MD CHEMISTRY Final Result Performing Organization Address [facility] Phone Number [address] [address] * (ABNORMAL) HEMATOCRIT (12/28/2024 7:39 AM CDT) HEMATOCRIT 25.7(L) 33.0 - 51.0 % 12/28/2024 7:52 AM CDT [facility] Blood BLOOD SPECIMEN / Unknown Butterfly / Unknown 12/28/2024 7:39 AM CDT 12/28/2024 7:47 AM CDT us Claudia ANDREWS HEMATOLOGY Final Resul t Performing Organization Address [facility] Co de Phone Number [address] [address] * HCHG MASK PR5 (12/27/2024 9:37 PM CDT) Narrative Santiago Zavala, REDUCER - 12/27/2024 9:37 PM CDT Santiago Zavala, REDUCER 12/27/2024 9:38 PM Procedure: Supraglottic Patient location [...] time period is included. CROSSMATCH Compatible Compatible [facility] PRODUCT BLOOD TYPE AB Rh Positive [facility] PRODUCT ID NUMBER [id number] [facility] PRODUCT STATUS /Relea sed [facility] PRODUCT DESCRIPTION RBC -1 LR [facility] PRODUCT CODE [id number] [facility] us Bryon Menendez MD BLOOD BANK Edited Re sult - Final [facility] [address] [place] [address] * (ABNORMAL) RBC W TYPE AND SCREEN (12/27/2024 1:11 PM CDT) ABORH AB Rh Positive 12/27/2024 3:37 PM CDT [facility] ANTIBODY SCREEN Positive(A) Negative 12/27/2024 3:37 PM CDT [facility] SPECIMEN EXPIRATION DATE/TIME 12/30/24 23:59 12/27/2024 3:37 PM CDT [facility] Blood BLOOD SPECIMEN / Unknown IV Start / Unknown 12/27/2024 1:11 PM CDT 12/27/2024 1:18 PM CDT Bryon Menendez MD BLOOD BANK Final Res ult Performing Organization Address [facility] Co de Phone Number [facility] [address] [place] [address] * (ABNORMAL) ANTIBODY IDENTIFICATION LAB USE ONLY (12/27/2024 1:11 PM CDT) Pathologist [facility] ANTIBODY IDENTIFICATION Anti-Sherry (A) 12/27/2024 4:19 PM CDT [facility] Blood BLOOD SPECIMEN / Unknown IV Start / Unknown 12/27/2024 1:11 PM CDT 12/27/2024 1:18 PM CDT Narrative [facility] - 12/27/2024 4:19 PM CDT [...] BANK Final Res ult Performing Organization Address [facility] Co de Phone Number [facility] [address] [place] [address] * ANTIBODY IDENTIFICATION EACH PANEL (12/27/2024 1:00 PM CDT) Pathologist [facility] QUANTITY 1 [facility] PANEL JONA ID Panel Antibody ID [facility] Bryon Menendez MD BLOOD BANK Final Res ult Performing Organization Address [facility] Co de Phone Number [facility] [address] [place] [address] * (ABNORMAL) CBC WITH AUTO DIFFERENTIAL (12/27/2024 9:37 AM CDT) [facility] WHITE BLOOD COUNT 12.5(H) 4.5 - 11.0 thou/cu mm 12/27/2024 11:43 AM [facility] RED BLOOD COUNT 2.63(L) 4.00 - 5.20 mil/cu mm 12/27/2024 11:43 AM [facility] HEMOGLOBIN 8.0(L) 12.0 - 16.0 g/dL 12/27/2024 11:43 AM [facility] HEMATOCRIT 25.9(L) 33.0 - 51.0 % 12/27/2024 11:43 AM [facility] MCV 99 80 - 100 fL 12/27/2024 11:43 AM [facility] MCH 30.4 26.0 - 34.0 pg 12/27/2024 11:43 AM [facility] MCHC 30.9(L) 32.0 - 36.0 g/dL 12/27/2024 11:43 AM [facility] RDW 13.1 11.5 - 15.5 % 12/27/2024 11:43 AM [facility] PLATELET COUNT 359 140 - 440 thou/cu mm 12/27/2024 11:43 AM [facility] MPV 9.8 6.5 - 11.0 fL 12/27/2024 11:43 AM [facility] % NEUT 72.9 % 12/27/2024 11:43 AM [facility] % LYMPH 14.2 % 12/27/2024 11:43 AM [facility] % MONO 9.8 % 12/27/2024 11:43 AM [facility] % EOS 2.6 % 12/27/2024 11:43 AM [facility] % BASO 0.5 % 12/27/2024 11:43 AM [facility] ABSOLUTE NEUTROPHILS 9.1(H) 1.7 - 7.0 thou/cu mm 12/27/2024 11:43 AM [facility] ABSOLUTE LYMPHOCYTES 1.8 0.9 - 2.9 thou/cu mm 12/27/2024 11:43 AM CDT [facility] ABSOLUTE MONOCYTES 1.2(H) <0.9 thou/cu mm 12/27/2024 11:43 AM CDT [facility] ABSOLUTE EOSINOPHILS 0.3 <0.5 thou/cu mm 12/27/2024 11:43 AM CDT [facility] ABSOLUTE BASOPHILS 0.1 <0.3 thou/cu mm 12/27/2024 11:43 AM CDT [facility] Blood BLOOD SPECIMEN / Unknown [facility] / Unknown 12/27/2024 9:37 AM CDT 12/27/2024 9:37 AM CDT us Chula Farley DO HEMATOLOGY Final Result [facility] [address] [place] [address] * PATH TISSUE EXAM (12/23/2024 12:34 PM CDT) Case Report Pathology Report Case: [id number] Authorizing Provider: Wai Lowe MD Collected: 12/23/2024 1234 Ordering Location: [facility] Received: 12/24/[address] [place] [address] Pathologist: Valeria Gillis MD Specimens: A) - Right Breast Reduction B) - Left Breast Reduction 12/27/2024 2:15 PM CDT [facility] Final Diagnosis A) RIGHT BREAST, REDUCTION MAMMOPLASTY: 1. Benign breast tissue with proliferative fibrocystic change 2. Skin with no diagnostic abnormalities 3. Negative for atypia and malignancy B) LEFT BREAST, REDUCTION MAMMOPLASTY: 1. Benign breast tissue with no diagnostic abnormalities 2. Skin with no diagnostic abnormalities 3. Negative for atypia and malignancy 12/27/2024 2:15 PM CDT [facility] at 1414 CDT Clinical Information 59 y.o. female with history notable for DVT/PE on Xarelto who has a longstanding history of 10+ years of symptomatic macromastia. 12/27/2024 2:15 PM CDT [facility] Gross Description A) Received [...] a 0.6 cm rainey-pink potential lymph node. Tire Mold Tester sections to include the lymph node are [...] fibrous tissue. No discrete lesions are noted. Tire Mold Tester sections are submitted in 5 cassettes. Time removed from patient: 1233 Time placed in formalin: Not provided Date removed and placed in formalin: 12/23/2024 The specimen was fixed in formalin for a minimum of 6 hours and not longer than 72 hours. JKG 12/24/2024 12/27/2024 2:15 PM CDT [facility] Microscopic Description The final diagnosis is based on microscopic examination of appropriate sections of all specimens. 12/27/2024 2:15 PM CDT [facility] Additional Information Interpreted at [facility] - [address], [place] [address] 12/27/2024 2:15 PM CDT [facility] Tissue (Right Breast Reduction) 12/23/2024 12:34 PM CDT 12/24/2024 10:28 AM CDT Tissue specimen (specimen) (Left Breast Reduction) 12/23/2024 12:34 PM CDT 12/24/2024 10:28 AM CDT Wai Lowe MD PATHOLOGY/CYTOLOGY Valerie l Result Performing Organization Address City/[facility]/ZIP Co de Phone Number [facility]-CEN[facility]AL LABORATORY [address] [place] [address], [place] * HCHG TUBE PR1, HCHG INSTRUMENT DISP PR10, HCHG STYLET PR1 (12/23/2024 11:04 AM CDT) Narrative Tammi Field REDUCER - 12/23/2024 11:04 AM CDT Tammi Field REDUCER 12/23/2024 11:05 AM Procedure: ETT Patient location [...] - 100 mg/dL 12/23/2024 8:38 AM CDT [facility] Blood BLOOD SPECIMEN / Unknown 12/23/2024 8:33 AM CDT 12/23/2024 8:38 AM CDT Wai Lowe MD CHEMISTRY Final R esult Performing Organization Address City/[facility]/ZIP Co de Phone Number [facility] [address] [place] [address] * SCAN-CARDIAC STRIP (12/23/2024 12:00 AM CDT) [...] AC-1: Homogeneous International Consensus on NANETTE Patterns (https://doi.org/10.1515/usnm-4307-3877) NANETTE TITER 1:40(H) titer [facility] [...] AC-23: Cytoplasmic International Consensus on NANETTE Patterns (https://doi.org/10.1515/xoop-6158-3896) 12/06/2024 9:35 AM CDT 12/06/2024 9:36 AM CDT us Chula Becca Aaronqra DO LABORATORY Final Result [facility] [address] [place] [address], [place] [phone] [facility] [address] [place] [address] * SEDIMENTATION RATE (12/06/2024 9:35 AM CDT) Pathologist [facility] SED RATE BY MODIFIED WESTERGREN 17 < OR = 30 mm/h [facility] Blood BLOOD SPECIMEN / Unknown 12/06/2024 9:35 AM CDT 12/06/2024 9:36 AM CDT Chula FREECULTRqra DO HEMATOLOGY Final Result [facility] [address] [place] [address], [facility] [address] [place] [address] * (ABNORMAL) ANTINUCLEAR ANTIBODY BY IFA (12/06/2024 9:35 AM CDT) Pathologist [facility] NANETTE SCREEN, IFA POSITIVE( A) NEGATIVE [facility] [place] Comment: NANETTE IFA is a first line screen for detecting the presence of up to approximately 150 autoantibodies in various autoimmune diseases. A positive NANETTE IFA result is suggestive of autoimmune disease and reflexes to titer and pattern. Further laboratory testing may be considered if clinically indicated. For additional information, please refer to http://education.Fanitics/faq/RAR384 (This link is being provided for informational/ educational purposes only.) Blood BLOOD SPECIMEN / Unknown 12/06/2024 9:35 AM CDT 12/06/2024 9:36 AM CDT Chula Becca Hubbaqra DO CHEMISTRY Final Result [facility] [address] [place] [address], [place] [phone] [facility] [address] [place] [address] * RA QUANTITATIVE (12/06/2024 9:35 AM CDT) Pathologist [facility] RHEUMATOID FACTOR <10 <14 IU/mL [facility] armin Borjas Blood BLOOD SPECIMEN / Unknown 12/06/2024 9:35 AM CDT 12/06/2024 9:36 AM CDT Chula Farley DO SEND OUTS Final Result [facility] [address] [facility] [place] [address], [facility] [address] [facility] [place] [address] * (ABNORMAL) LIPID PANEL W REFLEX MEASURED LDL (08/04/2024 3:27 PM HEALTH ADVISOR) Pathologist [facility] CHOLESTEROL, TOTAL 266(H) <200 mg/dL [facility] [...] LDL-C. Peterson SS et al. GAYE. 2013;310(19): 9963-3080 (http://education.Cardoc.EMKinetics/faq/SLH512) CHOL/HDLC RATIO 5.4(H) <5.0 (calc) [facility] [place] NON HDL CHOLESTEROL 217(H) <130 mg/dL (calc) [facility] Comment: For patients with diabetes plus 1 major ASCVD risk factor, treating to a non-HDL-C goal of <100 mg/dL (LDL-C of <70 mg/dL) is considered a therapeutic option. Blood BLOOD SPECIMEN / Unknown 08/04/2024 3:27 PM HEALTH ADVISOR 08/04/2024 3:28 PM HEALTH ADVISOR Chula Becca Martine DO CHEMISTRY Final Result [facility] [address] [place] [address], [facility] [address] [place] [address] * XR MAMMO JIMMIE BILAT SCREEN (02/18/2024 [...] care provider. XR MAMMO JIMMIE BILAT SCREEN [[id number]] CLINICAL HISTORY: This is an asymptomatic 58 [...] Yeager MD - 03/26/2023 3:50 PM CDT [facility] Patient Name: Sanam Simpson Procedure Date: 03/26/2023 Gender: Female Date of : 1965 Admit Type: Inpatient Procedure: Colonoscopy Proceduralist: Chris Yeager MD - [facility] Indications/Pre-Op Diagnosis: Screening for malignant neoplasm in [facility] Medications: MAC Procedure Description: The patient had risks, benefits and alternatives explained to andgave informed consent. The patient had a stable cardiopulmonary status and judged an adequate candidate for sedation. The endoscope [id number] was passed through the anus andadvanced to [...] Reactive Non Reactive 01/04/2023 7:12 AM CDT [facility] Blood BLOOD SPECIMEN / Unknown Venipuncture / Unknown 01/01/2023 2:47 PM CDT 01/01/2023 2:49 PM CDT Narrative [facility] ([facility]) - 01/04/2023 7:12 AM CDT Performed at: [address] [place] [address] [place] [id number] Doughnut Machine Operator: Josef Humphrey MD, Phone: [phone] Chula Farley DO LABORATORY Final Result [facility] ([facility]) [address] [place] [address], * LC HIV-1/O/2, 4TH GENERATION (01/01/2023 2:47 PM CDT) Pathologist [facility] HIV Scr 4th Gen Non Reactive Non Reactive 01/03/2023 1:09 PM CDT [facility] Comment: HIV Negative HIV-1/HIV-2 antibodies and HIV-1 p24 antigen were NOT detected. There is no laboratory evidence of HIV infection. Blood BLOOD SPECIMEN / Unknown Venipuncture / Unknown 01/01/2023 2:47 PM CDT 01/01/2023 2:49 PM CDT [facility]ative [facility] - 01/03/2023 1:09 PM CDT Performed at: [address] [id number] Doughnut Machine Operator: Josef Humphrey MD, Phone: [phone] us Chula Farley DO LABORATORY Final Result [facility] ([facility]) [address] [place] [address], [place] from Last 3 Months or Most Recently Relevant to Health Maintenance Insurance COSMETIC PROCEDURE HB ONLY . [place] [address] [facility] Advance Directives * Full Code (Latest Code Status on File) Date Activated Date Inactivated Comments 12/27/2024 11:27 PM 12/31/2024 8:58 PM Question Answer Comments Code Status Discussion: [...] Code Status Discussion: Reviewed Preferences Care Teams Assistant Media Buyer Relationship Specialty Start Date End Date Chula Farley DO [address] [place] [address] PCP - General Family Practice 12/19/22 [place] [address] [facility] [place] [address] Consulting Physician Cardiovascular Disease 09/30/23 Scotty Ward MD [address] [place] [address] Consulting Physician Surgery - General 07/30/24 Nancy Obrien RN [address] [address] Cleaning Crew Member Registered Nurse 07/30/[address] [place] [address] Cook Larder 08/02/24
--- OUTSIDE RECORDS SUMMARY | 2024-12-31 23:32 | XMS_ITS ---
Author Organization [facility] Address [address] [place] [address] Care Team Providers Care Fiber Analyst Name Role Phone None, No PCP Primary Care Provider Sayra Montero [phone] REASON FOR VISIT incontinence and overactive bladder, [...] Active Encounters Encounter Location Date Provider Diagnosis [facility] [address] [place] [address] 06/01/2024 Sayra Burnett Plan Of Treatment No Information Progress Notes * Jorge CHAVEZOB: [birth year] (59 yo F)Acc No.[id number]:06/01/2024 Patient: Sanam RANDALL Provider: Lis Burnett DNP :1965 A ge:59 Y S ex:Female Date:06/01/2024 Address[facility] Pcp:No PCP None Subjective: * Chief Complaints: [...] D enies. 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 ? * Medical History: M [...] of Patience Burnett CNP on 12/31/2024 at 11:32 PM CDT Sign off status: Pending * Provider: Lis Burnett DNP Date: 0 06/01/2024 Generated for Kaylin lassiter/Franklin/Jorje on: 0 12/31/2024 11:32 PM CDT History and Physical Notes * [...]
--- OUTSIDE RECORDS SUMMARY | 2024-12-31 23:32 | XMS_ITS | Encounter Summary ---
Author Organization [facility] Address [address] [place] [address]. [place] [address] Care Team Providers Care Recreation Engineer Name Role Phone Chula Farley DO Primary Care Provider [phone] Yvon Ruggiero PA-C Unavailable [phone] Reason for Visit * Reason Comments Medication Refill Encounter Details Date Type Department Care Team (Late st Contact Info) Description 10/18/2024 Refill [facility] [address] [place] [address] Thanh Porter MD [address] [place] [address] Medication Refill Social History Tobacco Use Types Packs/Day Years Used Date Smoking Tobacco: Never Assessed Adolescent Education Answer Date Record ed Getting School Help Needed Not on file 07/01 Comments No Sex and Gender Information Value Date Recorded Sex Assigned at Female 09/17/2024 2:37 PM HAND TAPPER Legal Sex Female 4:38 AM HAND TAPPER Gender Identity Female 09/17/2024 2:37 PM HAND TAPPER Sexual Orientation Straight 09/17/2024 2: 37 PM HAND TAPPER documented as of this encounter Miscellaneous Notes * Telephone Encounter - Francia Uribe RN - 10/18/2024 1:32 PM HAND TAPPER Duplicate request. Okay to refuse per pharmacy. They have active script on file. Francia Uribe RN, BSN, PCCN Nurse Clinician [facility] [address], [place] [address] Office, direct: [phone] Main office number: [phone] Pronouns: She, her, hers TAPPER documented in this encounter Plan of Treatment Upcoming Encounters Date Type Department Care Team (Late st Contact Info) Description 09/19/2025 1:30 PM HAND TAPPER Virtual Visit [facility] [address] [place] [phone] Yvon Ruggiero, MIKHAIL [address] [place] [phone] Thanh Porter MD [address] [place], [place] [id number] documented as of this encounter Visit Diagnoses Diagnosis Recurrent deep vein thrombosis (DVT) (H) documented in this encounter Care Teams Recreation Engineer Relationship Specialty Start Date End Date Chula Farley DO [address] [place] [address] PCP - General Family Practice 12/25/22 Yvon Ruggiero PA-C [address] [place] [id number] Assigned Cancer Care Provider 10/07/24 documented as of this encounter
--- OUTSIDE RECORDS SUMMARY | 2024-12-31 23:32 | XMS_ITS | Patient Health Record ---
Author Organization [facility] Address [address] [place] [address] Care Team Providers Care Cheese Tester Name Role Phone None, No PCP Primary Care Provider Sayra Montero Unavailable [phone] Reason For Referral Reason Referral for urinary incontinence 04.26.2024 Scheduled with Lex on 06/01 Diagnosis 1 Urinary incontinence , unspecified type (R32) Referred Organization [facility] Referred Provider Sayra Burnett Referred Address [address] [place], [place],[address], Referred Provider Specialty Nurse Michael condon Referral [...] W/U Status Risk Notes Problem Urinary incontinence ([id number]) Urinary incontinence, unspecified type (R32) Active confirmed Plan Of Treatment No Information Insurance Providers Payer Name Payer Address Payer Phone Subscriber Number Group Number Insured Name Patient Relationship to Insured Coverage Start Date Coverage End Date [employer] 2021 BRAEDEN (CLIENT bill) [address] [place], [place] [id number] Sanam Gomez Self - patient is the insured
--- NOTE | 2024-12-31 23:54 | ED.GENADULT ---
HPI - General Adult General Chief complaint: Extremity Pain/Injury, Upper Stated complaint: Left arm cellulitis from IV 5 hrs ago Time Seen by Provider: 12/31/24 21:47 History of Present Illness HPI narrative: This is a very pleasant 59-year-old female with a complex past history including hypercoagulability (unknown specific genetic diagnosis) with multiple previous DVTs and PEs. She had been on long-term anticoagulation with Xarelto. She underwent bilateral breast reduction surgery done by a surgeon at [facility] in [place] about 10 days ago. She had to go off her Xarelto for a couple of days preoperatively. Or operation was complicated by development of a right breast hematoma which required rehospitalization (from Friday until today at [place]). While in the hospital she had an IV in her left antecubital fossa. She received 1 unit of packed red cells and had a 2nd operation to drain the hematoma from her right breast. She had been off anticoagulation during the 1st 2-3 days of her hospitalization but was restarted on Lovenox 2 days ago and Xarelto yesterday. She has not had any signs of recurrent bleeding and was discharged from [facility] today. She has noticed that she has had some diffuse swelling in her left upper extremity and also developed a in itchy/slightly painful red rash in her left antecubital fossa this afternoon. She is concerned she is developing cellulitis and came here to the ER in [place]. She does not have a fever. No other red harding on her skin. No trouble breathing. No chest pain. No swelling in her legs. Related Data Home Medications ?Medication ?Instructions ?Recorded ?Confirmed gabapentin 300 mg capsule 300 mg PO TID 12/10/22 12/26/24 sertraline 50 mg tablet (Zoloft) 50 mg PO DAILY 12/10/22 12/26/24 albuterol 90 mcg/actuation aerosol mcg inhalation DAILY PRN 03/24/23 inhaler budesonide-formoterol HFA 160 1 inh inhalation BID 03/24/23 03/23/24 mcg-4.5 mcg/actuation aerosol inhaler (Symbicort) levocetirizine 5 mg tablet (24HR 5 mg PO DAILY 03/24/23 12/26/24 Allergy Relief) cholecalciferol (vitamin D3) .Route 09/17/23 ezetimibe 10 mg tablet (Zetia) 10 mg PO DAILY 09/17/23 12/26/24 magnesium glycinate 100 mg (as 100 mg PO DAILY 09/17/23 12/26/24 glycinate) tablet (Mag Glycinate) montelukast 10 mg tablet 10 mg PO DAILY 09/17/23 12/26/24 (Singulair) omeprazole 40 mg capsule,delayed 40 mg PO DAILY 09/17/23 12/26/24 release azelastine 137 mcg (0.1 %) nasal intranasal 10/08/23 spray buspirone 30 mg tablet 30 mg PO BID 10/08/23 03/23/24 fluticasone propionate 50 spray intranasal 10/08/23 mcg/actuation nasal spray,suspension rivaroxaban 20 mg tablet (Xarelto) 20 mg PO DAILY 03/19/24 12/26/24 aripiprazole 10 mg tablet (Abilify) 10 mg PO DAILY 03/22/24 12/26/24 aspirin 81 mg capsule 81 mg PO DAILY 03/22/24 03/23/24 celecoxib 200 mg capsule (Celebrex) 200 mg PO DAILY 03/22/24 03/23/24 hydroxyzine HCl 25 mg tablet 25 mg PO HS 03/22/24 03/23/24 melatonin 5 mg capsule 5 mg PO HS 03/22/24 03/22/24 phentermine 15 mg capsule 15 mg PO DAILY 03/22/24 03/22/24 Xarelto 12/26/24 albuterol sulfate 90 mcg/actuation inhalation 12/26/24 aerosol inhaler (Ventolin HFA) ondansetron 4 mg disintegrating 4 mg PO Q8H PRN 12/26/24 12/26/24 tablet oxycodone 5 mg tablet 5 mg PO QID PRN 12/26/24 12/26/24 Previous Rx's ?Medication ?Instructions ?Recorded levothyroxine 200 mcg tablet 200 mcg PO DAILY #30 tabs 12/10/22 (Synthroid) hydrocodone 5 mg-acetaminophen 325 1 tab PO Q6H PRN pain #15 tabs 03/23/24 mg tablet sennosides 8.6 mg capsule (senna) 8.6 mg PO DAILY PRN constipation 03/23/24 #90 caps cephalexin 500 mg capsule 500 mg PO QID #28 caps 12/31/24 sulfamethoxazole 800 1 tab PO BID #14 tabs 12/31/24 mg-trimethoprim 160 mg tablet (Bactrim DS) Allergies Allergy/AdvReac Type Severity Reaction Status Date / Time cat dander Allergy Unknown Verified 10/08/23 12:51 dog dander Allergy Unknown Verified 10/08/23 12:51 latex Allergy Unknown Itching Verified 03/23/24 07:16 Penicillins AdvReac Intermediate Abdominal Verified 03/23/24 07:16 Pain environmental Allergy Mild Uncoded 03/24/23 11:30 PFSH PFS Medical History MARCELA (obstructive sleep apnea) ?G47.33 - Obstructive sleep apnea (adult) (pediatric) (ICD-10) Controlled substance agreement signed ?Z79.899 - Other long winder tender (current) drug therapy (ICD-10) PTSD (post-traumatic stress disorder) ?F43.10 - Post-traumatic stress disorder, unspecified (ICD-10) Generalized anxiety disorder with panic attacks ?F41.1 - Generalized anxiety disorder (ICD-10) ?F41.0 - Panic disorder [episodic paroxysmal anxiety] (ICD-10) Recurrent acute deep vein thrombosis (DVT) of both lower extremities ?I82.403 - Acute embolism and thrombosis of unspecified deep veins of lower extremity, bilateral (ICD-10) TIA (transient ischemic attack) ?G45.9 - Transient cerebral ischemic attack, unspecified (ICD-10) Chronic neuropathic pain ?M79.2 - Neuralgia and neuritis, unspecified (ICD-10) ?G89.29 - Other chronic pain (ICD-10) Bipolar 2 disorder ?F31.81 - Bipolar II disorder (ICD-10) GERD (gastroesophageal reflux disease) ?K21.9 - Gastro-esophageal reflux disease without esophagitis (ICD-10) Incidental lung nodule ?R91.1 - Solitary pulmonary nodule (ICD-10) Recurrent pulmonary embolism ?I26.99 - Other pulmonary embolism without acute cor pulmonale (ICD-10) Mild intermittent asthma in adult without complication ?J45.20 - Mild intermittent asthma, uncomplicated (ICD-10) Surgical History Status post CAMPBELL-BSO ?Z90.710 - Acquired absence of both cervix and uterus (ICD-10) ?Z90.722 - Acquired absence of ovaries, bilateral (ICD-10) ?Z90.79 - Acquired absence of other genital organ(s) (ICD-10) Social History Problems where you live: no known problems Highest level of school completed/degree received: Master's degree Smoking Status: Former smoker What tobacco products do you use: cigarettes Smoking quit date/years: >15 years ago Do you use any of these nicotine containing products: None Second hand tobacco smoke exposure: No How often do you have a drink containing alcohol: never How often do you have six or more drinks on one occasion: Never AUDIT-C Alcohol total score: 0 Non-prescribed substance use: denies use Caffeine: Yes (soda) service: No Exam Narrative: Exam Narrative: Constitutional: Appears well-developed and well-nourished. Alert. Conversant. Non toxic. HENT: Head: Atraumatic. Nose: Nose normal. Mouth/Throat: Oral mucosa is clear and moist. no trismus. Eyes: Conjunctivae normal. EOM normal. Pupils equal, round, and reactive to light. No scleral icterus. Neck: Normal range of motion. Neck supple. No tracheal deviation present. Cardiovascular: Normal rate, regular rhythm. No gallop. No friction rub. No murmur heard. Symmetric radial artery pulses . Normal cap refill in both hands. Pulmonary/Chest: Effort normal. No stridor. No respiratory distress. No wheezes. No rales. No rhonchi . Abdominal: Soft.No distension. No mass. No tenderness. No rebound. No guarding. Musculoskeletal: RUE: Normal range of motion. No tenderness. No deformity LUE: Normal range of motion. No tenderness. No deformity RLE: Normal range of motion. No edema. No tenderness. No deformity LLE: Normal range of motion. No edema. No tenderness. No deformity Lymph: No ascending lymphangitis on her arm Neurological: Alert and oriented to person, place, and time. Normal strength. CN II-VII intact. No sensory deficit. GCS eye subscore is 4. GCS verbal subscore is 5. GCS motor subscore is 6. Normal coordination Skin: I did not remove her shirt or dressings from her breast surgery. There are areas of ecchymosis on her right chest wall and on her right torso. On the skin of her left antecubital fossa other is a oval-shaped area of erythema that is roughly 8 x 10 cm in size. In the center this is a couple small areas that appear to be tiny vesicles. No other red harding on her left arm. No dermatomal vesicles to suggest shingles. Differential for this redness would be a cellulitis likely triggered by her IV start. Differential would also be a contact dermatitis to the IV dressing. She says the rash was not really not there earlier today. There is no signs of ascending lymphangitis. Otherwise the Skin is warm and dry. No pallor. Normal capillary refill. Psychiatric: Normal mood. Normal affect. Const: Vital Signs, click to edit/add: Vital Signs - 24 hr 12/31/24 20:44 12/31/24 22:45 12/31/24 23:31 Temperature 97.8 F 97.8 F Pulse Rate [Right Radial] 82 74 74 Respiratory Rate 20 16 16 Blood Pressure [Ri ght Forearm] 146/82 H 133/69 133/69 Pulse Oximetry 95 98 Oxygen Delivery Me thod Room Air Room Air Course Vital Signs Vital signs: Initial Vital Signs Temperature 97.8 F 12/31/24 20:44 Temperature Source Temporal Artery Scan 12/31/24 20:44 Pulse Rate 82 12/31/24 20:44 Pulse Rhythm Regular 12/31/24 20:44 Respiratory Rate 20 12/31/24 20:44 Blood Pressure 146/82 H 12/31/24 20:44 Blood Pressure Mean 103 12/31/24 20:44 Pulse Oximetry 95 12/31/24 20:44 Oxygen Delivery Method Room Air 12/31/24 20:44 Vital Signs Temperature 97.8 F 12/31/24 20:44 Pulse Rate 82 12/31/24 20:44 Respiratory Rate 20 12/31/24 20:44 Blood Pressure 146/82 H 12/31/24 20:44 Pulse Oximetry 95 12/31/24 20:44 Oxygen Delivery Method Room Air 12/31/24 20:44 Temperature 97.8 F 12/31/24 23:31 Pulse Rate 74 12/31/24 23:31 Respiratory Rate 16 12/31/24 23:31 Blood Pressure 133/69 12/31/24 23:31 Pulse Oximetry 98 12/31/24 22:45 Oxygen Delivery Method Room Air 12/31/24 22:45 Medications Administered Medications: Discontinued Medications Generic Name Dose Route Start Last Admin Trade Name Antoinette PRN Reason Stop Dose Admin Cephalexin HCl 500 mg 12/31/24 21:47 12/31/24 21:58 Cephalexin 500 Mg Capsule PO 12/31/24 21:48 500 mg ONCE ONE Administration Trimethoprim/Sulfamethoxazole 1 tab 12/31/24 21:47 12/31/24 21:58 Sulfa/Trimethoprim 800/160 1 Tab PO 12/31/24 21:48 1 tab ONCE ONE Administration Medical Decision Making MDM Narrative Medical decision making narrative: This a very pleasant but medically complex woman who presents for evaluation of skin redness on her left antecubital fossa. She had a recent 5 day hospitalization for postoperative breast hematoma and had an IV in that arm during her hospitalization. She also has a history of hypercoagulability with multiple previous lower extremity DVTs and pulmonary emboli. Because of her hematoma she did have to be off anticoagulation for several days of her hospitalization and no has some mild diffuse swelling this of her left arm with a red rash in the left antecubital fossa. The history, physical exam is consistent with cellulitis. I was also concerned about potential for left upper extremity DVT or superficial thrombophlebitis (although there was not a clear linear track of redness along the vein). [facility] is fortunately negative for D[facility]. She was restarted on anticoagulation 2 days ago and will be continuing on her Xarelto going forward. Differential would also include potential contact dermatitis from her IV your in stressing. However, I think it is impossible to exclude a potential cellulitis so will start on antibiotics (Bactrim and cephalexin given here in the ER). There do not appear at this time to be any complication of cellulitis including abscess, necrotizing fascitis, lymphangitis, lymphadenitis, osteomyelitis, sepsis, or shock. The patient is not immunosuppressed or diabetic. For her part, the patient is politely but firmly refusing any IV, labs, or other needles here in the ER. She really just wants to treat her (presumed) cellulitis with oral antibiotics at home. Supportive outpatient management is indicated with antibiotics. The patient is instructed to follow-up with primary care physician to ensure no progression and rapid resolution and given precautions to return if high fever, spread greater than 2cm outside of the marked area, worsening pain, vomiting or any other worsening. Questions answered and return precautions reviewed. Imaging Data U.S. left upper extremity: Attestation: I have reviewed the pertinent imaging results. Radiologist's impression: IMPRESSION: 1. No sonographic evidence of acute deep venous thrombosis seen. Discharge Plan Discharge Clinical Impression: Cellulitis of arm, left Patient Disposition: Home, Self-Care Condition: Stable Instructions: Cellulitis (ED) Additional Instructions: As we discussed, tonight your ultrasound looks good. We do not see any sign of a blood clot in your left arm. However, if you have worsening swelling in your arm, please see your doctor or come back to the ER for repeat ultrasound Monitor the area of redness on your left elbow pit (also called your antecubital fossa). If you have redness spreading more than 2 or 3 cm beyond the marked area or if you develop other symptoms such as high fever, chills, or weakness, please come back to the ER or see your doctor right away. Prescriptions: New cephalexin 500 mg capsule 500 mg PO QID Qty: 28 0RF sulfamethoxazole-trimethoprim [Bactrim DS] 800-160 mg tablet 1 tab PO BID Qty: 14 0RF No Action montelukast [Singulair] 10 mg tablet 10 mg PO DAILY cholecalciferol (vitamin D3) .Route omeprazole 40 mg capsule,delayed release(DR/EC) 40 mg PO DAILY Mag Glycinate 100 mg tablet 100 mg PO DAILY ezetimibe [Zetia] 10 mg tablet 10 mg PO DAILY Xarelto 20 mg tablet 20 mg PO DAILY Rx Instructions: must administer with evening meal aripiprazole [Abilify] 10 mg tablet 10 mg PO DAILY aspirin 81 mg capsule 81 mg PO DAILY celecoxib [Celebrex] 200 mg capsule 200 mg PO DAILY hydroxyzine HCl 25 mg tablet 25 mg PO HS melatonin 5 mg capsule 5 mg PO HS phentermine 15 mg capsule 15 mg PO DAILY Rx Instructions: must administer 2 hours after breakfast hydrocodone-acetaminophen 5-325 mg tablet 1 tab PO Q6H PRN (Reason: pain) Qty: 15 0RF senna 8.6 mg capsule 8.6 mg PO DAILY PRN (Reason: constipation) Qty: 90 0RF albuterol sulfate [Ventolin HFA] 90 mcg/actuation HFA aerosol inhaler inhalation ondansetron 4 mg tablet,disintegrating 4 mg PO Q8H PRN oxycodone 5 mg tablet 5 mg PO QID PRN Xarelto gabapentin 300 mg capsule 300 mg PO TID sertraline [Zoloft] 50 mg tablet 50 mg PO DAILY levothyroxine [Synthroid] 200 mcg tablet 200 mcg PO DAILY Qty: 30 2RF levocetirizine [24HR Allergy Relief] 5 mg tablet 5 mg PO DAILY albuterol 90 mcg/actuation aerosol inhalation DAILY PRN Patient Comments: asthma budesonide-formoterol [Symbicort] 160-4.5 mcg/actuation HFA aerosol inhaler 1 inh inhalation BID buspirone 30 mg tablet 30 mg PO BID azelastine 137 mcg (0.1 %) aerosol,spray INTRANASAL Patient Comments: [NO ORIGINAL SIG] fluticasone propionate 50 mcg/actuation spray,suspension INTRANASAL Follow Up/Referrals: Chula Farley DO [Primary Care Provider] - Stand Alone Forms: [facility] Info Instructions
== END 2024-12-31 23:31 | disposition home or self-care (01) ==
LOC: ED 23:30
PROVIDERS: Emergency Provider Emergency Medicine; PCP Family Medicine
DX: L03.114 Cellulitis of left upper limb (principal); Z79.01 Long term (current) use of anticoagulants
CPT/HCPCS: 93971; 99283; 99284; A9270

== ENCOUNTER 2025-04-13 08:54 | Outpatient (CLI) | payer MEDICAID, SELFPAY ==
--- NOTE | 2025-04-13 10:15 | CRLHL7_ITS ---
For Patients: As a result of the 21st Century Cures Act, medical imaging exams and procedure reports are released immediately into your electronic medical record. You may view this report before your referring provider. If you have questions, please contact your health care provider. EXAM: MRI OF THE RIGHT SHOULDER, WITHOUT CONTRAST CLINICAL INDICATION: Shoulder pain. PRIOR SURGERY: None reported. COMPARISON PLAIN FILMS: None available at time of interpretation. COMPARISON CROSS-SECTIONAL IMAGING STUDIES: None available at time of interpretation. TECHNICAL: Axial, sagittal oblique and coronal oblique T1, PD, PD FS and T2-weighted images. Some limitation due to large [id number] necessitated by body habitus. FINDINGS: GLENOHUMERAL JOINT: Effusion/Cyst: Small effusion. No definitive synovitis. No paralabral or periarticular cyst or ganglion. Humeral Head Articular Cartilage: No osteochondral lesion or abnormality. Glenoid Articular Cartilage: No osteochondral lesion or abnormality. Loose Bodies: No appreciable loose bodies. Capsule: There may be some mild edema and indistinct thickening at the anterior axillary recess. No synovitis of significance appreciated in the rotator interval. Posterior axillary recess looks normal. OSSEOUS STRUCTURES: No fracture, marrow edema or marrow replacement process. CORACOACROMIAL ARCH: Acromial Morphology: Type 2 acromial morphology. Mild anterolateral downsloping. No os acromiale. No significant subacromial spur. Lateral acromial thickness is 6 mm. Acromiohumeral Interval: The acromiohumeral interval is adequately patent. At its narrowest, the interval measures 6 mm. No abnormal thickening of the coracoacromial ligament. Coracohumeral Interval: The coracohumeral interval is normal. At its narrowest, the coracohumeral interval measures 6 mm. Coracoid index is 15 mm. ACROMIOCLAVICULAR JOINT REGION: AC Joint: Mild capsular hypertrophy and edema. Shallow subchondral edema and a few cysts in the distal clavicle. No inferior osteophyte or joint space widening. Ligaments: The coracoclavicular ligaments are intact. BURSAE: Subacromial-Subdeltoid: Trace fluid under the acromion. Subcoracoid: No abnormal bursal edema, thickening or bursal fluid. ROTATOR CUFF TENDONS AND MUSCLES AND DELTOID: Supraspinatus: Patchy tendinosis without tearing distal tendon sparing the foot plate. No atrophy or edema in the muscle. Infraspinatus: Minor intermediate signal tendinosis sparing the foot plate. No tear of significance. No atrophy or edema in the muscle. Teres Minor: No tendinosis, tendon tearing, muscle atrophy or muscle edema. Subscapularis: Moderate marginal patchy and strandy intermediate signal tendinosis without discrete significant tear. No atrophy or edema in the muscle. Deltoid: No muscle atrophy or edema. BICEPS TENDON, LONG HEAD: The long head of the biceps tendon is appropriately positioned within the bicipital groove without tendon subluxation or dislocation. The biceps crystal mechanism is intact. The biceps anchor appears grossly intact. There is no significant tendinosis or tendon tearing. GLENOID LABRUM: Within the limitations of non-arthrographic technique, the superior labrum and biceps-labral complex are intact. The anteroinferior labrum is intact without Bankart or Bankart-variant labral tear. The remainder of the labrum is similarly intact. OTHER FINDINGS: There is no abnormality within the suprascapular or spinoglenoid notches nor within the quadrilateral space. No axillary adenopathy or mass. IMPRESSION: 1. Mild tendinosis without tearing subscapularis greater than supraspinatus and infraspinatus. 2. Mild AC DJD. Scant subacromial/subdeltoid bursitis. 3. Small nonspecific glenohumeral effusion. Somewhat edematous anterior axillary recess. Correlate for injury or clinical findings of capsulitis. Dictated by Rosalio Short MD @ 04/14/2025 1:23:43 PM (Electronically Signed)
== END 2025-04-13 08:55 | disposition home or self-care (01) ==
PROVIDERS: PCP Family Medicine; Visit Provider Family Medicine
DX: M25.511 Pain in right shoulder (principal); M19.011 Primary osteoarthritis, right shoulder; M25.411 Effusion, right shoulder
CPT/HCPCS: 73221